=== PATIENT | female | born 1960 | race Caucasian/White ===

== ENCOUNTER 2020-04-23 08:30 | Outpatient (CLI) | payer BC, SELFPAY ==
--- NOTE | 2020-04-23 09:46 | ECG_ITS ---
Measurements Intervals [place] Rate: 78 P: 79 HI: 163 QRS: 66 QRSD: 86 T: 61 QT: 389 QTc: 445 Interpretive Statements SINUS RHYTHM MINIMAL Q WAVES- INFERIOR LEADS NONSPECIFIC T-WAVE ABNORMALITY- HIGH LATERAL LEADS BASELINE ARTIFACT- V3-V6 BORDERLINE ECG Electronically Signed On 04-23-2020 10:42:17 CDT by Alex Addison D.O.
[2020-04-23 10:24] LABS: Basophils Absolute Auto 0.1 K/mm3 (0.0-0.1); Basophils Percent Auto 0.7 % (0.2-1.2); Eosinophils Absolute Auto 0.3 K/mm3 (0-0.3); Eosinophils Percent Auto 3.1 % (0-4.4); Hemoglobin 14.3 g/dL (12.0-15.0); Immature Granulocyte Absolute 0.01 K/mm3 (0.00-0.031); Immature Granulocyte Percent A 0.1 % (0-0.5); Lymphocytes Absolute Auto 2.41 K/mm3 (0.9-3.2); Lymphocytes Percent Auto 27.7 % (18.3-44.2); Mean Corpuscular HGB Conc 32.5 g/dl (32-36); Mean Corpuscular Volume 95.4 fl (80-100); Mean Platelet Volume 10.8 fl (7.4-10.4); Monocytes Absolute Auto 0.5 K/mm3 (0.1-0.6); Monocytes Percent Auto 6.2 % (2.6-8.5); Neutrophils Absolute Auto 5.4 K/mm3 (1.3-6.7); Neutrophils Percent Auto 62.2 % (45.5-73.1); Platelet Count Result 284 k/mm3 (150-375); Red Blood Count 4.61 M/mm3 (4.2-5.4); Red Cell Distribution Width 14.3 % (11.5-14.5); White Blood Count 8.7 K/mm3 (4.5-10.0)
[2020-04-23 10:29] LABS: Add Urine Microscopic? YES; Appearance Urine Clear (Clear); Bacteria Urine Trace /hpf; Bilirubin Urine Negative (Negative); Blood Urine Negative (Negative); Color Urine Yellow (Yellow); Glucose Urine UA Negative (Negative); Hyaline Casts Urine 50+ /lpf; Ketones Urine Negative (Negative); Leukocyte Esterase Ur Negative LEU/UL (Negative); Mucus Urine Rare /lpf; Nitrate Urine Negative (Negative); Protein Urine 1+ mg/dL (Negative); Squamous Epithelial Cell Urine Occasional /hpf (Few)
[2020-04-23 10:30] LABS: Specific Grav Ur 1.034 (1.001-1.035)
[2020-04-23 10:33] LABS: INR 0.9; Prothrombin Time 12.3 Seconds (11.1-14.7)
[2020-04-23 10:34] LABS: Partial Thromboplastin Time 24.9 SECONDS (22.3-36.8)
[2020-04-23 10:37] LABS: Albumin Level 4.5 g/dL (3.5-5.1); Blood Urea Nitrogen 17 mg/dL (7-17); Calcium 10.3 mg/dL (8.4-10.2); Carbon Dioxide 30 mmol/L (22-30); Chloride 103 mmol/L (98-107); Estimated Glomerular Filt Rate > 60; Glucose 116 mg/dL (65-105); Potassium 4.8 mmol/L (3.4-5.0); Sodium 139 mmol/L (137-145)
[2020-04-23 10:39] LABS: Urine Cotinine NEGATIVE
[2020-04-23 10:40] LABS: Hemoglobin A1C 6.5 % (<5.7)
== END 2020-04-23 08:31 | disposition home or self-care (01) ==
LOC: ANHSURGERY 08:37
PROVIDERS: PCP Family Medicine; Visit Provider Orthopaedic Surgery
DX: Z01.818 Encounter for other preprocedural examination (principal); M16.12 Unilateral primary osteoarthritis, left hip
CPT/HCPCS: 36415; 80048; 80307; 81001; 82040; 83036; 85025; 85610; 85730; 86850; 86900; 86901; 87081; 93005

== ENCOUNTER 2020-05-01 01:10 | Outpatient (CLI) | payer BC, SELFPAY ==
[2020-05-01 16:42] LABS: SARS-CoV-2 RNA PCR Negative
== END 2020-05-01 01:11 | disposition home or self-care (01) ==
LOC: ANHCOVIDDT 01:10
PROVIDERS: Visit Provider Orthopaedic Surgery
DX: Z01.812 Encounter for preprocedural laboratory examination (principal); Z20.828 Contact with and (suspected) exposure to other viral communicable diseases
CPT/HCPCS: 87635; C9803; U0003

== ENCOUNTER 2020-05-05 15:33 | Observation (INO) | payer BC, SELFPAY ==
[2020-04-23 09:27] VITALS: BMI 25.0
[2020-04-23 09:44] VITALS: BP 118/79; PULSE 80; RESP 18; TEMP 36.4; O2SAT 100
[2020-05-04] VITALS (13 sets, daily range): BP systolic 122–216; BP diastolic 47–126; PULSE 62–94; RESP 12–20; TEMP 36–36.9; O2SAT 93–100; BMI 27.6
[2020-05-04 06:45] LABS: Urine Cotinine NEGATIVE
[2020-05-04] MEDS: LACTATED RINGERS 1,000 ML 30 ML IV CONT ×2 (06:45→10:14)
--- NOTE | 2020-05-04 06:58 | WPDANESEPPF ---
Anes - Initial Pre Proc Eval Procedure: Operation Date: 05/04/20 07:30 Proposed Procedures p Left Total Hip Arthroplasty - Lalo Ambriz MD Date/Time: 05/04/20 06:58 Surgeon: Lalo Ambriz MD Pre Op Diagnosis: Left Hip DJD Patient Data Age: 60 Gender: F Height: 1.57 m Weight: 62 kg Last Vital Signs Temp 36.4 C L 04/23/20 09:44 Pulse 80 04/23/20 09:44 Resp 18 04/23/20 09:44 BP 118/79 04/23/20 09:44 Pulse Ox 100 04/23/20 09:44 Allergies Allergy/AdvReac Type Severity Reaction Status Date / Time mold Allergy Unknown Nasal Verified 05/04/20 06:59 Discharge nickel Allergy Unknown Swelling/BL Verified 05/04/20 06:59 ISTERS/ITCH ING ragweed pollen Allergy Unknown Nasal Verified 05/04/20 06:59 Discharge Sulfa (Sulfonamide Allergy Unknown Hives Verified 05/04/20 06:59 Antibiotics) Home Medications Medication Instructions Recorded Confirmed Type albuterol sulfate 90 mcg/actuation 1 inhalation INHALATION Q4H PRN #3 12/08/19 04/23/20 Rx aerosol inhaler device acetaminophen [Tylenol 8 Hour] 650 mg PO Q8H 04/23/20 04/23/20 History aspirin 325 mg PO HS 04/23/20 04/23/20 History clopidogrel 75 mg PO HS 04/23/20 04/23/20 History metoprolol succinate 25 mg PO HS 04/23/20 04/23/20 History montelukast 10 mg PO HS 04/23/20 04/23/20 History multivitamin,pt-[id number] 1 tablet PO HS 04/23/20 04/23/20 History [Complete Multivitamin] simvastatin 40 mg PO HS 04/23/20 04/23/20 History varenicline [Chantix Starting 1 ea PO BID 04/23/20 04/23/20 History Month Box] venlafaxine 150 mg PO HS 04/23/20 04/23/20 History Laboratory Tests 05/04/20 06:22 Cotinine Negative Patient hx anesthesia problems: none Family hx anesthesia problems: none PMFSH Past Medical History Medical History (Updated 05/04/20 @ 06:58 by Wade Shearer DO) Anxiety Arthritis Depression Essential hypertension High cholesterol History of [place] (myocardial infarction) 2006 - no intervention required - regular stress tests as part of her job - all negative since Mixed hyperlipidemia Osteoporosis Vision abnormalities Surgical History Surgical History (Updated 05/03/20 @ 09:46 by Wade Shearer DO) History of ankle surgery Left, Dr. Rae History of breast surgery augmentation History of cholecystectomy History of surgery Right thumb, Dr. Rae History of surgery Foot, Dr. Chavo [place] Social History Social History Smoking packs per day: 1 Smoking cigarettes per day: 20.0 Years smoked: 40 Smoking pack-years: 40.00 Smoking status: Current every day smoker (1ppd since 17 years old. ) Tobacco type: cigarettes Second hand tobacco smoke exposure: Yes Alcohol intake: never Anes - Eval Final PreProcedure Day of Procedure 05/04/20 06:58 Patient weight: normal Heart: regular rate and rhythm Lungs: clear to auscultation and normal air movement Airway: Mallampati scale class III Neurological: alert and oriented Last oral intake: >/= 8 hours ASA classification: III Emergent: no Anesthetic plan: proceed Anesthesia type and monitoring: general ETT and standard monitoring Informed Consent: The patient's anesthetic plan and its attendant risks and benefits were discussed with the patient/family/POA. Questions were solicited and answers provided to the satisfaction of the patient/family/POA.
[2020-05-04] MEDS: IBUPROFEN IV 800 MG/200 ML 800 MG/200 ML BAG 400 MG IVPB (07:05)
--- NOTE | 2020-05-04 07:32 | WPDHPUPDATE1 ---
History and Physical Update Update Date/Time: 05/04/20 07:32 History and Physical has been reviewed, including an updated exam of the patient. There are NO changes in the patient's condition. Risks, benefits, and alternatives have been discussed and questions answered. Patient agrees to proceed with procedure.
[2020-05-04] MEDS: ceFAZolin 2 GM/D5W 50 ML 2 GM/50 ML BAG IVPB ×3 (07:37→22:47)
--- NOTE | 2020-05-04 07:42 | SUR.PREOP ---
family update provided to Gely - neighbor/friend that pt has gone to surgery
[2020-05-04] MEDS: TRANEXAMIC ACID 1,000MG/ISO100 1,000 MG/100 ML BAG 200 MG IVPB (07:55)
--- NOTE | 2020-05-04 09:45 | PM.OP ---
Procedure Note - Brief Procedure Note - Brief Date of procedure: 05/04/20 Pre-op diagnosis: Left Hip DJD Post-op diagnosis: same Procedure performed: L JOANNA Anesthesia: GETA Surgeon: Lalo Ambriz MD Estimated blood loss (mL): 100 Drains: No Complications: No immediate complications Condition: stable Disposition: PACU
--- NOTE | 2020-05-04 10:28 | SUR.PHASEI ---
TABITHA ADJUNCT INSTRUCTOR CHEMISTRY AT BEDSIDE TO OBSERVE PT. DR. DIXON AT BEDSIDE ALSO. PT GIVEN LABETOLOL PER TABITHA ADJUNCT INSTRUCTOR CHEMISTRY AT 1014 FOR BP 216/126. BP NOW STABLE 144/47. RT HERE TO PLACE CPAP.
--- NOTE | 2020-05-04 10:51 | SUR.PHASEI ---
SPOKE WITH VIDEO PHOTOGRAPHER.
[2020-05-04 12:24] LABS: Hematocrit 36.5 % (37.0-47.0); Hemoglobin 11.8 g/dL (12.0-15.0)
[2020-05-04] MEDS: KCL 20 MEQ/D5/0.45% SOD CHL 1,000 ML 80 ML IV CONT (12:31)
[2020-05-04] MEDS: ACETAMINOPHEN 325 MG TABLET 650 MG PO ×2 (13:49→21:39)
--- NOTE | 2020-05-04 15:40 | OP_ITS ---
DATE OF PROCEDURE: 05/04/2020 PREOPERATIVE DIAGNOSIS: Left hip degenerative joint disease. POSTOPERATIVE DIAGNOSIS: Left hip degenerative joint disease. PROCEDURE: Left total hip arthroplasty. ANESTHESIA: General. COMPLICATIONS: None. INDICATIONS: This is a 60-year-old female with severe left hip arthrosis. She was in severe pain. She was indicated for left total hip arthroplasty. DESCRIPTION OF PROCEDURE: The patient was taken to the operating room in stable condition, placed in supine position. General anesthesia induced, and then she was placed in lateral decubitus position and the left lower extremity ws prepped and draped sterilely from the toes to the iliac crest region. Incision was made along the posterior lateral aspect of the greater trochanter down to the subcutaneous tissues and then down to the fascia. The short external rotators of the hip were identified and the sciatic nerve was identified. The gluteus medius and minimus were retracted and the piriformis tendon was then incised as well as the capsule and the short external rotators. The hip was dislocated. An osteotomy was performed approximately 1 cm proximal to the lesser trochanter. The acetabulum was exposed and sequential reaming was performed starting with a 44 reamer and ending with a 49 reamer anteversion and alignment with the trans-acetabular ligament and abduction in approximately 45 degrees. A trial liner was placed and it bottomed out well, and then a Biomet G7 50 acetabular component was press-fit into place in approximately 40 degrees of abduction and anteversion alignment with the trans-acetabular ligament. It bottomed out well. No screws were required for fracture fixation. A 10 degree high wall liner then was tapped into place and it was secured. Hemostat was used to test the security of the locking mechanism and it was fine. Next, the femoral canal was prepared first with a cookie cutter osteotome, and then a canal finder and then sequential broaching starting with a #4 broach until a number 8 broach in 15 degrees of anteversion, fit well in the femoral canal. A high offset neck with a -3, 36 mm head was placed as trials and the hip was relocated taken through range of motion. Leg lengths were grossly equal. The hip was very stable. Trial instrumentation was removed, and then a Taper Lock #8 stem with a high offset neck was tapped into place. The fit was excellent. It was in 15 degrees of anteversion and then a -3, 36 mm head then was placed as a trial. The hip was relocated taken through range of motion. The Shuck test was excellent. The hip was very stable. The leg lengths were grossly equal. The trial head was removed, and then a ceramic -3, 36 mm head was tapped onto the component. It was well secured. The hip was relocated taken through range of motion. The leg lengths were grossly equal. The hip was stable in all planes in rotation, in flexion and extension, and then the leg lengths were grossly equal. The wound was irrigated thoroughly with a sterile Betadine sterile water for 3 minutes and washed out. The short external rotators were approximated with #1 Vicryl. The fascia was approximated with #2 Quill, subcutaneous with 2-0 Vicryl and then the skin with a 3-0 Quill, Dermabond and Steri-Strips. Sterile dressing was applied. The patient was placed back in the supine position, extubated and sent to recovery. Farhana I MT: Shira
[2020-05-04] MEDS: VARENICLINE 1 MG TABLET PO (16:54)
[2020-05-04] MEDS: DOCUSATE SODIUM 100 MG CAPSULE PO (16:54)
[2020-05-04] MEDS: THERAPEUTIC MULTIVITAMINS/MINERALS TAB (*BKC) 1 TABLET PO (21:35)
[2020-05-04] MEDS: METOPROLOL SUCCINATE EXT REL 25 MG TABCR PO (21:35)
[2020-05-04] MEDS: CLOPIDOGREL BISULFATE 75 MG TABLET PO (21:35)
[2020-05-04] MEDS: MONTELUKAST SODIUM 10 MG TABLET PO (21:36)
[2020-05-04] MEDS: SIMVASTATIN 20 MG TABLET 40 MG PO (21:38)
[2020-05-04] MEDS: VENLAFAXINE HCL XR 75 MG CAP.ER.24H 150 MG PO (21:38)
[2020-05-04] MEDS: DIAZEPAM 5 MG TABLET PO (22:47)
[2020-05-04] MEDS: MORPHINE SULFATE 4 MG/ML INJ 3 MG IV PUSH (23:58)
[2020-05-05] VITALS (7 sets, daily range): BP systolic 111–129; BP diastolic 42–75; PULSE 67–85; RESP 16–20; TEMP 36.2–37.7; O2SAT 94–98
--- NOTE | ~2020-05-05 | XR_ITS ---
EXAMINATION: XR hip LT 1V DATE: 05/04/2020 10:38 INDICATION: Left hip arthroplasty. Postop. TECHNIQUE: A single view of left hip was obtained. COMPARISON: None. FINDINGS: There is a total left hip arthroplasty in near-anatomic alignment. No fracture. There is ga s in the soft tissues, consistent with recent surgery. IMPRESSION: 1. Total left hip arthroplasty in near-anatomic alignment. Reviewed, dictated and finalized at location A.
[2020-05-05] MEDS: MORPHINE SULFATE 4 MG/ML INJ 3 MG IV PUSH ×2 (03:48→08:57)
[2020-05-05] MEDS: ceFAZolin 2 GM/D5W 50 ML 2 GM/50 ML BAG IVPB (06:40)
[2020-05-05] MEDS: ACETAMINOPHEN 325 MG TABLET 650 MG PO ×3 (06:41→21:46)
[2020-05-05 07:42] LABS: Basophils Percent Auto 0.2 % (0.2-1.2); Eosinophils Percent Auto 0.2 % (0-4.4); Hematocrit 34.1 % (37.0-47.0); Hemoglobin 10.7 g/dL (12.0-15.0); Immature Granulocyte Absolute 0.07 K/mm3 (0.00-0.031); Immature Granulocyte Percent A 0.6 % (0-0.5); Lymphocytes Absolute Auto 1.95 K/mm3 (0.9-3.2); Lymphocytes Percent Auto 15.5 % (18.3-44.2); Mean Corpuscular HGB Conc 31.4 g/dl (32-36); Mean Corpuscular Hemoglobin 30.9 pg (26-34); Mean Corpuscular Volume 98.6 fl (80-100); Mean Platelet Volume 11.2 fl (7.4-10.4); Monocytes Absolute Auto 1.2 K/mm3 (0.1-0.6); Monocytes Percent Auto 9.1 % (2.6-8.5); Neutrophils Absolute Auto 9.4 K/mm3 (1.3-6.7); Neutrophils Percent Auto 74.4 % (45.5-73.1); Platelet Count Result 154 k/mm3 (150-375); Red Blood Count 3.46 M/mm3 (4.2-5.4); Red Cell Distribution Width 14.1 % (11.5-14.5); White Blood Count 12.6 K/mm3 (4.5-10.0)
[2020-05-05 08:02] LABS: Blood Urea Nitrogen 10 mg/dL (7-17); Calcium 8.9 mg/dL (8.4-10.2); Carbon Dioxide 21 mmol/L (22-30); Chloride 104 mmol/L (98-107); Estimated CRCL calculation 76 ml/min; Estimated Glomerular Filt Rate > 60; Glucose 137 mg/dL (65-105); Sodium 134 mmol/L (137-145)
[2020-05-05] MEDS: ASPIRIN 325 MG ENTERIC TABLET 650 MG PO (08:56)
[2020-05-05] MEDS: CELECOXIB 200 MG CAPSULE PO (08:56)
[2020-05-05] MEDS: DOCUSATE SODIUM 100 MG CAPSULE PO ×2 (08:56→17:17)
[2020-05-05] MEDS: VARENICLINE 1 MG TABLET PO ×2 (08:56→17:17)
--- NOTE | 2020-05-05 09:02 | P.PNAN_ITS ---
Anes - Prog Note Post-Op Date/Time: 05/05/20 09:02 Cardiovascular status: normal Respiratory status: normal Airway patency: baseline Mental status: baseline Post-Op hydration status: normal Vital Signs: Last Vital Signs Temp 36.2 C L 05/05/20 06:00 Pulse 73 05/05/20 06:00 Resp 18 05/05/20 06:00 BP 129/64 05/05/20 06:00 Pulse Ox 96 05/05/20 06:00 I/O: Intake & Output 05/04/20 05/05/20 05/05/20 23:59 07:59 15:59 Intake Total 890 1230 240 Output Total 600 1600 Balance 290 -370 240 Laboratory Tests 05/05/20 07:06 05/05/20 07:06 05/04/20 05/05/20 05/05/20 12:08 07:06 07:06 WBC 12.6 H RBC 3.46 L Hgb 11.8 L 10.7 L Hct 36.5 L 34.1 L MCV 98.6 MCH 30.9 MCHC 31.4 L RDW 14.1 Plt Count 154 MPV 11.2 H Immature Gran % (Auto) 0.6 H Neut % (Auto) 74.4 H Lymph % (Auto) 15.5 L [place] % (Auto) 9.1 H Eos % (Auto) 0.2 Baso % (Auto) 0.2 Lymph # (Auto) 1.95 [place] # (Auto) 1.2 H Eos # (Auto) 0.0 Baso # (Auto) 0.0 Abs Immat Gran (auto) 0.07 H Absolute Neuts (auto) 9.4 H Absolute Nucleated RBC 0.0 Nucleated RBC % 0.0 Sodium 134 L Potassium 4.0 Chloride 104 Carbon Dioxide 21 L BUN 10 D Creatinine 0.60 L Estim Creat Clear Calc 76 Estimated GFR > 60 Glucose 137 H Calcium 8.9 Post-procedural complaints: none Patient Feedback: Patient satisfied with anesthetic care.
--- NOTE | 2020-05-05 09:02 | PM.IMCN ---
Assessment and Plan Assessment and plan (1) Degenerative joint disease of left hip: Qualifiers: Osteoarthritis type: primary Qualified Code(s): M16.12 - Unilateral primary osteoarthritis, left hip Code(s): M16.12 - Unilateral primary osteoarthritis, left hip Status: Acute Assessment and Plan: She is POD #1 s/p left total hip arthroplasty by Dr. Ambriz. Post-op management including wound care, DVT prophylaxis, pain management, and PT/OT/weight bearing status per ortho. She tolerated the procedure well and is having some left hip discomfort today. (2) Essential hypertension: Code(s): I10 - Essential (primary) hypertension Status: Chronic Assessment and Plan: Blood pressures were reviewed and most recent BP was at target at 129/64. She did have some elevated readings yesterday in the 140s systolic. Plan to continue metoprolol and continue to monitor. (3) Mixed hyperlipidemia: Code(s): E78.2 - Mixed hyperlipidemia Status: Chronic Assessment and Plan: Will check a lipid panel. LFTs from 12/09/2018 were WNL. Continue simvastatin. (4) Anxiety: Code(s): F41.9 - Anxiety disorder, unspecified Status: Chronic Assessment and Plan: Stable. Continue venlafaxine. (5) History of [place] (myocardial infarction): Code(s): I25.2 - Old myocardial infarction Status: Acute Assessment and Plan: Stable. She gets regular stress tests for her job and her nuclear stress test 1 year ago was negative. She denies chest pain with rest or exertion. She denies dyspnea. Plan to continue ASA and clopidogrel. Continue simvastatin. Continue metoprolol. (6) Anemia: Code(s): D64.9 - Anemia, unspecified Status: Acute Assessment and Plan: Acute. Hb was 14.3 and Hct 44 on pre-op labs 04/23/20. Hb today is 10.7 and Hct 34.1. I suspect that this is due to post-op blood loss. Plan to monitor closely. HPI Data of Consult Consult date: 05/05/20 Requesting Physician: Lalo Ambriz MD Primary Care Provider: Gayle Hammond Consult Narrative Narrative: Genny Magallanes is a 60 year old female with PMH significant for former 40 pack-year smoker (quit 04/20/20), hypertension, hyperlipidemia, CAD, degenerative osteoarthritis, depression, anxiety, and osteoporosis who presented to [facility] for elective left total hip arthroplasty. The hospitalist service was consulted for medical management s/p left total hip arthroplasty. She reports a hx of progressive, severe hip pain bilaterally despite conservative outpatient management and thus elected for surgical intervention. She is POD#1 s/p left total hip arthroplasty by Dr. Ambriz. Her surgery was performed under general anestehsia. She tolerated the procedure well without any immediate complications. Estimated blood loss was 100mL. She reports that she is having significant post-operative pain in the left hip. She denies paresthesias and skin color changes distal to the operative site. She does report intermittent left sided sciatica discomfort in the left buttock. She denies fever, chills, shortness of breath, and chest pain. She reports a mild cough since she quit smoking and states that this developed the last time she quit smoking as well. She denies myalgias. She has no other concerns at this time. Review of Systems Review of Systems: Narrative: Constitutional: Denies fever, chills, fatigue, and appetite change. Eyes: Denies vision change. No additional eye complaints. ENT: Denies change in hearing, nasal congestion, dysphagia, and sore throat. Cardiovascular: Denies palpitations and chest pain. Denies PND and orthopnea. Denies dyspnea on exertion. Respiratory: Denies shortness of breath. Reports occasional cough since she quit smoking which also occurred the last time she quit smoking. Gastrointestinal: Denies abdominal pain, nausea, and vomiting. Genitourinary: Denies dysuria,
[2020-05-05] MEDS: PANTOPRAZOLE 40 MG TABLET PO (11:58)
--- NOTE | 2020-05-05 17:57 | PM.PNORT ---
Progress Note: A&P Additional Plan POD 1 DOING WELL. DC TMRW AFTER PT. Subjective Subjective Date/Time Seen: 05/05/20 17:57 POD 1 DOING WELL. NO CALF PAIN Exam Extrem: Other: VSS AFEBRILE DRESSING DRY NV INTACT NEG HOMANS SIGN CALF SOFT NON TENDER Objective Data Vital Signs Vital Signs: Vital Signs - 24 hr 05/04/20 18:00 05/04/20 21:35 05/04/20 22:00 Temperature 36.8 C 36.8 C Pulse Rate 94 68 75 Respiratory Rate 19 20 Blood Pressure 128/65 123/77 Pulse Oximetry 97 98 05/05/20 02:00 05/05/20 06:00 05/05/20 10:00 Temperature 36.4 C L 36.2 C L 36.3 C L Pulse Rate 67 73 83 Respiratory Rate 20 18 16 Blood Pressure 111/42 L 129/64 111/75 Pulse Oximetry 98 96 98 05/05/20 14:00 Temperature 36.6 C Pulse Rate 70 Respiratory Rate 16 Blood Pressure 117/51 L Pulse Oximetry 94 Intake/Output Intake/Output: Intake & Output 05/02/20 05/03/20 05/04/20 05/05/20 23:59 23:59 23:59 23:59 Intake Total 1890 2630 Output Total 1100 2750 Balance 790 -120 Meds/Results Medications: Active Medications Generic Name Dose Route Start Last Admin Trade Name Freq PRN Reason Stop Dose Admin Acetaminophen 650 mg 05/04/20 14:00 05/05/20 14:53 Tylenol Tablet PO 650 mg Q8HR CHUCKIE Administration Hydrocodone Bitart/Acetaminophen 1 tab 05/04/20 11:33 05/05/20 06:40 [place] 7.5-325 Mg PO 1 tab Q3H PRN Administration Pain Rated 4-6 Albuterol 1 puff 05/04/20 11:33 Proventil Hfa INHALATION Q4H PRN shortness of breath or wheezing Aspirin 650 mg 05/05/20 09:00 05/05/20 08:56 Aspirin Ec PO 650 mg DAILY CHUCKIE Administration Celecoxib 200 mg 05/05/20 09:00 05/05/20 08:56 Celebrex PO 200 mg DAILY CHUCKIE Administration Clopidogrel Bisulfate 75 mg 05/04/20 21:00 05/04/20 21:35 Plavix PO 75 mg HS CHUCKIE Administration Diazepam 5 mg 05/04/20 11:33 05/04/20 22:47 Valium Po PO 5 mg Q6H PRN Administration Anxiety/Muscle Spasm Docusate Sodium 100 mg 05/04/20 17:00 05/05/20 17:17 Colace Capsule PO 100 mg BID CHUCKIE Administration Magnesium Hydroxide 30 ml 05/04/20 11:33 Milk Of Magnesia PO BID PRN Constipation Metoprolol Succinate 25 mg 05/04/20 21:00 05/04/20 21:35 Toprol Xl PO 25 mg HS CHUCKIE Administration Montelukast Sodium 10 mg 05/04/20 21:00 05/04/20 21:36 Singulair PO 10 mg HS CHUCKIE Administration Morphine Sulfate 3 mg 05/04/20 11:33 05/05/20 08:57 Morphine Sulfate Inj IV PUSH 3 mg Q3H PRN Administration Pain Rated 7-10 Multivitamins/Calcium 1 tablet 05/04/20 21:00 05/04/20 21:35 Therapeutic Multivitamins/Minerals PO 1 tablet HS [facility] Administration Naloxone HCl 0.1 mg 05/04/20 11:33 Narcan IV PUSH Q2M PRN Opiate Reversal Ondansetron HCl 4 mg 05/04/20 11:33 Zofran Inj IV PUSH Q4H PRN Nausea And Vomiting Oxycodone/Acetaminophen 1 tablet 05/04/20 11:33 05/04/20 21:37 Percocet 5-325 Mg PO 1 tablet Q4H PRN Administration Breakthrough Pain Pantoprazole Sodium 40 mg 05/05/20 09:00 05/05/20 11:58 Protonix PO 40 mg QAM [facility] Administration Simvastatin 40 mg 05/04/20 21:00 05/04/20 21:38 Zocor PO 40 mg HS [facility] Administration Varenicline 1 mg 05/04/20 18:00 05/05/20 17:17 Chantix PO 1 mg BIDPC CHUCKIE Administration Venlafaxine HCl 150 mg 05/04/20 21:00 05/04/20 21:38 Effexor Xr PO 150 mg HS [facility] Administration Radiology Results: ITS Impressions Hip X-Ray 05/04/20 10:49 IMPRESSION: 1. Total left hip arthroplasty in near-anatomic alignment. Labs Labs: Laboratory Results - last 24 hr 05/05/20 05/05/20 07:06 07:06 WBC 12.6 H RBC 3.46 L Hgb 10.7 L Hct 34.1 L MCV 98.6 MCH 30.9 MCHC 31.4 L RDW 14.1 Plt Count 154 MPV 11.2 H Immature Gran % (Auto) 0.6 H Neut % (Auto) 74.4 H Lymph % (Auto) 15.5 L [place] % (Auto) 9.1 H Eos % (Au
[2020-05-05] MEDS: METOPROLOL SUCCINATE EXT REL 25 MG TABCR PO (21:45)
[2020-05-05] MEDS: MONTELUKAST SODIUM 10 MG TABLET PO (21:45)
[2020-05-05] MEDS: VENLAFAXINE HCL XR 75 MG CAP.ER.24H 150 MG PO (21:46)
[2020-05-05] MEDS: SIMVASTATIN 20 MG TABLET 40 MG PO (21:46)
[2020-05-05] MEDS: CLOPIDOGREL BISULFATE 75 MG TABLET PO (21:47)
[2020-05-05] MEDS: THERAPEUTIC MULTIVITAMINS/MINERALS TAB (*BKC) 1 TABLET PO (21:47)
[2020-05-06 02:00] VITALS: BP 132/54; PULSE 83; RESP 18; TEMP 37.2; O2SAT 92
[2020-05-06] MEDS: ACETAMINOPHEN 325 MG TABLET 650 MG PO ×2 (05:46→13:32)
[2020-05-06 05:57] LABS: Hematocrit 31.3 % (37.0-47.0); Hemoglobin 10.3 g/dL (12.0-15.0); Mean Corpuscular HGB Conc 32.9 g/dl (32-36); Mean Corpuscular Hemoglobin 31.5 pg (26-34); Mean Corpuscular Volume 95.7 fl (80-100); Mean Platelet Volume 10.3 fl (7.4-10.4); Platelet Count Result 200 k/mm3 (150-375); Red Blood Count 3.27 M/mm3 (4.2-5.4); White Blood Count 13.8 K/mm3 (4.5-10.0)
[2020-05-06 06:00] VITALS: BP 132/65; PULSE 85; RESP 18; TEMP 36.8; O2SAT 92
[2020-05-06 06:10] LABS: Alanine Aminotransferase 23 U/L (4-35); Albumin Level 3.5 g/dL (3.5-5.1); Alkaline Phosphatase 80 U/L (38-126); Aspartate Amino Transferase 57 U/L (14-36); Bilirubin,Total 0.5 mg/dL (0.2-1.3); Blood Urea Nitrogen 11 mg/dL (7-17); Calcium 8.8 mg/dL (8.4-10.2); Carbon Dioxide 30 mmol/L (22-30); Chloride 103 mmol/L (98-107); Cholesterol 113 mg/dL (0-200); Estimated CRCL calculation 66 ml/min; Estimated Glomerular Filt Rate > 60; Glucose 126 mg/dL (65-105); HDL Direct 45 mg/dL; Potassium 4.4 mmol/L (3.4-5.0); Sodium 137 mmol/L (137-145); Triglycerides 92 mg/dL (<150)
[2020-05-06 06:25] LABS: LDL Cholesterol Direct 42 mg/dL
--- NOTE | 2020-05-06 09:00 | PM.IMPN ---
Progress Note: A&P Assessment and Plan (1) Degenerative joint disease of left hip: Qualifiers: Osteoarthritis type: primary Qualified Code(s): M16.12 - Unilateral primary osteoarthritis, left hip Code(s): M16.12 - Unilateral primary osteoarthritis, left hip Status: Acute Assessment and Plan: She is POD #21 s/p left total hip arthroplasty by Dr. Ambriz. Post-op management including wound care, DVT prophylaxis, pain management, and PT/OT/weight bearing status per ortho. She is doing very well today. Her pain is well-controlled and she is progressing from a PT/OT standpoint. (2) Essential hypertension: Code(s): I10 - Essential (primary) hypertension Status: Chronic Assessment and Plan: Blood pressures were reviewed and are at target. Continue to monitor. (3) Mixed hyperlipidemia: Code(s): E78.2 - Mixed hyperlipidemia Status: Chronic Assessment and Plan: LDL 42, HDL 45, triglycerides 92, and total cholesterol 113. AST is slightly elevated but is likely transient. Other LFTs are WNL. Continue simvastatin. Plan to repeat CMP per PCP. (4) Anxiety: Code(s): F41.9 - Anxiety disorder, unspecified Status: Chronic Assessment and Plan: Stable. Continue venlafaxine. (5) History of HI (myocardial infarction): Code(s): I25.2 - Old myocardial infarction Status: Acute Assessment and Plan: Stable. She gets regular stress tests for her job and her nuclear stress test 1 year ago was negative. Plan to continue ASA and clopidogrel. Continue simvastatin. Continue metoprolol. (6) Anemia: Code(s): D64.9 - Anemia, unspecified Status: Acute Assessment and Plan: Acute and stable. Hb was 14.3 and Hct 44 on pre-op labs 04/23/20. Hb today is 10.3 and Hct 31.3. I suspect that this is due to post-op blood loss but it appears to be stable at this time. She is asymptomatic. Continue to monitor. Subjective Date/time seen: 05/06/20 09:00 Interval history: Mrs. Magallanes is seen and examined at bedside. She is POD #2 s/p left total hip arthroplasty. She is doing well and is eager to go home. She reports that she did well with PT/OT yesterday. Her pain is well-controlled and she rates her pain at 1-2/10 at this time. She is tolerating PO intake well. She is voiding without difficulty. She is passing flatus. She denies chest pain, shortness of breath, and calf pain. She denies nausea and vomiting. She denies abdominal pain. She denies headaches, lightheadedness, and dizziness. Review of Systems Review of Systems: All systems reviewed & are unremarkable except as noted in HPI and below Exam Narrative: Exam Narrative: General: Pleasant, well-nourished and well-developed 60 y.o. female sitting up in the chair after breakfast and in no acute distress. HEENT: Normocephalic and atraumatic. Conjunctiva normal. Mucous membranes moist. Neck: Supple. Cardiac: Regular rate and rhythm. S1 and S2 normal. Lungs: Effort normal. Lungs are clear to auscultation bilaterally without rhonchi, rales, or wheezes. Abdomen: Bowel sounds are normoactive. Abdomen is soft, non-distended, and non-tender. Extremities: No lower extremity edema bilaterally. Jim sign negative. PT 2+ bilaterally. Neurological: Alert. No focal neurological deficits noted. Speech is clear. Motor and sensation are intact to the LLE. Skin: Warm and dry. Dressing to left hip is c/d/i. She has mild ecchymosis at the medial left thigh. Psychiatric: Judgment and insight intact. Mood pleasant and affect normal. Objective Data Vital Signs Vital Signs: Vital Signs - 24 hr 05/05/20 10:00 05/05/20 14:00 05/05/20 18:00 Temperature 97.4 F L 97.8 F 98.2 F Pulse Rate 83 70 79 Respiratory Rate 16 16 16 Blood Pressure 111/75 117/51 L 118/56 L Pulse Oximetry 98 94 96 05/05/20 21:45 05/05/20 22:00 05/06/20 02:00 Temperature 99.8 F H 98.9 F Pulse Rate 85 79 8
[2020-05-06] MEDS: VARENICLINE 1 MG TABLET PO (09:09)
[2020-05-06] MEDS: PANTOPRAZOLE 40 MG TABLET PO (09:09)
[2020-05-06] MEDS: ASPIRIN 325 MG ENTERIC TABLET 650 MG PO (09:09)
[2020-05-06] MEDS: CELECOXIB 200 MG CAPSULE PO (09:09)
[2020-05-06] MEDS: DOCUSATE SODIUM 100 MG CAPSULE PO (09:09)
--- NOTE | 2020-05-06 12:24 | PM.PNORT ---
Progress Note: A&P Assessment and Plan (1) S/P total hip arthroplasty: Qualifiers: Laterality: left Qualified Code(s): Z96.642 - Presence of left artificial hip joint Code(s): Z96.649 - Presence of unspecified artificial hip joint Status: Acute Assessment and Plan: POD #2 LEFT JOANNA Continue PT/OT. WBAT with walker. High Fall Risk. Continue JOANNA precautions. Continue DVT prophylaxis. SCDs. Incentive spirometry Continue pain control. Dressing changed. New dressing applied. Dispo: Home with home health today (2) Degenerative joint disease of left hip: Qualifiers: Osteoarthritis type: primary Qualified Code(s): M16.12 - Unilateral primary osteoarthritis, left hip Code(s): M16.12 - Unilateral primary osteoarthritis, left hip Status: Acute Subjective Subjective Date/Time Seen: 05/06/20 12:24 Post Op day: 2 (Left JOANNA ) Principal diagnosis: Left Hip DJD Interval history: POD #2: LEFT JOANNA No new complaints. Pain well controlled. Took a shower. Would like to go home. Review of Systems Constitutional: Constitutional: Denies chills, Denies fatigue, Denies fever(s) and Denies weakness Cardiovascular: Cardiovascular: Denies chest pain Respiratory: Respiratory: Denies cough, Denies dyspnea and Denies wheezing Gastrointestinal: Gastrointestinal: Denies abdominal pain, Denies bloating, Denies diarrhea, Denies nausea and Denies vomiting Musculoskeletal: Musculoskeletal: Reports arthralgias (left hip ), Reports joint swelling (left hip ), Denies numbness and Denies tingling Exam Const: General: comfortable and no acute distress Resp: Effort & Inspection: normal respiratory effort Auscultation: no wheezes Cardio: Rate: regular rate Rhythm: regular rhythm Skin: General skin exam: normal color Wounds: wounds noted (dressing changed. Incision well-approximated. No signs/symptoms of infectio) Neuro: Cognition (Neuro): normal cognition Motor exam (neuro): Abnormal motor strength present (decreased LLE ) Extrem: Right lower extremity: normal to inspection, full ROM and normal capillary refill Left lower extremity: normal to inspection, hip/thigh Details: tenderness Location: of the hip Location: laterally and posterolaterally, swelling Location: of the hip, abnormal ROM (limited due to recent surgical intervention ), ecchymosis (mild posterior hip ) and other (incision well-approximated ); no unusual warmth and foot Details: normal capillary refill, normal to inspection, vascular exam Details: dorsalis pedis pulse present, tendon exam active flexion normal and active extension normal and motor-sensory exam two point discrimination normal and light-touch normal Psych: Mental Status: mental status grossly normal Affect: normal affect Objective Data Vital Signs Vital Signs: Vital Signs - 24 hr 05/05/20 14:00 05/05/20 18:00 05/05/20 21:45 Temperature 36.6 C 36.8 C Pulse Rate 70 79 85 Respiratory Rate 16 16 Blood Pressure 117/51 L 118/56 L Pulse Oximetry 94 96 05/05/20 22:00 05/06/20 02:00 05/06/20 06:00 Temperature 37.7 C H 37.2 C 36.8 C Pulse Rate 79 83 85 Respiratory Rate 18 18 18 Blood Pressure 128/48 L 132/54 L 132/65 Pulse Oximetry 96 92 92 Intake/Output Intake/Output: Intake & Output 05/03/20 05/04/20 05/05/20 05/06/20 23:59 23:59 23:59 23:59 Intake Total 1890 2630 480 Output Total 1100 2750 Balance 790 -120 480 Meds/Results Medications: Active Medications Generic Name Dose Route Start Last Admin Trade Name Immanuelq PRN Reason Stop Dose Admin Acetaminophen 650 mg 05/04/20 14:00 05/06/20 05:46 Tylenol Tablet PO 650 mg Q8HR CHUCKIE Administration Hydrocodone Bitart/Acetaminophen 1 tab 05/04/20 11:33 05/06/20 02:59 [place] 7.5-325 Mg PO 1 tab Q3H PRN Administration Pain Rated 4-6 Albuterol 1 puff 05/04/20 11:33 Proventil Hfa INHALATION Q4H PRN shortness of breath or wheezing Aspirin
--- NOTE | 2020-05-06 12:54 | PM.DS ---
DS: Admitting Diagnosis Admitting Diagnosis Admitting Diagnosis: Left Hip DJD DS: Discharge Diagnosis Discharge Diagnosis (1) S/P total hip arthroplasty: Qualifiers: Laterality: left Qualified Code(s): Z96.642 - Presence of left artificial hip joint Code(s): Z96.649 - Presence of unspecified artificial hip joint Status: Acute Assessment and Plan: POD #2 LEFT JOANNA Continue PT/OT. WBAT with walker. High Fall Risk. Continue JOANNA precautions. Continue DVT prophylaxis. SCDs. Incentive spirometry Continue pain control. Dressing changed. New dressing applied. Dispo: Home with home health today (2) Degenerative joint disease of left hip: Qualifiers: Osteoarthritis type: primary Qualified Code(s): M16.12 - Unilateral primary osteoarthritis, left hip Code(s): M16.12 - Unilateral primary osteoarthritis, left hip Status: Acute DS: Summary Hospital Course Reason for hospitalization: Left Hip DJD Hospital Course: 60 year old female admitted s/p left JOANNA for postoperative medical management and PT/OT. Patient progressed well with PT/OT and was deemed safe for discharge home with home health. She had a stable hospitalization. Status at Discharge Functional status at discharge: uses cane/walker Overall status at discharge: patient is progressing back to baseline Time Spent with Patient Time attestation: Total time spent providing and/or coordinating discharge services: Exam Const: General: comfortable and no acute distress HENMT: Mouth: Yes moist mucous membranes Eyes: General: appearance normal, both eyes and all related structures Neck: Neck: supple and no JVD Resp: Effort & Inspection: normal respiratory effort Auscultation: no wheezes Cardio: Rate: regular rate Rhythm: regular rhythm GI: Inspection: non-distended GI Palp: Yes Soft to palpation and Yes Tenderness to palpation present (GI) Skin: General skin exam: normal color Wounds: wounds noted (dressing changed. Incision well-approximated. No signs/symptoms of infectio) Neuro: Cognition (Neuro): normal cognition Motor exam (neuro): Abnormal motor strength present (decreased LLE ) Extrem: Right lower extremity: normal to inspection, full ROM and normal capillary refill Left lower extremity: normal to inspection, hip/thigh Details: tenderness Location: of the hip Location: laterally and posterolaterally, swelling Location: of the hip, abnormal ROM (limited due to recent surgical intervention ), ecchymosis (mild posterior hip ) and other (incision well-approximated ); no unusual warmth and foot Details: normal capillary refill, normal to inspection, vascular exam Details: dorsalis pedis pulse present, tendon exam active flexion normal and active extension normal and motor-sensory exam two point discrimination normal and light-touch normal Psych: Mental Status: mental status grossly normal Affect: normal affect DS: Data Data Completed and Pending Labs on day of discharge: Labs from last 24 hours 05/06/20 05/06/20 05:40 05:40 WBC 13.8 H RBC 3.27 L Hgb 10.3 L Hct 31.3 L MCV 95.7 MCH 31.5 MCHC 32.9 RDW 14.0 Plt Count 200 MPV 10.3 Sodium 137 Potassium 4.4 Chloride 103 Carbon Dioxide 30 BUN 11 Creatinine 0.70 Estim Creat Clear Calc 66 Estimated GFR > 60 Glucose 126 H Calcium 8.8 Total Bilirubin 0.5 AST 57 H ALT 23 Alkaline Phosphatase 80 Total Protein 6.0 L Albumin 3.5 Triglycerides 92 Cholesterol 113 LDL Cholesterol Direct 42 HDL Direct 45 Discharge Plan Discharge Attending physician on discharge: Lalo Ambriz Consulting providers: Toya Marks Stanley J. Discharging Clinician: Ayse Nix Anticipated Discharge Date/Time: 05/06/20 12:34 Patient Disposition: Home Health Service Activity: may shower, no driving and follow weight bearing status Diet: as tolerated Wound Car
== END 2020-05-06 15:17 | disposition home health service (06) ==
LOC: ANHSURGERY 15:36 → ANH2MED 15:36
PROVIDERS: Physician Assistant; Admitting Provider Orthopaedic Surgery; Visit Provider Orthopaedic Surgery
PROC: (CPT 27130; principal; 2020-05-04 07:30)
DX: M16.12 Unilateral primary osteoarthritis, left hip (principal); I10 Essential (primary) hypertension; I25.2 Old myocardial infarction; E78.5 Hyperlipidemia, unspecified; D64.9 Anemia, unspecified; I25.10 Atherosclerotic heart disease of native coronary artery without angina pectoris; M81.0 Age-related osteoporosis without current pathological fracture; Z87.891 Personal history of nicotine dependence
CPT/HCPCS: 27130; 36415; 73501; 80048; 80053; 80061; 80307; 85014; 85018; 85025; 85027; 94002; 97110; 97116; 97165; 97530; 97535; A9270; C1776; G0378; J0131; J0171; J0690; J1100; J1741; J2250; J2270; J2405; J2704; J2710; J2795; J3010; J3480; J7030; J7120

== ENCOUNTER 2021-02-08 12:27 | Outpatient (CLI) | payer BC, SELFPAY ==
[2021-02-08 14:38] LABS: INR 0.9; Partial Thromboplastin Time 24.2 SECONDS (22.3-36.8); Prothrombin Time 12.9 Seconds (11.1-14.7)
[2021-02-08 14:40] LABS: Urine Cotinine NEGATIVE
[2021-02-08 14:41] LABS: Albumin Level 4.4 g/dL (3.5-5.1); Anion Gap 6 mmol/L (8-16); Blood Urea Nitrogen 19 mg/dL (7-17); Calcium 9.9 mg/dL (8.4-10.2); Carbon Dioxide 31 mmol/L (22-30); Chloride 101 mmol/L (98-107); Estimated Glomerular Filt Rate > 60; Glucose 84 mg/dL (65-105); Potassium 4.3 mmol/L (3.4-5.0); Sodium 138 mmol/L (137-145)
[2021-02-08 14:42] LABS: Basophils Absolute Auto 0.1 K/mm3 (0.0-0.1); Basophils Percent Auto 0.5 % (0.2-1.2); Eosinophils Absolute Auto 0.3 K/mm3 (0-0.3); Eosinophils Percent Auto 2.9 % (0-4.4); Hematocrit 43.7 % (37.0-47.0); Hemoglobin 14.4 g/dL (12.0-15.0); Immature Granulocyte Absolute 0.04 K/mm3 (0.00-0.031); Immature Granulocyte Percent A 0.4 % (0-0.5); Lymphocytes Absolute Auto 2.65 K/mm3 (0.9-3.2); Lymphocytes Percent Auto 25.4 % (18.3-44.2); Mean Corpuscular Hemoglobin 31.7 pg (26-34); Mean Corpuscular Volume 96.3 fl (80-100); Mean Platelet Volume 10.4 fl (7.4-10.4); Monocytes Absolute Auto 0.6 K/mm3 (0.1-0.6); Monocytes Percent Auto 5.8 % (2.6-8.5); Neutrophils Absolute Auto 6.8 K/mm3 (1.3-6.7); Platelet Count Result 275 k/mm3 (150-375); Red Blood Count 4.54 M/mm3 (4.2-5.4); Red Cell Distribution Width 13.9 % (11.5-14.5); White Blood Count 10.5 K/mm3 (4.5-10.0)
[2021-02-08 14:50] LABS: Add Urine Microscopic? YES; Appearance Urine Clear (Clear); Bacteria Urine Trace /hpf; Bilirubin Urine Negative (Negative); Blood Urine Negative (Negative); Color Urine Yellow (Yellow); Glucose Urine UA Negative (Negative); Hyaline Casts Urine 30-49 /lpf; Ketones Urine Negative (Negative); Leukocyte Esterase Ur Negative LEU/UL (Negative); Mucus Urine Rare /lpf; Nitrate Urine Negative (Negative); Protein Urine Negative (Negative); RBC Urine 0-2 /hpf (0-2); Specific Grav Ur 1.024 (1.001-1.035); Squamous Epithelial Cell Urine Occasional /hpf (Few); Urobilinogen Urine Negative mg/dL (<2.0); WBC Urine 0-3 /hpf
== END 2021-02-08 12:28 | disposition home or self-care (01) ==
LOC: ANHSURGERY 12:34
PROVIDERS: PCP Family Medicine; Visit Provider Orthopaedic Surgery
DX: Z01.812 Encounter for preprocedural laboratory examination (principal); M16.11 Unilateral primary osteoarthritis, right hip; Z51.81 Encounter for therapeutic drug level monitoring
CPT/HCPCS: 80048; 80307; 81001; 82040; 83036; 85025; 85610; 85730; 86850; 86900; 86901; 87081

== ENCOUNTER → 2021-02-12 00:29 | Outpatient (CLI) | payer BC, SELFPAY ==
[2021-02-12 20:22] LABS: SARS-CoV-2 RNA PCR Negative
== END ==
PROVIDERS: PCP Family Medicine; Visit Provider Orthopaedic Surgery
DX: Z01.812 Encounter for preprocedural laboratory examination (principal); Z20.822 Contact with and (suspected) exposure to COVID-19
CPT/HCPCS: C9803; U0003; U0005

== ENCOUNTER 2021-02-16 01:08 | Day surgery (SDC) | payer BC, SELFPAY ==
[2021-02-08 13:06] VITALS: BP 124/87; PULSE 73; RESP 18; TEMP 36.2; O2SAT 98; BMI 24.1
[2021-02-08 14:14] VITALS: BMI 24.1
[2021-02-16] VITALS (17 sets, daily range): BP systolic 116–185; BP diastolic 62–88; PULSE 62–80; RESP 11–20; TEMP 35.8–36.9; O2SAT 92–100; BMI 23.1
--- NOTE | ~2021-02-16 | XR_ITS ---
EXAMINATION: XR hip RT 1V EXAM DATE: 02/16/2021 10:03 INDICATION: Right hip arthroplasty. TECHNIQUE: Portable frontal projection right hip obtained immediately following arthroplasty. Proce dure performed by Lalo Ambriz MD. FINDINGS: Patient is status post right hip arthroplasty. The orthopedic hardware is in expected pos ition on the frontal image. No orthogonal image. There is small amount of subcutaneous gas, some soft tissue swelling. Correlate with procedure note. IMPRESSION: Status post right hip arthroplasty. Reviewed, dictated and finalized at location A.
[2021-02-16] MEDS: ACETAMINOPHEN 500 MG TABLET 1000 MG PO (07:00)
[2021-02-16] MEDS: TRANEXAMIC ACID 1,000MG/ISO100 1,000 MG/100 ML BAG 200 MG IVPB (07:01)
--- NOTE | 2021-02-16 07:03 | WPDANESEPPF ---
Anes - Initial Pre Proc Eval Procedure: Operation Date: 02/16/21 07:30 Proposed Procedures p Right Total Hip Arthroplasty - Lalo Ambriz MD Date/Time: 02/16/21 07:03 Surgeon: Lalo Ambriz MD Pre Op Diagnosis: right hip DJD Patient Data Age: 60 Gender: F Height: 5 ft 3 in Weight: 59.4 kg Last Vital Signs Temp 36.3 C L 02/16/21 06:25 Pulse 69 02/16/21 06:25 Resp 16 02/16/21 06:25 BP 149/77 H 02/16/21 06:25 Pulse Ox 97 02/16/21 06:25 Allergies Allergy/AdvReac Type Severity Reaction Status Date / Time hydrocodone Allergy Intermediate Hives Verified 02/16/21 06:26 mold Allergy Unknown Nasal Verified 02/16/21 06:26 Discharge nickel Allergy Unknown Swelling/BL Verified 02/16/21 06:26 ISTERS/ITCH ING ragweed pollen Allergy Unknown Nasal Verified 02/16/21 06:26 Discharge Sulfa (Sulfonamide Allergy Unknown Hives Verified 02/16/21 06:26 Antibiotics) Home Medications Medication Instructions Recorded Confirmed Type albuterol sulfate 90 mcg/actuation 1 inhalation INHALATION Q4H PRN #3 12/08/19 02/08/21 Rx aerosol inhaler device multivitamin,[id number] 1 tablet PO HS 05/28/20 02/08/21 History varenicline 1 mg tablet 1 mg PO BID #56 tablet 11/01/20 02/08/21 Rx chlorhexidine gluconate 4 % 1 applic TOPICAL ONCE #237 ml 01/10/21 02/08/21 Rx topical liquid aspirin 325 mg tablet,delayed 325 mg PO DAILY tablet 01/31/21 02/16/21 History release clopidogrel 75 mg tablet 75 mg PO HS #90 tablet 01/31/21 02/16/21 Rx metoprolol succinate 25 mg 25 mg PO HS #90 tablet 01/31/21 02/08/21 Rx tablet,extended release 24 hr montelukast 10 mg tablet 10 mg PO HS #90 tablet 01/31/21 02/08/21 Rx simvastatin 40 mg tablet 40 mg PO HS #90 tablet 01/31/21 02/08/21 Rx venlafaxine 150 mg PO HS 02/08/21 02/08/21 History Patient hx anesthesia problems: none Family hx anesthesia problems: none PMFSH Past Medical History Medical History Anxiety Arthritis Depression Depression Essential hypertension High cholesterol History of CA (myocardial infarction) 2006 - no intervention required - regular stress tests as part of her job - all negative since Mixed hyperlipidemia Osteoporosis Vision abnormalities Surgical History Surgical History History of ankle surgery Left, Dr. Rae History of breast surgery augmentation History of cholecystectomy History of surgery Right thumb, Dr. Rae History of surgery Foot, Dr. 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 She lives at home alone. She wishes to be a full code. She has designated her two children Robson and Mel as her surrogate decision makers. She is a former 40 pack-year smoker and quit 04/20/20. Smoking packs per day: 1 Smoking cigarettes per day: 20.0 Years smoked: 40 Smoking pack-years: 40.00 Smoking status: Former smoker Tobacco type: cigarettes Second hand tobacco smoke exposure: Yes Smoking end date: 04/20/20 Additional smoking assessment comments: STATES RARELY SMOKES A CIGARETTE-INSTRUCT TO NOT SMOKE ANY AT ALL. Alcohol intake: never Substance use: never Subs
[2021-02-16] MEDS: LACTATED RINGERS 1,000 ML 30 ML IV CONT ×2 (07:10→09:50)
--- NOTE | 2021-02-16 07:13 | WPDHPUPDATE1 ---
History and Physical Update Update Date/Time: 02/16/21 07:13 History and Physical has been reviewed, including an updated exam of the patient. There are NO changes in the patient's condition. Risks, benefits, and alternatives have been discussed and questions answered. Patient agrees to proceed with procedure.
[2021-02-16] MEDS: ceFAZolin 2 GM/D5W 50 ML 2 GM/50 ML BAG IVPB ×3 (07:30→23:14)
[2021-02-16] MEDS: TRANEXAMIC ACID 1,000 MG/10 ML AMPUL 1000 MG IV PUSH (09:11)
--- NOTE | 2021-02-16 09:40 | PM.PROC ---
Procedure Note - Detailed Date of procedure: 02/16/21 Pre-op diagnosis: right hip DJD R HIP DJD Post-op diagnosis: same Procedure performed: R JOANNA Description of procedure: THE PATIENT WAS TAKEN TO THE OPERATING ROOM IN STABLE CONDITION AND WAS PLACED IN THE LATERAL DECUBITUS AND THE RIGHT LOWER EXTREMITY WAS PREPPED AND DRAPED IN THE STERILE FASHION. INCISION WAS MADE IN THE POSTERIOR LATERAL SIDE OF THE HIP, DOWN TO THE FASCIA LAYER. THE FASCIA WAS INCISED. THE HIP WAS EXPOSED. THE SHORT EXTERNAL ROTATORS WERE EXPOSED. THE SCIATIC NERVE WAS IDENTIFIED. THERE WAS A HIGH BIFURCATION OF THE NERVE. INCISION WAS MADE THROUGH THE SORT EXTERNAL ROTATORS AND THE CAPSULE OF THE HIP JOINT. THE HIP WAS DISLOCATED. AN OSTEOTOMY WAS MADE TO THE FEMORAL NECK ABOUT 1 CM PROXIMAL TO THE LESSER TROCHANTER. THE ACETABULUM WAS EXPOSED. THERE WAS SEVERE DJD SEEN. BEGINNING WITH A 44 REAMER THE ACETABULUM WAS REAMED TO 49 MM. A 49 MM TRIAL WAS PLACED IN 35 DEG OF ABDUCTION AND ANTEVERSION WAS IN ALIGNMENT WITH THE TRANS ACETABULAR LIGAMENT. THE FIT WAS EXCELLENT. THE TRIAL WAS REMOVED. A 50 MM BIOMET G7 COMPONENT WAS THEN TAPPED IN TO PLACE IN 35 DEG OF ABDUCTION AND ANTEVERSION IN ALIGNMENT WITH THE TRANSVERSE ACETABULAR LIGAMENT. THE FIT WAS EXCELLENT. THE ACETABULAR LINER WAS PLACED AND CHECKED FOR STABILITY. NEXT THE FEMUR WAS PREPARED WITH INITIAL CANAL FINDER THEN SEQUENTIAL BROACHING WITH A TAPERLOC HIP SYSTEM, UNTIL A BROACH FIT WELL IN 15 OF ANTEVERSION. A -3 STANDARD OFFSET NECK WITH 36 MM HEAD TRIAL WAS PLACED. THE ROMAN TEST WAS EXCELLENT AND THE STABILITY IN FLEXION AND ROTATION WAS EXCELLENT. LEG LENGTHS WERE GROSSLY EQUAL. TRIALS WERE REMOVED. A BIOMET TAPERLOC 8 STEM WAS PLACED WITH A HIGH OFFSET NECK THE FIT WAS EXCELLENT IN 15 DEG OF ANTEVERSION. A -3 CERAMIC 36 MM FEMORAL HEAD WAS PLACED. THE HIP WAS TRIALED AND THE STABILITY WAS EXCELLENT WERE THE LEG LENGTHS AND THE SCHUK TEST. THE WOUND WAS IRRIGATED WITH STERILE BETADINE AND WATER FOR 3 MIN. THEN WASHED AGAIN. THE CAPSULE AND THE EXTERNAL ROTATORS WERE APPROXIMATED WITH NUMBER 1 VICRYL. THE FASCIA WITH No 2 QUIL AND THE SUB CUTANEOUS LAYER WITH 2-0 ABSORBABLE SUTURE WITH A RUNNING 3-0 SUBCUTICULAR LAYER WELL. DERMABOND WAS PLACED AND STERILE DRESSING WAS APPLIED. PATIENT WAS PLACED BACK ON TO THE SUPINE POSITION AND WAS EXTUBATED. Anesthesia: GETA Surgeon: Lalo Ambriz MD Estimated blood loss (mL): 500 Drains: No Complications: No immediate complications Condition: stable Disposition: PACU
[2021-02-16] MEDS: fentaNYL CITRATE INJ (*CRX) 100 MCG/2 ML VIAL 25 MCG IV PUSH ×8 (10:12→11:00)
--- NOTE | 2021-02-16 11:49 | ADMGEN ---
This patient, Genny Magallanes, was admitted to Medical Room 250-01. Patient/family oriented to hospital policies and general routines including ID bracelet, bed and alarms, visiting hours, pain management, procedures, bathroom and other care routines, personal items, smoking policy, room service/diet, and visiting hours. Information on how to activate the Rapid Response Team has been discussed. Patient/Family are encouraged to report perceived risks to care and to ask questions if they do not understand what they are told or what they should do.
[2021-02-16 12:13] LABS: Hematocrit 36.5 % (37.0-47.0); Hemoglobin 11.9 g/dL (12.0-15.0)
[2021-02-16] MEDS: SODIUM CHLORIDE 0.9% IV 1,000 ML 125 ML IV CONT (12:42)
[2021-02-16] MEDS: ONDANSETRON INJ 4 MG/2 ML VIAL IV PUSH (12:42)
--- NOTE | 2021-02-16 16:20 | PM.IMCN ---
Assessment and Plan Assessment and plan (1) History of total right hip arthroplasty: Code(s): Z96.641 - Presence of right artificial hip joint Status: Acute Assessment and Plan: Today per per Dr. Ambriz. Postop care per Dr. Ambriz. DVT prophylaxis per Dr. Ambriz. PT and OT per Dr. Jones. Manage (2) Anemia: Code(s): D64.9 - Anemia, unspecified Status: Acute Assessment and Plan: H&H is at the baseline the patient's H&H is lung 0.9 and 36.5. Other times it has been less. Normal cytic anemia (3) Mixed hyperlipidemia: Code(s): E78.2 - Mixed hyperlipidemia Status: Chronic Assessment and Plan: Continue simvastatin (4) Essential hypertension: Code(s): I10 - Essential (primary) hypertension Status: Chronic Assessment and Plan: Continue metoprolol. (5) COPD (chronic obstructive pulmonary disease): Code(s): J44.9 - Chronic obstructive pulmonary disease, unspecified Status: Acute Assessment and Plan: Continue with Singulair and inhalers. (6) Depression: Qualifiers: Depression Type: major depressive disorder Major depression recurrence: single episode Active/Remission status: currently active Major depression episode severity: mild Qualified Code(s): F32.0 - Major depressive disorder, single episode, mild Code(s): F32.9 - Major depressive disorder, single episode, unspecified Status: Acute Assessment and Plan: Continue with Effexor (7) Anxiety: Code(s): F41.9 - Anxiety disorder, unspecified Status: Chronic Assessment and Plan: Continue with Effexor Additional Plan Coronary artery disease. The patient stated she had 2 MIs in the past. Continue with her Plavix an aspirin as well as her metoprolol. History of smoking cessation. The patient is on Chantix and stated she has not smoked in 2 weeks. HPI Data of Consult Consult date: 02/16/21 Requesting Physician: Lalo Ambriz MD Primary Care Provider: Gayle Hammond MD Consult Narrative Narrative: Genny Magallanes is a 60 year old female this is a 60-year-old female patient has severe degenerative joint disease. The patient his had her left hip replaced by Dr. Ambriz in the past and has recovered well. The patient has tried several conservative measures to the right hip and was supposed to have surgery last year but due to COVID-19 had put it off. Patient stated that she has difficulty sleeping due to the discomfort. Arthroplasty today per Dr. Ambriz. She had a quit smoking in order to have the procedure performed. The patient stated he has been couple weeks and she has had a cigarette. Her H&H today 11.9 and 36.5. The patient was admitted for observation I saw the patient as a consult in the to the service of 02/16/2021. Review of Systems Review of Systems: All systems reviewed & are unremarkable except as noted in HPI and below Constitutional: Constitutional: Reports as per HPI and Reports no additional constitutional complaints Eyes: Eyes: Reports as per HPI and Reports no additional eye complaints ENT: Reports system reviewed and no additional complaints, except as documented and Reports Normal hearing present Cardiovascular: Cardiovascular: Reports no additional cardiovascular complaints Respiratory: Respiratory: Reports no additional respiratory complaints and Reports no additional respiratory complaints Gastrointestinal: Gastrointestinal: Reports as per HPI and Reports no additional gastrointestinal complaints Musculoskeletal: Musculoskeletal: Reports no additional musculoskeletal complaints Integumentary/Breasts: Skin/Breast: Reports system reviewed and no additional complaints, except as docu and Reports as per HPI Neurologic: Reports system reviewed and no additional complaints, except as documented, Reports as per HPI and Reports Normal hearing present Psychiatric: Psychiatric: Reports no ad
[2021-02-16] MEDS: ACETAMINOPHEN 325 MG TABLET 650 MG PO (16:24)
[2021-02-16] MEDS: DOCUSATE SODIUM 100 MG CAPSULE PO (16:24)
[2021-02-16] MEDS: VARENICLINE 1 MG TABLET PO (16:24)
[2021-02-16] MEDS: oxyCODONE/ACETAMINOPHEN (*CRX) 5-325 MG TABLET 1 TABLET PO (20:52)
[2021-02-16] MEDS: VENLAFAXINE HCL XR 75 MG CAP.ER.24H 150 MG PO (20:56)
[2021-02-16] MEDS: FAMOTIDINE 20 MG TABLET PO (20:56)
[2021-02-16] MEDS: SIMVASTATIN 20 MG TABLET 40 MG PO (20:56)
[2021-02-16] MEDS: METOPROLOL SUCCINATE EXT REL 25 MG TABCR PO (20:57)
[2021-02-16] MEDS: CLOPIDOGREL BISULFATE 75 MG TABLET PO (20:57)
[2021-02-16] MEDS: MONTELUKAST SODIUM 10 MG TABLET PO (20:57)
[2021-02-17] MEDS: oxyCODONE/ACETAMINOPHEN (*CRX) 5-325 MG TABLET 1 TABLET PO ×4 (00:12→13:41)
[2021-02-17 02:00] VITALS: BP 140/58; PULSE 78; RESP 14; TEMP 36.6; O2SAT 97
[2021-02-17] MEDS: ACETAMINOPHEN 325 MG TABLET 650 MG PO (02:20)
[2021-02-17 05:18] VITALS: BP 114/53; PULSE 72; RESP 16; TEMP 36.6; O2SAT 95
[2021-02-17 06:06] LABS: Basophils Percent Auto 0.3 % (0.2-1.2); Eosinophils Percent Auto 0.2 % (0-4.4); Immature Granulocyte Absolute 0.04 K/mm3 (0.00-0.031); Immature Granulocyte Percent A 0.4 % (0-0.5); Lymphocytes Absolute Auto 1.99 K/mm3 (0.9-3.2); Lymphocytes Percent Auto 17.9 % (18.3-44.2); Mean Corpuscular HGB Conc 33.3 g/dl (32-36); Mean Corpuscular Hemoglobin 31.4 pg (26-34); Mean Corpuscular Volume 94.3 fl (80-100); Mean Platelet Volume 10.4 fl (7.4-10.4); Monocytes Absolute Auto 1.1 K/mm3 (0.1-0.6); Monocytes Percent Auto 9.7 % (2.6-8.5); Neutrophils Percent Auto 71.5 % (45.5-73.1); Platelet Count Result 208 k/mm3 (150-375); Red Blood Count 3.18 M/mm3 (4.2-5.4); Red Cell Distribution Width 13.3 % (11.5-14.5); White Blood Count 11.1 K/mm3 (4.5-10.0)
[2021-02-17 06:24] LABS: Anion Gap 4 mmol/L (8-16); Blood Urea Nitrogen 12 mg/dL (7-17); Calcium 8.8 mg/dL (8.4-10.2); Carbon Dioxide 30 mmol/L (22-30); Chloride 104 mmol/L (98-107); Estimated CRCL calculation 53 ml/min; Estimated Glomerular Filt Rate > 60; Glucose 135 mg/dL (65-105); Magnesium 1.6 mg/dL (1.6-2.3); Potassium 3.5 mmol/L (3.4-5.0); Sodium 138 mmol/L (137-145)
[2021-02-17 07:32] LABS: Thyroid Stimulating Hormone Reflex 0.551 uIU/mL (0.465-4.68)
--- NOTE | 2021-02-17 07:37 | WPDANESPN ---
Anes - Prog Note Post-Op Date/Time: 02/17/21 07:37 Cardiovascular status: normal Respiratory status: normal Airway patency: baseline Mental status: baseline Post-Op hydration status: normal Vital Signs: Last Vital Signs Temp 36.6 C 02/17/21 05:18 Pulse 72 02/17/21 05:18 Resp 16 02/17/21 05:18 BP 114/53 L 02/17/21 05:18 Pulse Ox 95 02/17/21 05:18 Pain Score (VAS): 0 I/O: Intake & Output 02/16/21 02/16/21 02/17/21 15:59 23:59 07:59 Intake Total 450 1340 500 Output Total 1300 Balance 450 1340 -800 Laboratory Tests 02/17/21 05:36 02/17/21 05:36 02/16/21 02/17/21 02/17/21 12:05 05:36 05:36 WBC 11.1 H RBC 3.18 L Hgb 11.9 L 10.0 L Hct 36.5 L 30.0 L MCV 94.3 MCH 31.4 MCHC 33.3 RDW 13.3 Plt Count 208 MPV 10.4 Immature Gran % (Auto) 0.4 Neut % (Auto) 71.5 Lymph % (Auto) 17.9 L [place] % (Auto) 9.7 H Eos % (Auto) 0.2 Baso % (Auto) 0.3 Lymph # (Auto) 1.99 [place] # (Auto) 1.1 H Eos # (Auto) 0.0 Baso # (Auto) 0.0 Abs Immat Gran (auto) 0.04 H Absolute Neuts (auto) 8.0 H Absolute Nucleated RBC 0.0 Nucleated RBC % 0.0 Sodium 138 Potassium 3.5 Chloride 104 Carbon Dioxide 30 Anion Gap 4 L BUN 12 D Creatinine 0.80 Estim Creat Clear Calc 53 Estimated GFR > 60 Glucose 135 H Calcium 8.8 Magnesium 1.6 TSH (Reflex) 02/17/21 05:36 WBC RBC Hgb Hct MCV MCH MCHC RDW Plt Count MPV Immature Gran % (Auto) Neut % (Auto) Lymph % (Auto) [place] % (Auto) Eos % (Auto) Baso % (Auto) Lymph # (Auto) [place] # (Auto) Eos # (Auto) Baso # (Auto) Abs Immat Gran (auto) Absolute Neuts (auto) Absolute Nucleated RBC Nucleated RBC % Sodium Potassium Chloride Carbon Dioxide Anion Gap BUN Creatinine Estim Creat Clear Calc Estimated GFR Glucose Calcium Magnesium TSH (Reflex) 0.551 Post-procedural complaints: none Patient Feedback: Patient satisfied with anesthetic care.
[2021-02-17] MEDS: ceFAZolin 2 GM/D5W 50 ML 2 GM/50 ML BAG IVPB (08:14)
[2021-02-17] MEDS: FAMOTIDINE 20 MG TABLET PO (08:43)
[2021-02-17] MEDS: ASPIRIN 325 MG ENTERIC TABLET 650 MG PO (08:43)
[2021-02-17] MEDS: CELECOXIB 200 MG CAPSULE PO (08:44)
[2021-02-17] MEDS: DOCUSATE SODIUM 100 MG CAPSULE PO (08:44)
--- NOTE | 2021-02-17 09:05 | PM.PNORT ---
Progress Note: A&P Assessment and Plan (1) S/P total hip arthroplasty: Qualifiers: Laterality: left Qualified Code(s): Z96.642 - Presence of left artificial hip joint Code(s): Z96.649 - Presence of unspecified artificial hip joint Status: Acute Assessment and Plan: POD #1: RIGHT JOANNA Continue PT/OT. WBAT. Walker. Continue pain control. Ice lateral hip. Monitor dressing. Change before d/c. DVT prophylaxis. SCDs. Incentive Spirometry. Dispo: Home with Home Health pending progress with PT/OT lesia today. (2) History of total right hip arthroplasty: Code(s): Z96.641 - Presence of right artificial hip joint Status: Acute Subjective Subjective Date/Time Seen: 02/17/21 09:05 Post Op day: 1 Principal diagnosis: Left Hip DJD Interval history: POD #1: Left JOANNA Difficulty with pain control overnight but feeling better now. Up in chair eating breakfast. Hopeful for discharge home today. Review of Systems Review of Systems: All systems reviewed & are unremarkable except as noted in HPI and below Constitutional: Constitutional: Denies chills, Denies fever(s), Denies headache(s), Denies lethargy and Reports weakness ENT: Denies headache(s) Cardiovascular: Cardiovascular: Denies chest pain, Denies diaphoresis, Denies lightheadedness, Denies palpitations, Denies dyspnea and Denies dyspnea on exertion Respiratory: Respiratory: Denies cough, Denies dyspnea and Denies dyspnea on exertion Gastrointestinal: Gastrointestinal: Denies constipation, Denies diarrhea, Denies nausea and Denies vomiting Genitourinary: Genitourinary: Reports urinary frequency, Denies dysuria and Denies urinary hesitancy Musculoskeletal: Musculoskeletal: Reports joint swelling (Right Hip ) and Reports limited range of motion (Right Hip due to recent surgery ) Neurologic: Denies headache(s) and Reports weakness Endocrine: Endocrine: Denies palpitations Exam Const: General: comfortable and no acute distress Resp: Effort & Inspection: normal respiratory effort Cardio: Rate: regular rate Rhythm: regular rhythm GI: Inspection: non-distended Skin: General skin exam: normal color Other: Incision right hip c/d/i. Surrounding tissue without redness/warmth. Mild swelling consistent with recent surgery. No drainage. Neuro: Cognition (Neuro): normal cognition Speech: normal speech Other: Strength RLE decreased due to recent surgery. +ankle dorsiflexion/plantarflexion. NV intact. Moves toes. Sensaiton intact to light touch. Extrem: Right lower extremity: normal to inspection, normal capillary refill, hip/thigh Details: tenderness Location: of the hip (Thigh soft ) Location: laterally and anteriorly, swelling Location: at the hip, abnormal ROM (limited consistent with recent surgery ), ecchymosis (around incision/ no signs of hematoma ) and other (Incision c/d/i. ); no deformity and no unusual warmth, knee Details: normal to inspection and normal ROM; no tenderness and no swelling, lower leg (Negative shayy's sign ) Details: normal to inspection; no tenderness, ankle (+ankle dorsiflexion/plantarflexion ) Details: normal to inspection and normal ROM and foot Details: normal capillary refill, toes with normal ROM, no edema, vascular exam Details: dorsalis pedis pulse present and motor-sensory exam Details: light-touch normal Objective Data Vital Signs Vital Signs: Vital Signs - 24 hr 02/16/21 09:50 02/16/21 10:00 02/16/21 10:15 Temperature 36.3 C L Pulse Rate 80 77 70 Respiratory Rate 11 L 16 12 Blood Pressure 185/83 H 116/88 163/72 H Pulse Oximetry 97 100 100 02/16/21 10:30 02/16/21 10:45 02/16/21 11:00 Temperature Pulse Rate 69 71 71 Respiratory Rate 14 12 12 Blood Pressure 168/68 H 165/68 H 158/63 H Pulse Oximetry 96 92 99 02/16/21 11:15 02/16/21 11:30 02/16/21 12:00 Temperature 35.9 C L Pulse Rate 71 70 72 Respiratory Rate 12 14 20 Blood Pressure 156/68 H 152/71 H 134/71 Pulse O
[2021-02-17 10:00] VITALS: BP 122/59; PULSE 69; RESP 18; TEMP 36.5; O2SAT 97
--- NOTE | 2021-02-17 11:29 | PM.IMPN ---
Progress Note: A&P Assessment and Plan (1) History of total right hip arthroplasty: Code(s): Z96.641 - Presence of right artificial hip joint Status: Acute Assessment and Plan: On 02/16/[address] Ambriz. She tolerated procedure well and pain is well controlled. This is being managed by Orthopedic surgery. Continue PT/OT. She plans to recover at home where she will have support from family members. She has no stairs in the home. Weight-bearing and DVT prophylaxis per Dr. Ambriz. (2) Anemia: Code(s): D64.9 - Anemia, unspecified Status: Acute Assessment and Plan: Chronic normocytic anemia. Hemoglobin and hematocrit appear to be at her baseline. Her vital signs are stable and she has no evidence of blood loss. Monitor H&H while inpatient. (3) Essential hypertension: Code(s): I10 - Essential (primary) hypertension Status: Chronic Assessment and Plan: Blood pressures reviewed and are fairly well controlled. Slightly elevated postoperatively, which is likely due to pain. This has improved today. Last BP 122/59. Continue metoprolol. (4) COPD (chronic obstructive pulmonary disease): Code(s): J44.9 - Chronic obstructive pulmonary disease, unspecified Status: Acute Assessment and Plan: Not in acute exacerbation. Lungs are clear to auscultation without wheezes. She is maintaining adequate O2 saturations on room air. Continue albuterol and montelukast (5) History of coronary artery disease: Code(s): Z86.79 - Personal history of other diseases of the circulatory system Status: Inactive Assessment and Plan: Asymptomatic at this time. Continue aspirin, Plavix, metoprolol, and simvastatin. Continue regularly scheduled cardiology follow-up. (6) Tobacco abuse: Code(s): Z72.0 - Tobacco use Status: Inactive Assessment and Plan: She has a 40 pack year smoking history. She notes that she quit smoking 2 weeks ago. She has been using Chantix for smoking cessation. I have congratulated her on quitting and encouraged her to continue to avoid smoking. Follow-up with PCP for management of Chantix. Subjective Date/time seen: 02/17/21 11:29 Interval history: Date of service: 02/18/2020 Genny Magallanes is a 60 year old female with a history of hypertension, hyperlipidemia, CAD, osteoporosis, and tobacco abuse who is is now status post elective right total hip arthroplasty. She underwent surgery on 02/16/[address] Ambriz and tolerated the procedure well. She is feeling well at this time. She states her pain is 4/10. She has been participating in therapy and feels that she is doing well. She was a bit sore when walking around void was able to do everything. She denies nausea or vomiting. No fevers, chills, dizziness, lightheadedness. Her last bowel movement was 2 days ago. She denies abdominal pain, cramping, or bloating. She has been passing flatus. Her appetite has been good. She denies shortness of breath, cough, chest pain, or palpitations. Denies urinary symptoms. She has no additional concerns at this time. Review of Systems Review of Systems: All systems reviewed & are unremarkable except as noted in HPI and below Exam Narrative: Exam Narrative: Ms. Magallanes is a well-nourished, well-appearing 60-year-old female who is lying supine in bed. She appears comfortable and is in NARD. Neuro: awake, alert and oriented x4, speech clear, no focal neuro deficits noted HEENMT: normocephalic, atraumatic, EOMI, sclerae anicteric, moist oral mucosa, tongue midline, nares patent Neck: supple, no lymphadenopathy Respiratory: clear to auscultation bilaterally, nonlabored breathing Cardio: regular rate, regular rhythm with S1-S2 Abdomen: nondistended, normoactive bowel sounds, soft, nontender to palpation, no rigidity or guarding Extremities: Right hip incision covered with bandage that is c/d/i, te
[2021-02-17 14:16] VITALS: BP 136/60; PULSE 70; RESP 18; TEMP 36.3; O2SAT 97
--- NOTE | 2021-02-17 14:17 | PM.DS ---
DS: Admitting Diagnosis Admitting Diagnosis Admitting Diagnosis: Right hip DJD DS: Discharge Diagnosis Discharge Diagnosis (1) S/P total hip arthroplasty: Qualifiers: Laterality: right Qualified Code(s): Z96.641 - Presence of right artificial hip joint Code(s): Z96.649 - Presence of unspecified artificial hip joint Status: Acute Assessment and Plan: POD #1: RIGHT JOANNA Continue PT/OT. WBAT. Walker. Continue pain control. Ice lateral hip. Monitor dressing. Change before d/c. DVT prophylaxis. SCDs. Incentive Spirometry. Dispo: Home with Home Health pending progress with PT/OT lesia today. (2) History of total right hip arthroplasty: Code(s): Z96.641 - Presence of right artificial hip joint Status: Acute DS: Summary Hospital Course Reason for hospitalization: right hip total arthroplasty Hospital Course: 60-year-old female admitted status post right total hip arthroplasty for postoperative medical management, pain control and physical/ occupational therapy. Patient had a stable postoperative course. Her pain has been well controlled. She did have difficulty with hydrocodone was switched to oxycodone. Her pain is now well controlled. She has progressed well with physical therapy and occupational therapy. She will be discharged home on 650 mg of aspirin for DVT prophylaxis. Her Plavix and 325 mg of aspirin a week held at this time. Patient is on Plavix for a history of a myocardial infarction in 2006. Anticoagulation held has been confirmed with her primary care physician. Patient aware of need to resume pending completion of 28 days of 650 mg of PO aspirin. Patient will be discharged home with home health. She will follow up in the outpatient clinic in 3 weeks. Her dressing will be changed prior to discharge and she will be sent home with 1 additional dressing to be changed in 5 days by the home health nurse. Patient feels competent about discharge home at this time. Status at Discharge Functional status at discharge: uses cane/walker Overall status at discharge: patient is progressing back to baseline Time Spent with Patient Time attestation: Total time spent providing and/or coordinating discharge services: Exam Const: General: comfortable and no acute distress Resp: Effort & Inspection: normal respiratory effort Cardio: Rate: regular rate Rhythm: regular rhythm GI: Inspection: non-distended Skin: General skin exam: normal color Other: Incision right hip c/d/i. Surrounding tissue without redness/warmth. Mild swelling consistent with recent surgery. No drainage. Neuro: Cognition (Neuro): normal cognition Speech: normal speech Other: Strength RLE decreased due to recent surgery. +ankle dorsiflexion/plantarflexion. NV intact. Moves toes. Sensaiton intact to light touch. Extrem: Right lower extremity: normal to inspection, normal capillary refill, hip/thigh Details: tenderness Location: of the hip (Thigh soft ) Location: laterally and anteriorly, swelling Location: at the hip, abnormal ROM (limited consistent with recent surgery ), ecchymosis (around incision/ no signs of hematoma ) and other (Incision c/d/i. ); no deformity and no unusual warmth, knee Details: normal to inspection and normal ROM; no tenderness and no swelling, lower leg (Negative shayy's sign ) Details: normal to inspection; no tenderness, ankle (+ankle dorsiflexion/plantarflexion ) Details: normal to inspection and normal ROM and foot Details: normal capillary refill, toes with normal ROM, no edema, vascular exam Details: dorsalis pedis pulse present and motor-sensory exam Details: light-touch normal DS: Data Data Completed and Pending Labs on day of discharge: Labs from last 24 hours 02/17/21 02/17/21 02/17/21 05:36 05:36 05:36 WBC 11.1 H RBC 3.18 L Hgb 10.0 L Hct 30.0 L MCV 94.3 MCH 31.4 MCHC 33.3 RDW 13.3 Plt Count 208 MPV 10.4 Immature Gran % (Auto)
--- NOTE | 2021-02-17 14:38 | PC.NURSE ---
On 02/17/21, the student, [ Eladia Loredo], provided care and [facility] I have reviewed the student's documentation and agree with the findings.
== END 2021-02-17 14:40 | disposition home health service (06) ==
LOC: ANHSURGERY 06:09 → ANH2MED 11:48
PROVIDERS: Nurse Practitioner; PCP Family Medicine; Visit Provider Orthopaedic Surgery
PROC: (CPT 27130; principal; 2021-02-16 07:30)
DX: M16.11 Unilateral primary osteoarthritis, right hip (principal); D64.9 Anemia, unspecified; J44.9 Chronic obstructive pulmonary disease, unspecified; I10 Essential (primary) hypertension; E78.00 Pure hypercholesterolemia, unspecified; E78.2 Mixed hyperlipidemia; I25.10 Atherosclerotic heart disease of native coronary artery without angina pectoris; I25.2 Old myocardial infarction; M81.0 Age-related osteoporosis without current pathological fracture; F41.8 Other specified anxiety disorders; Z79.02 Long term (current) use of antithrombotics/antiplatelets; Z79.82 Long term (current) use of aspirin; Z79.51 Long term (current) use of inhaled steroids; Z72.0 Tobacco use
CPT/HCPCS: 27130; 36415; 73501; 80048; 80307; 81001; 82040; 83036; 83735; 84443; 85014; 85018; 85025; 85610; 85730; 86850; 86900; 86901; 87081; 97110; 97116; 97161; 97165; 97530; A9270; C1713; C1776; C9803; J0171; J0690; J1100; J1170; J1885; J2001; J2250; J2405; J2704; J2795; J3010; J7030; J7120; U0003; U0005

== ENCOUNTER 2021-03-10 10:09 | Outpatient (CLI) | payer BC, SELFPAY ==
[2021-03-10 11:16] LABS: Alanine Aminotransferase 16 U/L (4-35); Albumin Level 4.3 g/dL (3.5-5.1); Alkaline Phosphatase 132 U/L (38-126); Anion Gap 7 mmol/L (8-16); Aspartate Amino Transferase 27 U/L (14-36); Bilirubin,Total 0.2 mg/dL (0.2-1.3); Blood Urea Nitrogen 25 mg/dL (7-17); Calcium 9.9 mg/dL (8.4-10.2); Carbon Dioxide 28 mmol/L (22-30); Chloride 104 mmol/L (98-107); Cholesterol 188 mg/dL (0-200); Estimated Glomerular Filt Rate > 60; Glucose 97 mg/dL (65-105); HDL Direct 64 mg/dL; Potassium 4.5 mmol/L (3.4-5.0); Sodium 139 mmol/L (137-145); Triglycerides 178 mg/dL (<150)
[2021-03-10 11:24] LABS: Hemoglobin A1C 6.1 % (<5.7)
[2021-03-10 11:27] LABS: LDL Cholesterol Direct 91 mg/dL
[2021-03-10 11:54] LABS: Vitamin D 25 Hydroxy 26.4 ng/mL
== END 2021-03-10 10:10 | disposition home or self-care (01) ==
LOC: ANHLAB 10:12
PROVIDERS: PCP Family Medicine; Visit Provider Family Medicine
DX: E16.4 Increased secretion of gastrin (principal); I10 Essential (primary) hypertension; E78.2 Mixed hyperlipidemia; I25.2 Old myocardial infarction; E55.9 Vitamin D deficiency, unspecified
CPT/HCPCS: 36415; 80053; 80061; 82306; 83036

== ENCOUNTER 2021-03-15 13:10 | Outpatient (CLI) | payer BC, SELFPAY | END 2021-03-15 13:11 | disposition home or self-care (01) | LOC: ANHCOVIDVC 13:10 | PROVIDERS: PCP Family Medicine | DX: Z23 Encounter for immunization (principal) | CPT/HCPCS: 0001A; 91300 ==

== ENCOUNTER 2021-04-05 13:12 | Outpatient (CLI) | payer BC, SELFPAY | END 2021-04-05 13:13 | disposition home or self-care (01) | LOC: ANHCOVIDVC 13:13 | PROVIDERS: PCP Family Medicine | DX: Z23 Encounter for immunization (principal) | CPT/HCPCS: 0002A; 91300 ==

== ENCOUNTER 2021-04-20 08:16 | Outpatient (CLI) | payer BC, SELFPAY ==
--- NOTE | ~2021-04-20 | NM_ITS ---
EXAMINATION: NM romeo stress w perfusion DATE: 04/20/2021 12:50 INDICATION: Myocardial infarct TECHNIQUE: Rest images were obtained following intravenous administration of 9.8 mCi Tc99m tetrofosmi n (Myoview). The patient was infused intravenously with Lexiscan (Regadenoson). Then, 89.7 mCi Tc99m tetrofosmin (Myoview) was administered intravenously, and stress images were obtained in supine posit ion. Additional post stress images were obtained in prone position.. Data was reconstructed into shor t axis and horizontal and vertical long axis SPECT images. Gated SPECT images were also obtained. COMPARISON: None. FINDINGS: Fixed mild nonreversible perfusion defect involving the apical anterior, apical septal and mid anteroseptal segments consistent with infarct. Additional moderate severity perfusion defect, rev ersible at the mid inferior segment consistent with ischemia and nonreversible consistent with infarc t at the basilar inferior segment. There is normal left ventricular chamber size with there is mild global hypokinesis with mildly decreased left ventricular ejection fraction measuring 42%. IMPRESSION: 1. Small mild infarct in the apical anterior, apical septal and mid anteroseptal segments in the left anterior descending vascular distribution. 2. Moderate severity perfusion defect in the right coronary artery vascular distribution, reversible consistent with ischemia in the mid basilar segment and nonreversible consistent with infarct in the basilar inferior segments. 2. Mildly decreased left ventricular ejection fraction measuring 42%. Reviewed, dictated and finalized at location A. IMPRESSION: 1. Small mild infarct in the apical anterior, apical septal and mid anterosepta l segments in the left anterior descending vascular distribution. 2. Moderate severity perfusion defect in the right coronary artery vascular dis tribution, reversible consistent with ischemia in the mid basilar segment and n onreversible consistent with infarct in the basilar inferior segments. 2. Mildly decreased left ventricular ejection fraction measuring 42%.
--- NOTE | 2021-04-20 09:21 | EST_ITS ---
Patient Info Name: Genny Magallanes Age: 61 years : 1960 Gender: Female Ht: 62 in Wt: 130 lbs BSA: 1.62 m2 Exam Date: 04/20/2021 9:30 AM Exam Location: [facility] Stress Patient Status: Outpatient Admit Date: 04/20/2021 Staff Ordering Physician: Virgie Carmona PA-C Attending Provider: Virgie Carmona PA-C Exercise Technologist: Diomedes Marr RDCS, RT Exercise Physician: David Irizarry MD Exam Type: CA stress romeo w NM Study Info A regadenoson stress test was performed. Summary 1. No abnormal ST-T wave changes with lexiscan. 2. Please correlate with nuclear medicine images, reported separately. Protocol: Lexiscan Stress ECG Details Stage: REST Duration (min): 2 min : 46 sec HR (bpm): 76 SBP (mmHg): 114 DBP (mmHg): 69 Stage: REST Duration (min): 31 min : 36 sec HR (bpm): 75 SBP (mmHg): 114 DBP (mmHg): 69 Stage: STAGE 1 Duration (min): 1 min : 0 sec HR (bpm): 82 SBP (mmHg): 114 DBP (mmHg): 69 Stage: RECOVERY Duration (min): 1 min : 0 sec HR (bpm): 82 SBP (mmHg): 136 DBP (mmHg): 74 Stage: RECOVERY Duration (min): 2 min : 0 sec HR (bpm): 81 SBP (mmHg): 136 DBP (mmHg): 74 Stage: RECOVERY Duration (min): 3 min : 0 sec HR (bpm): 81 SBP (mmHg): 138 DBP (mmHg): 76 Stage: RECOVERY Duration (min): 3 min : 3 sec HR (bpm): 80 SBP (mmHg): 138 DBP (mmHg): 76 Rest HR: 75 bpm Peak HR: 85 bpm Rest Sys BP: 114 mmHg Peak Sys BP: 138 mmHg Max Pred HR: 158 bpm % Max Pred HR: 54 % Target HR: 134 bpm Max RPP: 11,730 bpm*mmHg Target HR Summary: Hemodynamic response to exercise was normal BP Response: Normal blood pressure response Termination Reason: Completed protocol Cardiac Symptoms: None Total Time: 1 min : 0 sec Rest Davey BP: 69 mmHg Peak Davey BP: 76 mmHg Total Dose: 0.4 mg Resting ECG Normal sinus rhythm. Minor resting ST/T wave changes. Meets criteria for left ventricular hypertrophy. Stress ECG No abnormal ST/T wave changes with exercise. Arrhythmias None. Report Signatures
== END 2021-04-20 08:17 | disposition home or self-care (01) ==
PROVIDERS: PCP Family Medicine; Visit Provider Physician Assistant
DX: I25.2 Old myocardial infarction (principal)
CPT/HCPCS: 78452; 93017; A9502; J2785

== ENCOUNTER 2021-06-16 01:23 | Day surgery (SDC) | payer BC, SELFPAY ==
[2021-06-15 16:26] VITALS: BMI 25.0
[2021-06-16] VITALS (9 sets, daily range): BP systolic 114–170; BP diastolic 70–94; PULSE 70–79; RESP 16–20; TEMP 36.1–36.2; O2SAT 92–100; BMI 24.6
--- NOTE | 2021-06-16 09:30 | SUR.PREOP ---
ARRIVES AMBULATORY TO [facility] 4 FOR SCHEDULED C W/ DR. COOPER. DENIES PAIN, BUT REPORTS SOB W/ EXERTION. A&OX3, STEADY GAIT. ORIENTED TO ROOM, PLAN OF CARE, ORDERS, PROCEDURE. QUESTIONS ANSWERED. IV STARTED, LAB SENT, VS OBTAINED, PULSES MARKED, SKIN PREPPED, CONSENT SIGNED. REPORTS TOOK NO MEDICATIONS TODAY, BUT DID YESTERDAY 06/15. WILL CONTINUE TO MONITOR.
[2021-06-16 10:02] LABS: Basophils Absolute Auto 0.1 K/mm3 (0.0-0.1); Basophils Percent Auto 0.6 % (0.2-1.2); Eosinophils Absolute Auto 0.3 K/mm3 (0-0.3); Eosinophils Percent Auto 2.4 % (0-4.4); Hematocrit 43.2 % (37.0-47.0); Hemoglobin 13.9 g/dL (12.0-15.0); Immature Granulocyte Absolute 0.04 K/mm3 (0.00-0.031); Immature Granulocyte Percent A 0.4 % (0-0.5); Lymphocytes Absolute Auto 2.05 K/mm3 (0.9-3.2); Lymphocytes Percent Auto 18.2 % (18.3-44.2); Mean Corpuscular HGB Conc 32.2 g/dl (32-36); Mean Corpuscular Hemoglobin 29.6 pg (26-34); Mean Corpuscular Volume 92.1 fl (80-100); Mean Platelet Volume 10.9 fl (7.4-10.4); Monocytes Absolute Auto 0.6 K/mm3 (0.1-0.6); Monocytes Percent Auto 5.7 % (2.6-8.5); Neutrophils Absolute Auto 8.2 K/mm3 (1.3-6.7); Neutrophils Percent Auto 72.7 % (45.5-73.1); Platelet Count Result 284 k/mm3 (150-375); Red Blood Count 4.69 M/mm3 (4.2-5.4); Red Cell Distribution Width 14.6 % (11.5-14.5); White Blood Count 11.3 K/mm3 (4.5-10.0)
[2021-06-16 10:13] LABS: Anion Gap 9 mmol/L (8-16); Blood Urea Nitrogen 12 mg/dL (7-17); Calcium 9.7 mg/dL (8.4-10.2); Carbon Dioxide 27 mmol/L (22-30); Chloride 104 mmol/L (98-107); Estimated CRCL calculation 45 ml/min; Estimated Glomerular Filt Rate > 60; Glucose 98 mg/dL (65-110); Potassium 3.8 mmol/L (3.4-5.0); Sodium 140 mmol/L (137-145)
--- NOTE | 2021-06-16 11:13 | WPDHPUPDATE1 ---
History and Physical Update Update Date/Time: 06/16/21 11:13 History and Physical has been reviewed, including an updated exam of the patient. There are NO changes in the patient's condition. Risks, benefits, and alternatives have been discussed and questions answered. Patient agrees to proceed with procedure.
--- NOTE | 2021-06-16 11:13 | WPDMODSED ---
Moderate Sedation Note-Pt Data Patient Data Allergies Allergy/AdvReac Type Severity Reaction Status Date / Time hydrocodone Allergy Unknown Hives Verified 04/21/21 10:44 mold Allergy Unknown Nasal Verified 04/21/21 10:44 Discharge nickel Allergy Unknown Swelling/BL Verified 04/21/21 10:44 ISTERS/ITCH ING ragweed pollen Allergy Unknown Nasal Verified 04/21/21 10:44 Discharge Sulfa (Sulfonamide Allergy Unknown Hives Verified 04/21/21 10:44 Antibiotics) codeine Allergy Rash Verified 06/16/21 10:10 Home Medications Medication Instructions Recorded Confirmed Type albuterol sulfate 90 mcg/actuation 1 inhalation INHALATION Q4H PRN #3 12/08/19 06/15/21 Rx aerosol inhaler device multivitamin,[id number] 1 tablet PO HS 05/28/20 06/16/21 History aspirin 325 mg tablet,delayed 325 mg PO DAILY tablet 01/31/21 06/16/21 History release clopidogrel 75 mg tablet 75 mg PO HS #90 tablet 01/31/21 06/16/21 Rx metoprolol succinate 25 mg 25 mg PO HS #90 tablet 01/31/21 06/16/21 Rx tablet,extended release 24 hr montelukast 10 mg tablet 10 mg PO HS #90 tablet 01/31/21 06/16/21 Rx simvastatin 40 mg tablet 40 mg PO HS #90 tablet 01/31/21 06/16/21 Rx venlafaxine 150 mg 150 mg PO HS #90 cap 06/07/21 06/16/21 Rx capsule,extended release 24 hr Current Medications: Active Medications Sodium Chloride (Normal Saline Iv) 500 mls @ 100 mls/hr IV CONT .Q5H CHUCKIE Sedation/Anesthesia: No previous sedation/anesthesia problems (including family history). [facility] Past Medical History Medical History Anxiety Arthritis Depression Depression Essential hypertension High cholesterol History of coronary artery disease History of AR (myocardial infarction) 2006 - no intervention required - regular stress tests as part of her job - all negative since Mixed hyperlipidemia Osteoporosis Tobacco abuse Patient stated she quit smoking 2 weeks ago she has been counseled. Vision abnormalities Surgical History Surgical History History of ankle surgery Left, Dr. Rae History of breast surgery augmentation History of cholecystectomy History of surgery Right thumb, Dr. Rae History of surgery Foot, Dr. Chavo Stapleton History of total left hip arthroplasty History of total right hip arthroplasty Per Dr. Ambriz. 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 She lives at home alone. She wishes to be a full code. She has designated her two children Robson and Mel as her surrogate decision makers. She is a former 40 pack-year smoker and quit 04/20/20. She is . The patient stated that she quit smoking 2 weeks ago. Smoking packs per day: 1 Smoking cigarettes per day: 20.0 Years smoked: 40 Smoking pack-years: 40.00 Smoking status: Current every day smoker Tobacco type: cigarettes Second hand tobacco smoke exposure: Yes Additional smoking assessment comments: STATES RARELY SMOKES A CIGARETTE-INSTRUCT TO NOT SMOKE ANY AT ALL. Alcohol intake: never Substance use: never Substance use type: does not use Living arrangements: alone Gender identity (if verbalized by the patient): Female Spiritual care concerns: No Mod
--- NOTE | 2021-06-16 11:14 | WPDCARDPROC ---
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 Stress test showed ejection fraction 42%, anterior wall fixed defect, reversible ischemia in inferior wall. Patient denies chest pain or shortness of breath. Procedure Procedure performed:: 1-Moderate sedation that started at 11:12 a.m. and ended at 11:41 a.m. with total duration 29 minutes using 3mg of Versed and 75mcg fentanyl. The registered nurse was polo valles. 2-Selective left and right coronary angiogram. 3-Left heart catheterization with measurement of LVEDP and measurement of gradient across aortic valve. 3- LV angiogram. 4-Right common femoral arterial angiogram. 5-Deployment of 6 [place] Angio-Seal. Sedation/Medication given:: Moderate sedation. Access site:: Right common femoral artery. Estimated blood loss:: 10cc Procedure note:: After informed consent patient was brought in to supervisor dental laboratory with the was draped and prepped in usual manner. Moderate sedation was given and the right groin was infiltrated using 1% lidocaine. Five [place] sheath was obtained using micropuncture needle and the modified Seldinger technique. Selective left coronary angiogram was done using JL4 catheter with the tip of the catheter placed in the left main coronary artery. Selective right coronary angiogram was done using JR4 catheter with the tip of the catheter placed to the right coronary artery. After that 5 [place] pigtail catheter was advanced across the aortic valve into the left ventricle with measurement of LVEDP and measurement of gradient across aortic valve. LV angiogram was done as well.Right common femoral arterial angiogram was done. Findings:: 1- left coronary artery is a large artery that divides into large LAD, large circumflex artery. Left main is Free of disease. 2- left anterior descending artery is a large artery that runs and wraps around the apex. Has minimal irregularities proximally. Proximally gives rise to a large diagonal branch with minimal irregularities. 3- leftcircumflex artery is a large artery And free of disease. Proximally gives rise to small to medium size OM1 branch that looks unremarkable and medium-sized OM2 branch that looks unremarkable. 4- right coronary artery is Large artery and dominant. Proximal 40-50% stenosis. Diffuse irregularities throughout the vessel. Patent right posterolateral branch and patent PDA. Both have minimal irregularities. 5- LVEDP was 20 mm Hgand no gradient across aortic valve. 5- LV angiogram shows estimated ejection fraction 55%. 6- opening arterial pressure was 130/80 and closing pressure was 160/70. 7- right femoral artery angiogram shows no significant disease in the right common femoral artery. Conclusion:: proximal RCA 40-50% otherwise minimal irregularities. Ejection fraction estimated 55%. false-positive stress test. Assessment and Plan Additional Plan Continue aggressive risk factor modification for CAD. Smoking cessation
--- NOTE | 2021-06-16 16:00 | SUR.PHASEII ---
DISCHARGE INSTRUCTIONS GIVEN AND REVEIWED BY ADIN BELL RN. PT. VOICED UNDERSTANDING OF ALL. DISCHARGED HOME, OUT VIA WC TO FRIEND'S WAITING CAR, WITH ALL PERSONAL BELONGINGS AND DISCHARGE PACKET. VOICES NO C/O. NO DISTRESS NOTED.
== END 2021-06-16 16:00 | disposition home or self-care (01) ==
PROVIDERS: PCP Family Medicine; Visit Provider Internal Medicine Cardiovascular Disease
PROC: 4A023N7 Measurement of Cardiac Sampling and Pressure, Left Heart, Percutaneous Approach (ICD-10-PCS; CPT 93452; principal; 2021-06-16 10:30)
DX: I25.10 Atherosclerotic heart disease of native coronary artery without angina pectoris (principal); R94.39 Abnormal result of other cardiovascular function study; I10 Essential (primary) hypertension; F41.8 Other specified anxiety disorders; I25.2 Old myocardial infarction; E78.2 Mixed hyperlipidemia; F17.210 Nicotine dependence, cigarettes, uncomplicated; Z79.51 Long term (current) use of inhaled steroids; Z79.02 Long term (current) use of antithrombotics/antiplatelets; Z79.82 Long term (current) use of aspirin
CPT/HCPCS: 36415; 80048; 85025; 93458; C1760; C1769; C1887; C1894; G0269; J1644; J2250; J3010; J7040

== ENCOUNTER → 2021-11-10 10:58 | Outpatient (CLI) | payer BC, SELFPAY ==
--- NOTE | ~2021-11-10 | MM_ITS ---
EXAMINATION: MM scrn janessa implant BI w juan m HISTORY: Screening mammogram, family history of breast cancer in her mother. TECHNIQUE: Craniocaudal and mediolateral oblique 3-D tomosynthesis images with implant displacement a nd synthetic 2-D images were generated. Craniocaudal and mediolateral oblique views of the breasts wi thout implant displacement were obtained using full field digital mammography. CAD analysis was submi tted and interpreted. COMPARISON: 12/23/2018, 02/10/2011 BREAST PARENCHYMAL COMPOSITION: There are scattered areas of fibroglandular density. FINDINGS: There is no evidence of suspicious mass, calcification, or architectural distortion to sugg est malignancy in either breast. There has been no suspicious interval change. IMPRESSION: 1. No mammographic evidence of malignancy. 2. Recommend routine screening mammography in one year. BI-RADS Category 1: Negative Reviewed, dictated and finalized at location A. 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
--- NOTE | ~2021-11-10 | XR_ITS ---
EXAMINATION: XR chest 2V 11/10/2021 11:56 INDICATION: Dyspnea PROCEDURE: 2 view chest COMPARISON: No prior studies for comparison. FINDINGS: The lungs are clear. The cardiomediastinal silhouette is within normal limits. There are no pleural effusions. There is no pneumothorax suspected. There are breast implants. There is ather osclerosis. IMPRESSION: 1: NO ACUTE CARDIOPULMONARY DISEASE. Reviewed, dictated and finalized at location A. OL DRIVER
== END ==
PROVIDERS: PCP Family Medicine; Visit Provider Family Medicine
DX: Z12.31 Encounter for screening mammogram for malignant neoplasm of breast (principal); R06.00 Dyspnea, unspecified; I70.90 Unspecified atherosclerosis
CPT/HCPCS: 71046; 77063; 77067

== ENCOUNTER → 2022-01-02 11:17 | Outpatient (CLI) | payer BC, SELFPAY ==
--- NOTE | ~2022-01-02 | DEXA_ITS ---
Bone Density Report Name: JADEN CASILLAS Age: 61 Sex: Female Ethnicity: White Date of : 1960 Indication: postmenopausal osteoporosis; asthma or emphysema; hysterectomy; Referring Provider: ELAINE SUÁREZ Study: Bone densitometry was performed. Exam Date: January 02, 2022 Accession number: [id number] Bone Density: Region BMD T-score Z-score Classification AP Spine (L1-L4) 0.810 -2.2 -0.6 Osteopenia World Health Organization criteria for BMD impression classify patients as: Normal (T-score at or above -1.0), Osteopenia (T-score between -1.0 and -2.5), or Osteoporosis (T-score at or below -2.5). Previous Exams: Region Exam Age BMD T-score BMD Change BMD Change Date g/cm2 vs Baseline vs Previous AP Spine(L1-L4) 01/02/2022 61 0.810 -2.2 0.049* 0.049* 02/10/2011 50 0.761 -2.6 *Denotes significance at 95% confidence level, LSC for AP Spine = 0.022 g/cm2 Clinical Information Provided by Patient: Smokes Has the following medical conditions: Asthma or Emphysema, Hysterectomy Patient maximum height was 62.5 Menopause Age: 38 No regular weight bearing exercise Does not regularly consume dairy products Drinks caffeinated beverages Onset of menses at age 11 Number of children 2 Impression: The patient has low bone mass, based on the Total Spine T-score. The patient has risk factors, including: smoking. No significant bone loss was observed. Discussion: BONE DENSITY IS LOW AT ONE OR MORE SKELETAL SITES. This patient's lowest T-score is low at one or more skeletal sites. It meets the World Health Organization's (WHO) criteria for ?low bone mass? (T-score between -1.0 and -2.5). The patient's 10-year risk of fracture as calculated by FRAX is less than the threshold where pharmacological therapy is recommended by the National Osteoporosis Foundation (NOF). However, all treatment decisions require clinical judgment and consideration of individual patient factors, including patient preferences, comorbidities, previous drug use, risk factors not captured in the FRAX model (e.g., frailty, falls, vitamin D deficiency, increased bone turnover, interval significant decline in bone density) and possible under or overestimation of fracture risk by FRAX. The patient should follow a healthful lifestyle (good nutrition with adequate calcium and vitamin D, and appropriate weight-bearing exercise). Follow-Up: Consider repeating this study in 2 to 3 years to reassess this patient's status, or sooner if there is some new clinical indication. Reported by: MELISSA on 01/02/2022 11:34:00 AM. Reviewed, dictated and finalized at location A. [facility]
== END ==
PROVIDERS: PCP Family Medicine; Visit Provider Family Medicine
DX: Z78.0 Asymptomatic menopausal state (principal); M85.88 Other specified disorders of bone density and structure, other site
CPT/HCPCS: 77080

== ENCOUNTER 2022-05-03 09:22 | Outpatient (CLI) | payer BC, SELFPAY ==
--- NOTE | ~2022-05-03 | CT_ITS ---
EXAMINATION:CT lung screening DATE: 05/03/2022 09:45 INDICATION: Personal history of nicotine dependence. Current smoker with 40 pack year history. TECHNIQUE: Computed tomography (CT) of the chest was performed without intravenous contrast. Automate d exposure control and iterative reconstruction technique were employed. The dose-length product (DLP ) was 65.54 mGy-cm. COMPARISON: None. FINDINGS: There is moderate emphysema. Calcified right lung nodules and calcified right hilar and med iastinal lymph nodes are consistent with old granulomatous disease. There is mild scarring at left rubio ng apex. There is a 4 mm nodule in right lower lobe. No pleural effusion. Breast implants are noted. The heart size is normal. There are coronary artery calcifications. No pericardial effusion. There is severe cervical spondylosis and mild thoracic spondylosis. IMPRESSION: 1. Lung-RADS category 2: Benign appearance or behavior. Continue annual screening with noncontrast lo w-dose chest CT in 12 months. Reviewed, dictated and finalized at location B. IMPRESSION: 1. Lung-RADS category 2: Benign appearance or behavior. Continue annual screeni ng with noncontrast low-dose chest CT in 12 months.
[2022-05-03 10:24] LABS: Alanine Aminotransferase 20 U/L (6-35); Albumin Level 4.5 g/dL (3.5-5.1); Alkaline Phosphatase 104 U/L (38-126); Anion Gap 6 mmol/L (8-16); Aspartate Amino Transferase 31 U/L (14-36); Bilirubin,Total 0.4 mg/dL (0.2-1.3); Blood Urea Nitrogen 21 mg/dL (7-17); Calcium 9.7 mg/dL (8.4-10.2); Carbon Dioxide 31 mmol/L (22-30); Chloride 102 mmol/L (98-107); Cholesterol 195 mg/dL (0-200); Estimated Glomerular Filt Rate 50; Glucose 127 mg/dL (65-110); HDL Direct 65 mg/dL; Potassium 4.2 mmol/L (3.4-5.0); Sodium 139 mmol/L (137-145); Triglycerides 93 mg/dL (<150)
[2022-05-03 10:34] LABS: Hemoglobin A1C 6.3 % (<5.7)
[2022-05-03 10:35] LABS: LDL Cholesterol Direct 102 mg/dL
== END 2022-05-03 09:23 | disposition home or self-care (01) ==
PROVIDERS: PCP Family Medicine; Visit Provider Physician Assistant
DX: Z12.2 Encounter for screening for malignant neoplasm of respiratory organs (principal); Z87.891 Personal history of nicotine dependence; E78.2 Mixed hyperlipidemia; I10 Essential (primary) hypertension; Z13.1 Encounter for screening for diabetes mellitus; R73.03 Prediabetes; Z13.220 Encounter for screening for lipoid disorders
CPT/HCPCS: 36415; 71271; 80053; 80061; 83036

== ENCOUNTER → 2023-05-07 10:45 | Outpatient (CLI) | payer OTHER, SELFPAY ==
--- NOTE | ~2023-05-07 | CT_ITS ---
EXAMINATION: CT lung screening DATE: 05/07/2023 11:05 INDICATION: Personal history of nicotine dependence TECHNIQUE: Computed tomography (CT) of the chest was performed without intravenous contrast. The dose -length product was 70.00 mGy-cm. Automated exposure control and iterative reconstruction technique w ere employed. COMPARISON: CT dated 05/03/2022 FINDINGS: No significant pleural or pericardial effusion. There is chronic granulomatous disease. Reji ateral breast implants are present. No mediastinal lymphadenopathy. No significant pleural or pericar dial effusion. There are cholecystectomy clips. There is emphysema. There is a 4 mm right lower lobe nodule, unchanged from prior study. There is lingular atelectasis/scarring. No acute bone or joint ab normality. No focal lytic or blastic lesions. IMPRESSION: 1. Lung-RADS category 2: Benign appearance or behavior. Continue annual screening with noncontrast lo w-dose chest CT in 12 months. Reviewed, dictated and finalized at location [] IMPRESSION: 1. Lung-RADS category 2: Benign appearance or behavior. Continue annual screeni ng with noncontrast low-dose chest CT in 12 months.
== END ==
PROVIDERS: PCP Family Medicine; Visit Provider Physician Assistant
DX: Z12.2 Encounter for screening for malignant neoplasm of respiratory organs (principal); Z87.891 Personal history of nicotine dependence
CPT/HCPCS: 71271

== ENCOUNTER 2023-05-17 00:17 | Day surgery (SDC) | payer OTHER, SELFPAY ==
[2023-05-11 11:57] VITALS: BMI 21.7
[2023-05-17 12:54] VITALS: BP 103/69; PULSE 88; RESP 16; TEMP 36; O2SAT 95
--- NOTE | 2023-05-17 13:03 | WPDANESEPPF ---
Anes - Initial Pre Proc Eval Procedure: Operation Date: 05/17/23 13:45 Proposed Procedures p Colonoscopy - Deangelo Sheffield MD Date/Time: 05/17/23 13:03 Surgeon: Deangelo Sheffield MD Pre Op Diagnosis: other fecal abnormalities Patient Data Age: 63 Gender: F Height: 1.57 m Weight: 53 kg Last Vital Signs Temp 96.8 F L 05/17/23 12:54 Pulse 88 05/17/23 12:54 Resp 16 05/17/23 12:54 BP 103/69 05/17/23 12:54 Pulse Ox 95 05/17/23 12:54 O2 Del Method Room Air 05/17/23 12:54 Allergies Allergy/AdvReac Type Severity Reaction Status Date / Time codeine Allergy Intermediate Hives Verified 05/17/23 12:50 hydrocodone Allergy Intermediate Hives Verified 05/17/23 12:50 mold Allergy Intermediate Nasal Verified 05/17/23 12:50 Discharge nickel Allergy Intermediate Swelling/BL Verified 05/17/23 12:50 ISTERS/ITCH ING ragweed pollen Allergy Intermediate Nasal Verified 05/17/23 12:50 Discharge Sulfa (Sulfonamide Allergy Intermediate Hives Verified 05/17/23 12:50 Antibiotics) Home Medications Medication Instructions Recorded Confirmed Type multivitamin,[id number] 1 tablet PO HS 05/28/20 05/17/23 History (Complete Multivitamin tablet) aspirin 325 mg tablet,delayed 325 mg PO HS 01/31/21 05/17/23 History release cholecalciferol (vitamin D3) 25 25 mcg PO HS 04/24/22 05/17/23 History mcg (1,000 unit) capsule clopidogrel 75 mg tablet 75 mg PO HS #90 tabs 09/22/22 05/17/23 Rx metoprolol succinate 25 mg 25 mg PO HS #90 tabs 09/22/22 05/17/23 Rx tablet,extended release 24 hr montelukast 10 mg tablet 10 mg PO HS #90 tabs 09/22/22 05/17/23 Rx venlafaxine 150 mg 150 mg PO HS #90 caps 04/21/23 05/17/23 Rx capsule,extended release 24 hr atorvastatin 10 mg tablet (Lipitor) 10 mg PO HS 04/26/23 05/17/23 History albuterol sulfate 90 mcg/actuation 2 inh inhalation Q4H PRN Shortness 05/11/23 05/17/23 History aerosol inhaler Of Breath Or Wheezing vit C 250 mg-vit E 90 mg-zinc 40 1 tablet PO BID 05/11/23 05/17/23 History mg-copper 1 [id number]-[id number] capsule (PreserVision AREDS-2) Patient hx anesthesia problems: none Family hx anesthesia problems: none Results Review: All pre-operative results and documents have been reviewed as part of the pre-operative evaluation. FORMERLY [facility], [facility] Past Medical History Medical History Anxiety Arthritis Depression Depression Encounter for immunization Essential hypertension High cholesterol History of coronary artery disease History of ND (myocardial infarction) 2006 - no intervention required - regular stress tests as part of her job - all negative since Mixed hyperlipidemia Osteoporosis RSV (acute bronchiolitis due to respiratory syncytial virus) Tobacco abuse Patient stated she quit smoking 2 weeks ago she has been counseled. Smoking again 09/19/21. Vision abnormalities Surgical History Surgical History History of ankle surgery Left, Dr. Rae History of breast surgery augmentation History of cholecystectomy History of surgery Right thumb, Dr. Rae History of surgery Foot, Dr. Chavo Stapleton History of total left hip arthroplasty History of total right hip arthroplasty Per Dr. Ambriz. 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
[2023-05-17] MEDS: LACTATED RINGERS 1,000 ML 150 ML IV CONT (13:06)
--- NOTE | 2023-05-17 13:26 | PM.HPGS ---
History of Present Illness History of Present Illness Consent: Risks, benefits, and alternatives have been discussed and questions answered. Patient agrees to proceed with procedure. Chief complaint: other fecal abnormalities Narrative: Genny Magallanes is a 63 year old female referred for colon cancer screening. Review of Systems Review of Systems: All systems reviewed & are unremarkable except as noted in HPI and below PMFSH Past Medical History Medical History Anxiety Arthritis Depression Depression Encounter for immunization Essential hypertension High cholesterol History of coronary artery disease History of [place] (myocardial infarction) 2006 - no intervention required - regular stress tests as part of her job - all negative since Mixed hyperlipidemia Osteoporosis RSV (acute bronchiolitis due to respiratory syncytial virus) Tobacco abuse Patient stated she quit smoking 2 weeks ago she has been counseled. Smoking again 09/19/21. Vision abnormalities Surgical History Surgical History History of ankle surgery Left, Dr. Rae History of breast surgery augmentation History of cholecystectomy History of surgery Right thumb, Dr. Rae History of surgery Foot, Dr. Chavo Stapleton History of total left hip arthroplasty History of total right hip arthroplasty Per Dr. Ambriz. 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 She lives at home alone. She wishes to be a full code. She has designated her two children Robson and Mel as her surrogate decision makers. She quit briefly, but now is back to smoking 1 ppd. Smoking packs per day: 1 Smoking cigarettes per day: 20.0 Years smoked: 20 Smoking pack-years: 20.00 Smoking status: Current every day smoker Tobacco type: cigarettes Second hand tobacco smoke exposure: Yes Alcohol intake: current Substance use: never Substance use type: does not use Lack of Transportation: No Lack of Food: Never True Current Housing: I Have Housing Concerned About Future Housing: No Difficulty Paying Gas/Electric Bills: No Difficulty Paying for Meds: No Currently Unemployed: No Education: Trade/Vocational Certificate Difficulty w/ Childcare or Family Care: No Living arrangements: alone Gender identity (if verbalized by the patient): Female Sexual Orientation (if Verbalized by the Patient): Straight or Heterosexual Spiritual care concerns: No Meds Home Medications and Allergies Home Medications Medication Instructions Recorded Confirmed Type multivitamin,[id number]-[id number] 1 tablet PO HS 05/28/20 05/17/23 History (Complete Multivitamin tablet) aspirin 325 mg tablet,delayed 325 mg PO HS 01/31/21 05/17/23 History release cholecalciferol (vitamin D3) 25 25 mcg PO HS 04/24/22 05/17/23 History mcg (1,000 unit) capsule clopidogrel 75 mg tablet 75 mg PO HS #90 tabs 09/22/22 05/17/23 Rx metoprolol succinate 25 mg 25 mg PO HS #90 tabs 09/22/22 05/17/23 Rx tablet,extended release 24 hr montelukast 10 mg tablet 10 mg PO HS #90 tabs 09/22/22 05/17/23 Rx venlafaxine 150 mg 150 mg PO HS #90 caps 04/21/23 05/17/23 Rx capsule,extended release 24 hr atorvastatin 10 mg table
[2023-05-17 14:04] VITALS: BP 93/33; PULSE 68; RESP 21; O2SAT 100
[2023-05-17 14:14] VITALS: BP 97/57; PULSE 69; RESP 22; O2SAT 98
[2023-05-17 14:24] VITALS: BP 152/79; PULSE 68; RESP 20; O2SAT 97
== END 2023-05-17 14:45 | disposition home or self-care (01) ==
PROVIDERS: PCP Family Medicine; Visit Provider Internal Medicine Gastroenterology
PROC: 0DJD8ZZ Inspection of Lower Intestinal Tract, Via Natural or Artificial Opening Endoscopic (ICD-10-PCS; CPT 45378; principal; 2023-05-17 13:45)
DX: Z12.11 Encounter for screening for malignant neoplasm of colon (principal); K64.8 Other hemorrhoids; D12.0 Benign neoplasm of cecum; I10 Essential (primary) hypertension; E78.00 Pure hypercholesterolemia, unspecified; I25.2 Old myocardial infarction; I25.10 Atherosclerotic heart disease of native coronary artery without angina pectoris; M81.0 Age-related osteoporosis without current pathological fracture; F41.9 Anxiety disorder, unspecified; F32.A Depression, unspecified; Z79.51 Long term (current) use of inhaled steroids; Z79.02 Long term (current) use of antithrombotics/antiplatelets; F17.210 Nicotine dependence, cigarettes, uncomplicated
CPT/HCPCS: 45381; 45385; 88305; J2704; J7120

== ENCOUNTER 2024-07-04 14:29 | Outpatient (CLI) | payer MEDICARE, SELFPAY ==
[2024-07-04 15:04] LABS: Basophils Absolute Auto 0.1 K/mm3 (0.0-0.1); Basophils Percent Auto 0.6 % (0.2-1.2); Eosinophils Absolute Auto 0.3 K/mm3 (0-0.3); Eosinophils Percent Auto 2.5 % (0-4.4); Hematocrit 46.5 % (37.0-47.0); Hemoglobin 15.1 g/dL (12.0-15.0); Immature Granulocyte Absolute 0.03 K/mm3 (0.00-0.031); Immature Granulocyte Percent A 0.3 % (0-0.5); Immature Platelet Fraction Pct 4.5 % (0.9-11.2); Lymphocytes Absolute Auto 2.22 K/mm3 (0.9-3.2); Lymphocytes Percent Auto 20.4 % (18.3-44.2); Mean Corpuscular HGB Conc 32.5 g/dl (32-36); Mean Corpuscular Hemoglobin 30.6 pg (26-34); Mean Corpuscular Volume 94.1 fl (80-100); Mean Platelet Volume 10.3 fl (7.4-10.4); Monocytes Absolute Auto 0.6 K/mm3 (0.1-0.6); Monocytes Percent Auto 5.8 % (2.6-8.5); Neutrophils Absolute Auto 7.7 K/mm3 (1.3-6.7); Neutrophils Percent Auto 70.4 % (45.5-73.1); Platelet Count Result 290 k/mm3 (150-375); Red Blood Count 4.94 M/mm3 (4.2-5.4); Red Cell Distribution Width 13.6 % (11.5-14.5); White Blood Count 10.9 K/mm3 (4.5-10.0)
[2024-07-04 15:16] LABS: Alanine Aminotransferase 17 U/L (6-35); Albumin Level 3.9 g/dL (3.5-5.1); Alkaline Phosphatase 105 U/L (38-126); Anion Gap 5 mmol/L (4-12); Aspartate Amino Transferase 27 U/L (14-36); Bilirubin,Total 0.3 mg/dL (0.2-1.3); Blood Urea Nitrogen 19 mg/dL (7-17); Calcium 9.1 mg/dL (8.4-10.2); Carbon Dioxide 34 mmol/L (22-30); Chloride 98 mmol/L (98-107); Estimated Glomerular Filt Rate > 60; Glucose 108 mg/dL (65-110); Lipase 120 U/L (23-300); Potassium 4.2 mmol/L (3.4-5.0); Sodium 137 mmol/L (137-145)
[2024-07-04 15:25] LABS: Platelet Estimate Adequate (Adequate); Schistocytes None Seen
[2024-07-04 15:26] LABS: D Dimer 1.21 ug/mL (<0.48)
[2024-07-04 15:55] LABS: Free T4 Free Thyroxine 0.96 ng/mL (0.78-2.19)
== END 2024-07-04 14:30 | disposition home or self-care (01) ==
LOC: ANHLAB 14:32
PROVIDERS: PCP Family Medicine; Visit Provider Student in an Organized Health Care Education/Training Program
DX: R53.83 Other fatigue (principal); I10 Essential (primary) hypertension; E78.2 Mixed hyperlipidemia; R07.81 Pleurodynia; R10.13 Epigastric pain
CPT/HCPCS: 36415; 80053; 83690; 84439; 84443; 85025; 85055; 85380

== ENCOUNTER 2024-07-04 16:46 | Emergency (ER) | payer MEDICARE, SELFPAY ==
[2024-07-04 16:51] VITALS: BP 104/55; PULSE 86; RESP 20; TEMP 36.3; O2SAT 94
--- NOTE | 2024-07-04 20:18 | PC.NURSE ---
Pt came up to desk stating she can't wait any longer and will return if symptoms return.
== END 2024-07-04 21:41 | disposition left against medical advice (07) ==
PROVIDERS: PCP Family Medicine
DX: R79.1 Abnormal coagulation profile (principal)
CPT/HCPCS: 99199

== ENCOUNTER 2024-07-05 15:43 | Emergency (ER) | payer SELFPAY ==
--- NOTE | ~2024-07-05 | CT_ITS ---
EXAMINATION: CTA chest PE abdomen pel DATE: 07/05/2024 16:53 INDICATION: Chest pain, abdominal pain TECHNIQUE: Computed tomography (CT) of the chest, abdomen, and pelvis was performed with 100 CC Omnip aque 350 intravenous contrast. Automated exposure control and iterative reconstruction technique were employed. Exam dose: 357.40 mGy-cm total exam DLP. COMPARISON: 05/07/2023 CT lung screening FINDINGS: CHEST CT: There is diagnostic contrast enhancement of the pulmonary arteries and no evidence of pulmonary aneur ysm. Thoracic aortic and great vessel and coronary artery calcifications. No thoracic aortic aneurysm or d issection is detected. Heart size is within normal limits. No pericardial or pleural effusion. Emphysematous changes of the lungs. There is old pulmonary granulomatous disease. Approximately 12 x 26 mm opacity is noted at the left lung base above the diaphragmatic dome. This ma y represent some focal atelectasis or consolidation. Pulmonary mass lesion is not excluded. There are several smaller peripheral opacities in the posterior right upper lobe, which may likewise represent metastases small areas of atelectasis or consolidation, but pulmonary mass lesions are not excluded either. Consider short-term CT chest follow-up. ABDOMEN/PELVIS CT: Status post cholecystectomy. No hepatic, splenic, pancreatic space-occupying mass lesion or bile duct or pancreatic duct dilatation is evident. Normal morphology of the adrenal glands. No renal mass lesion or urinary tract calculus or hydroureteronephrosis. There is extensive calcification of the abdominal aorta but no abdominal aortic aneurysm. No intraperitoneal or retroperitoneal or pelvic mass lesion or adenopathy or ascites. There is extens moustapha streak artifact from bilateral hip replacements obscuring a large portion of the pelvis, includin g expected position of the appendix. No bowel obstruction or free air is noted. No suspicious osteolytic or osteoblastic lesions are noted. IMPRESSION: No evidence of pulmonary embolism Status post cholecystectomy Bilateral total hip arthroplasty Left basilar and several posterior right upper lobe opacities may represent atelectasis, consolidatio n or less likely pulmonary mass lesions. Short-term CT follow-up within 6 months is recommended Emphysema Reviewed, dictated and finalized at [facility]. Reviewed, dictated and finalized at [facility]. IMPRESSION: No evidence of pulmonary embolism Status post cholecystectomy Bilateral total hip arthroplasty Left basilar and several posterior right upper lobe opacities may represent ate lectasis, consolidation or less likely pulmonary mass lesions. Short-term CT fo llow-up within 6 months is recommended Emphysema
[2024-07-05 15:52] VITALS: BP 137/85; PULSE 86; RESP 16; O2SAT 95
--- NOTE | 2024-07-05 16:05 | ECG_ITS ---
Test Date: 2024-07-05 16:25:11 Measurements Intervals [place] Rate: 81 P: 76 SC: 158 QRS: 71 QRSD: 86 T: 62 QT: 361 QTc: 419 Interpretive Statements SINUS RHYTHM WITH SINUS ARRHYTHMIA POSSIBLE LEFT ATRIAL ENLARGEMENT [-0.1mV P WAVE IN V1/V2] LEFT VENTRICULAR HYPERTROPHY AND ST-T CHANGE [VOLTAGE CRITERIA PLUS ST/T ABNORMALITY] ABNORMAL ECG No previous ECG available for comparison Electronically Signed On 07-06-2024 08:38:43 CDT by Hugo Strong M.D.
[2024-07-05 16:26] LABS: Basophils Absolute Auto 0.1 K/mm3 (0.0-0.1); Basophils Percent Auto 0.6 % (0.2-1.2); Eosinophils Absolute Auto 0.3 K/mm3 (0-0.3); Eosinophils Percent Auto 2.4 % (0-4.4); Hematocrit 44.5 % (37.0-47.0); Hemoglobin 14.4 g/dL (12.0-15.0); Immature Granulocyte Absolute 0.04 K/mm3 (0.00-0.031); Immature Granulocyte Percent A 0.4 % (0-0.5); Lymphocytes Absolute Auto 2.59 K/mm3 (0.9-3.2); Lymphocytes Percent Auto 23.7 % (18.3-44.2); Mean Corpuscular HGB Conc 32.4 g/dl (32-36); Mean Corpuscular Hemoglobin 30.3 pg (26-34); Mean Corpuscular Volume 93.7 fl (80-100); Mean Platelet Volume 10.3 fl (7.4-10.4); Monocytes Absolute Auto 0.7 K/mm3 (0.1-0.6); Monocytes Percent Auto 6.6 % (2.6-8.5); Neutrophils Absolute Auto 7.3 K/mm3 (1.3-6.7); Neutrophils Percent Auto 66.3 % (45.5-73.1); Platelet Count Result 291 k/mm3 (150-375); Red Blood Count 4.75 M/mm3 (4.2-5.4); Red Cell Distribution Width 13.7 % (11.5-14.5); White Blood Count 10.9 K/mm3 (4.5-10.0)
[2024-07-05 16:38] LABS: Partial Thromboplastin Time 27.2 Seconds (22.3-36.8); Prothrombin Time 13.2 Seconds (11.1-14.7)
[2024-07-05 16:39] LABS: Alanine Aminotransferase 19 U/L (6-35); Albumin Level 3.9 g/dL (3.5-5.1); Alkaline Phosphatase 112 U/L (38-126); Anion Gap 9 mmol/L (4-12); Aspartate Amino Transferase 29 U/L (14-36); Bilirubin,Total 0.2 mg/dL (0.2-1.3); Blood Urea Nitrogen 17 mg/dL (7-17); Calcium 9.2 mg/dL (8.4-10.2); Carbon Dioxide 30 mmol/L (22-30); Chloride 99 mmol/L (98-107); Estimated CRCL calculation 55 ml/min; Estimated Glomerular Filt Rate > 60; Glucose 98 mg/dL (65-110); Lipase 439 U/L (23-300); Potassium 3.9 mmol/L (3.4-5.0); Sodium 138 mmol/L (137-145)
[2024-07-05 16:48] LABS: Troponin I < 0.012 ng/mL (0.000-0.034)
[2024-07-05 16:50] LABS: Estimated CRCL calculation 48 ml/min; Estimated Glomerular Filt Rate > 60
--- NOTE | 2024-07-05 16:59 | ED_ITS ---
HPI - General Adult General Chief complaint: Recheck/Abnormal Lab/Rx Stated complaint: elevated d dimer Time Seen by Provider: 07/05/24 15:50 History of Present Illness HPI narrative: Patient is a 64-year-old female who presents emergency department with chief complaint of elevated D-dimer. Patient reports that she has been having some discomfort in her left upper quadrant/ lower chest for about 2 weeks the patient was seen by her primary care provider and had blood work done that showed an elevated D-dimer was instructed to come to the emergency department. Patient reports that he had the pain is worsened with movement and deep breath patient denies vomiting denies fever reports no trauma does report that she has prior history of COPD Related Data Home Medications Medication Instructions Recorded Confirmed multivitamin,[id number] 1 tablet PO HS 05/28/20 07/04/24 (Complete Multivitamin tablet) cholecalciferol (vitamin D3) 25 25 mcg PO HS 04/24/22 07/04/24 mcg (1,000 unit) capsule vit C 250 mg-vit E 90 mg-zinc 40 1 tablet PO BID 05/11/23 07/04/24 mg-copper 1 [id number] capsule (PreserVision AREDS-2) Allergies Allergy/AdvReac Type Severity Reaction Status Date / Time codeine Allergy Intermediate Hives Verified 07/04/24 16:47 hydrocodone Allergy Intermediate Hives Verified 07/04/24 16:47 mold Allergy Intermediate Nasal Verified 07/04/24 16:47 Discharge nickel Allergy Intermediate Swelling/BL Verified 07/04/24 16:47 ISTERS/ITCH ING ragweed pollen Allergy Intermediate Nasal Verified 07/04/24 16:47 Discharge Sulfa (Sulfonamide Allergy Intermediate Hives Verified 07/04/24 16:47 Antibiotics) Review of Systems Review of Systems: A 10 system review of systems was completed on the patient and is negative except for what is stated in the HPI. Nursing and ancillary documentation was reviewed. [facility] Past Medical History Medical History Anxiety Arthritis Depression Depression Essential hypertension High cholesterol History of coronary artery disease History of AL (myocardial infarction) 2006 - no intervention required - regular stress tests as part of her job - all negative since Mixed hyperlipidemia Osteoporosis Pre-op evaluation RSV (acute bronchiolitis due to respiratory syncytial virus) Tobacco abuse Patient stated she quit smoking 2 weeks ago she has been counseled. Smoking again 09/19/21. Vision abnormalities Surgical History Surgical History History of ankle surgery Left, Dr. Rae History of breast surgery augmentation History of cholecystectomy History of surgery Right thumb, Dr. Rae History of surgery Foot, Dr. Chavo Stapleton History of total left hip arthroplasty History of total right hip arthroplasty Per Dr. Ambriz. 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 She lives at home alone. She wishes to be a full code. She has designated her two children Robson and Mel as her surrogate decision makers. She quit briefly, but now is back to smoking 1 ppd. Smoking packs per day: 1 Smoking cigarettes per day: 20.0 Years smoked: 20 Smoking pack-years: 20.00 Smoking status: Current every day smoker Tobacco type: cigarettes Second hand tobacco smoke exposure: Yes Alcohol intake: current Substance use: never Substance use type: does not use Lack of Transportation: No Lack of Food: Never True Current Housing: I Have Housing Concerned About Future Housing: No Difficulty Paying Gas/Electric Bills: No Difficulty Paying for Meds: No Currently Unemployed: No Education: Trade/Vocational Certificate Difficulty w/ Childcare or Family Care: No Living arrangements: alone Gender identity (if verbalized by the patient): Female Sexual Orientation (if Verbalized by the Patient): Straight or Heterosexual Spiritual care concerns: No Exam Narrative: GENERAL: Well-appearing, well-nourished, and in no acute distress. HEAD: Normocephalic, atraumatic. EYES: PERRLA and EOMI. ENT: Nares clear, no rhinorrhea or epistaxis. Mucous membranes moist. NECK: Supple. CHEST: Clear to auscultation. No respiratory distress. HEART: Regular rate and rhythm. No murmur heard. Normal peripheral pulses. ABDOMEN: Soft, nontender, nondistended, normal active bowel sounds. EXTREMITIES: Normal range of motion. No edema. SKIN: Warm, dry, no rash. NEURO: No focal deficits. Alert and oriented x3. PSYCH: Normal mood and affect. Course Vital Signs Vital signs: Vital Signs Pulse Rate 86 07/05/24 15:52 Respiratory Rate 16 07/05/24 15:52 Blood Pressure 137/85 07/05/24 15:52 Pulse Oximetry 95 07/05/24 15:52 Oxygen Delivery Room Air 07/05/24 15:52 Pulse Rate 86 07/05/24 15:52 Respiratory Rate 16 07/05/24 15:52 Blood Pressure 137/85 07/05/24 15:52 Pulse Oximetry 95 07/05/24 15:52 Oxygen Delivery Room Air 07/05/24 15:52 Medical Decision Making [facility] Narrative Medical decision making narrative: Differential diagnosis includes ACS, pneumonia, pulmonary embolism, intra-abdominal infection, pancreatitis, did EKG showed no acute ischemic changes troponin was negative CT scan showing CT angiography of chest and abdomen pelvis showed ABDOMEN/PELVIS CT: Status post cholecystectomy. No hepatic, splenic, pancreatic space-occupying mass lesion or bile duct or pancreatic duct dilatation is evident. Normal morphology of the adrenal glands. No renal mass lesion or urinary tract calculus or hydroureteronephrosis. There is extensive calcification of the abdominal aorta but no abdominal aortic aneurysm. No intraperitoneal or retroperitoneal or pelvic mass lesion or adenopathy or ascites. There is extensive streak artifact from bilateral hip replacements obs curing a large portion of the pelvis, including expected position of the appendix. No bowel obstruction or free air is noted. No suspicious osteolytic or osteoblastic lesions are noted. IMPRESSION: No evidence of pulmonary embolism Status post cholecystectomy Bilateral total hip arthroplasty Left basilar and several posterior right upper lobe opacities may represent atelectasis, consolidation or less likely pulmonary mass lesions. Short-term CT follow-up within 6 months is recommended Emphysema patient was started on cefdinir and Zithromax patient will be instructed to follow-up with her primary care provider as she will need a repeat CT scan Vital Signs Vital Signs: Vital Signs Pulse Rate 86 07/05/24 15:52 Respiratory Rate 16 07/05/24 15:52 Blood Pressure 137/85 07/05/24 15:52 Pulse Oximetry 95 07/05/24 15:52 Oxygen Delivery Room Air 07/05/24 15:52 Pulse Rate 86 07/05/24 15:52 Respiratory Rate 16 07/05/24 15:52 Blood Pressure 137/85 07/05/24 15:52 Pulse Oximetry 95 07/05/24 15:52 Oxygen Delivery Room Air 07/05/24 15:52 Lab Data 07/05/24 16:19 07/05/24 16:46 Labs: Lab Results 07/05/24 07/05/24 07/05/24 Range/Units 16:19 16:19 16:19 WBC 10.9 H (4.5-10.0) K/mm3 RBC 4.75 (4.2-5.4) M/mm3 Hgb 14.4 (12.0-15.0) g/dL Hct 44.5 (37.0-47.0) % MCV 93.7 (80-100) fl MCH 30.3 (26-34) pg MCHC 32.4 (32-36) g/dl RDW 13.7 (11.5-14.5) % Plt Count 291 (150-375) k/mm3 MPV 10.3 (7.4-10.4) fl Immature Gran % (Auto) 0.4 (0-0.5) % Neut % (Auto) 66.3 (45.5-73.1) % Lymph % (Auto) 23.7 (18.3-44.2) % Mathews % (Auto) 6.6 (2.6-8.5) % Eos % (Auto) 2.4 (0-4.4) % Baso % (Auto) 0.6 (0.2-1.2) % Lymph # (Auto) 2.59 (0.9-3.2) K/mm3 Mathews # (Auto) 0.7 H (0.1-0.6) K/mm3 Eos # (Auto) 0.3 (0-0.3) K/mm3 Baso # (Auto) 0.1 (0.0-0.1) K/mm3 Abs Immat Gran (auto) 0.04 H (0.00-0.031) K/mm3 Absolute Neuts (auto) 7.3 H (1.3-6.7) K/mm3 Absolute Nucleated RBC 0.000 (0.0-0.012) K/mm3 Nucleated RBC % 0.0 (0.0-0.2) % PT 13.2 Cancelled (11.1-14.7) Seconds INR 1.0 Cancelled APTT 27.2 (22.3-36.8) Seconds Sodium 138 (137-145) mmol/L Potassium 3.9 (3.4-5.0) mmol/L Chloride 99 (98-107) mmol/L Carbon Dioxide 30 (22-30) mmol/L Anion Gap 9 (4-12) mmol/L BUN 17 (7-17) mg/dL Creatinine 0.70 (0.7-1.0) mg/dL Estim Creat Clear Calc 55 ml/min Estimated GFR > 60 (59 - ) Glucose 98 (65-110) mg/dL Lactic Acid (0.7-2.0) mmol/L Calcium 9.2 (8.4-10.2) mg/dL Total Bilirubin 0.2 (0.2-1.3) mg/dL AST 29 (14-36) U/L ALT 19 (6-35) U/L Alkaline Phosphatase 112 (38-126) U/L Troponin I < 0.012 (0.000-0.034) ng/mL Total Protein 7.0 (6.3-8.2) g/dL Albumin 3.9 (3.5-5.1) g/dL Lipase 439 H (23-300) U/L 07/05/24 07/05/24 Range/Units 16:33 16:46 WBC (4.5-10.0) K/mm3 RBC (4.2-5.4) M/mm3 Hgb (12.0-15.0) g/dL Hct (37.0-47.0) % MCV (80-100) fl MCH (26-34) pg MCHC (32-36) g/dl RDW (11.5-14.5) % Plt Count (150-375) k/mm3 MPV (7.4-10.4) fl Immature Gran % (Auto) (0-0.5) % Neut % (Auto) (45.5-73.1) % Lymph % (Auto) (18.3-44.2) % Mathews % (Auto) (2.6-8.5) % Eos % (Auto) (0-4.4) % Baso % (Auto) (0.2-1.2) % Lymph # (Auto) (0.9-3.2) K/mm3 Mathews # (Auto) (0.1-0.6) K/mm3 Eos # (Auto) (0-0.3) K/mm3 Baso # (Auto) (0.0-0.1) K/mm3 Abs Immat Gran (auto) (0.00-0.031) K/mm3 Absolute Neuts (auto) (1.3-6.7) K/mm3 Absolute Nucleated RBC (0.0-0.012) K/mm3 Nucleated RBC % (0.0-0.2) % PT (11.1-14.7) Seconds INR APTT (22.3-36.8) Seconds Sodium (137-145) mmol/L Potassium (3.4-5.0) mmol/L Chloride (98-107) mmol/L Carbon Dioxide (22-30) mmol/L Anion Gap (4-12) mmol/L BUN (7-17) mg/dL Creatinine 0.80 (0.7-1.0) mg/dL Estim Creat Clear Calc 48 ml/min Estimated GFR > 60 (59 - ) Glucose (65-110) mg/dL Lactic Acid 1.0 (0.7-2.0) mmol/L Calcium (8.4-10.2) mg/dL Total Bilirubin (0.2-1.3) mg/dL AST (14-36) U/L ALT (6-35) U/L Alkaline Phosphatase (38-126) U/L Troponin I (0.000-0.034) ng/mL Total Protein (6.3-8.2) g/dL Albumin (3.5-5.1) g/dL Lipase (23-300) U/L Discharge Plan Discharge Clinical Impression: Pneumonia Patient Disposition: Home, Self-Care Condition: Stable Instructions: Antibiotic Form, Pneumonia (ED) Additional Instructions: the CT scan shows an area of probable pneumonia you were started on antibiotics today. Please follow-up with your primary care provider you will need a repeat CT scan in the next 6 months as we cannot completely exclude there being a tumor or mass in the area that we see the pneumonia Prescriptions: New cefdinir 300 mg capsule 300 mg PO Q12H 10 Days Qty: 20 0RF azithromycin [Zithromax Z-Tucker] 250 mg tablet See Rx Instructions PO .COMPLEX Qty: 6 0RF Rx Instructions: For 250 mg dose pack: take 500 mg today (day 1), then 250 mg for 4 days (days 2-5) No Action pantoprazole 20 mg tablet,delayed release (DR/EC) 20 mg PO QAM Qty: 30 0RF cholecalciferol (vitamin D3) 25 mcg (1,000 unit) capsule 25 mcg PO HS Complete Multivitamin Tablet 1 tablet PO HS PreserVision AREDS-2 250-90-40-1 mg Capsule 1 tablet PO BID albuterol sulfate 90 mcg/actuation HFA aerosol inhaler 2 inh inhalation Q4H PRN (Reason: Shortness Of Breath Or Wheezing) Qty: 3 3RF fluticasone propion-salmeterol [Wixela Inhub] 250-50 mcg/dose blister with device 1 inh inhalation BID Qty: 60 2RF Rx Instructions: Rinse after use atorvastatin 10 mg tablet See Rx Instructions .ROUTE .COMPLEX Qty: 90 2RF Dose Instruction: TAKE 1 TABLET BY MOUTH AT BEDTIME Rx Instructions: TAKE 1 TABLET BY MOUTH AT BEDTIME clopidogrel 75 mg tablet 75 mg PO HS Qty: 90 2RF Hold Instructions: Resume on 03/17/21. Reviewed with your PCP Dr. Hammond. Plan to hold your Plavix x28 days while on the 650mg PO Aspirin for DVT prophylaxis. RESUME WHEN COMPLETED 650mg ASPIRIN Rx Instructions: TAKE 1 TABLET DAILY metoprolol succinate 25 mg tablet extended release 24 hr 25 mg PO HS Qty: 90 2RF Rx Instructions: TAKE 1 TABLET DAILY montelukast 10 mg tablet 10 mg PO HS Qty: 90 2RF Rx Instructions: TAKE 1 TABLET DAILY venlafaxine 150 mg capsule,extended release 24hr 150 mg PO HS Qty: 90 1RF Follow-up/Referrals: Gayle Hammond MD [Primary Care Provider] - Time of Disposition: 18:21
[2024-07-05 18:43] VITALS: BP 164/89; PULSE 79; RESP 19; O2SAT 96
[2024-07-05 18:57] VITALS: RESP 20
== END 2024-07-05 18:59 | disposition home or self-care (01) ==
PROVIDERS: Emergency Provider Emergency Medicine; PCP Family Medicine
DX: J18.9 Pneumonia, unspecified organism (principal); I10 Essential (primary) hypertension; I25.10 Atherosclerotic heart disease of native coronary artery without angina pectoris; I25.2 Old myocardial infarction; E78.2 Mixed hyperlipidemia; F17.210 Nicotine dependence, cigarettes, uncomplicated; M81.0 Age-related osteoporosis without current pathological fracture; Z96.643 Presence of artificial hip joint, bilateral; Z90.49 Acquired absence of other specified parts of digestive tract; J43.9 Emphysema, unspecified; R94.31 Abnormal electrocardiogram [ECG] [EKG]; I51.7 Cardiomegaly
CPT/HCPCS: 36415; 71275; 74177; 80053; 83605; 83690; 84484; 85025; 85610; 85730; 93005; 99284; Q9967

== ENCOUNTER 2024-09-17 10:36 | Outpatient (CLI) | payer MEDICARE, SELFPAY ==
--- NOTE | ~2024-09-17 | MM_ITS ---
EXAMINATION: MM scrn janessa implant BI w juan m HISTORY: Screening mammogram, family history of breast cancer in her mother. TECHNIQUE: Craniocaudal and mediolateral oblique 3-D tomosynthesis images with implant displacement a nd synthetic 2-D images were generated. Craniocaudal and mediolateral oblique views of the breasts wi thout implant displacement were obtained using full field digital mammography. CAD analysis was submi tted and interpreted. COMPARISON: 11/10/2021 BREAST PARENCHYMAL COMPOSITION: There are scattered areas of fibroglandular density. FINDINGS: There is no evidence of suspicious mass, calcification, or architectural distortion to sugg est malignancy in either breast. There has been no suspicious interval change. IMPRESSION: No mammographic evidence of malignancy. Recommend routine screening mammography in one year. BI-RADS Category 1: Negative Reviewed, dictated and finalized at [facility].
== END 2024-09-17 10:37 | disposition home or self-care (01) ==
LOC: MICIMG 10:38
PROVIDERS: PCP Family Medicine; Visit Provider Family Medicine
DX: Z12.31 Encounter for screening mammogram for malignant neoplasm of breast (principal); Z98.82 Breast implant status
CPT/HCPCS: 77063; 77067

== ENCOUNTER 2024-09-17 10:39 | Outpatient (CLI) | payer MEDICARE, SELFPAY ==
--- NOTE | ~2024-09-17 | CT_ITS ---
CT Scan of the Chest without Contrast: Clinical Indication: Lung cancer screening, nicotine dependence Technique: Contiguous sections were acquired throughout the chest without intravenous contrast. Dose reduction technique was used on this scan by utilizing automated exposure control and iterative recon struction technique. The dose-length product (DLP) was 74.63 mGy-cm. COMPARISON: 05/07/2023, 07/05/2024 Findings: There is no evidence of any significant mediastinal, hilar or axillary lymphadenopathy. Coronary alberto ry calcifications are present. Calcified subcarinal and right hilar lymph nodes present. There is no evidence of pleural or pericardial effusion. Severe emphysema present. Stable 3 mm right lower lobe pulmonary nodule (axial image 82). Stable calc ified right basilar granulomas. Probable chronic scarring or atelectasis in the lingula similar to pr ior exam. Other opacities in the lungs seen on most recent prior exam are resolved. Images through the upper abdomen reveal stable left adrenal nodule. Impression: Lung RADS 2: Benign appearance. 12 month follow-up screening CT advised. Severe emphysema. Stable pulmonary nodules, as above. Additional opacities seen in the lungs on most recent prior exam are resolved. Reviewed, dictated and finalized at location M. Impression: Lung RADS 2: Benign appearance. 12 month follow-up screening CT advised. Severe emphysema. Stable pulmonary nodules, as above. Additional opacities seen in the lungs on m ost recent prior exam are resolved.
== END 2024-09-17 10:40 | disposition home or self-care (01) ==
LOC: MICIMG 10:39
PROVIDERS: PCP Family Medicine; Visit Provider Physician Assistant Medical
DX: Z12.2 Encounter for screening for malignant neoplasm of respiratory organs (principal); J43.9 Emphysema, unspecified; R91.8 Other nonspecific abnormal finding of lung field; Z87.891 Personal history of nicotine dependence
CPT/HCPCS: 71271

== ENCOUNTER 2024-09-17 18:17 | Emergency (ER) | payer MEDICARE, SELFPAY ==
--- NOTE | ~2024-09-17 | XR_ITS ---
EXAM: XR wrist RT min 3V DATE: 09/17/2024 18:39 HISTORY: fall/pain . COMPARISON: None available. FINDINGS: Osteopenia. Comminuted intra-articular fracture of the distal right radius with 18 degrees posterior angulation and mild impaction. No lytic or blastic lesion. Scattered moderate degenerative change in the wrist. No erosion or periosteal change. Soft tissues within normal limits. IMPRESSION: Comminuted, intra-articular distal right radial fracture, with posterior angulation and m ild impaction. Reviewed, dictated and finalized at location K. IMPRESSION: Comminuted, intra-articular distal right radial fracture, with post erior angulation and mild impaction.
[2024-09-17 19:37] VITALS: BP 148/70; PULSE 105; RESP 20; TEMP 36.3; O2SAT 92
--- NOTE | 2024-09-17 21:11 | PC.NURSE ---
ED techs to bedside to complete R. wrist splint.
--- NOTE | 2024-09-17 21:12 | ED.UPPEXIN ---
HPI - Extremity Injury (Upper) General Chief Complaint: Extremity Injury, Upper Stated Complaint: broke my wrist Time Seen by Provider: 09/17/24 20:25 Source: patient Mode of arrival: ambulatory Limitations: no limitations History of Present Illness HPI narrative: Patient is a 64-year-old female who presents the ED with report of right wrist pain. Patient reports she was walking up her porch steps when the wooden step broke and she fell backwards, attempting to catch herself with her right arm. She complains of pain to her right wrist. Denies any other injuries. Denies head injury or LOC. Denies numbness. Has not taken anything for pain prior to arrival. Related Data Home Medications Medication Instructions Recorded Confirmed multivitamin,ly-fdsj-[id number] 1 tablet PO HS 05/28/20 07/15/24 (Complete Multivitamin tablet) cholecalciferol (vitamin D3) 25 25 mcg PO HS 04/24/22 07/15/24 mcg (1,000 unit) capsule vit C 250 mg-vit E 90 mg-zinc 40 1 tablet PO BID 05/11/23 07/15/24 mg-copper 1 [id number] capsule (PreserVision AREDS-2) Allergies Allergy/AdvReac Type Severity Reaction Status Date / Time codeine Allergy Intermediate Hives Verified 09/17/24 18:20 hydrocodone Allergy Intermediate Hives Verified 09/17/24 18:20 mold Allergy Intermediate Nasal Verified 09/17/24 18:20 Discharge nickel Allergy Intermediate Swelling/BL Verified 09/17/24 18:20 ISTERS/ITCH ING ragweed pollen Allergy Intermediate Nasal Verified 09/17/24 18:20 Discharge Sulfa (Sulfonamide Allergy Intermediate Hives Verified 09/17/24 18:20 Antibiotics) Review of Systems Review of Systems: All systems reviewed & are unremarkable except as noted in HPI. All systems reviewed & are unremarkable except as noted in HPI and below PMFSH Past Medical History Medical History Anxiety Arthritis Depression Depression Essential hypertension High cholesterol History of coronary artery disease History of [place] (myocardial infarction) 2006 - no intervention required - regular stress tests as part of her job - all negative since Mixed hyperlipidemia Osteoporosis Pre-op evaluation RSV (acute bronchiolitis due to respiratory syncytial virus) Tobacco abuse Patient stated she quit smoking 2 weeks ago she has been counseled. Smoking again 09/19/21. Vision abnormalities Surgical History Surgical History History of ankle surgery Left, Dr. Rae History of breast surgery augmentation History of cholecystectomy History of surgery Right thumb, Dr. Rae History of surgery Foot, Dr. Chavo Stapleton History of total left hip arthroplasty History of total right hip arthroplasty Per Dr. Ambriz. 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 She lives at home alone. She wishes to be a full code. She has designated her two children Robson and Mel as her surrogate decision makers. She quit briefly, but now is back to smoking 1 ppd. Smoking packs per day: 1 Smoking cigarettes per day: 20.0 Years smoked: 20 Smoking pack-years: 20.00 Smoking status: Current every day smoker Tobacco type: cigarettes Second hand tobacco smoke exposure: Yes Alcohol intake: current Substance use: never Substance use type: does not use Lack of Transportation: No Lack of Food: Never True Current Housing: I Have Housing Concerned About Future Housing: No Difficulty Paying Gas/Electric Bills: No Difficulty Paying for Meds: No Currently Unemployed: No Education: Trade/Vocational Certificate Difficulty w/ Childcare or Family Care: No Living arrangements: alone Gender identity (if verbalized by the patient): Female Sexual Orientation (if Verbalized by the Patient): Straight or Heterosexual Spiritual care concerns: No Exam Narrative: GENERAL: Appears older than stated age, well-nourished, non-toxic, in no acute distress. HEAD: Normocephalic, atraumatic. RESPIRATORY: Airway patent, respirations nonlabored. CARDIOVASCULAR: Regular rate and rhythm without murmurs, rubs, or gallops. Radial pulses intact and easily palpable. MUSCULOSKELETAL: No gross deformities. Limited range of motion of right wrist due to pain. Moderate swelling and tenderness over area of distal radius. Sensation intact. Able to wiggle fingers. Capillary refill intact. SKIN: Warm, dry, normal color. NEURO: A&O X3. Speech clear. Cranial nerves II-XII grossly intact. Steady gait. No ataxic movements. PSYCHIATRIC: Appropriate mood and affect. Normal interaction. Course Vital Signs Vital signs: Vital Signs Temperature 97.4 F L 09/17/24 19:37 Pulse Rate 105 H 09/17/24 19:37 Respiratory Rate 20 09/17/24 19:37 Blood Pressure 148/70 H 09/17/24 19:37 Pulse Oximetry 92 09/17/24 19:37 Oxygen Delivery Room Air 09/17/24 19:37 Temperature 97.4 F L 09/17/24 19:37 Pulse Rate 99 09/17/24 21:52 Respiratory Rate 16 09/17/24 21:52 Blood Pressure 148/70 H 09/17/24 21:52 Pulse Oximetry 98 09/17/24 21:52 Oxygen Delivery Room Air 09/17/24 19:37 MDM - Extremity Injury (Upper) MDM Narrative Medical decision making narrative: Patient?s injury is consistent with musculoskeletal etiology. No signs of neurologic or vascular compromise on physical examination. Compartments are soft without signs of compartment syndrome. XR showing comminuted distal radius fracture. Very mild angulation. Pain is consistent with exam and injury. Patient placed in short arm volar splint in the ED. Given sling. Offered to prescribe something for pain for home, however patient states that she will stick with Tylenol and ibuprofen. She states she does not respond well to stronger pain medicines/narcotics. Advised to follow-up with orthopedics for further evaluation. She has seen Dr. Ambriz in the past. Patient was given strict return precautions. She agrees with plan. Discharged in stable condition. No other injuries. No head injury or LOC. Medical Records Attestation: I reviewed the patient's medical records. Imaging Data Attestation: I personally reviewed and interpreted this imaging study as follows: Radiologist's impression: ITS Impressions Wrist X-Ray 09/17/24 18:42 IMPRESSION: Comminuted, intra-articular distal right radial fracture, with posterior angulation and mild impaction. Discharge Plan Discharge Clinical Impression: Fracture of distal end of radius, Fall from ground level Patient Disposition: Home, Self-Care Condition: Stable Instructions: Antibiotic Form, Wrist Fracture in Adults (ED), Splint Care (ED) Additional Instructions: Wear splint until seen by orthopedics. Call office tomorrow to make follow up appointment. Utilize sling for comfort and support. Continue Tylenol and Ibuprofen as needed for pain. Return to the ED if you experience worsening or severe pain, numbness, recurrent injury, or any other symptoms of concern. Prescriptions: No Action pantoprazole 20 mg tablet,delayed release (DR/EC) 20 mg PO QAM Qty: 30 0RF cholecalciferol (vitamin D3) 25 mcg (1,000 unit) capsule 25 mcg PO HS Complete Multivitamin Tablet 1 tablet PO HS PreserVision AREDS-2 250-90-40-1 mg Capsule 1 tablet PO BID fluticasone propion-salmeterol [Wixela Inhub] 250-50 mcg/dose blister with device 1 inh inhalation BID Qty: 60 2RF Rx Instructions: Rinse after use atorvastatin 10 mg tablet See Rx Instructions .ROUTE .COMPLEX Qty: 90 2RF Dose Instruction: TAKE 1 TABLET BY MOUTH AT BEDTIME Rx Instructions: TAKE 1 TABLET BY MOUTH AT BEDTIME clopidogrel 75 mg tablet 75 mg PO HS Qty: 90 2RF Hold Instructions: Resume on 03/17/21. Reviewed with your PCP Dr. Hammond. Plan to hold your Plavix x28 days while on the 650mg PO Aspirin for DVT prophylaxis. RESUME WHEN COMPLETED 650mg ASPIRIN Rx Instructions: TAKE 1 TABLET DAILY metoprolol succinate 25 mg tablet extended release 24 hr 25 mg PO HS Qty: 90 2RF Rx Instructions: TAKE 1 TABLET DAILY montelukast 10 mg tablet 10 mg PO HS Qty: 90 2RF Rx Instructions: TAKE 1 TABLET DAILY venlafaxine 150 mg capsule,extended release 24hr 150 mg PO HS Qty: 90 1RF benzonatate 200 mg capsule 200 mg PO TID PRN (Reason: cough) Qty: 30 0RF albuterol sulfate 90 mcg/actuation HFA aerosol inhaler 2 inh inhalation Q4H PRN (Reason: Shortness Of Breath Or Wheezing) Qty: 3 3RF azithromycin 250 mg tablet See Rx Instructions PO .COMPLEX Qty: 6 0RF Rx Instructions: For 250 mg dose pack: take 500 mg today (day 1), then 250 mg for 4 days (days 2-5) PO prednisone 10 mg tablet 10 mg PO DIRECTED Qty: 30 0RF Rx Instructions: Take 5 tabs daily PO for 2 days, 4 tabs daily PO for 2 days, 3 tabs daily PO for 2 days, 2 tabs daily PO for 2 days, 1 tab daily PO for 2 days. Follow-up/Referrals: Lalo Ambriz MD [Physician] - (ORTHOPEDICS) Gayle Hammond MD [Primary Care Provider] - Time of Disposition: 21:14
[2024-09-17] MEDS: IBUPROFEN 600 MG TABLET PO (21:22)
[2024-09-17 21:52] VITALS: BP 148/70; PULSE 99; RESP 16; O2SAT 98
== END 2024-09-17 21:53 | disposition home or self-care (01) ==
PROVIDERS: Emergency Provider Physician Assistant; PCP Family Medicine
DX: S52.571A Other intraarticular fracture of lower end of right radius, initial encounter for closed fracture (principal); W10.9XXA Fall (on) (from) unspecified stairs and steps, initial encounter; F41.8 Other specified anxiety disorders; I10 Essential (primary) hypertension; E78.2 Mixed hyperlipidemia; M81.0 Age-related osteoporosis without current pathological fracture; F17.210 Nicotine dependence, cigarettes, uncomplicated
CPT/HCPCS: 29125; 73110; 99284; A4565; A9270

== ENCOUNTER 2024-10-01 16:44 | Outpatient (CLI) | payer MEDICARE, SELFPAY ==
--- NOTE | ~2024-10-01 | XR_ITS ---
HISTORY: S52.531A - Colles' fracture of right radius, initial enco... COMPARISON: 09/17/2024 and 09/23/2024 TECHNIQUE: views of the left wrist were performed. FINDINGS: Overlying casting material precludes adequate evaluation of fine bony detail. Redemonstration of an intra-articular comminuted fracture of the distal right radius. Likely callus formation given the time course and the gross appearance as detected within the the edie ting material. IMPRESSION: Early healing of a distal radius fracture, as detailed above. Reviewed, dictated and finalized at location A. 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
== END 2024-10-01 16:45 | disposition home or self-care (01) ==
LOC: MICIMG 16:45
PROVIDERS: PCP Family Medicine; Visit Provider Orthopaedic Surgery
DX: S52.531D Colles' fracture of right radius, subsequent encounter for closed fracture with routine healing (principal); X58.XXXD Exposure to other specified factors, subsequent encounter
CPT/HCPCS: 73110

== ENCOUNTER 2024-10-07 12:44 | Inpatient (IN) | payer MEDICARE, SELFPAY ==
[2024-10-07] VITALS (17 sets, daily range): BP systolic 109–150; BP diastolic 64–94; PULSE 79–92; RESP 16–23; TEMP 35.8–37; O2SAT 88–100; BMI 22.4
--- NOTE | ~2024-10-07 | XR_ITS ---
XR chest 2V Ordering provider: Chente Alvarez MD History: 64 years Female with . short of breath x YEARS, WORSENING PAST WEEK . Comparison: None. FINDINGS: MEDIASTINUM: The cardiac silhouette is not enlarged. LUNGS: No effusions or pneumothorax. Minimal opacification in the left lung base. Nodule or focal pne umonia is not excluded. Follow-up advised. Emphysematous changes of the lungs. OTHER: No free air under the diaphragm. IMPRESSION: Left basilar atelectasis versus focal pneumonia or a nodule. CT evaluation is advised. Reviewed, dictated and finalized at location A. RUBY ON RAILS DEVELOPER IMPRESSION: Left basilar atelectasis versus focal pneumonia or a nodule. CT evaluation is a dvised.
--- NOTE | ~2024-10-07 | CT_ITS ---
EXAMINATION:CT diagnostic chest wo con DATE: 10/07/2024 16:35 INDICATION: Abnormal chest radiograph. TECHNIQUE: Computed tomography (CT) of the chest was performed without intravenous contrast. Automate d exposure control and iterative reconstruction technique were employed. The dose-length product (DLP ) was 134.19 mGy-cm. COMPARISON: Chest 2 views 10/07/2024, chest CT 09/17/2024, 05/03/2022 FINDINGS: There is severe emphysema. There is mild atelectasis bilaterally. Calcified right lung nodu les and calcified right hilar and mediastinal lymph nodes are consistent with old granulomatous disea se. There is a 4 mm nodule in left lung upper lobe, likely benign. There is a small right pleural eff usion. The heart size is normal. There are coronary artery calcifications. No pericardial effusion. T here are bilateral breast implants. There is a 2.0 cm mass in left adrenal gland, stable from 05/04/20 22, likely an adenoma. There is an old healed fracture of left eighth rib. There is severe cervical spondylosis and mild tho racic spondylosis. IMPRESSION: 1. Atelectasis in lingula, which correlates with the chest radiograph abnormality. 2. Severe emphysema. 3. Small right pleural effusion. Reviewed, dictated and finalized at location A. ER'S MATE IMPRESSION: 1. Atelectasis in lingula, which correlates with the chest radiograph abnormali ty. 2. Severe emphysema. 3. Small right pleural effusion.
--- NOTE | 2024-10-07 12:59 | ECG_ITS ---
Test Date: 2024-10-07 14:05:28 Measurements Intervals [place] Rate: 80 P: 69 VA: 124 QRS: 68 QRSD: 94 T: -87 QT: 364 QTc: 421 Interpretive Statements SINUS RHYTHM LEFT VENTRICULAR HYPERTROPHY AND ST-T CHANGE BORDERLINE ST-T WAVE ABNORMALITY- INFERIOR LEADS BASELINE ARTIFACT- I, V5 BORDERLINE ECG Compared to ECG 07/05/2024 16:25:11 NO SIGNIFICANT CHANGE Electronically Signed On 10-07-2024 14:06:54 GENERATOR MAN by Alex Addison D.O.
[2024-10-07 14:15] LABS: Basophils Absolute Auto 0.1 K/mm3 (0.0-0.1); Basophils Percent Auto 0.6 % (0.2-1.2); Eosinophils Absolute Auto 0.1 K/mm3 (0-0.3); Eosinophils Percent Auto 1.2 % (0-4.4); Hematocrit 48.2 % (37.0-47.0); Hemoglobin 15.2 g/dL (12.0-15.0); Immature Granulocyte Absolute 0.02 K/mm3 (0.00-0.031); Immature Granulocyte Percent A 0.2 % (0-0.5); Lymphocytes Absolute Auto 1.81 K/mm3 (0.9-3.2); Lymphocytes Percent Auto 16.4 % (18.3-44.2); Mean Corpuscular HGB Conc 31.5 g/dl (32-36); Mean Corpuscular Volume 95.3 fl (80-100); Monocytes Absolute Auto 0.5 K/mm3 (0.1-0.6); Monocytes Percent Auto 4.3 % (2.6-8.5); Neutrophils Absolute Auto 8.5 K/mm3 (1.3-6.7); Neutrophils Percent Auto 77.3 % (45.5-73.1); Platelet Count Result 297 k/mm3 (150-375); Red Blood Count 5.06 M/mm3 (4.2-5.4); Red Cell Distribution Width 15.2 % (11.5-14.5)
[2024-10-07 14:50] LABS: Influenza A QL RT-PCR Negative (Negative); Influenza B QL RT-PCR Negative (Negative); RSV RNA, RT-PCR Negative (Negative); SARS-CoV-2 RNA PCR Negative (Negative)
[2024-10-07 15:04] LABS: Alanine Aminotransferase 21 U/L (6-35); Albumin Level 4.2 g/dL (3.5-5.1); Alkaline Phosphatase 146 U/L (38-126); Anion Gap 9 mmol/L (4-12); Aspartate Amino Transferase 29 U/L (14-36); Bilirubin,Total 0.8 mg/dL (0.2-1.3); Blood Urea Nitrogen 13 mg/dL (7-17); Calcium 9.4 mg/dL (8.4-10.2); Carbon Dioxide 33 mmol/L (22-30); Chloride 97 mmol/L (98-107); Estimated CRCL calculation 48 ml/min; Estimated Glomerular Filt Rate > 60; Glucose 53 mg/dL (65-110); Potassium 3.4 mmol/L (3.4-5.0); Sodium 139 mmol/L (137-145)
--- NOTE | 2024-10-07 15:31 | ED.GENADULT ---
HPI - General Adult General Chief complaint: Shortness of Breath/Dyspnea Stated complaint: SOB for months, COPD Time Seen by Provider: 10/07/24 14:51 History of Present Illness HPI narrative: 64-year-old female presents to the emergency department for evaluation for worsening shortness of breath. Patient does have a history of COPD but is not currently on oxygen. Patient states over the last few months she has had progressively worsening shortness of breath. Patient states she does have a pulse ox at home and states that routinely her oxygen is in the 80s. Patient states she feels increased somnolence and is unable to function and clean her house. Patient presents emergency department clubbing of worsening shortness of breath. Patient was 88% on room air at rest and triage. Patient is saturating at 94-90% on 2 L of oxygen. Patient does have follow-up with pulmonology in November. Related Data Home Medications Medication Instructions Recorded Confirmed multivitamin,hr-lbaq-ykdobhzo 1 tablet PO HS 05/28/20 09/23/24 (Complete Multivitamin tablet) cholecalciferol (vitamin D3) 25 25 mcg PO HS 04/24/22 09/23/24 mcg (1,000 unit) capsule vit C 250 mg-vit E 90 mg-zinc 40 1 tablet PO BID 05/11/23 09/23/24 mg-copper 1 [id number]-bvpefm capsule (PreserVision AREDS-2) acetaminophen 500 mg oral powder 500 mg PO Q6H PRN 09/23/24 09/23/24 packet (Tylenol Extra Strength) aspirin 81 mg tablet,delayed 81 mg PO DAILY 09/23/24 09/23/24 release Allergies Allergy/AdvReac Type Severity Reaction Status Date / Time codeine Allergy Intermediate Hives Verified 10/07/24 12:46 hydrocodone Allergy Intermediate Hives Verified 10/07/24 12:46 mold Allergy Intermediate Nasal Verified 10/07/24 12:46 Discharge nickel Allergy Intermediate Swelling/BL Verified 10/07/24 12:46 ISTERS/ITCH ING ragweed pollen Allergy Intermediate Nasal Verified 10/07/24 12:46 Discharge Sulfa (Sulfonamide Allergy Intermediate Hives Verified 10/07/24 12:46 Antibiotics) Review of Systems Review of Systems: All systems reviewed & are unremarkable except as noted in HPI and below PMFSH Past Medical History Medical History Anxiety Arthritis Depression Depression Essential hypertension High cholesterol History of coronary artery disease History of [place] (myocardial infarction) 2006 - no intervention required - regular stress tests as part of her job - all negative since Mixed hyperlipidemia Osteoporosis Pre-op evaluation RSV (acute bronchiolitis due to respiratory syncytial virus) Tobacco abuse Patient stated she quit smoking 2 weeks ago she has been counseled. Smoking again 09/19/21. Vision abnormalities Surgical History Surgical History History of ankle surgery Left, Dr. Rae History of breast surgery augmentation History of cholecystectomy History of surgery Right thumb, Dr. Rae History of surgery Foot, Dr. Chavo Stapleton History of total left hip arthroplasty History of total right hip arthroplasty Per Dr. Ambriz. 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 She lives at home alone. She wishes to be a full code. She has designated her two children Robson and Mel as her surrogate decision makers. She quit briefly, but now is back to smoking 1 ppd. Smoking packs per day: 1 Smoking cigarettes per day: 20.0 Years smoked: 20 Smoking pack-years: 20.00 Smoking status: Current every day smoker Tobacco type: cigarettes Second hand tobacco smoke exposure: Yes Alcohol intake: never Substance use: never Substance use type: does not use Current Housing: Decline to Answer Concerned About Future Housing: Decline to Answer Difficulty Paying Gas/Electric Bills: Decline to Answer Difficulty Paying for Meds: Decline to Answer Currently Unemployed: Decline to Answer Education: Decline to Answer Difficulty w/ Childcare or Family Care: Decline to Answer Living arrangements: alone Gender identity (if verbalized by the patient): Female Sexual Orientation (if Verbalized by the Patient): Straight or Heterosexual Spiritual care concerns: No Exam Narrative: APPEARANCE: Well appearing, no pain, no distress, well-nourished. HEAD: normocephalic, atraumatic. EYES: PERRLA/EOMI, conjunctivae clear. NOSE: Normal no drainage EARS:TMS clear with good light reflex. THROAT: Pharynx clear, no exudate. NECK: Supple. No adenopathy, no masses. RESPIRATORY: Decreased breath sounds bilateral CARDIOVASCULAR: Regular rate and rhythm without murmurs rubs or gallops. ABDOMINAL: Soft, nontender, nondistended, normal bowel sounds MUSCULOSKELETAL: Moves all extremities. Strength/ROM intact, No edema, No calf tenderness. NEURO: Alert. Cranial nerves II through XII intact. Good gait. Good coordination SKIN: Warm, dry. Normal Color Course Vital Signs Vital signs: Vital Signs Temperature 97.6 F 10/07/24 12:54 Pulse Rate 81 10/07/24 12:54 Respiratory Rate 18 10/07/24 12:54 Blood Pressure 122/67 10/07/24 12:54 Pulse Oximetry 94 10/07/24 12:54 Oxygen Delivery Room Air 10/07/24 12:54 Temperature 97.8 F 10/07/24 17:17 Pulse Rate 81 10/07/24 17:17 Respiratory Rate 20 10/07/24 17:17 Blood Pressure 150/90 H 10/07/24 17:17 Pulse Oximetry 98 10/07/24 17:17 Oxygen Delivery Nasal Cannula 10/07/24 15:55 Oxygen Flow Rate 2 10/07/24 15:55 Medical Decision Making [facility] Narrative Medical decision making narrative: 64-year-old female presents emergency department for evaluation for persistent shortness of breath. Patient is afebrile but does have a leukocytosis of 11.0 and hemoglobin of 15.2 patient's glucose was 53 the patient has no other acute abnormalities on her CMP, and patient was negative for influenza RSV and for COVID. Chest x-ray did show pneumonia versus atelectasis and CT scan was recommended. I discussed the case with the hospitalist patient was accepted to [facility] due to COPD exacerbation/hypoxia Patient ambulated on room air and dropped down to 59% Differential Diagnosis Differential Diagnosis: Pneumonia, COVID, RSV, influenza, COPD Vital Signs Vital Signs: Vital Signs Temperature 97.6 F 10/07/24 12:54 Pulse Rate 81 10/07/24 12:54 Respiratory Rate 18 10/07/24 12:54 Blood Pressure 122/67 10/07/24 12:54 Pulse Oximetry 94 10/07/24 12:54 Oxygen Delivery Room Air 10/07/24 12:54 Temperature 97.8 F 10/07/24 17:17 Pulse Rate 81 10/07/24 17:17 Respiratory Rate 20 10/07/24 17:17 Blood Pressure 150/90 H 10/07/24 17:17 Pulse Oximetry 98 10/07/24 17:17 Oxygen Delivery Nasal Cannula 10/07/24 15:55 Oxygen Flow Rate 2 10/07/24 15:55 Lab Data Lab results reviewed: Yes I reviewed the patient's lab results. 10/07/24 14:01 10/07/24 14:01 Labs: Lab Results 10/07/24 Range/Units 14:01 WBC 11.0 H (4.5-10.0) K/mm3 RBC 5.06 (4.2-5.4) M/mm3 Hgb 15.2 H (12.0-15.0) g/dL Hct 48.2 H (37.0-47.0) % MCV 95.3 (80-100) fl MCH 30.0 (26-34) pg MCHC 31.5 L (32-36) g/dl RDW 15.2 H (11.5-14.5) % Plt Count 297 (150-375) k/mm3 MPV 11.0 H (7.4-10.4) fl Immature Gran % (Auto) 0.2 (0-0.5) % Neut % (Auto) 77.3 H (45.5-73.1) % Lymph % (Auto) 16.4 L (18.3-44.2) % [place] % (Auto) 4.3 (2.6-8.5) % Eos % (Auto) 1.2 (0-4.4) % Baso % (Auto) 0.6 (0.2-1.2) % Lymph # (Auto) 1.81 (0.9-3.2) K/mm3 [place] # (Auto) 0.5 (0.1-0.6) K/mm3 Eos # (Auto) 0.1 (0-0.3) K/mm3 Baso # (Auto) 0.1 (0.0-0.1) K/mm3 Abs Immat Gran (auto) 0.02 (0.00-0.031) K/mm3 Absolute Neuts (auto) 8.5 H (1.3-6.7) K/mm3 Absolute Nucleated RBC 0.000 (0.0-0.012) K/mm3 Nucleated RBC % 0.0 (0.0-0.2) % Sodium 139 (137-145) mmol/L Potassium 3.4 (3.4-5.0) mmol/L Chloride 97 L (98-107) mmol/L Carbon Dioxide 33 H (22-30) mmol/L Anion Gap 9 (4-12) mmol/L BUN 13 (7-17) mg/dL Creatinine 0.80 (0.7-1.0) mg/dL Estim Creat Clear Calc 48 ml/min Estimated GFR > 60 (59 - ) Glucose 53 L* (65-110) mg/dL Calcium 9.4 (8.4-10.2) mg/dL Total Bilirubin 0.8 (0.2-1.3) mg/dL AST 29 (14-36) U/L ALT 21 (6-35) U/L Alkaline Phosphatase 146 H (38-126) U/L Total Protein 8.0 (6.3-8.2) g/dL Albumin 4.2 (3.5-5.1) g/dL Influenza A (RT-PCR) Negative (Negative) Influenza B (RT-PCR) Negative (Negative) RSV (RT-PCR) Negative (Negative) SARS-CoV-2 RNA (RT-PCR) Negative (Negative) Imaging Data Radiologist's impression: Impressions Chest X-Ray 10/07/24 13:54 IMPRESSION: Left basilar atelectasis versus focal pneumonia or a nodule. CT evaluation is advised. Discharge Plan Discharge Clinical Impression: COPD (chronic obstructive pulmonary disease), Hypoxia Patient Disposition: Still a Patient Condition: Serious
--- NOTE | 2024-10-07 17:07 | PC.NURSE ---
Staff difficulty obtaining blood cultures x2.
[2024-10-07 17:08] LABS: Glucose Point of Care 114 mg/dl (65-105)
--- NOTE | 2024-10-07 17:12 | PC.NURSE ---
Pt cast to right arm remains intact from injury prior to admission.CMS intact to right hand. Lung sounds unchanged.
--- NOTE | 2024-10-07 17:15 | PC.NURSE ---
Photogrammetric Technician notified unable to obtain 2nd set of cultures. Pt to be transferred to [facility] will meet pt in room and draw. Marcelle on IMU notified
--- NOTE | 2024-10-07 18:07 | ADMGEN ---
This patient, Genny Magallanes, was admitted to [facility] Surg Room 300-01. Patient/family oriented to hospital policies and general routines including ID bracelet, bed and alarms, visiting hours, pain management, procedures, bathroom and other care routines, personal items, smoking policy, room service/diet, and visiting hours. Information on how to activate the Rapid Response Team has been discussed. Patient/Family are encouraged to report perceived risks to care and to ask questions if they do not understand what they are told or what they should do.
--- NOTE | 2024-10-07 18:26 | PM.IMHP ---
H&P: HPI History of Present Illness Date/Time: 10/07/24 18:26 Chief Complaint: Dyspnea Narrative: This is a 64-year-old female patient with a past medical history of COPD, hypertension, hyperlipidemia, CAD, osteoporosis, depression and anxiety who is admitted to the hospital for COPD exacerbation. Patient reports that she has been coughing excessively and having hard time breathing at home so she came to the emergency department for evaluation. She states this been going on about 1 week. Laboratory assessment with mild elevated white blood cell count as well as low glucose. Chest x-ray showed left basilar atelectasis versus pneumonia versus lung nodule and CT scan was recommended. CT noncontrast of the chest confirms atelectasis in the lingula, severe emphysema and small right pleural effusion. Patient was initiated on IV Rocephin and azithromycin as well as IV steroids. On my evaluation patient very talkative but gets dyspneic on exertion. Lung sounds are diminished. Ordered q.6 hours DuoNebs. Of note, patient has a cast on her right forearm from a fracture sustained about 3 weeks ago when she fell on outstretched arm. Review of Systems Review of Systems: All systems reviewed & are unremarkable except as noted in HPI and below PMFSH Past Medical History Medical History (Updated 10/07/24 @ 23:10 by Vladislav Celis APRN) Anxiety Arthritis COPD (chronic obstructive pulmonary disease) Depression Depression Essential hypertension High cholesterol History of coronary artery disease History of [place] (myocardial infarction) 2006 - no intervention required - regular stress tests as part of her job - all negative since Mixed hyperlipidemia Osteoporosis Pre-op evaluation RSV (acute bronchiolitis due to respiratory syncytial virus) Tobacco abuse Vision abnormalities Surgical History Surgical History History of ankle surgery Left, Dr. Rae History of breast surgery augmentation History of cholecystectomy History of surgery Right thumb, Dr. Rae History of surgery Foot, Dr. Chavo Stapleton History of total left hip arthroplasty History of total right hip arthroplasty Per Dr. Ambriz. 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 She lives at home alone. She wishes to be a full code. She has designated her two children Robson and Mel as her surrogate decision makers. She quit briefly, but now is back to smoking 1 ppd. Smoking packs per day: 1 Smoking cigarettes per day: 20.0 Years smoked: 20 Smoking pack-years: 20.00 Smoking status: Current every day smoker Tobacco type: cigarettes Second hand tobacco smoke exposure: Yes Alcohol intake: never Substance use: never Substance use type: does not use Do You Feel Safe in your Home?: Yes Lack of Transportation: No Lack of Food: Never True Current Housing: I Have Housing Concerned About Future Housing: No Difficulty Paying Gas/Electric Bills: No Difficulty Paying for Meds: No Currently Unemployed: No Education: High School Diploma/GED Difficulty w/ Childcare or Family Care: No Living arrangements: alone Gender identity (if verbalized by the patient): Female Sexual Orientation (if Verbalized by the Patient): Straight or Heterosexual Spiritual care concerns: No Meds Home Medications and Allergies Home Medications Medication Instructions Recorded Confirmed Type multivitamin,[id number] 1 tablet PO HS 05/28/20 10/07/24 History (Complete Multivitamin tablet) cholecalciferol (vitamin D3) 25 25 mcg PO HS 04/24/22 10/07/24 History mcg (1,000 unit) capsule vit C 250 mg-vit E 90 mg-zinc 40 1 tablet PO BID 05/11/23 10/07/24 History mg-copper 1 [id number] capsule (PreserVision AREDS-2) fluticasone 250 mcg-salmeterol 50 1 inh inhalation BID #60 ea 11/28/23 10/07/24 Rx mcg/dose blistr powdr for inhalation (Wixela Inhub) albuterol sulfate 90 mcg/actuation 2 inh inhalation Q4H PRN Shortness 09/12/24 10/07/24 Rx aerosol inhaler Of Breath Or Wheezing #3 device aspirin 81 mg tablet,delayed 81 mg PO DAILY 09/23/24 10/07/24 History release benzonatate 200 mg capsule 200 mg PO TID PRN cough #30 caps 09/30/24 10/07/24 Rx clopidogrel 75 mg tablet 75 mg PO HS #90 tabs 09/30/24 10/07/24 Rx metoprolol succinate 25 mg 25 mg PO HS #90 tabs 09/30/24 10/07/24 Rx tablet,extended release 24 hr montelukast 10 mg tablet 10 mg PO HS #90 tabs 09/30/24 10/07/24 Rx venlafaxine 150 mg 150 mg PO HS #90 caps 09/30/24 10/07/24 Rx capsule,extended release 24 hr atorvastatin 10 mg tablet 10 mg PO DAILY 10/07/24 10/07/24 History Allergies Allergy/AdvReac Type Severity Reaction Status Date / Time codeine Allergy Intermediate Hives Verified 10/07/24 12:46 hydrocodone Allergy Intermediate Hives Verified 10/07/24 12:46 mold Allergy Intermediate Nasal Verified 10/07/24 12:46 Discharge nickel Allergy Intermediate Swelling/BL Verified 10/07/24 12:46 ISTERS/ITCH ING ragweed pollen Allergy Intermediate Nasal Verified 10/07/24 12:46 Discharge Sulfa (Sulfonamide Allergy Intermediate Hives Verified 10/07/24 12:46 Antibiotics) Vital Signs Vital Signs - 24 hr 10/07/24 12:54 10/07/24 14:45 10/07/24 14:45 Temperature 36.4 C Pulse Rate 81 Respiratory Rate 18 Blood Pressure 122/67 Pulse Oximetry 94 88 L 94 Oxygen Delivery Room Air Room Air Nasal Cannula Oxygen Flow Rate 2 10/07/24 14:52 10/07/24 15:55 10/07/24 14:50 Temperature 36.4 C Pulse Rate 84 82 Respiratory Rate 17 Blood Pressure 141/74 H Pulse Oximetry 98 97 Oxygen Delivery Nasal Cannula Oxygen Flow Rate 2 10/07/24 15:01 10/07/24 15:45 10/07/24 16:00 Temperature Pulse Rate 82 80 81 Respiratory Rate 19 23 H 16 Blood Pressure 150/94 H Pulse Oximetry 98 98 97 Oxygen Delivery Oxygen Flow Rate 10/07/24 16:15 10/07/24 16:34 10/07/24 17:17 Temperature 36.6 C Pulse Rate 80 81 Respiratory Rate 19 20 Blood Pressure 150/90 H Pulse Oximetry 97 93 98 Oxygen Delivery Oxygen Flow Rate Exam Narrative: APPEARANCE: Well appearing, no pain, no distress, well-nourished. HEAD: normocephalic, atraumatic. EYES: PERRLA/EOMI, conjunctivae clear. NOSE: Normal no drainage EARS:TMS clear with good light reflex. THROAT: Pharynx clear, no exudate. NECK: Supple. No adenopathy, no masses. RESPIRATORY: Decreased breath sounds bilateral, dyspnea on exertion, supplemental oxygen in place CARDIOVASCULAR: Regular rate and rhythm without murmurs rubs or gallops. ABDOMINAL: Soft, nontender, nondistended, normal bowel sounds MUSCULOSKELETAL: Moves all extremities. Strength/ROM intact, No edema, No calf tenderness. NEURO: Alert. Cranial nerves II through XII intact. Good gait. Good coordination SKIN: Warm, dry. Normal Color H&P: Results Labs Labs: Short CBC 10/07/24 Range/Units 14:01 WBC 11.0 H (4.5-10.0) K/mm3 Hgb 15.2 H (12.0-15.0) g/dL Hct 48.2 H (37.0-47.0) % Plt Count 297 (150-375) k/mm3 BMP 10/07/24 14:01 Sodium 139 Potassium 3.4 Chloride 97 L Carbon Dioxide 33 H BUN 13 Creatinine 0.80 Glucose 53 L* Calcium 9.4 Liver Function 10/07/24 Range/Units 14:01 Total Bilirubin 0.8 (0.2-1.3) mg/dL AST 29 (14-36) U/L ALT 21 (6-35) U/L Alkaline Phosphatase 146 H (38-126) U/L Albumin 4.2 (3.5-5.1) g/dL Pulse Oximetry SpO2 results: 88% on room air, 96% on 2 liters/minute nasal cannula Attestation: I personally reviewed and interpreted this pulse oximetry as follows: Interpretation: patient currently requiring supplemental oxygen, will likely need 6 minute walk test for oxygen prescription upon discharge ECG Attestation: I personally reviewed and interpreted this ECG as follows: ECG completion date: 10/07/24 ECG completion time: 14:05 Prior ECG tracings: available for review Interpretation: sinus rhythm rate of 80 NV interval 124 QRS duration 94 QTC 421 QRS axis 68, no STEMI, LDH present Imaging Chest x-ray: Radiologist's impression: XR chest 2V Ordering provider: Chente Alvarez MD History: 64 years Female with . short of breath x YEARS, WORSENING PAST WEEK . Comparison: None. FINDINGS: MEDIASTINUM: The cardiac silhouette is not enlarged. LUNGS: No effusions or pneumothorax. Minimal opacification in the left lung base. Nodule or focal pneumonia is not excluded. Follow-up advised. Emphysematous changes of the lungs. OTHER: No free air under the diaphragm. IMPRESSION: Left basilar atelectasis versus focal pneumonia or a nodule. CT evaluation is advised. Reviewed, dictated and finalized at location A. KET CUTTING MACHINE OPERATOR CT scan - chest: Radiologist's impression: EXAMINATION:CT diagnostic chest wo con DATE: 10/07/2024 16:35 INDICATION: Abnormal chest radiograph. TECHNIQUE: Computed tomography (CT) of the chest was performed without intravenous contrast. Automated exposure control and iterative reconstruction technique were employed. The dose-length product (DLP) was 134.19 mGy-cm. COMPARISON: Chest 2 views 10/07/2024, chest CT 09/17/2024, 05/03/2022 FINDINGS: There is severe emphysema. There is mild atelectasis bilaterally. Calcified right lung nodules and calcified right hilar and mediastinal lymph nodes are consistent with old granulomatous disease. There is a 4 mm nodule in left lung upper lobe, likely benign. There is a small right pleural effusion. The heart size is normal. There are coronary artery calcifications. No pericardial effusion. There are bilateral breast implants. There is a 2.0 cm mass in left adrenal gland, stable from 05/04/2022, likely an adenoma. There is an old healed fracture of left eighth rib. There is severe cervical spondylosis and mild thoracic spondylosis. IMPRESSION: 1. Atelectasis in lingula, which correlates with the chest radiograph abnormality. 2. Severe emphysema. 3. Small right pleural effusion. Reviewed, dictated and finalized at location A. KET CUTTING MACHINE OPERATOR Assessment and Plan Assessment and plan (1) Hypoxia: Code(s): R09.02 - Hypoxemia Status: Acute Assessment and Plan: -COPD history -Dyspnea on exertion -88% saturation at rest on room air -96% saturation on 2 LPM NC -Prior history of grade 1 diastolic dysfunction on Echo from 2021, ordered BNP. If elevated, recommend Echocardiogram (2) COPD with acute exacerbation: Code(s): J44.1 - Chronic obstructive pulmonary disease with (acute) exacerbation Status: Acute Assessment and Plan: -Duonebs, IV steroids, Rocephin and azithromycin for acute exacerbation -Supplemental oxygen to keep sats above 90% -Patient likely to need 6 minute walk test for home oxygen prior to discharge (3) Essential hypertension: Code(s): I10 - Essential (primary) hypertension Status: Chronic Assessment and Plan: -Blood pressure reviewed and stable. -Continue home medications (4) Mixed hyperlipidemia: Code(s): E78.2 - Mixed hyperlipidemia Status: Chronic Assessment and Plan: -Continue home medications (5) Depression: Qualifiers: Depression Type: major depressive disorder Major depression recurrence: single episode Active/Remission status: currently active Major depression episode severity: mild Qualified Code(s): F32.0 - Major depressive disorder, single episode, mild Code(s): F32.9 - Major depressive disorder, single episode, unspecified Status: Chronic Assessment and Plan: -Continue venlafaxine (6) Tobacco abuse: Code(s): Z72.0 - Tobacco use Status: Chronic Assessment and Plan: -Continue to emphasize need for cessation -PRN Nicotine patch ordered Quality VTE Prophylaxis VTE prophylaxis: pharmacologic ordered Hospitalist MIPS Advance Care Plan I have confirmed that the patient's Advanced Care Plan is present, code status is documented, or surrogate decision maker is listed in patient medical record.: Yes Medication Reconciliation I have utilized all available resources to obtain, update and review the patients current medications (includes all prescriptions, OTC, herbals, cannabis, and nutritional supplements).: Yes
[2024-10-07] MEDS: methylPREDNISolone SOD SUCC 125 MG VIAL 60 MG IV PUSH ×2 (18:53→23:40)
[2024-10-07] MEDS: POTASSIUM CHLORIDE 20 MEQ ER TABLET PO (19:01)
[2024-10-07] MEDS: AZITHROMYCIN 500 MG/NS 250 ML 500 MG/250 ML BAG 250 MG IVPB (19:31)
[2024-10-07 19:58] LABS: Magnesium 2.1 mg/dL (1.6-2.3)
--- NOTE | 2024-10-07 21:11 | PCRCNOTE ---
Pt was in restroom trying to have a BM.
[2024-10-07] MEDS: VENLAFAXINE HCL XR 75 MG CAP.ER.24H 150 MG PO (21:47)
[2024-10-07] MEDS: CLOPIDOGREL BISULFATE 75 MG TABLET PO (21:47)
[2024-10-07] MEDS: THERAPEUTIC MULTIVITAMINS/MINERALS TAB (*BKC) 1 TABLET PO (21:47)
[2024-10-07] MEDS: MONTELUKAST SODIUM 10 MG TABLET PO (21:47)
[2024-10-07] MEDS: METOPROLOL SUCCINATE EXT REL 25 MG TABCR PO (21:47)
[2024-10-07] MEDS: CHOLECALCIFEROL 1,000 UNITS TABLET 1000 UNITS PO (21:47)
[2024-10-07 23:41] LABS: NT Pro B Type Natriuretic Pept 18200 pg/mL (19.9-100)
[2024-10-08] VITALS (22 sets, daily range): BP systolic 112–165; BP diastolic 56–92; PULSE 71–95; RESP 13–20; TEMP 36.2–36.6; O2SAT 84–97
--- NOTE | 2024-10-08 | ECHO_ITS ---
Patient Info Name: Genny Magallanes Age: 64 years : 1960 Gender: Female Ht: 62 in Wt: 122 lbs BSA: 1.56 m2 HR: 95 bpm BP: 150 / 92 mmHg Technical Quality: Fair Exam Date: 10/08/2024 9:17 AM Exam Location: Echo Lab Patient Status: Outpatient Admit Date: 10/07/2024 Staff Ordering Physician: Vladislav Celis APRN Attending Provider: Micki Laguerre APRN Referring Physician: Vimal DO; Exam Type: CA echo doppler color flow Study Info Indications - dyspnea/ eval bnp Complete two-dimensional, color flow and Doppler transthoracic echocardiogram is performed. Summary 1. Complete two-dimensional, color flow and Doppler transthoracic echocardiogram is performed. 2. TDS, limited by breast implants. 3. Left ventricular chamber dimension is enlarged. 4. Left ventricular wall thickness is mildly increased. 5. Left ventricular systolic function is mildly reduced with an ejection fraction by Biplane Method of Discs of 42 %. 6. The left ventricular diastolic function is indeterminate. 7. There is moderate to severe mitral valve regurgitation. 8. Right ventricular chamber dimension is normal. 9. Right ventricular systolic function is normal. 10. Left atrial chamber dimension is enlarged. 11. There is mild tricuspid valve regurgitation. 12. Mild pulmonary hypertension, estimated pulmonary arterial systolic pressure is 55 mmHg. Recommendations * Consider SUNIL to further assess mitral valv. Left Ventricle Left ventricular chamber dimension is enlarged. Left ventricular wall thickness is mildly increased. Left ventricular systolic function is mildly reduced with an ejection fraction by Biplane Method of Discs of 42 %. The left ventricular diastolic function is indeterminate. Right Ventricle Right ventricular chamber dimension is normal. Right ventricular systolic function is normal. Left Atria Left atrial chamber dimension is enlarged. Right Atria Right atrial chamber dimension is normal. Aortic Valve There is no aortic valve stenosis with a peak velocity of 105 cm/s, mean gradient of 3 mmHg. There is no aortic valve regurgitation. Pulmonic Valve Pulmonary valve is not well visualized. Mitral Valve There is moderate to severe mitral valve regurgitation. Mild calcification of the mitral valve. Tricuspid Valve There is mild tricuspid valve regurgitation. Mild pulmonary hypertension, estimated pulmonary arterial systolic pressure is 55 mmHg. Left Ventricular Outflow Tract Name Value Normal LVOT Doppler LVOT Peak Gradient 2 mmHg LVOT Mean Gradient 1 mmHg LVOT VTI 11 cm LVOT VTI/AV VTI Ratio 0.6 Mitral Valve Name Value Normal MV Doppler MV Peak Gradient 7 mmHg MV Mean Gradient 3 mmHg MV Decel [place] 1,196 cm/s2 MV PHT 29 ms MV Area (PHT) 7.5 cm2 4.0-5.0 MV Diastolic Function MV E Peak Velocity 121 cm/s MV A Peak Velocity 83 cm/s MV E/A 1.5 MV Decel Time 101 ms MV Annular TDI MV E/e' (Septal) 23.5 <=8.0 MV E/e' (Lateral) 25.0 <=8.0 MV E/e' (Average) 24.2 Tricuspid Valve Name Value Normal TV Regurgitation Doppler TR Peak Velocity 336 cm/s TR Peak Gradient 45 mmHg Estimated PAP/RSVP RA Pressure 10 mmHg <=5 PA Systolic Pressure 55 mmHg <36 RV Systolic Pressure 55 mmHg <36 Aortic Valve Name Value Normal AV Doppler AV Peak Velocity 105 cm/s AV Peak Gradient 4 mmHg AV Mean Gradient 3 mmHg AV VTI 18 cm Ventricles Name Value Normal LV Fractional Shortening/Ejection Fraction 2D/MM LV Diastolic Volume (4C MOD) 116 ml LV EF (4C MOD) 44 % LV Diastolic Volume (2C MOD) 128 ml LV EF (2C MOD) 39 % LV Diastolic Volume (BP MOD) 122 ml 46-106 LV Diastolic Volume Index (BP MOD) 78 ml/m2 29-61 LV Systolic Volume (BP MOD) 71 ml 14-42 LV Systolic Volume Index (BP MOD) 46 ml/m2 8-24 LV EF (BP MOD) 42 % 54-74 LV Diastolic Length (4C) 7.6 cm LV Systolic Length (4C) 6.7 cm LV Stroke Volume (4C MOD) 51 ml Atria Name Value Normal LA Dimensions LA Volume (4C A-L) 59 ml LA Volume (BP A-L) 71 ml RA Dimensions RA Area (4C) 14.8 cm2 <=18.0 Report Signatures Amended by Bettina Madden on 10/08/2024 18:07
[2024-10-08] MEDS: IPRATROPIUM 0.5 MG/ALBUTEROL SULFATE 2.5 MG AMPUL.NEB 3 ML INHALATION ×4 (02:32→21:00)
[2024-10-08] MEDS: methylPREDNISolone SOD SUCC 125 MG VIAL 60 MG IV PUSH ×4 (05:15→23:00)
[2024-10-08] MEDS: FLUTICASONE/SALMETEROL 115-21 MCG INHALER 1 PUFF 2 PUFF INHALATION ×2 (07:41→21:00)
[2024-10-08] MEDS: AZITHROMYCIN 250 MG TABLET 500 MG PO (08:33)
[2024-10-08] MEDS: ENOXAPARIN 40 MG/0.4 ML SYRINGE SUB-Q (08:33)
[2024-10-08] MEDS: ASPIRIN 81 MG ENTERIC TABLET PO (08:33)
[2024-10-08] MEDS: ATORVASTATIN 10 MG TABLET PO (08:33)
[2024-10-08 08:42] LABS: Hematocrit 45.1 % (37.0-47.0); Hemoglobin 14.4 g/dL (12.0-15.0); Mean Corpuscular HGB Conc 31.9 g/dl (32-36); Mean Corpuscular Hemoglobin 30.3 pg (26-34); Mean Corpuscular Volume 94.9 fl (80-100); Platelet Count Result 252 k/mm3 (150-375); Red Blood Count 4.75 M/mm3 (4.2-5.4); White Blood Count 9.4 K/mm3 (4.5-10.0)
[2024-10-08 08:54] LABS: Alanine Aminotransferase 33 U/L (6-35); Alkaline Phosphatase 159 U/L (38-126); Anion Gap 6 mmol/L (4-12); Aspartate Amino Transferase 43 U/L (14-36); Bilirubin,Total 0.6 mg/dL (0.2-1.3); Blood Urea Nitrogen 18 mg/dL (7-17); Calcium 9.2 mg/dL (8.4-10.2); Carbon Dioxide 27 mmol/L (22-30); Chloride 103 mmol/L (98-107); Estimated CRCL calculation 55 ml/min; Estimated Glomerular Filt Rate > 60; Glucose 183 mg/dL (65-110); Potassium 4.6 mmol/L (3.4-5.0); Sodium 136 mmol/L (137-145)
--- NOTE | 2024-10-08 15:36 | P.PNIM_ITS ---
Progress Note: A&P Assessment and Plan (1) Acute respiratory failure with hypoxia: Code(s): J96.01 - Acute respiratory failure with hypoxia Status: Acute Assessment and Plan: * Hypoxia POA at 88% * Appears to be secondary to COPD and CHF exacerbation * Improved with supplemental oxygen wean as tolerated * Patient's chest x-ray showing severe emphysema atelectasis * Incentive spirometer while awake * Will need home O2 walk study prior to discharge * Encouraged smoking cessation (2) COPD with acute exacerbation: Code(s): J44.1 - Chronic obstructive pulmonary disease with (acute) exacerbation Status: Acute Assessment and Plan: * Bronchodilators. * Chest x-ray: Severe emphysema/atelectasis * incentive spirometry while awake. * steroids initiated * Guaifenesin * azithromycin 500 x 1 day/250 daily * supplemental oxygen therapy to maintain oxygen 92% wean as tolerated * Evaluation from home O2 if saturation less than 88% on room air. * Smoking cessation counseling done * Follow-up with intelligence operations specialist as an outpatient (3) Acute on chronic diastolic heart failure: Code(s): I50.33 - Acute on chronic diastolic (congestive) heart failure Status: Acute Assessment and Plan: * Diastolic heart failure grade 1 * BNP >43668 * IV Lasix b.i.d. * monitor renal function during diuresis * previous echocardiogram results 2021 Diastolic grade 1 LVEF55% * echocardiogram pending * EKG: SR * Chest CT: Atelectasis, severe emphysema, small right pleural effusion * Optimize Freddy inhibitors, beta-blockers, ARN (4) Essential hypertension: Code(s): I10 - Essential (primary) hypertension Status: Chronic Assessment and Plan: * Stable * Resume home medications * monitor BP per unit protocol (5) Mixed hyperlipidemia: Code(s): E78.2 - Mixed hyperlipidemia Status: Chronic Assessment and Plan: * Continue home medications (6) Depression: Qualifiers: Depression Type: major depressive disorder Major depression recurrence: single episode Active/Remission status: currently active Major depression episode severity: mild Qualified Code(s): F32.0 - Major depressive disorder, single episode, mild Code(s): F32.9 - Major depressive disorder, single episode, unspecified Status: Chronic Assessment and Plan: * Continue venlafaxine (7) Tobacco abuse: Code(s): Z72.0 - Tobacco use Status: Chronic Assessment and Plan: * Continue to emphasize need for cessation * PRN Nicotine patch ordered * Remove nicotine patch at night Plan Code status: Full code per patient DVT prophylaxis: Lovenox Stress ulcer prophylaxis: Protonix 40 daily PT/OT notes: Ambulatory Disposition: Patient continues admission for acute respiratory failure with hypoxia secondary to COPD and CHF exacerbation patient continues on supplemental oxygen will wean as tolerated, echo is pending will start low-dose IV Lasix. Patient will need home O2 walk study prior to discharge she currently has an appointment with pulmonology outpatient scheduled for November to will likely also need a sleep study outpatient. Time Spent With Patient Time with patient: 15 - 25 minutes Subjective Date/time seen: 10/08/24 15:36 Interval history: Patient is a 64-year-old female who was admitted with COPD exacerbation and possible CHF exacerbation. 10/08/2024: Assumed Care Patient reports breathing is better today but she still gets extremely short of breath with any exertion. Patient still on supplemental oxygen. Patient also has atypical chest pain with inspiration. Patient denied fever, chills, dizziness, N/V. Review of Systems Review of Systems: All systems reviewed & are unremarkable except as noted in HPI and below Exam Narrative: * GENERAL: Alert and oriented x 3. No acute distress. * EYES: PERRLA. * HEENT: Moist mucous membranes. * LUNGS: Diminished to auscultation bilaterally. Use of accessory muscle use. Productive cough * CARDIOVASCULAR: Regular rate and rhythm. No murmur. S1-S2 * ABDOMEN: Soft, non tenderness and non-distended. No palpable masses. * EXTREMITIES: No edema. Non-tender * SKIN: No rashes or lesions. Skin warm, dry. * NEUROLOGIC: No focal neurological deficits. CN II-XII grossly intact * PSYCHIATRIC: Appropriate mood and affect. Good judgement and insight. Objective Data Vital Signs Vital Signs: Vital Signs - 24 hr 10/07/24 15:55 10/07/24 15:45 10/07/24 16:00 Temperature Pulse Rate 80 81 Respiratory Rate 23 H 16 Blood Pressure Pulse Oximetry 98 98 97 Oxygen Delivery Nasal Cannula Oxygen Flow Rate 2 10/07/24 16:15 10/07/24 16:34 10/07/24 17:17 Temperature 97.8 F Pulse Rate 80 81 Respiratory Rate 19 20 Blood Pressure 150/90 H Pulse Oximetry 97 93 98 Oxygen Delivery Oxygen Flow Rate 10/07/24 17:42 10/07/24 19:38 10/07/24 21:47 Temperature 98.6 F Pulse Rate 81 86 Respiratory Rate 20 Blood Pressure 128/64 Pulse Oximetry 99 96 Oxygen Delivery Nasal Cannula Oxygen Flow Rate 2 10/07/24 21:30 10/07/24 20:02 10/07/24 23:59 Temperature 96.4 F L Pulse Rate 86 92 79 Respiratory Rate 20 22 H Blood Pressure 109/65 Pulse Oximetry 96 100 Oxygen Delivery Nasal Cannula Oxygen Flow Rate 2 10/08/24 00:03 10/08/24 02:32 10/08/24 04:01 Temperature Pulse Rate 80 80 82 Respiratory Rate 16 Blood Pressure Pulse Oximetry Oxygen Delivery Oxygen Flow Rate 10/08/24 04:35 10/08/24 08:00 10/08/24 07:40 Temperature 98 F 97.1 F L Pulse Rate 95 82 79 Respiratory Rate 20 18 18 Blood Pressure 150/92 H 165/80 H Pulse Oximetry 95 93 93 Oxygen Delivery Nasal Cannula Oxygen Flow Rate 2 10/08/24 07:40 10/08/24 07:50 10/08/24 08:00 Temperature Pulse Rate 79 82 81 Respiratory Rate 18 18 Blood Pressure Pulse Oximetry Oxygen Delivery Oxygen Flow Rate 10/08/24 12:00 10/08/24 12:50 10/08/24 13:00 Temperature 97.3 F L Pulse Rate 81 71 74 Respiratory Rate 20 18 18 Blood Pressure 112/91 H Pulse Oximetry 94 Oxygen Delivery Oxygen Flow Rate 10/08/24 12:00 10/08/24 14:30 10/08/24 14:36 Temperature Pulse Rate 83 Respiratory Rate Blood Pressure Pulse Oximetry 96 92 Oxygen Delivery Nasal Cannula Room Air Oxygen Flow Rate 2 Intake/Output Intake/Output: Intake & Output 10/05/24 10/06/24 10/07/24 10/08/24 23:59 23:59 23:59 23:59 Intake Total 50 1200 Balance 50 1200 Meds/Results Medications: Active Medications Generic Name Dose Route Start Last Admin Trade Name Freq PRN Reason Stop Dose Admin Albuterol 2 puff 10/07/24 18:44 Albuterol Sulfate (*Sp) Aerosol 1 Puff INHALATION Q4H PRN Shortness Of Breath Or Wheezing Albuterol/Ipratropium 3 ml 10/07/24 20:00 10/08/24 12:49 Ipratropium 0.5 Mg/Albuterol Sulfate 2.5 Mg Ampul.Neb 3 Ml INHALATION 3 ml Q6HRT [facility]IE Administration Aspirin 81 mg 10/08/24 09:00 10/08/24 08:33 Aspirin 81 Mg Enteric Tablet PO 81 mg DAILY [facility] Administration Atorvastatin Calcium 10 mg 10/08/24 09:00 10/08/24 08:33 Atorvastatin 10 Mg Tablet PO 10 mg DAILY [facility] Administration Azithromycin 500 mg 10/08/24 09:00 10/08/24 08:33 Azithromycin 250 Mg Tablet PO 10/11/24 09:01 500 mg DAILY [facility] Administration Benzonatate 200 mg 10/07/24 18:55 Benzonatate 100 Mg Capsule PO TID PRN cough Clopidogrel Bisulfate 75 mg 10/07/24 21:00 10/07/24 21:47 Clopidogrel Bisulfate 75 Mg Tablet PO 75 mg HS [facility] Administration Enoxaparin Sodium 40 mg 10/08/24 09:00 10/08/24 08:33 Enoxaparin 40 Mg/0.4 Ml Syringe SUB-Q 40 mg DAILY [facility] Administration Guaifenesin 1,200 mg 10/08/24 21:00 Guaifenesin 12 Hr 600 Mg Tabcr PO Q12HR [facility] Ceftriaxone Sodium 1 gm in 50 mls @ 100 mls/hr 10/08/24 12:00 10/08/24 12:08 Rocephin 1 Gm/Ns 50 Ml IVPB 100 mls/hr Q24H [facility] Administration Methylprednisolone Sodium Succinate 60 mg 10/07/24 18:00 10/08/24 12:09 Methylprednisolone Sod Succ 125 Mg Vial IV PUSH 60 mg Q6HR [facility] Administration Metoprolol Succinate 25 mg 10/07/24 21:00 10/07/24 21:47 Metoprolol Succinate Ext Rel 25 Mg Tabcr PO 25 mg HS [facility] Administration Montelukast Sodium 10 mg 10/07/24 21:00 10/07/24 21:47 Montelukast Sodium 10 Mg Tablet PO 10 mg HS [facility] Administration Multivitamins/Calcium 1 tablet 10/07/24 21:00 10/07/24 21:47 Therapeutic Multivitamins/Minerals Tab (*Bkc) PO 1 tablet HS [facility] Administration Nicotine 1 patch 10/07/24 23:09 Nicotine (*Pbkc) 21 Mg Patch TRANSDERM DAILY PRN Smoking cessation Perflutren Lipid Microsphere 0 ml 10/08/24 01:46 Perflutren Lipid Microspheres 1.5 Ml Vial Diluted To 10 Ml Total Volume IV PUSH 10/11/24 01:46 ONCE PRN adequate visualization Protocol Fluticasone/Salmeterol 2 puff 10/07/24 20:00 10/08/24 07:41 Fluticasone/Salmeterol 115-21 Mcg Inhaler 1 Puff INHALATION 2 puff Q12HRT [facility] Administration Venlafaxine HCl 150 mg 10/07/24 21:00 10/07/24 21:47 Venlafaxine Hcl Xr 75 Mg Cap.Er.24h PO 150 mg HS [facility] Administration Vitamin D 1,000 units 10/07/24 21:00 10/07/24 21:47 Cholecalciferol 1,000 Units Tablet PO 1,000 units HS [facility] Administration Radiology Results: ITS Impressions Chest X-Ray 10/07/24 13:54 IMPRESSION: Left basilar atelectasis versus focal pneumonia or a nodule. CT evaluation is advised. Chest CT 10/07/24 16:40 IMPRESSION: 1. Atelectasis in lingula, which correlates with the chest radiograph abnormality. 2. Severe emphysema. 3. Small right pleural effusion. Labs Labs: Laboratory Results - last 24 hr 10/07/24 10/07/24 10/08/24 14:01 16:59 08:30 WBC 9.4 RBC 4.75 Hgb 14.4 Hct 45.1 MCV 94.9 MCH 30.3 MCHC 31.9 L RDW 15.0 H Plt Count 252 MPV 11.0 H Sodium 136 L Potassium 4.6 Chloride 103 Carbon Dioxide 27 Anion Gap 6 BUN 18 H Creatinine 0.70 Estim Creat Clear Calc 55 Estimated GFR > 60 Glucose 183 H POC Capillary Glucose 114 H Calcium 9.2 Magnesium 2.1 Total Bilirubin 0.6 AST 43 H ALT 33 Alkaline Phosphatase 159 H NT-Pro-B Natriuret Pep 50916 H Total Protein 7.0 Albumin 4.0 Quality VTE Prophylaxis VTE prophylaxis: pharmacologic ordered -Patient's previous records reviewed on admission -ER notes reviewed in detail on admission -discussed all findings and current treatment plan with patient/Family/POA -Consultations reviewed for recommendations -Patient's disposition for safe discharge discussed with child welfare caseworker Dictation performed by [employer] direct speech recognition software, therefore braille and talking books clerk variants and typographical errors may occur. Hospitalist MIPS Advance Care Plan I have confirmed that the patient's Advanced Care Plan is present, code status is documented, or surrogate decision maker is listed in patient medical record.: Yes Medication Reconciliation I have utilized all available resources to obtain, update and review the patients current medications (includes all prescriptions, OTC, herbals, cannabis, and nutritional supplements).: Yes The patient is not eligible for med reconciliation; the patient is in a emergent medical situation where delaying treatment would jeopardize the patients health.: No
[2024-10-08] MEDS: VENLAFAXINE HCL XR 75 MG CAP.ER.24H 150 MG PO (20:16)
[2024-10-08] MEDS: THERAPEUTIC MULTIVITAMINS/MINERALS TAB (*BKC) 1 TABLET PO (20:16)
[2024-10-08] MEDS: CHOLECALCIFEROL 1,000 UNITS TABLET 1000 UNITS PO (20:16)
[2024-10-08] MEDS: guaiFENesin 12 HR 600 MG TABCR 1200 MG PO (20:16)
[2024-10-08] MEDS: MONTELUKAST SODIUM 10 MG TABLET PO (20:16)
[2024-10-08] MEDS: CLOPIDOGREL BISULFATE 75 MG TABLET PO (20:16)
[2024-10-08] MEDS: METOPROLOL SUCCINATE EXT REL 25 MG TABCR PO (20:16)
[2024-10-09] VITALS (20 sets, daily range): BP systolic 112–142; BP diastolic 59–70; PULSE 78–95; RESP 12–18; TEMP 36–36.3; O2SAT 92–98
[2024-10-09] MEDS: IPRATROPIUM 0.5 MG/ALBUTEROL SULFATE 2.5 MG AMPUL.NEB 3 ML INHALATION ×4 (02:35→19:46)
[2024-10-09] MEDS: methylPREDNISolone SOD SUCC 125 MG VIAL 60 MG IV PUSH ×3 (05:45→17:26)
[2024-10-09] MEDS: FLUTICASONE/SALMETEROL 115-21 MCG INHALER 1 PUFF 2 PUFF INHALATION ×2 (07:15→19:47)
[2024-10-09] MEDS: ENOXAPARIN 40 MG/0.4 ML SYRINGE SUB-Q (08:42)
[2024-10-09] MEDS: ATORVASTATIN 10 MG TABLET PO (08:43)
[2024-10-09] MEDS: ASPIRIN 81 MG ENTERIC TABLET PO (08:43)
[2024-10-09] MEDS: AZITHROMYCIN 250 MG TABLET 500 MG PO (08:43)
[2024-10-09] MEDS: guaiFENesin 12 HR 600 MG TABCR 1200 MG PO ×2 (08:44→20:52)
[2024-10-09 11:32] LABS: Hematocrit 41.3 % (37.0-47.0); Hemoglobin 13.2 g/dL (12.0-15.0); Mean Corpuscular Hemoglobin 30.5 pg (26-34); Mean Corpuscular Volume 95.4 fl (80-100); Mean Platelet Volume 11.2 fl (7.4-10.4); Platelet Count Result 245 k/mm3 (150-375); Red Blood Count 4.33 M/mm3 (4.2-5.4); Red Cell Distribution Width 15.1 % (11.5-14.5); White Blood Count 15.5 K/mm3 (4.5-10.0)
[2024-10-09 11:47] LABS: Alanine Aminotransferase 22 U/L (6-35); Albumin Level 3.8 g/dL (3.5-5.1); Alkaline Phosphatase 125 U/L (38-126); Anion Gap 5 mmol/L (4-12); Aspartate Amino Transferase 31 U/L (14-36); Bilirubin,Total 0.6 mg/dL (0.2-1.3); Blood Urea Nitrogen 26 mg/dL (7-17); Calcium 9.3 mg/dL (8.4-10.2); Carbon Dioxide 30 mmol/L (22-30); Chloride 100 mmol/L (98-107); Estimated CRCL calculation 43 ml/min; Estimated Glomerular Filt Rate > 60; Glucose 200 mg/dL (65-110); Potassium 5.1 mmol/L (3.4-5.0); Sodium 135 mmol/L (137-145)
--- NOTE | 2024-10-09 13:15 | P.PNIM_ITS ---
Progress Note: A&P Assessment and Plan (1) Acute respiratory failure with hypoxia: Code(s): J96.01 - Acute respiratory failure with hypoxia Status: Acute Assessment and Plan: * Hypoxia POA at 88% * Appears to be secondary to COPD and CHF exacerbation * Improved with supplemental oxygen wean as tolerated * Patient's chest x-ray showing severe emphysema atelectasis * Incentive spirometer while awake * Will need home O2 walk study prior to discharge * Encouraged smoking cessation (2) COPD with acute exacerbation: Code(s): J44.1 - Chronic obstructive pulmonary disease with (acute) exacerbation Status: Acute Assessment and Plan: * Bronchodilators. * Chest x-ray: Severe emphysema/atelectasis * incentive spirometry while awake. * steroids initiated * Guaifenesin * azithromycin 500 x 1 day/250 daily * supplemental oxygen therapy to maintain oxygen 92% wean as tolerated * Evaluation from home O2 if saturation less than 88% on room air. * Smoking cessation counseling done * Follow-up with workforce management coordinator as an outpatient (3) Acute on chronic diastolic heart failure: Code(s): I50.33 - Acute on chronic diastolic (congestive) heart failure Status: Acute Assessment and Plan: * Diastolic heart failure grade 1 * BNP >45335 * IV Lasix b.i.d. * monitor renal function during diuresis * previous echocardiogram results 2021 Diastolic grade 1 LVEF55% * echocardiogram: Left ventricular systolic function is mildly reduced with an ejection fraction by Biplane Method of Discs of 42 %. and severe MR * EKG: SR * Chest CT: Atelectasis, severe emphysema, small right pleural effusion * Optimize Freddy inhibitors, beta-blockers, ARN 10/09/2024: * Cardiology evaluation for CHF with worsening EF and severe MR (4) Essential hypertension: Code(s): I10 - Essential (primary) hypertension Status: Chronic Assessment and Plan: * Stable * Resume home medications * monitor BP per unit protocol (5) Mixed hyperlipidemia: Code(s): E78.2 - Mixed hyperlipidemia Status: Chronic Assessment and Plan: * Continue home medications (6) Depression: Qualifiers: Depression Type: major depressive disorder Major depression recurrence: single episode Active/Remission status: currently active Major depression episode severity: mild Qualified Code(s): F32.0 - Major depressive disorder, single episode, mild Code(s): F32.9 - Major depressive disorder, single episode, unspecified Status: Chronic Assessment and Plan: * Continue venlafaxine (7) Tobacco abuse: Code(s): Z72.0 - Tobacco use Status: Chronic Assessment and Plan: * Continue to emphasize need for cessation * PRN Nicotine patch ordered * Remove nicotine patch at night Plan Code status: Full code per patient DVT prophylaxis: Lovenox Stress ulcer prophylaxis: Protonix 40 daily PT/OT notes: Ambulatory Disposition: Patient continues admission for acute respiratory failure with hypoxia secondary to COPD and CHF exacerbation patient continues on supplemental oxygen will wean as tolerated, echo is pending will start low-dose IV Lasix. Patient will need home O2 walk study prior to discharge she currently has an appointment with pulmonology outpatient scheduled for November to will likely also need a sleep study outpatient. Time Spent With Patient Time with patient: 15 - 25 minutes Subjective Date/time seen: 10/09/24 13:15 Interval history: Patient is a 64-year-old female who was admitted with COPD exacerbation and possible CHF exacerbation. 10/09/2024: Assumed Care Patient still with SOB with activity but states it is improving, still with right sided pleuritic pain with cough. Denies N/V, dizziness, or CP. EF worsened and needs evaluation of mitral valve. Review of Systems Review of Systems: All systems reviewed & are unremarkable except as noted in HPI and below Exam Narrative: * GENERAL: Alert and oriented x 3. No acute distress. * EYES: PERRLA. * HEENT: Moist mucous membranes. * LUNGS: Diminished to auscultation bilaterally. Use of accessory muscle use. Productive cough * CARDIOVASCULAR: Regular rate and rhythm. No murmur. S1-S2 * ABDOMEN: Soft, non tenderness and non-distended. No palpable masses. * EXTREMITIES: No edema. Non-tender * SKIN: No rashes or lesions. Skin warm, dry. * NEUROLOGIC: No focal neurological deficits. CN II-XII grossly intact * PSYCHIATRIC: Appropriate mood and affect. Good judgement and insight. Objective Data Vital Signs Vital Signs: Vital Signs - 24 hr 10/08/24 14:30 10/08/24 14:36 10/08/24 16:00 Temperature 97.7 F Pulse Rate 85 Respiratory Rate 16 Blood Pressure 115/65 Pulse Oximetry 96 92 90 Oxygen Delivery Nasal Cannula Room Air Oxygen Flow Rate 2 10/08/24 15:59 10/08/24 16:00 10/08/24 16:00 Temperature Pulse Rate 84 Respiratory Rate Blood Pressure Pulse Oximetry 84 L 90 Oxygen Delivery Room Air Nasal Cannula Oxygen Flow Rate 2 10/08/24 19:58 10/08/24 20:16 10/08/24 21:00 Temperature 97.4 F L Pulse Rate 85 92 71 Respiratory Rate 13 18 Blood Pressure 132/56 L Pulse Oximetry 96 Oxygen Delivery Oxygen Flow Rate 10/08/24 21:10 10/08/24 20:10 10/08/24 20:10 Temperature Pulse Rate 74 74 74 Respiratory Rate 18 18 Blood Pressure Pulse Oximetry 96 Oxygen Delivery Nasal Cannula Oxygen Flow Rate 2 10/08/24 20:00 10/08/24 23:15 10/08/24 23:21 Temperature 97.3 F L Pulse Rate 91 74 80 Respiratory Rate 18 13 Blood Pressure 132/59 L Pulse Oximetry 94 97 Oxygen Delivery Nasal Cannula Oxygen Flow Rate 3 10/09/24 00:02 10/09/24 02:32 10/09/24 02:43 Temperature Pulse Rate 86 78 84 Respiratory Rate 18 18 Blood Pressure Pulse Oximetry Oxygen Delivery Oxygen Flow Rate 10/09/24 02:54 10/09/24 04:01 10/09/24 04:00 Temperature 97.1 F L Pulse Rate 84 87 82 Respiratory Rate 12 Blood Pressure 126/61 Pulse Oximetry 96 97 Oxygen Delivery Room Air Oxygen Flow Rate 10/09/24 07:15 10/09/24 07:15 10/09/24 07:24 Temperature Pulse Rate 80 83 Respiratory Rate 18 18 Blood Pressure Pulse Oximetry 97 Oxygen Delivery Nasal Cannula Oxygen Flow Rate 1 10/09/24 08:00 10/09/24 08:44 10/09/24 08:44 Temperature 97.3 F L Pulse Rate 82 94 Respiratory Rate 18 Blood Pressure 121/70 Pulse Oximetry 98 93 Oxygen Delivery Nasal Cannula Oxygen Flow Rate 1 10/09/24 12:00 Temperature 96.8 F L Pulse Rate 87 Respiratory Rate 18 Blood Pressure 128/64 Pulse Oximetry 96 Oxygen Delivery Oxygen Flow Rate Intake/Output Intake/Output: Intake & Output 10/06/24 10/07/24 10/08/24 10/09/24 23:59 23:59 23:59 23:59 Intake Total 50 1490 1418 Balance 50 1490 1418 Meds/Results Medications: Active Medications Generic Name Dose Route Start Last Admin Trade Name Freq PRN Reason Stop Dose Admin Albuterol 2 puff 10/07/24 18:44 Albuterol Sulfate (*Sp) Aerosol 1 Puff INHALATION Q4H PRN Shortness Of Breath Or Wheezing Albuterol/Ipratropium 3 ml 10/07/24 20:00 10/09/24 07:15 Ipratropium 0.5 Mg/Albuterol Sulfate 2.5 Mg Ampul.Neb 3 Ml INHALATION 3 ml Q6HRT [facility] Administration Aspirin 81 mg 10/08/24 09:00 10/09/24 08:43 Aspirin 81 Mg Enteric Tablet PO 81 mg DAILY [facility] Administration Atorvastatin Calcium 10 mg 10/08/24 09:00 10/09/24 08:43 Atorvastatin 10 Mg Tablet PO 10 mg DAILY [facility] Administration Azithromycin 500 mg 10/08/24 09:00 10/09/24 08:43 Azithromycin 250 Mg Tablet PO 10/11/24 09:01 500 mg DAILY [facility] Administration Benzonatate 200 mg 10/07/24 18:55 Benzonatate 100 Mg Capsule PO TID PRN cough Clopidogrel Bisulfate 75 mg 10/07/24 21:00 10/08/24 20:16 Clopidogrel Bisulfate 75 Mg Tablet PO 75 mg HS [facility] Administration Enoxaparin Sodium 40 mg 10/08/24 09:00 10/09/24 08:42 Enoxaparin 40 Mg/0.4 Ml Syringe SUB-Q 40 mg DAILY [facility] Administration Guaifenesin 1,200 mg 10/08/24 21:00 10/09/24 08:44 Guaifenesin 12 Hr 600 Mg Tabcr PO 1,200 mg Q12HR [facility] Administration Ceftriaxone Sodium 1 gm in 50 mls @ 100 mls/hr 10/08/24 12:00 10/09/24 12:29 Rocephin 1 Gm/Ns 50 Ml IVPB 100 mls/hr Q24H [facility] Administration Methylprednisolone Sodium Succinate 60 mg 10/07/24 18:00 10/09/24 12:30 Methylprednisolone Sod Succ 125 Mg Vial IV PUSH 60 mg Q6HR [facility] Administration Metoprolol Succinate 25 mg 10/07/24 21:00 10/08/24 20:16 Metoprolol Succinate Ext Rel 25 Mg Tabcr PO 25 mg HS [facility] Administration Montelukast Sodium 10 mg 10/07/24 21:00 10/08/24 20:16 Montelukast Sodium 10 Mg Tablet PO 10 mg HS [facility] Administration Multivitamins/Calcium 1 tablet 10/07/24 21:00 10/08/24 20:16 Therapeutic Multivitamins/Minerals Tab (*Bkc) PO 1 tablet HS [facility] Administration Nicotine 1 patch 10/07/24 23:09 Nicotine (*Pbkc) 21 Mg Patch TRANSDERM DAILY PRN Smoking cessation Perflutren Lipid Microsphere 0 ml 10/08/24 01:46 Perflutren Lipid Microspheres 1.5 Ml Vial Diluted To 10 Ml Total Volume IV PUSH 10/11/24 01:46 ONCE PRN adequate visualization Protocol Fluticasone/Salmeterol 2 puff 10/07/24 20:00 10/09/24 07:15 Fluticasone/Salmeterol 115-21 Mcg Inhaler 1 Puff INHALATION 2 puff Q12HRT [facility] Administration Venlafaxine HCl 150 mg 10/07/24 21:00 10/08/24 20:16 Venlafaxine Hcl Xr 75 Mg Cap.Er.24h PO 150 mg HS [facility] Administration Vitamin D 1,000 units 10/07/24 21:00 10/08/24 20:16 Cholecalciferol 1,000 Units Tablet PO 1,000 units HS [facility] Administration Radiology Results: ITS Impressions Chest X-Ray 10/07/24 13:54 IMPRESSION: Left basilar atelectasis versus focal pneumonia or a nodule. CT evaluation is advised. Chest CT 10/07/24 16:40 IMPRESSION: 1. Atelectasis in lingula, which correlates with the chest radiograph abnormality. 2. Severe emphysema. 3. Small right pleural effusion. Labs Labs: Laboratory Results - last 24 hr 10/09/24 11:18 WBC 15.5 H RBC 4.33 Hgb 13.2 Hct 41.3 MCV 95.4 MCH 30.5 MCHC 32.0 RDW 15.1 H Plt Count 245 MPV 11.2 H Sodium 135 L Potassium 5.1 H Chloride 100 Carbon Dioxide 30 Anion Gap 5 BUN 26 H Creatinine 0.90 Estim Creat Clear Calc 43 Estimated GFR > 60 Glucose 200 H Calcium 9.3 Total Bilirubin 0.6 AST 31 ALT 22 Alkaline Phosphatase 125 Total Protein 7.0 Albumin 3.8 Quality VTE Prophylaxis VTE prophylaxis: pharmacologic ordered -Patient's previous records reviewed on admission -ER notes reviewed in detail on admission -discussed all findings and current treatment plan with patient/Family/POA -Consultations reviewed for recommendations -Patient's disposition for safe discharge discussed with case planner Dictation performed by [employer] direct speech recognition software, therefore photo manager variants and typographical errors may occur. Hospitalist MIPS Advance Care Plan I have confirmed that the patient's Advanced Care Plan is present, code status is documented, or surrogate decision maker is listed in patient medical record.: Yes Medication Reconciliation I have utilized all available resources to obtain, update and review the p atients current medications (includes all prescriptions, OTC, herbals, cannabis, and nutritional supplements).: Yes The patient is not eligible for med reconciliation; the patient is in a emergent medical situation where delaying treatment would jeopardize the patients health.: No
--- NOTE | 2024-10-09 17:10 | P.CONCA_ITS ---
Assessment and Plan Assessment and plan (1) COPD with acute exacerbation: Code(s): J44.1 - Chronic obstructive pulmonary disease with (acute) exacerbation Status: Acute (2) Essential hypertension: Code(s): I10 - Essential (primary) hypertension Status: Chronic (3) Mixed hyperlipidemia: Code(s): E78.2 - Mixed hyperlipidemia Status: Chronic (4) CHF (NYHA class III, ACC/AHA stage C): Code(s): I50.9 - Heart failure, unspecified Status: Acute (5) Mitral regurgitation: Code(s): I34.0 - Nonrheumatic mitral (valve) insufficiency Status: Acute Plan 1. Acute on chronic systolic HF NYHA III, STAGE C EF 42% Etiology: not known, most likely NICM in the setting of MR 2. New onset cardiomyopathy 3. Moderate to severe MR 4. CAD 5. COPD/Emphysema/Smoker 6. Mild Pulm HTN, most likley mixed Gp 2/3 EF 42% LVIDD 7.6 mild Pulm HTN, PASP 55 mmhg -discussed with her in detail regarding her T to assess her mitral valve. She will also need a left cardiac catheterization to assess coronary anatomy -she may need a surgical consult for mitral valve repair if mitral regurgitation comes out to be severe. -she understood the plan but wants to go home tomorrow. She wants to see us in the clinic and schedule the SUNIL/LHC next week. She is a patient of Dr. Fraga and and can be scheduled to see him. - Continue ASA, statin. Plavix can be discontinued - Currently on toprol-Xl 25 mg OD - Will start on Losartan 25 mg OD, can be switched to ARNI as an outpatient if BP allows - Start jardiance 10 mg OD - MRA as an outpatient if BP allows History of Present Illness History of Present Illness Consult date/time: 10/09/24 17:10 Reason For Visit: COPD/Hypoxia Narrative: Ms Genny Magallanes is a 64-year-old pleasant lady who is known to have COPD, emph ysema, chronic smoker was admitted with dyspnea found to have COPD exacerbation and elevated BNP as well. Cardiology consulted because the echo showed an EF 42% and moderate to severe mitral regurgitation Genny states she has been having dyspnea on exertion which is worsening for the past several months, feels tired, impaired exercise tolerance. She denies any chest pain. She does endorse postural dizziness but no syncope TTE reviewed by me personally shows an EF of 42%, moderate to severe MR. She gives a remote history of VT 18 years ago for which no stent was placed. Chronic smoker, still smoking but has cut down Review of Systems Review of Systems: All systems reviewed & are unremarkable except as noted in HPI and below PMFSH Past Medical History Medical History (Updated 10/09/24 @ 17:21 by Bettina Madden MD) Anxiety Arthritis COPD (chronic obstructive pulmonary disease) Depression Depression Essential hypertension High cholesterol History of coronary artery disease History of VT (myocardial infarction) 2006 - no intervention required - regular stress tests as part of her job - all negative since Mixed hyperlipidemia Osteoporosis Pre-op evaluation RSV (acute bronchiolitis due to respiratory syncytial virus) Tobacco abuse Vision abnormalities Surgical History Surgical History History of ankle surgery Left, Dr. Rae History of breast surgery augmentation History of cholecystectomy History of surgery Right thumb, Dr. Rae History of surgery Foot, Dr. Chavo Stapleton History of total left hip arthroplasty History of total right hip arthroplasty Per Dr. Ambriz. 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 She lives at home alone. She wishes to be a full code. She has designated her two children Robson and Mel as her surrogate decision makers. She quit briefly, but now is back to smoking 1 ppd. Smoking packs per day: 1 Smoking cigarettes per day: 20.0 Years smoked: 20 Smoking pack-years: 20.00 Smoking status: Current every day smoker Tobacco type: cigarettes Second hand tobacco smoke exposure: Yes Alcohol intake: never Substance use: never Substance use type: does not use Do You Feel Safe in your Home?: Yes Lack of Transportation: No Lack of Food: Never True Current Housing: I Have Housing Concerned About Future Housing: No Difficulty Paying Gas/Electric Bills: No Difficulty Paying for Meds: No Currently Unemployed: No Education: High School Diploma/GED Difficulty w/ Childcare or Family Care: No Living arrangements: alone Gender identity (if verbalized by the patient): Female Sexual Orientation (if Verbalized by the Patient): Straight or Heterosexual Spiritual care concerns: No Meds Home Medications and Allergies Home Medications Medication Instructions Recorded Confirmed Type multivitamin,[id number] 1 tablet PO HS 05/28/20 10/07/24 History (Complete Multivitamin tablet) cholecalciferol (vitamin D3) 25 25 mcg PO HS 04/24/22 10/07/24 History mcg (1,000 unit) capsule vit C 250 mg-vit E 90 mg-zinc 40 1 tablet PO BID 05/11/23 10/07/24 History mg-copper 1 [id number] capsule (PreserVision AREDS-2) fluticasone 250 mcg-salmeterol 50 1 inh inhalation BID #60 ea 11/28/23 10/07/24 Rx mcg/dose blistr powdr for inhalation (Wixela Inhub) albuterol sulfate 90 mcg/actuation 2 inh inhalation Q4H PRN Shortness 09/12/24 10/07/24 Rx aerosol inhaler Of Breath Or Wheezing #3 device aspirin 81 mg tablet,delayed 81 mg PO DAILY 09/23/24 10/07/24 History release benzonatate 200 mg capsule 200 mg PO TID PRN cough #30 caps 09/30/24 10/07/24 Rx clopidogrel 75 mg tablet 75 mg PO HS #90 tabs 09/30/24 10/07/24 Rx metoprolol succinate 25 mg 25 mg PO HS #90 tabs 09/30/24 10/07/24 Rx tablet,extended release 24 hr montelukast 10 mg tablet 10 mg PO HS #90 tabs 09/30/24 10/07/24 Rx venlafaxine 150 mg 150 mg PO HS #90 caps 09/30/24 10/07/24 Rx capsule,extended release 24 hr atorvastatin 10 mg tablet 10 mg PO DAILY 10/07/24 10/07/24 History Allergies Allergy/AdvReac Type Severity Reaction Status Date / Time codeine Allergy Intermediate Hives Verified 10/07/24 12:46 hydrocodone Allergy Intermediate Hives Verified 10/07/24 12:46 mold Allergy Intermediate Nasal Verified 10/07/24 12:46 Discharge nickel Allergy Intermediate Swelling/BL Verified 10/07/24 12:46 ISTERS/ITCH ING ragweed pollen Allergy Intermediate Nasal Verified 10/07/24 12:46 Discharge Sulfa (Sulfonamide Allergy Intermediate Hives Verified 10/07/24 12:46 Antibiotics) Vital Signs Vital Signs - 24 hr 10/08/24 19:58 10/08/24 20:16 10/08/24 21:00 Temperature 36.3 C L Pulse Rate 85 92 71 Respiratory Rate 13 18 Blood Pressure 132/56 L Pulse Oximetry 96 Oxygen Delivery Oxygen Flow Rate 10/08/24 21:10 10/08/24 20:10 10/08/24 20:10 Temperature Pulse Rate 74 74 74 Respiratory Rate 18 18 Blood Pressure Pulse Oximetry 96 Oxygen Delivery Nasal Cannula Oxygen Flow Rate 2 10/08/24 20:00 10/08/24 23:15 10/08/24 23:21 Temperature 36.3 C L Pulse Rate 91 74 80 Respiratory Rate 18 13 Blood Pressure 132/59 L Pulse Oximetry 94 97 Oxygen Delivery Nasal Cannula Oxygen Flow Rate 3 10/09/24 00:02 10/09/24 02:32 10/09/24 02:43 Temperature Pulse Rate 86 78 84 Respiratory Rate 18 18 Blood Pressure Pulse Oximetry Oxygen Delivery Oxygen Flow Rate 10/09/24 02:54 10/09/24 04:01 10/09/24 04:00 Temperature 36.2 C L Pulse Rate 84 87 82 Respiratory Rate 12 Blood Pressure 126/61 Pulse Oximetry 96 97 Oxygen Delivery Room Air Oxygen Flow Rate 10/09/24 07:15 10/09/24 07:15 10/09/24 07:24 Temperature Pulse Rate 80 83 Respiratory Rate 18 18 Blood Pressure Pulse Oximetry 97 Oxygen Delivery Nasal Cannula Oxygen Flow Rate 1 10/09/24 08:00 10/09/24 08:44 10/09/24 08:44 Temperature 36.3 C L Pulse Rate 82 94 Respiratory Rate 18 Blood Pressure 121/70 Pulse Oximetry 98 93 Oxygen Delivery Nasal Cannula Oxygen Flow Rate 1 10/09/24 12:00 10/09/24 14:06 10/09/24 12:00 Temperature 36.0 C L Pulse Rate 87 82 90 Respiratory Rate 18 18 Blood Pressure 128/64 Pulse Oximetry 96 Oxygen Delivery Oxygen Flow Rate 10/09/24 14:13 10/09/24 15:55 Temperature 36.2 C L Pulse Rate 84 91 Respiratory Rate 18 18 Blood Pressure 112/59 L Pulse Oximetry 94 Oxygen Delivery Oxygen Flow Rate Exam Narrative: * GENERAL: Alert and oriented x 3. No acute distress. * EYES: PERRLA. * HEENT: Moist mucous membranes. * LUNGS: Diminished to auscultation bilaterally. Use of accessory muscle use. Productive cough * CARDIOVASCULAR: Regular rate and rhythm. Faint systolic murmur in the apical area (has breast implants) * ABDOMEN: Soft, non tenderness and non-distended. No palpable masses. * EXTREMITIES: No edema. Non-tender * SKIN: No rashes or lesions. Skin warm, dry. * NEUROLOGIC: No focal neurological deficits. CN II-XII grossly intact * PSYCHIATRIC: Appropriate mood and affect. Good judgement and insight. Results Labs and Meds 10/09/24 11:18 10/09/24 11:18 Lab results: Cardiac Enzymes 10/09/24 Range/Units 11:18 AST 31 (14-36) U/L CBC 10/09/24 Range/Units 11:18 WBC 15.5 H (4.5-10.0) K/mm3 RBC 4.33 (4.2-5.4) M/mm3 Hgb 13.2 (12.0-15.0) g/dL Hct 41.3 (37.0-47.0) % Plt Count 245 (150-375) k/mm3 Comprehensive Metabolic Panel 10/09/24 Range/Units 11:18 Sodium 135 L (137-145) mmol/L Potassium 5.1 H (3.4-5.0) mmol/L Chloride 100 (98-107) mmol/L Carbon Dioxide 30 (22-30) mmol/L BUN 26 H (7-17) mg/dL Creatinine 0.90 (0.7-1.0) mg/dL Glucose 200 H (65-110) mg/dL Calcium 9.3 (8.4-10.2) mg/dL AST 31 (14-36) U/L ALT 22 (6-35) U/L Alkaline Phosphatase 125 (38-126) U/L Total Protein 7.0 (6.3-8.2) g/dL Albumin 3.8 (3.5-5.1) g/dL Intake and Output 10/09/24 10/09/24 10/09/24 07:59 15:59 23:59 Intake Total 600 1218 Balance 600 1218 Intake: Oral 600 1218 Other: # Unmeasured Voids 3 # Incontinent Voids 2
[2024-10-09] MEDS: VENLAFAXINE HCL XR 75 MG CAP.ER.24H 150 MG PO (20:52)
[2024-10-09] MEDS: METOPROLOL SUCCINATE EXT REL 25 MG TABCR PO (20:52)
[2024-10-09] MEDS: CHOLECALCIFEROL 1,000 UNITS TABLET 1000 UNITS PO (20:54)
[2024-10-09] MEDS: CLOPIDOGREL BISULFATE 75 MG TABLET PO (20:54)
[2024-10-09] MEDS: THERAPEUTIC MULTIVITAMINS/MINERALS TAB (*BKC) 1 TABLET PO (20:54)
[2024-10-09] MEDS: MONTELUKAST SODIUM 10 MG TABLET PO (20:54)
[2024-10-10] VITALS (16 sets, daily range): BP systolic 126–133; BP diastolic 64–71; PULSE 81–110; RESP 12–18; TEMP 36.2–36.5; O2SAT 87–98
[2024-10-10] MEDS: methylPREDNISolone SOD SUCC 125 MG VIAL 60 MG IV PUSH ×3 (00:08→12:38)
[2024-10-10] MEDS: IPRATROPIUM 0.5 MG/ALBUTEROL SULFATE 2.5 MG AMPUL.NEB 3 ML INHALATION ×3 (01:38→14:20)
[2024-10-10 07:18] LABS: Hematocrit 41.5 % (37.0-47.0); Hemoglobin 13.4 g/dL (12.0-15.0); Mean Corpuscular HGB Conc 32.3 g/dl (32-36); Mean Corpuscular Hemoglobin 30.9 pg (26-34); Mean Corpuscular Volume 95.6 fl (80-100); Mean Platelet Volume 11.4 fl (7.4-10.4); Platelet Count Result 253 k/mm3 (150-375); Red Blood Count 4.34 M/mm3 (4.2-5.4); Red Cell Distribution Width 15.1 % (11.5-14.5); White Blood Count 15.3 K/mm3 (4.5-10.0)
[2024-10-10 07:31] LABS: Alanine Aminotransferase 21 U/L (6-35); Albumin Level 3.8 g/dL (3.5-5.1); Alkaline Phosphatase 122 U/L (38-126); Anion Gap 8 mmol/L (4-12); Aspartate Amino Transferase 21 U/L (14-36); Bilirubin,Total 0.5 mg/dL (0.2-1.3); Blood Urea Nitrogen 30 mg/dL (7-17); Calcium 9.3 mg/dL (8.4-10.2); Carbon Dioxide 29 mmol/L (22-30); Chloride 99 mmol/L (98-107); Estimated CRCL calculation 43 ml/min; Estimated Glomerular Filt Rate > 60; Glucose 151 mg/dL (65-110); Potassium 4.6 mmol/L (3.4-5.0); Sodium 136 mmol/L (137-145)
[2024-10-10] MEDS: FLUTICASONE/SALMETEROL 115-21 MCG INHALER 1 PUFF 2 PUFF INHALATION (08:11)
[2024-10-10] MEDS: EMPAGLIFLOZIN 10 MG TABLET PO (09:01)
[2024-10-10] MEDS: ATORVASTATIN 10 MG TABLET PO (09:01)
[2024-10-10] MEDS: LOSARTAN POTASSIUM 25 MG TABLET PO (09:01)
[2024-10-10] MEDS: AZITHROMYCIN 250 MG TABLET 500 MG PO (09:01)
[2024-10-10] MEDS: guaiFENesin 12 HR 600 MG TABCR 1200 MG PO (09:01)
[2024-10-10] MEDS: ASPIRIN 81 MG ENTERIC TABLET PO (09:01)
[2024-10-10] MEDS: ENOXAPARIN 40 MG/0.4 ML SYRINGE SUB-Q (09:02)
--- NOTE | 2024-10-10 13:52 | HOMEO2EVAL ---
Evaluation was performed at [facility] Home Oxygen Evaluation RC: Home Oxygen (O2) Evaluation Start: 10/10/24 11:28 Freq: ONCE Status: Active Protocol: RPE Activity Type Activity Date Activity User E-sign Co-sign Detail Recorded Client Recorded Date Recorded By Document 10/10/24 13:00 [email or web address] [email or web address] 10/10/24 13:52 DJO Document 10/10/24 13:05 [email or web address] [email or web address] 10/10/24 13:52 DJO Document 10/10/24 13:10 [email or web address] [email or web address] 10/10/24 13:52 DJO Document 10/10/24 13:15 [email or web address] [email or web address] 10/10/24 13:52 DJO Document 10/10/24 13:30 [email or web address] [email or web address] 10/10/24 13:52 DJO 10/10/24 10/10/24 10/10/24 13:00 13:05 13:10 Home O2 Evaluation [Oxygen] -Test Phase Resting Exercise Exercise -Oxygen Delivery Room Air Room Air Nasal Cannula -Oxygen Flow Rate (L/min) 1 [Pulse Oximetry] -Pulse Oximetry (90-100 %) 90 87 L 88 L [Pulse Rate] -Pulse Rate (60-100 beats/min) 94 105 H 108 H [Charges] -Evaluation Charges O2 Evaluation by Pulmonary 10/10/24 10/10/24 13:15 13:30 Home O2 Evaluation [Oxygen] -Test Phase Exercise Resting -Oxygen Delivery Nasal Cannula Room Air -Oxygen Flow Rate (L/min) 2 [Pulse Oximetry] -Pulse Oximetry (90-100 %) 90 93 [Pulse Rate] -Pulse Rate (60-100 beats/min) 110 H 91 [Charges] -Evaluation Charges
--- NOTE | 2024-10-10 14:24 | P.DS_ITS ---
DS: Admitting Diagnosis Discharge Date 10/10/2024 Admitting Diagnosis Acute respiratory failure with hypoxia secondary to COPD exacerbation and CHF exacerbation DS: Discharge Diagnosis Discharge Diagnosis (1) Acute respiratory failure with hypoxia: Code(s): J96.01 - Acute respiratory failure with hypoxia Status: Acute Assessment and Plan: * Hypoxia POA at 88% * Appears to be secondary to COPD and CHF exacerbation * Improved with supplemental oxygen wean as tolerated * Patient's chest x-ray showing severe emphysema atelectasis * Incentive spirometer while awake * Will need home O2 walk study prior to discharge * Encouraged smoking cessation (2) COPD with acute exacerbation: Code(s): J44.1 - Chronic obstructive pulmonary disease with (acute) exacerbation Status: Acute Assessment and Plan: * Bronchodilators. * Chest x-ray: Severe emphysema/atelectasis * incentive spirometry while awake. * steroids initiated * Guaifenesin * azithromycin 500 x 1 day/250 daily * supplemental oxygen therapy to maintain oxygen 92% wean as tolerated * Evaluation from home O2 if saturation less than 88% on room air. * Smoking cessation counseling done * Follow-up with tong setter as an outpatient (3) Acute on chronic diastolic heart failure: Code(s): I50.33 - Acute on chronic diastolic (congestive) heart failure Status: Acute Assessment and Plan: * Diastolic heart failure grade 1 * BNP >03389 * IV Lasix b.i.d. * monitor renal function during diuresis * previous echocardiogram results 2021 Diastolic grade 1 LVEF55% * echocardiogram: Left ventricular systolic function is mildly reduced with an ejection fraction by Biplane Method of Discs of 42 %. and severe MR * EKG: SR * Chest CT: Atelectasis, severe emphysema, small right pleural effusion * Optimize Freddy inhibitors, beta-blockers, ARN 10/09/2024: * Cardiology evaluation for CHF with worsening EF and severe MR (4) Essential hypertension: Code(s): I10 - Essential (primary) hypertension Status: Chronic Assessment and Plan: * Stable * Resume home medications * monitor BP per unit protocol (5) Mixed hyperlipidemia: Code(s): E78.2 - Mixed hyperlipidemia Status: Chronic Assessment and Plan: * Continue home medications (6) Depression: Qualifiers: Active/Remission status: currently active Depression Type: major depressive disorder Major depression episode severity: mild Major depression recurrence: single episode Qualified Code(s): F32.0 - Major depressive dis order, single episode, mild Code(s): F32.9 - Major depressive disorder, single episode, unspecified Status: Chronic Assessment and Plan: * Continue venlafaxine (7) Tobacco abuse: Code(s): Z72.0 - Tobacco use Status: Chronic Assessment and Plan: * Continue to emphasize need for cessation * PRN Nicotine patch ordered * Remove nicotine patch at night Plan Disposition: discharge home with oxygen 2L DS: Summary Hospital Course Reason for hospitalization: Acute respiratory failure with hypoxia secondary to COPD exacerbation and CHF exacerbation Hospital Course: Patient was a 64 year old female who was admitted for acute respiratory failure with hypokia secondary to COPD. Patient was started on Duonebs, azithro, and steroids. CXR did show pulmonary edema and a BNP and echo was ordered. BNP was elevated and echo showed Left ventricular systolic function is mildly reduced with an ejection fraction by Biplane Method of Discs of 42 %. and severe MR which had worsened since las Echo in 2021. 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 Patient continued to need supplemental oxygen during admission and a home oxygen study was completed prior to discharge and she was discharged on 2L supplemental oxygen. Patient reported overall improvement to symptoms still mild dypnea with activity but better with oxygen. Patient vitals stable and labs unremarkable at time of discharged plan for follow-up LHC the following week after discharge. Status at Discharge Functional status at discharge: independent ambulation Overall status at discharge: patient is progressing back to baseline Time Spent with Patient Time attestation: Total time spent providing and/or coordinating discharge services: Time spent: Greater than 30 minutes Exam Narrative: * GENERAL: Alert and oriented x 3. No acute distress. * EYES: PERRLA. * HEENT: Moist mucous membranes. * LUNGS: Diminished to auscultation bilaterally. Use of accessory muscle use. Productive cough * CARDIOVASCULAR: Regular rate and rhythm. No murmur. S1-S2 * ABDOMEN: Soft, non tenderness and non-distended. No palpable masses. * EXTREMITIES: No edema. Non-tender * SKIN: No rashes or lesions. Skin warm, dry. * NEUROLOGIC: No focal neurological deficits. CN II-XII grossly intact * PSYCHIATRIC: Appropriate mood and affect. Good judgement and insight. DS: Data Data Completed and Pending Labs on day of discharge: Labs from last 24 hours 10/10/24 06:17 WBC 15.3 H RBC 4.34 Hgb 13.4 Hct 41.5 MCV 95.6 MCH 30.9 MCHC 32.3 RDW 15.1 H Plt Count 253 MPV 11.4 H Sodium 136 L Potassium 4.6 Chloride 99 Carbon Dioxide 29 Anion Gap 8 BUN 30 H Creatinine 0.90 Estim Creat Clear Calc 43 Estimated GFR > 60 Glucose 151 H Calcium 9.3 Total Bilirubin 0.5 AST 21 ALT 21 Alkaline Phosphatase 122 Total Protein 7.0 Albumin 3.8 Preliminary micro results at discharge 10/07/24 17:58 Blood Culture - Preliminary Blood 10/07/24 16:48 Blood Culture - Preliminary Blood Imaging Radiologist's impression: Radiology Results: ITS Impressions Chest X-Ray 10/07/24 13:54 IMPRESSION: Left basilar atelectasis versus focal pneumonia or a nodule. CT evaluation is advised. Chest CT 10/07/24 16:40 IMPRESSION: 1. Atelectasis in lingula, which correlates with the chest radiograph abnormality. 2. Severe emphysema. 3. Small right pleural effusion. Discharge Plan Discharge Attending physician on discharge: Isac Mendiola Consulting providers: Bettina Madden; Jacek Mello; Alex Addison; Darrion Drake V.; Vladislav Celis Discharging Clinician: Micki Laguerre Anticipated Discharge Date/Time: 10/10/24 14:05 Patient Disposition: Home, Self-Care Activity: as tolerated Diet: heart healthy Discharge Instructions: You are being discharged after treatment for COPD exacerbation and was found to have worsening systolic congestive heart failure. I did an ultrasound of your heart that showed a reduced ejection fraction and severe mitral valve regurgitation that needs direct visualization. This could also be the cause of your continued shortness of breath worse with exertion. Cardiology had been consulted during her stay at which time they recommend a transesophageal echocardiogram to evaluate your mitral valve regurgitation as well as the need for a left heart catheterization. This will need to be scheduled within 1 week after discharge with your prototype assembler electronics information has been provided. You are being discharged home with oxygen I have provided information on oxygen safety. You are needing 2 liters of supplemental oxygen with any activity. I encourage smoking cessation How can you care for yourself at home? ? Keep track of any new symptoms or changes in your symptoms. ? Rest until you feel better. ? Be safe with medicines. Take your medicines exactly as prescribed. Call your doctor if you think you are having a problem with your medicine. ? Do not drive after taking a prescription pain medicine. ? Ensure to follow-up with primary care physician as indicated and provide updated medication list provided to you at discharge. When should you call for help? Call 911 anytime you think you may need emergency care. For example, call if: ? You passed out (lost consciousness). Call your doctor now or seek immediate medical care if: ? You have new symptoms like fever, difficulty breathing, Chest pain, vomiting, or rash. ? You have new or different pain. ? You are confused and are having trouble thinking clearly. ? Your symptoms are getting worse. Watch closely for changes in your health, and be sure to contact your doctor if: ? You do not get better as expected. Patient Instructions: Antibiotic Form, Using Oxygen at Home (DC), Emphysema (DC), Chronic Lung Disease and Infection Prevention (DC) Patient Language: Montenegrin Stand Alone Forms: General Discharge Information Follow-up/Referrals: Gayle Ramirez PA-C [Primary Care Provider] - 2 Weeks Philly Nath MD [Physician] - (Will need SUNIL and left heart catheterization ) Discharge Medications: New losartan 25 mg Tablet 25 mg PO DAILY Qty: 30 0RF Jardiance 10 mg Tablet 10 mg PO DAILY Qty: 30 0RF azithromycin 250 mg tablet 250 mg PO DAILY Qty: 2 0RF Continued cholecalciferol (vitamin D3) 25 mcg (1,000 unit) capsule 25 mcg PO HS aspirin 81 mg tablet,delayed release (DR/EC) 81 mg PO DAILY Complete Multivitamin Tablet 1 tablet PO HS PreserVision AREDS-2 250-90-40-1 mg Capsule 1 tablet PO BID atorvastatin 10 mg tablet 10 mg PO DAILY fluticasone propion-salmeterol [Wixela Inhub] 250-50 mcg/dose blister with device 1 inh inhalation BID Qty: 60 2RF Rx Instructions: Rinse after use albuterol sulfate 90 mcg/actuation HFA aerosol inhaler 2 inh inhalation Q4H PRN (Reason: Shortness Of Breath Or Wheezing) Qty: 3 3RF benzonatate 200 mg capsule 200 mg PO TID PRN (Reason: cough) Qty: 30 0RF metoprolol succinate 25 mg tablet extended release 24 hr 25 mg PO HS Qty: 90 2RF Rx Instructions: TAKE 1 TABLET DAILY montelukast 10 mg tablet 10 mg PO HS Qty: 90 2RF Rx Instructions: TAKE 1 TABLET DAILY venlafaxine 150 mg capsule,extended release 24hr 150 mg PO HS Qty: 90 1RF Discontinued clopidogrel 75 mg tablet 75 mg PO HS Qty: 90 2RF Hold Instructions: Resume on 03/17/21. Reviewed with your PCP Dr. Hammond. Plan to hold your Plavix x28 days while on the 650mg PO Aspirin for DVT prophylaxis. RESUME WHEN COMPLETED 650mg ASPIRIN Rx Instructions: TAKE 1 TABLET DAILY Date of admission: 10/08/24 16:08 Primary Care Provider: Gayle Ramirez Admitting Provider: Janay Maradiaga Attending physician on admission: Micki Laguerre Condition: Stable Quality VTE Prophylaxis VTE prophylaxis: pharmacologic ordered -Patient's previous records reviewed on admission -ER notes reviewed in detail on admission -discussed all findings and current treatment plan with patient/Family/POA -Consultations reviewed for recommendations -Patient's disposition for safe discharge discussed with showcase maker Dictation performed by [employer] direct speech recognition software, therefore club manager variants and typographical errors may occur. Hospitalist MIPS Heart Failure (Exclusion) Patient has history of Heart Transplant or Left Ventricular Assistive Device?: No IF YES, STOP HERE Heart Failure (Qualifier) Patient has current or prior documentation of LVEF less than or equal to 40%, or mod/servere depressed LVSF?: No IF NO, STOP HERE
== END 2024-10-10 16:00 | disposition home or self-care (01) | DRG 291 ==
LOC: ANHED 15:54 → ANH3MEDSUR 16:49
PROVIDERS: Emergency Medicine; Nurse Practitioner; Admitting Provider Family Medicine; Emergency Provider Emergency Medicine; PCP Student in an Organized Health Care Education/Training Program; Visit Provider Nurse Practitioner Family
DX: I11.0 Hypertensive heart disease with heart failure (principal); I50.23 Acute on chronic systolic (congestive) heart failure; J96.01 Acute respiratory failure with hypoxia; J44.1 Chronic obstructive pulmonary disease with (acute) exacerbation; I25.10 Atherosclerotic heart disease of native coronary artery without angina pectoris; E78.00 Pure hypercholesterolemia, unspecified; E78.2 Mixed hyperlipidemia; M19.90 Unspecified osteoarthritis, unspecified site; M81.0 Age-related osteoporosis without current pathological fracture; F32.A Depression, unspecified; F41.9 Anxiety disorder, unspecified; W19.XXXD Unspecified fall, subsequent encounter; Z20.822 Contact with and (suspected) exposure to COVID-19; S52.91XD Unspecified fracture of right forearm, subsequent encounter for closed fracture with routine healing; I25.2 Old myocardial infarction; Z79.82 Long term (current) use of aspirin
CPT/HCPCS: 36415; 71046; 71250; 80053; 82948; 83735; 83880; 85025; 85027; 87040; 87637; 93005; 93306; 94618; 94640; 96365; 96366; 96372; 96375; 96376; 99285; A9270; G0378; J0456; J0696; J1650; J2919

== ENCOUNTER 2024-10-29 13:23 | Inpatient (IN) | payer MEDICARE, SELFPAY ==
--- NOTE | ~2024-10-29 | XR_ITS ---
EXAMINATION: XR wrist RT 2V DATE: 10/30/2024 10:20 INDICATION: Right wrist fracture. Follow-up. TECHNIQUE: 2 views of right wrist were obtained. COMPARISON: Right wrist radiographs 10/01/2024 FINDINGS: There is a comminuted fracture of distal radius with involvement of the distal articular ayala rface. The main distal fracture fragment demonstrates impaction and dorsal angulation. There is 11 de grees dorsal tilt of the distal articular surface. There is degenerative cystic change in distal ulna . There is sclerosis in lunate. There is severe osteoarthritis of first carpometacarpal joint. Cast m aterial obscures fine bone detail. There is a loose body in the radiocarpal compartment at its palmar aspect. IMPRESSION: 1. Comminuted fracture of distal radius without change in alignment. 2. Sclerosis again seen in lunate, which may be secondary to osteonecrosis or osteoarthritis. 3. Severe osteoarthritis of first carpometacarpal joint. Reviewed, dictated and finalized at location A. K WORKER IMPRESSION: 1. Comminuted fracture of distal radius without change in alignment. 2. Sclerosis again seen in lunate, which may be secondary to osteonecrosis or o steoarthritis. 3. Severe osteoarthritis of first carpometacarpal joint.
--- NOTE | ~2024-10-29 | XR_ITS ---
EXAMINATION: XR chest 1V portable DATE: 10/29/2024 16:45 INDICATION: Shortness of breath. TECHNIQUE: A single frontal view of the chest was obtained. COMPARISON: Chest 2 views 10/07/2024, chest CT 10/07/2024 FINDINGS: The lungs are expanded with lucencies, consistent with emphysema. There are airspace opacit ies in lingula, consistent with atelectasis. No pleural effusion or pneumothorax. The heart size is n ormal. Calcified right hilar lymph nodes are consistent with old granulomatous disease. Breast implan ts are noted. IMPRESSION: 1. Emphysema. 2. Mild atelectasis in lingula. Reviewed, dictated and finalized at location A. 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
--- NOTE | ~2024-10-29 | CT_ITS ---
EXAMINATION: CTA chest PE protocol DATE: 10/29/2024 19:29 INDICATION: Shortness of breath. TECHNIQUE: Computed tomography angiography (CTA) of the chest was performed with 100 mL Omnipaque-350 intravenous contrast timed to evaluate the pulmonary arteries. Coronal maximum intensity projection 3D-reconstructions were created by the technologist. Automated exposure control and iterative reconst ruction technique were employed. The dose-length product was 183.99 mGy-cm. COMPARISON: Chest CT 10/07/2024, 05/03/2022 FINDINGS: There is severe emphysema. There are small pleural effusions, right worse than left. There is mild atelectasis bilaterally. Calcified right lung nodules and calcified right hilar lymph nodes a re consistent with old granulomatous disease. The heart size is normal. There are coronary artery vern cifications. No pericardial effusion. There is no pulmonary embolus. Calcifications in the spleen are consistent with old granulomatous disease. There are changes of cholecystectomy. There is a 1.7 cm m ass in left adrenal gland, stable from 05/03/2022, likely an adenoma. There is a 5 mm stone in left ki dney. Breast implants are noted. There is severe cervical spondylosis and mild thoracic spondylosis. There is a healing fracture of left eighth rib. IMPRESSION: 1. No pulmonary embolus. 2. Severe emphysema. 3. Small pleural effusions. Reviewed, dictated and finalized at location A. ER LINE
[2024-10-29 13:50] VITALS: BP 148/86; PULSE 80; RESP 16; TEMP 36.2; O2SAT 96
[2024-10-29 15:09] VITALS: BP 146/74; PULSE 83; RESP 21; O2SAT 95; O2SAT 96
--- NOTE | 2024-10-29 16:31 | ECG_ITS ---
Test Date: 2024-10-29 17:31:31 Measurements Intervals [place] Rate: 84 P: 74 AK: 147 QRS: 60 QRSD: 92 T: -25 QT: 365 QTc: 432 Interpretive Statements SINUS RHYTHM POSSIBLE LEFT ATRIAL ENLARGEMENT [-0.1mV P-WAVE IN V1/V2] LEFT VENTRICULAR HYPERTROPHY AND ST-T CHANGE [VOLTAGE CRITERIA PLUS ST/T ABNORMALITY] POSSIBLE ANTERIOR MYOCARDIAL INFARCTION , OF INDETERMINATE AGE [30 ms Q WAVE IN V3/V4, OR R < 0.2 mV IN V4] Compared to ECG 10/07/2024 14:05:28 Myocardial infarct finding now present ST (T wave) deviation still present Electronically Signed On 10-29-2024 19:03:43 TRAIN STATION SERVER by Bettina Madden
[2024-10-29 16:45] VITALS: BP 154/80; PULSE 81; RESP 20; O2SAT 95
[2024-10-29 18:16] LABS: Basophils Absolute Auto 0.1 K/mm3 (0.0-0.1); Basophils Percent Auto 0.5 % (0.2-1.2); Eosinophils Absolute Auto 0.1 K/mm3 (0-0.3); Eosinophils Percent Auto 0.9 % (0-4.4); Hematocrit 46.2 % (37.0-47.0); Hemoglobin 14.7 g/dL (12.0-15.0); Immature Granulocyte Absolute 0.04 K/mm3 (0.00-0.031); Immature Granulocyte Percent A 0.4 % (0-0.5); Lymphocytes Percent Auto 15.5 % (18.3-44.2); Mean Corpuscular HGB Conc 31.8 g/dl (32-36); Mean Corpuscular Hemoglobin 29.9 pg (26-34); Mean Corpuscular Volume 93.9 fl (80-100); Mean Platelet Volume 11.8 fl (7.4-10.4); Monocytes Absolute Auto 0.7 K/mm3 (0.1-0.6); Monocytes Percent Auto 6.3 % (2.6-8.5); Neutrophils Absolute Auto 7.9 K/mm3 (1.3-6.7); Neutrophils Percent Auto 76.4 % (45.5-73.1); Platelet Count Result 218 k/mm3 (150-375); Red Blood Count 4.92 M/mm3 (4.2-5.4); Red Cell Distribution Width 14.7 % (11.5-14.5); White Blood Count 10.3 K/mm3 (4.5-10.0)
[2024-10-29 18:28] LABS: Alanine Aminotransferase 51 U/L (6-35); Albumin Level 3.7 g/dL (3.5-5.1); Alkaline Phosphatase 135 U/L (38-126); Anion Gap 0 mmol/L (4-12); Aspartate Amino Transferase 36 U/L (14-36); Bilirubin,Total 1.1 mg/dL (0.2-1.3); Blood Urea Nitrogen 13 mg/dL (7-17); Carbon Dioxide 36 mmol/L (22-30); Chloride 101 mmol/L (98-107); Estimated CRCL calculation 63 ml/min; Estimated Glomerular Filt Rate > 60; Glucose 100 mg/dL (65-110); Potassium 3.7 mmol/L (3.4-5.0); Sodium 137 mmol/L (137-145)
[2024-10-29 18:40] LABS: NT Pro B Type Natriuretic Pept 20200 pg/mL (19.9-100); Troponin I 0.076 ng/mL (0.000-0.034)
[2024-10-29 18:48] LABS: D Dimer 2.64 ug/mL (<0.48)
--- NOTE | 2024-10-29 19:51 | ED_ITS ---
HPI - General Adult General Chief complaint: Shortness of Breath/Dyspnea Stated complaint: cant breath Time Seen by Provider: 10/29/24 16:22 Source: patient Mode of arrival: EMS Limitations: no limitations History of Present Illness HPI narrative: 64-year-old with a history of COPD, anxiety, hypertension here with the complaints of shortness of breath and feeling anxious on and off for past few weeks. Patient states that she has valve issue was suppose to get SUNIL and angioplasty , had to cancel er appointment because of anxiety .She denies any madan pain , fever or chill . Onset (ago): week(s) Relieving factors: none Exacerbating factors: none Associated symptoms: denies other symptoms Related Data Home Medications ?Medication ?Instructions ?Recorded ?Confirmed ?Last Taken ?Type multivitamin,xi-okum-ljhzefub 1 tablet PO HS 05/28/20 10/07/24 05/16/23 History (Complete Multivitamin tablet) cholecalciferol (vitamin D3) 25 25 mcg PO HS 04/24/22 10/07/24 05/16/23 History mcg (1,000 unit) capsule vit C 250 mg-vit E 90 mg-zinc 40 1 tablet PO BID 05/11/23 10/07/24 05/17/23 06:30 History mg-copper 1 [id number]-[id number] capsule (PreserVision AREDS-2) aspirin 81 mg tablet,delayed 81 mg PO DAILY 09/23/24 10/07/24 Unknown History release atorvastatin 10 mg tablet 10 mg PO DAILY 10/07/24 10/07/24 Unknown History Allergies Allergy/AdvReac Type Severity Reaction Status Date / Time codeine Allergy Intermediate Hives Verified 10/29/24 20:01 hydrocodone Allergy Intermediate Hives Verified 10/29/24 20:01 mold Allergy Intermediate Nasal Verified 10/29/24 20:01 Discharge nickel Allergy Intermediate Swelling/BL Verified 10/29/24 20:01 ISTERS/ITCH ING ragweed pollen Allergy Intermediate Nasal Verified 10/29/24 20:01 Discharge Sulfa (Sulfonamide Allergy Intermediate Hives Verified 10/29/24 20:01 Antibiotics) Review of Systems 2 Review of Systems: All systems reviewed & are unremarkable except as noted in HPI and below Constitutional: Constitutional: Reports no additional constitutional complaints Eyes: Eyes: Reports no additional eye complaints ENT: Reports system reviewed and no additional complaints, except as documented Cardiovascular: Cardiovascular: Reports no additional cardiovascular complaints Respiratory: Respiratory: Reports as per HPI Gastrointestinal: Gastrointestinal: Reports no additional gastrointestinal complaints Neurologic: Reports system reviewed and no additional complaints, except as documented Psychiatric: Psychiatric: Reports no additional psychiatric complaints [facility] Past Medical History Medical History RSV (acute bronchiolitis due to respiratory syncytial virus) Tobacco abuse History of coronary artery disease Pre-op evaluation COPD (chronic obstructive pulmonary disease) Depression Arthritis Osteoporosis Depression High cholesterol Vision abnormalities Anxiety Essential hypertension History of [place] (myocardial infarction) 2006 - no intervention required - regular stress tests as part of her job - all negative since Mixed hyperlipidemia Surgical History Surgical History History of total right hip arthroplasty Per Dr. Ambriz. 02/16/2021 History of total left hip arthroplasty History of breast surgery augmentation History of cholecystectomy History of surgery Foot, Dr. Chavo Stapleton History of ankle surgery Left, Dr. Rae History of surgery Right thumb, Dr. 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 She lives at home alone. She wishes to be a full code. She has designated her two children Robson and Mel as her surrogate decision makers. She quit briefly, but now is back to smoking 1 ppd. Smoking packs per day: 1 Smoking cigarettes per day: 20.0 Years smoked: 20 Smoking pack-years: 20.00 Smoking status: Current every day smoker Tobacco type: cigarettes Second hand tobacco smoke exposure: Yes Alcohol intake: never Substance use: never Substance use type: does not use Do You Feel Safe in your Home?: Yes Lack of Transportation: No Lack of Food: Never True Current Housing: I Have Housing Concerned About Future Housing: No Difficulty Paying Gas/Electric Bills: No Difficulty Paying for Meds: No Currently Unemployed: No Education: High School Diploma/GED Difficulty w/ Childcare or Family Care: No Living arrangements: alone Gender identity (if verbalized by the patient): Female Sexual Orientation (if Verbalized by the Patient): Straight or Heterosexual Spiritual care concerns: No Exam 2 Narrative: GENERAL: Well-appearing, well-nourished, and in no acute distress. HEAD: Normocephalic, atraumatic. EYES: PERRLA and EOMI. ENT: Nares clear,. Mucous membranes moist. NECK: Supple. CHEST: Clear to auscultation. No respiratory distress. HEART: Regular rate and rhythm. No murmur heard. Normal peripheral pulses. ABDOMEN: Soft, nontender, nondistended, normal active bowel sounds. EXTREMITIES: Normal range of motion. No edema. SKIN: Warm, dry, no rash. NEURO: No focal deficits. Alert and oriented x3. PSYCH: Normal mood and affect. Course Course Emergency Course: patient comfortably on bed in no discomfort she is 96% on 2 L. I did inform her about the lab work, CT findings. She is agreeable with admission. Vital Signs Vital signs: Vital Signs Temperature 36.2 C L 10/29/24 13:50 Pulse Rate 80 10/29/24 13:50 Respiratory Rate 16 10/29/24 13:50 Blood Pressure 148/86 H 10/29/24 13:50 Pulse Oximetry 96 10/29/24 13:50 Temperature 36.2 C L 10/29/24 13:50 Pulse Rate 81 10/29/24 16:45 Respiratory Rate 20 10/29/24 16:45 Blood Pressure 154/80 H 10/29/24 16:45 Pulse Oximetry 95 10/29/24 16:45 Oxygen Delivery Nasal Cannula 10/29/24 15:09 Oxygen Flow Rate 2 10/29/24 15:09 Medical Decision Making Medical Records Medical records reviewed: Yes I reviewed the external patient's medical records. Vital Signs Vital Signs: Vital Signs Temperature 36.2 C L 10/29/24 13:50 Pulse Rate 80 10/29/24 13:50 Respiratory Rate 16 10/29/24 13:50 Blood Pressure 148/86 H 10/29/24 13:50 Pulse Oximetry 96 10/29/24 13:50 Temperature 36.2 C L 10/29/24 13:50 Pulse Rate 81 10/29/24 16:45 Respiratory Rate 20 10/29/24 16:45 Blood Pressure 154/80 H 10/29/24 16:45 Pulse Oximetry 95 10/29/24 16:45 Oxygen Delivery Nasal Cannula 10/29/24 15:09 Oxygen Flow Rate 2 10/29/24 15:09 Lab Data Lab results reviewed: Yes I reviewed the patient's lab results. 10/29/24 17:15 10/29/24 17:15 Labs: Lab Results 10/29/24 10/29/24 Range/Units 17:14 17:15 WBC 10.3 H (4.5-10.0) K/mm3 RBC 4.92 (4.2-5.4) M/mm3 Hgb 14.7 (12.0-15.0) g/dL Hct 46.2 (37.0-47.0) % MCV 93.9 (80-100) fl MCH 29.9 (26-34) pg MCHC 31.8 L (32-36) g/dl RDW 14.7 H (11.5-14.5) % Plt Count 218 (150-375) k/mm3 MPV 11.8 H (7.4-10.4) fl Immature Gran % (Auto) 0.4 (0-0.5) % Neut % (Auto) 76.4 H (45.5-73.1) % Lymph % (Auto) 15.5 L (18.3-44.2) % [place] % (Auto) 6.3 (2.6-8.5) % Eos % (Auto) 0.9 (0-4.4) % Baso % (Auto) 0.5 (0.2-1.2) % Lymph # (Auto) 1.60 (0.9-3.2) K/mm3 [place] # (Auto) 0.7 H (0.1-0.6) K/mm3 Eos # (Auto) 0.1 (0-0.3) K/mm3 Baso # (Auto) 0.1 (0.0-0.1) K/mm3 Abs Immat Gran (auto) 0.04 H (0.00-0.031) K/mm3 Absolute Neuts (auto) 7.9 H (1.3-6.7) K/mm3 Absolute Nucleated RBC 0.000 (0.0-0.012) K/mm3 Nucleated RBC % 0.0 (0.0-0.2) % D-Dimer 2.64 H (<0.48) ug/mL Sodium 137 (137-145) mmol/L Potassium 3.7 (3.4-5.0) mmol/L Chloride 101 (98-107) mmol/L Carbon Dioxide 36 H (22-30) mmol/L Anion Gap 0 L (4-12) mmol/L BUN 13 D (7-17) mg/dL Creatinine 0.60 L (0.7-1.0) mg/dL Estim Creat Clear Calc 63 ml/min Estimated GFR > 60 (59 - ) Glucose 100 (65-110) mg/dL Calcium 9.0 (8.4-10.2) mg/dL Total Bilirubin 1.1 (0.2-1.3) mg/dL AST 36 (14-36) U/L ALT 51 H (6-35) U/L Alkaline Phosphatase 135 H (38-126) U/L Troponin I 0.076 H* (0.000-0.034) ng/mL NT-Pro-B Natriuret Pep 18730 H (19.9-100) pg/mL Total Protein 6.0 L (6.3-8.2) g/dL Albumin 3.7 (3.5-5.1) g/dL Imaging Data Radiologist's impression: ITS Impressions Chest X-Ray 10/29/24 16:46 IMPRESSION: 1. Emphysema. 2. Mild atelectasis in lingula. Chest CTA 10/29/24 19:35 IMPRESSION: 1. No pulmonary embolus. 2. Severe emphysema. 3. Small pleural effusions. ECG Data EKG #1: ECG completion date: 10/29/24 ECG completion time: 20:04 EKG Interpretation: normal rate (84), sinus rhythm, normal QRS, normal QT and NL axis Discharge Plan Discharge Clinical Impression: Congestive heart failure Qualifiers: Heart failure type: unspecified Heart failure chronicity: acute Qualified Code(s): I50.9 - Heart failure, unspecified Patient Disposition: Still a Patient Condition: Stable Instructions: Antibiotic Form Patient Language: Kazakh Prescriptions: No Action cholecalciferol (vitamin D3) 25 mcg (1,000 unit) capsule 25 mcg PO HS aspirin 81 mg tablet,delayed release (DR/EC) 81 mg PO DAILY Complete Multivitamin Tablet 1 tablet PO HS PreserVision AREDS-2 250-90-40-1 mg Capsule 1 tablet PO BID atorvastatin 10 mg tablet 10 mg PO DAILY losartan 25 mg Tablet 25 mg PO DAILY Qty: 30 0RF Jardiance 10 mg Tablet 10 mg PO DAILY Qty: 30 0RF azithromycin 250 mg tablet 250 mg PO DAILY Qty: 2 0RF fluticasone propion-salmeterol [Wixela Inhub] 250-50 mcg/dose blister with device 1 inh inhalation BID Qty: 60 2RF Rx Instructions: Rinse after use albuterol sulfate 90 mcg/actuation HFA aerosol inhaler 2 inh inhalation Q4H PRN (Reason: Shortness Of Breath Or Wheezing) Qty: 3 3RF benzonatate 200 mg capsule 200 mg PO TID PRN (Reason: cough) Qty: 30 0RF metoprolol succinate 25 mg tablet extended release 24 hr 25 mg PO HS Qty: 90 2RF Rx Instructions: TAKE 1 TABLET DAILY montelukast 10 mg tablet 10 mg PO HS Qty: 90 2RF Rx Instructions: TAKE 1 TABLET DAILY venlafaxine 150 mg capsule,extended release 24hr 150 mg PO HS Qty: 90 1RF Follow-up/Referrals: Gayle Ramirez PA-C [Primary Care Provider] - Time of Disposition: 20:06
--- NOTE | 2024-10-29 19:53 | P.HP_ITS ---
H&P: HPI History of Present Illness Date/Time: 10/29/24 19:53 Chief Complaint: sob Narrative: This is a 64-year-old female with past medical history significant for COPD/emphysema, oxygen dependent at home, tobacco dependence, congestive heart failure, coronary artery disease, osteoporosis, dyslipidemia. Patient presents to the emergency room due to panic attacks, shortness of breath, decreased stamina, denies leg swelling, denies chest pain denies palpitations patient denies lightheadedness, near-syncope or syncope, no fevers no rigors no chills however stays that had gets short of breath with minimal activity. Preliminary workup in the emergency room was significant for patient was ruled out for acute pulmonary embolism with a negative CT angiogram chest pulmonary embolism protocol. A chest x-ray was significant for emphysema and mild atelectasis of the lingula. Brain natriuretic peptide [place] 13933 troponins x2 0.076. Patient has been admitted for further evaluation management and treatment. EXAMINATION: XR chest 1V portable DATE: 10/29/2024 16:45 INDICATION: Shortness of breath. TECHNIQUE: A single frontal view of the chest was obtained. COMPARISON: Chest 2 views 10/07/2024, chest CT 10/07/2024 FINDINGS: The lungs are expanded with lucencies, consistent with emphysema. There are airspace opacities in lingula, consistent with atelectasis. No pleural effusion or pneumothorax. The heart size is normal. Calcified right hilar lymph nodes are consistent with old granulomatous disease. Breast implants are noted. IMPRESSION: 1. Emphysema. 2. Mild atelectasis in lingula. EXAMINATION: CTA chest PE protocol DATE: 10/29/2024 19:29 INDICATION: Shortness of breath. TECHNIQUE: Computed tomography angiography (CTA) of the chest was performed with 100 mL Omnipaque-350 intravenous contrast timed to evaluate the pulmonary arteries. Coronal maximum intensity projection 3D-reconstructions were created by the technologist. Automated exposure control and iterative reconstruction technique were employed. The dose-length product was 183.99 mGy-cm. COMPARISON: Chest CT 10/07/2024, 05/03/2022 FINDINGS: There is severe emphysema. There are small pleural effusions, right worse than left. There is mild atelectasis bilaterally. Calcified right lung nodules and calcified right hilar lymph nodes are consistent with old granulomatous disease. The heart size is normal. There are coronary artery calcifications. No pericardial effusion. There is no pulmonary embolus. Calcifications in the spleen are consistent with old granulomatous disease. There are changes of cholecystectomy. There is a 1.7 cm mass in left adrenal gland, stable from 05/03/2022, likely an adenoma. There is a 5 mm stone in left kidney. Breast implants are noted. There is severe cervical spondylosis and mild thoracic spondylosis. There is a healing fracture of left eighth rib. IMPRESSION: 1. No pulmonary embolus. 2. Severe emphysema. 3. Small pleural effusions. Review of Systems Review of Systems: Panic attacks, shortness of breath, PMFSH Past Medical History Medical History RSV (acute bronchiolitis due to respiratory syncytial virus) Tobacco abuse History of coronary artery disease Pre-op evaluation COPD (chronic obstructive pulmonary disease) Depression Arthritis Osteoporosis Depression High cholesterol Vision abnormalities Anxiety Essential hypertension History of CT (myocardial infarction) 2006 - no intervention required - regular stress tests as part of her job - all negative since Mixed hyperlipidemia Surgical History Surgical History History of total right hip arthroplasty Per Dr. Ambriz. 02/16/2021 History of total left hip arthroplasty History of breast surgery augmentation History of cholecystectomy History of surgery Foot, Dr. Chavo Stapleton History of ankle surgery Left, Dr. Rae History of surgery Right thumb, Dr. 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 She lives at home alone. She wishes to be a full code. She has designated her two children Robson and Mel as her surrogate decision makers. She quit briefly, but now is back to smoking 1 ppd. Smoking packs per day: 1 Smoking cigarettes per day: 20.0 Years smoked: 20 Smoking pack-years: 20.00 Smoking status: Current every day smoker Tobacco type: cigarettes Second hand tobacco smoke exposure: Yes Alcohol intake: never Substance use: never Substance use type: does not use Do You Feel Safe in your Home?: Yes Lack of Transportation: YES Lack of Food: Never True Current Housing: I Have Housing Concerned About Future Housing: No Difficulty Paying Gas/Electric Bills: No Difficulty Paying for Meds: No Currently Unemployed: No Education: High School Diploma/GED Difficulty w/ Childcare or Family Care: No Living arrangements: alone Gender identity (if verbalized by the patient): Female Sexual Orientation (if Verbalized by the Patient): Straight or Heterosexual Spiritual care concerns: No Meds Home Medications and Allergies Home Medications ?Medication ?Instructions ?Recorded ?Confirmed ?Type multivitamin,dg-zlig-lihtalno 1 tablet PO HS 05/28/20 10/29/24 History (Complete Multivitamin tablet) cholecalciferol (vitamin D3) 25 25 mcg PO HS 04/24/22 10/29/24 History mcg (1,000 unit) capsule albuterol sulfate 90 mcg/actuation 2 inh inhalation Q4H PRN Shortness 09/12/24 10/29/24 Rx aerosol inhaler Of Breath Or Wheezing #3 device aspirin 81 mg tablet,delayed 81 mg PO DAILY 09/23/24 10/29/24 History release benzonatate 200 mg capsule 200 mg PO TID PRN cough #30 caps 09/30/24 10/29/24 Rx metoprolol succinate 25 mg 25 mg PO HS #90 tabs 09/30/24 10/29/24 Rx tablet,extended release 24 hr montelukast 10 mg tablet 10 mg PO HS #90 tabs 09/30/24 10/29/24 Rx venlafaxine 150 mg 150 mg PO HS #90 caps 09/30/24 10/29/24 Rx capsule,extended release 24 hr atorvastatin 10 mg tablet 10 mg PO DAILY 10/07/24 10/29/24 History empagliflozin 10 mg tablet 10 mg PO DAILY #30 tabs 10/10/24 10/29/24 Rx (Jardiance) losartan 25 mg tablet 25 mg PO DAILY #30 tabs 10/10/24 10/29/24 Rx clopidogrel 75 mg tablet 75 mg PO HS 10/29/24 10/29/24 History Allergies Allergy/AdvReac Type Severity Reaction Status Date / Time codeine Allergy Intermediate Hives Verified 10/29/24 20:01 hydrocodone Allergy Intermediate Hives Verified 10/29/24 20:01 mold Allergy Intermediate Nasal Verified 10/29/24 20:01 Discharge nickel Allergy Intermediate Swelling/BL Verified 10/29/24 20:01 ISTERS/ITCH ING ragweed pollen Allergy Intermediate Nasal Verified 10/29/24 20:01 Discharge Sulfa (Sulfonamide Allergy Intermediate Hives Verified 10/29/24 20:01 Antibiotics) Vital Signs Vital Signs - 24 hr 10/29/24 13:50 10/29/24 15:09 10/29/24 15:09 Temperature 97.2 F L Pulse Rate 80 83 Respiratory Rate 16 21 H Blood Pressure 148/86 H 146/74 H Pulse Oximetry 96 95 96 Oxygen Delivery Nasal Cannula Oxygen Flow Rate 2 10/29/24 16:45 Temperature Pulse Rate 81 Respiratory Rate 20 Blood Pressure 154/80 H Pulse Oximetry 95 Oxygen Delivery Oxygen Flow Rate Exam Narrative: lying in stretcher, fidgety Const: General: comfortable, no acute distress, well developed, alert, awake and average body habitus Nutritional Appearance: average body habitus Orientation/consciousness: patient oriented x3 Other: On oxygen by nasal cannula HENMT: Head: normal to inspection, normocephalic and atraumatic Ears: hearing grossly normal bilaterally Face/Nose/Sinus: normal facial exam Face and sinus: normal facial exam Eyes: General: appearance normal, both eyes and all related structures Pupils: Equal, round and reactive pupils present EOM: EOMs intact bilaterally Neck: Neck: full ROM, no lymphadenopathy and no JVD Thyroid: thyroid normal Lymphatic: no lymphadenopathy noted Resp: Effort & Inspection: normal respiratory effort and able to speak in complete sentences Auscultation: clear to auscultation bilaterally and diminished lung sounds Cardio: Jugular venous distension: no JVD Rate: regular rate Rhythm: regular rhythm Heart sounds: S1 normal heart sound present and S2 normal heart sound present GI: GI Palp: Yes Soft to palpation and Yes No hepatosplenomegaly present : General: Yes deferred Skin: Rashes: no rashes Wounds: no wounds Neuro: General: patient oriented x3 and CN's II-XI intact bilaterally Cranial nerves: Yes CN's II-XII intact bilaterally and Yes Equal, round and reactive pupils present Cognition (Neuro): normal cognition Speech: normal speech Gait exam (Neuro): Unable to assess gait Motor exam (neuro): 5/5 motor strength present throughout Extrem: General: normal to inspection, full ROM, no joint enlargement and no pedal edema H&P: Results Labs Labs: Short CBC 10/29/24 Range/Units 17:15 WBC 10.3 H (4.5-10.0) K/mm3 Hgb 14.7 (12.0-15.0) g/dL Hct 46.2 (37.0-47.0) % Plt Count 218 (150-375) k/mm3 BMP 10/29/24 17:15 Sodium 137 Potassium 3.7 Chloride 101 Carbon Dioxide 36 H BUN 13 D Creatinine 0.60 L Glucose 100 Calcium 9.0 Cardiac Enzymes 10/29/24 Range/Units 17:15 Troponin I 0.076 H* (0.000-0.034) ng/mL Liver Function 10/29/24 Range/Units 17:15 Total Bilirubin 1.1 (0.2-1.3) mg/dL AST 36 (14-36) U/L ALT 51 H (6-35) U/L Alkaline Phosphatase 135 H (38-126) U/L Albumin 3.7 (3.5-5.1) g/dL Assessment and Plan Assessment and plan (1) Congestive heart failure: Qualifiers: Heart failure chronicity: acute Heart failure type: unspecified Qualified Code(s): I50.9 - Heart failure, unspecified Code(s): I50.9 - Heart failure, unspecified Status: Acute Assessment and Plan: admit to IMU echocardiogram in a.m. continuous telemetry continuous pulse ox Strict intake and output (2) Acute respiratory failure with hypoxia: Code(s): J96.01 - Acute respiratory failure with hypoxia Status: Acute Assessment and Plan: patient is on chronic supplemental oxygen at home by nasal cannula (3) COPD with acute exacerbation: Code(s): J44.1 - Chronic obstructive pulmonary disease with (acute) exacerbation Status: Acute Assessment and Plan: continue albuterol inhaler not actively wheezing (4) Colles' fracture of right radius: Code(s): S52.531A - Colles' fracture of right radius, initial encounter for closed fracture Status: Acute Assessment and Plan: cast in place (5) Essential hypertension: Code(s): I10 - Essential (primary) hypertension Status: Chronic Assessment and Plan: resume home med continue to monitor (6) Tobacco abuse: Code(s): Z72.0 - Tobacco use Status: Chronic Assessment and Plan: nicotine patch as needed patient is down from 1 pack a day to 2-1/3 of that Hospitalist MIPS Advance Care Plan I have confirmed that the patient's Advanced Care Plan is present, code status is documented, or surrogate decision maker is listed in patient medical record.: Yes Medication Reconciliation I have utilized all available resources to obtain, update and review the patients current medications (includes all prescriptions, OTC, herbals, cannabi s, and nutritional supplements).: Yes
[2024-10-29 20:03] VITALS: BP 154/96; PULSE 81; RESP 22; O2SAT 96
[2024-10-29] MEDS: FUROSEMIDE INJ 40 MG/4 ML VIAL IV PUSH (20:03)
--- NOTE | 2024-10-29 21:01 | ECG_ITS ---
Test Date: 2024-10-29 21:49:45 Measurements Intervals [place] Rate: 79 P: 84 VT: 145 QRS: 56 QRSD: 98 T: 11 QT: 385 QTc: 442 Interpretive Statements SINUS RHYTHM WITH OCCASIONAL VENTRICULAR PREMATURE COMPLEXES POSSIBLE LEFT ATRIAL ENLARGEMENT [-0.1mV P-WAVE IN V1/V2] LEFT VENTRICULAR HYPERTROPHY AND ST-T CHANGE [VOLTAGE CRITERIA PLUS ST/T ABNORMALITY] Compared to ECG 10/29/2024 17:31:31 Ventricular premature complex(es) now present ST (T wave) deviation still present Electronically Signed On 10-30-2024 15:37:07 GAMING WORKER by Bettina Madden
[2024-10-29] MEDS: FAMOTIDINE 20 MG/2 ML VIAL 40 MG IV PUSH (21:32)
[2024-10-29 22:30] VITALS: BP 150/71; PULSE 80; RESP 20; TEMP 36.6; O2SAT 98; BMI 21.9
[2024-10-29 22:35] VITALS: BMI 22.1
--- NOTE | 2024-10-29 22:44 | ADMGEN ---
This patient, Genny Magallanes, was admitted to IMU Room 202-01. Patient/family oriented to hospital policies and general routines including ID bracelet, bed and alarms, visiting hours, pain management, procedures, bathroom and other care routines, personal items, smoking policy, room service/diet, and visiting hours. Information on how to activate the Rapid Response Team has been discussed. Patient/Family are encouraged to report perceived risks to care and to ask questions if they do not understand what they are told or what they should do.
[2024-10-29 23:17] LABS: Troponin I 0.076 ng/mL (0.000-0.034)
[2024-10-29 23:18] VITALS: PULSE 80; RESP 20; O2SAT 98
[2024-10-30] VITALS (21 sets, daily range): BP systolic 107–147; BP diastolic 59–100; PULSE 69–88; RESP 16–20; TEMP 36.3–36.8; O2SAT 91–100
[2024-10-30] MEDS: VENLAFAXINE HCL XR 75 MG CAP.ER.24H 150 MG PO ×2 (00:05→21:12)
[2024-10-30] MEDS: METOPROLOL SUCCINATE EXT REL 25 MG TABCR PO ×2 (00:05→21:12)
[2024-10-30] MEDS: MONTELUKAST SODIUM 10 MG TABLET PO ×2 (00:05→21:11)
[2024-10-30] MEDS: CLOPIDOGREL BISULFATE 75 MG TABLET PO (00:06)
[2024-10-30 02:32] LABS: Basophils Absolute Auto 0.1 K/mm3 (0.0-0.1); Basophils Percent Auto 0.8 % (0.2-1.2); Eosinophils Absolute Auto 0.2 K/mm3 (0-0.3); Eosinophils Percent Auto 1.5 % (0-4.4); Hematocrit 46.6 % (37.0-47.0); Hemoglobin 14.7 g/dL (12.0-15.0); Immature Granulocyte Absolute 0.02 K/mm3 (0.00-0.031); Immature Granulocyte Percent A 0.2 % (0-0.5); Lymphocytes Absolute Auto 1.91 K/mm3 (0.9-3.2); Lymphocytes Percent Auto 19.6 % (18.3-44.2); Mean Corpuscular HGB Conc 31.5 g/dl (32-36); Mean Corpuscular Hemoglobin 29.9 pg (26-34); Mean Corpuscular Volume 94.9 fl (80-100); Mean Platelet Volume 10.9 fl (7.4-10.4); Monocytes Absolute Auto 0.7 K/mm3 (0.1-0.6); Monocytes Percent Auto 7.3 % (2.6-8.5); Neutrophils Absolute Auto 6.9 K/mm3 (1.3-6.7); Neutrophils Percent Auto 70.6 % (45.5-73.1); Platelet Count Result 208 k/mm3 (150-375); Red Blood Count 4.91 M/mm3 (4.2-5.4); Red Cell Distribution Width 14.6 % (11.5-14.5); White Blood Count 9.7 K/mm3 (4.5-10.0)
[2024-10-30 02:42] LABS: Anion Gap -1 mmol/L (4-12); Blood Urea Nitrogen 13 mg/dL (7-17); Calcium 8.8 mg/dL (8.4-10.2); Carbon Dioxide 38 mmol/L (22-30); Chloride 99 mmol/L (98-107); Estimated CRCL calculation 48 ml/min; Estimated Glomerular Filt Rate > 60; Glucose 131 mg/dL (65-110); Potassium 3.4 mmol/L (3.4-5.0); Sodium 136 mmol/L (137-145)
[2024-10-30 02:56] LABS: Troponin I 0.081 ng/mL (0.000-0.034)
[2024-10-30] MEDS: FAMOTIDINE 20 MG/2 ML VIAL 40 MG IV PUSH ×2 (09:45→21:12)
[2024-10-30] MEDS: FUROSEMIDE INJ 40 MG/4 ML VIAL IV PUSH ×2 (09:46→17:41)
[2024-10-30] MEDS: LOSARTAN POTASSIUM 25 MG TABLET PO (09:46)
[2024-10-30] MEDS: ATORVASTATIN 10 MG TABLET PO (09:46)
[2024-10-30] MEDS: ASPIRIN 81 MG ENTERIC TABLET PO (09:46)
--- NOTE | 2024-10-30 12:40 | PM.CNCAR ---
Assessment and Plan Assessment and plan (1) Mitral regurgitation: Code(s): I34.0 - Nonrheumatic mitral (valve) insufficiency Status: Acute (2) Congestive heart failure: Qualifiers: Heart failure chronicity: acute Heart failure type: unspecified Qualified Code(s): I50.9 - Heart failure, unspecified Code(s): I50.9 - Heart failure, unspecified Status: Acute (3) CHF (NYHA class III, ACC/AHA stage C): Code(s): I50.9 - Heart failure, unspecified Status: Acute Plan 1. Acute on chronic systolic HF NYHA III, STAGE C EF 42% Etiology: not known, most likely NICM in the setting of MR 2. New onset cardiomyopathy 3. Moderate to severe MR 4. CAD 5. COPD/Emphysema/Smoker 6. Mild Pulm HTN, most likley mixed Gp 2/3 EF 42% LVIDD 7.6 mild Pulm HTN, PASP 55 mmhg - - 1760 ml, on lasix 40 mg IV bID. will continue intermittent boluses of lasix for now - Continue Toprol-XL 25 mg OD - Will add ARB if her BP allows - SUNIL/LHC tomorrow to assess her mitral valve and dilneate her coronary anatomy - She may need a surgical consult for mitral valve repair if mitral regurgitation comes out to be severe. History of Present Illness History of Present Illness Consult date/time: 10/30/24 12:40 Reason For Visit: CHF exacerbation, Elevated troponins Narrative: Ms Genny Magallanes is a 64-year-old pleasant lady who is known to have COPD, emphysema, chronic smoker was admitted with with an episode of a panic attack. Found to have elevated BNP Cardiology consulted because the echo showed an EF 42% and moderate to severe mitral regurgitation Genny states she has been having dyspnea on exertion which is worsening for the past several months, feels tired, impaired exercise tolerance. She denies any chest pain. She does endorse postural dizziness but no syncope TTE reviewed by me personally shows an EF of 42%, moderate to severe MR. She gives a remote history of [place] 18 years ago for which no stent was placed. Chronic smoker, still smoking but has cut down Review of Systems Review of Systems: Panic attacks, shortness of breath, All systems reviewed & are unremarkable except as noted in HPI and below Constitutional: Constitutional: Reports no additional constitutional complaints Eyes: Eyes: Reports no additional eye complaints ENT: Reports system reviewed and no additional complaints, except as documented Cardiovascular: Cardiovascular: Reports no additional cardiovascular complaints Respiratory: Respiratory: Reports as per HPI Gastrointestinal: Gastrointestinal: Reports no additional gastrointestinal complaints Neurologic: Reports system reviewed and no additional complaints, except as documented Psychiatric: Psychiatric: Reports no additional psychiatric complaints [facility] Past Medical History Medical History RSV (acute bronchiolitis due to respiratory syncytial virus) Tobacco abuse History of coronary artery disease Pre-op evaluation COPD (chronic obstructive pulmonary disease) Depression Arthritis Osteoporosis Depression High cholesterol Vision abnormalities Anxiety Essential hypertension History of [place] (myocardial infarction) 2006 - no intervention required - regular stress tests as part of her job - all negative since Mixed hyperlipidemia Surgical History Surgical History History of total right hip arthroplasty Per Dr. Ambriz. 02/16/2021 History of total left hip arthroplasty History of breast surgery augmentation History of cholecystectomy History of surgery Foot, Dr. Chavo Stapleton History of ankle surgery Left, Dr. Rae History of surgery Right thumb, Dr. 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 She lives at home alone. She wishes to be a full code. She has designated her two children Robson and Mel as her surrogate decision makers. She quit briefly, but now is back to smoking 1 ppd. Smoking packs per day: 1 Smoking cigarettes per day: 20.0 Years smoked: 40 Smoking pack-years: 40.00 Smoking status: Current every day smoker Tobacco type: cigarettes Second hand tobacco smoke exposure: Yes Additional smoking assessment comments: 2-3 cigarettes per day now Alcohol intake: never Substance use: never Substance use type: does not use Do You Feel Safe in your Home?: Yes Lack of Transportation: YES Lack of Food: Never True Current Housing: I Have Housing Concerned About Future Housing: No Difficulty Paying Gas/Electric Bills: No Difficulty Paying for Meds: No Currently Unemployed: No Education: High School Diploma/GED Difficulty w/ Childcare or Family Care: No Living arrangements: alone Gender identity (if verbalized by the patient): Female Sexual Orientation (if Verbalized by the Patient): Straight or Heterosexual Spiritual care concerns: No Meds Home Medications and Allergies Home Medications ?Medication ?Instructions ?Recorded ?Confirmed ?Type multivitamin,ie-vqux-kyxkguty 1 tablet PO HS 05/28/20 10/29/24 History (Complete Multivitamin tablet) cholecalciferol (vitamin D3) 25 25 mcg PO HS 04/24/22 10/29/24 History mcg (1,000 unit) capsule albuterol sulfate 90 mcg/actuation 2 inh inhalation Q4H PRN Shortness 09/12/24 10/29/24 Rx aerosol inhaler Of Breath Or Wheezing #3 device aspirin 81 mg tablet,delayed 81 mg PO DAILY 09/23/24 10/29/24 History release benzonatate 200 mg capsule 200 mg PO TID PRN cough #30 caps 09/30/24 10/29/24 Rx metoprolol succinate 25 mg 25 mg PO HS #90 tabs 09/30/24 10/29/24 Rx tablet,extended release 24 hr montelukast 10 mg tablet 10 mg PO HS #90 tabs 09/30/24 10/29/24 Rx venlafaxine 150 mg 150 mg PO HS #90 caps 09/30/24 10/29/24 Rx capsule,extended release 24 hr atorvastatin 10 mg tablet 10 mg PO DAILY 10/07/24 10/29/24 History empagliflozin 10 mg tablet 10 mg PO DAILY #30 tabs 10/10/24 10/29/24 Rx (Jardiance) losartan 25 mg tablet 25 mg PO DAILY #30 tabs 10/10/24 10/29/24 Rx clopidogrel 75 mg tablet 75 mg PO HS 10/29/24 10/29/24 History Allergies Allergy/AdvReac Type Severity Reaction Status Date / Time codeine Allergy Intermediate Hives Verified 10/29/24 20:01 hydrocodone Allergy Intermediate Hives Verified 10/29/24 20:01 mold Allergy Intermediate Nasal Verified 10/29/24 20:01 Discharge nickel Allergy Intermediate Swelling/BL Verified 10/29/24 20:01 ISTERS/ITCH ING ragweed pollen Allergy Intermediate Nasal Verified 10/29/24 20:01 Discharge Sulfa (Sulfonamide Allergy Intermediate Hives Verified 10/29/24 20:01 Antibiotics) Vital Signs Vital Signs - 24 hr 10/29/24 13:50 10/29/24 15:09 10/29/24 15:09 Temperature 36.2 C L Pulse Rate 80 83 Respiratory Rate 16 21 H Blood Pressure 148/86 H 146/74 H Pulse Oximetry 96 95 96 Oxygen Delivery Nasal Cannula Oxygen Flow Rate 2 10/29/24 16:45 10/29/24 20:03 10/29/24 22:30 Temperature 36.6 C Pulse Rate 81 81 80 Respiratory Rate 20 22 H 20 Blood Pressure 154/80 H 154/96 H 150/71 H Pulse Oximetry 95 96 98 Oxygen Delivery Oxygen Flow Rate 10/29/24 23:18 10/30/24 00:00 10/30/24 00:00 Temperature 36.4 C Pulse Rate 80 78 78 Respiratory Rate 20 16 Blood Pressure 146/62 H Pulse Oximetry 98 99 Oxygen Delivery Nasal Cannula Oxygen Flow Rate 2 10/30/24 00:05 10/30/24 02:00 10/30/24 03:45 Temperature Pulse Rate 79 82 82 Respiratory Rate 16 Blood Pressure Pulse Oximetry 99 Oxygen Delivery Nasal Cannula Oxygen Flow Rate 2 10/30/24 04:00 10/30/24 04:00 10/30/24 06:00 Temperature 36.8 C Pulse Rate 69 71 83 Respiratory Rate 16 Blood Pressure 147/100 H Pulse Oximetry 100 Oxygen Delivery Oxygen Flow Rate 10/30/24 08:00 10/30/24 08:00 10/30/24 08:00 Temperature 36.5 C Pulse Rate 74 73 Respiratory Rate 20 Blood Pressure 109/79 Pulse Oximetry 96 98 Oxygen Delivery Nasal Cannula Oxygen Flow Rate 2 10/30/24 10:00 10/30/24 10:57 10/30/24 11:56 Temperature 36.7 C Pulse Rate 77 79 Respiratory Rate 16 Blood Pressure 126/74 Pulse Oximetry 95 97 Oxygen Delivery Nasal Cannula Oxygen Flow Rate 2 10/30/24 12:00 10/30/24 12:00 Temperature Pulse Rate 88 Respiratory Rate Blood Pressure Pulse Oximetry 97 Oxygen Delivery Nasal Cannula Oxygen Flow Rate 1 Exam Narrative: lying in stretcher, fidgety Const: General: comfortable, no acute distress, well developed, alert, awake and average body habitus Nutritional Appearance: average body habitus Orientation/consciousness: patient oriented x3 Other: On oxygen by nasal cannula HENMT: Head: normal to inspection, normocephalic and atraumatic Ears: hearing grossly normal bilaterally Face/Nose/Sinus: normal facial exam Face and sinus: normal facial exam Eyes: General: appearance normal, both eyes and all related structures Pupils: Equal, round and reactive pupils present EOM: EOMs intact bilaterally Neck: Neck: full ROM, no lymphadenopathy and no JVD Thyroid: thyroid normal Lymphatic: no lymphadenopathy noted Resp: Effort & Inspection: normal respiratory effort and able to speak in complete sentences Auscultation: clear to auscultation bilaterally and diminished lung sounds Cardio: Jugular venous distension: no JVD Rate: regular rate Rhythm: regular rhythm Heart sounds: S1 normal heart sound present and S2 normal heart sound present : General: Yes deferred Skin: Rashes: no rashes Wounds: no wounds Neuro: General: patient oriented x3, CN's II-XI intact bilaterally and Unable to assess gait Cranial nerves: Yes CN's II-XII intact bilaterally and Yes Equal, round and reactive pupils present Cognition (Neuro): normal cognition Speech: normal speech Gait exam (Neuro): Normal gait present and Unable to assess gait Motor exam (neuro): 5/5 motor strength present throughout Extrem: General: normal to inspection, full ROM, no joint enlargement and no pedal edema Results Labs and Meds 10/30/24 02:17 10/30/24 02:17 Lab results: Cardiac Enzymes 10/29/24 10/29/24 10/30/24 Range/Units 17:15 22:04 02:17 AST 36 (14-36) U/L Troponin I 0.076 H* 0.076 H* 0.081 H* (0.000-0.034) ng/mL CBC 10/29/24 10/30/24 Range/Units 17:15 02:17 WBC 10.3 H 9.7 (4.5-10.0) K/mm3 RBC 4.92 4.91 (4.2-5.4) M/mm3 Hgb 14.7 14.7 (12.0-15.0) g/dL Hct 46.2 46.6 (37.0-47.0) % Plt Count 218 208 (150-375) k/mm3 Lymph # (Auto) 1.60 1.91 (0.9-3.2) K/mm3 [place] # (Auto) 0.7 H 0.7 H (0.1-0.6) K/mm3 Eos # (Auto) 0.1 0.2 (0-0.3) K/mm3 Baso # (Auto) 0.1 0.1 (0.0-0.1) K/mm3 Comprehensive Metabolic Panel 10/29/24 10/30/24 Range/Units 17:15 02:17 Sodium 137 136 L (137-145) mmol/L Potassium 3.7 3.4 (3.4-5.0) mmol/L Chloride 101 99 (98-107) mmol/L Carbon Dioxide 36 H 38 H (22-30) mmol/L BUN 13 D 13 (7-17) mg/dL Creatinine 0.60 L 0.80 (0.7-1.0) mg/dL Glucose 100 131 H (65-110) mg/dL Calcium 9.0 8.8 (8.4-10.2) mg/dL AST 36 (14-36) U/L ALT 51 H (6-35) U/L Alkaline Phosphatase 135 H (38-126) U/L Total Protein 6.0 L (6.3-8.2) g/dL Albumin 3.7 (3.5-5.1) g/dL Intake and Output 10/29/24 10/30/24 10/30/24 23:59 07:59 15:59 Intake Total 400 Output Total 1500 900 Balance -1500 -500 Intake: Oral 400 Output: Urine 1500 900 Patient Weight 10/30/24 23:59 Weight 55 kg
--- NOTE | 2024-10-30 12:50 | PM.IMPN ---
Progress Note: A&P Assessment and Plan (1) Congestive heart failure: Qualifiers: Heart failure chronicity: acute Heart failure type: unspecified Qualified Code(s): I50.9 - Heart failure, unspecified Code(s): I50.9 - Heart failure, unspecified Status: Acute (2) Mitral regurgitation: Code(s): I34.0 - Nonrheumatic mitral (valve) insufficiency Status: Acute (3) CHF (NYHA class III, ACC/AHA stage C): Code(s): I50.9 - Heart failure, unspecified Status: Acute (4) Acute on chronic diastolic heart failure: Code(s): I50.33 - Acute on chronic diastolic (congestive) heart failure Status: Acute (5) Acute respiratory failure with hypoxia: Code(s): J96.01 - Acute respiratory failure with hypoxia Status: Acute (6) Colles' fracture of right radius: Code(s): S52.531A - Colles' fracture of right radius, initial encounter for closed fracture Status: Acute Plan 64-year-old female with past medical history significant for COPD/emphysema, 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 1. Acute on chronic hypoxic respiratory failure: Continue with O2 support Continue with albuterol Continue with Lasix Strict I's and O's Keep K greater than 4, Mag greater than 2 Cardiology following Continue ASA, statin. Plavix can be discontinued Currently on toprol-Xl 25 mg OD Will start on Losartan 25 mg OD, can be switched to ARNI as an outpatient if BP allows Start jardiance 10 mg OD Likely plan for left heart catheterization tomorrow Supplement potassium 2. DVT prophylaxis: Heparin subQ 3. Code status: Modified 4. Disposition: Pending improvement Time Spent With Patient Time: 38 minutes Subjective Date/time seen: 10/30/24 12:50 Interval history: Feeling better this morning, denies any chest pain Review of Systems Review of Systems: All systems reviewed & are unremarkable except as noted in HPI and below Exam Const: General: comfortable and no acute distress HENMT: Mouth: Yes moist mucous membranes Eyes: Sclera: sclerae normal Neck: Neck: supple Resp: Other: Bilateral decreased breath sounds with few crackles Cardio: Rate: regular rate Rhythm: regular rhythm GI: GI Palp: Yes Soft to palpation Auscultation: normal bowel sounds Skin: General skin exam: normal color Extrem: General: normal to inspection and edema Psych: Mental Status: mental status grossly normal Objective Data Vital Signs Vital Signs: Vital Signs - 24 hr 10/29/24 13:50 10/29/24 15:09 10/29/24 15:09 Temperature 97.2 F L Pulse Rate 80 83 Respiratory Rate 16 21 H Blood Pressure 148/86 H 146/74 H Pulse Oximetry 96 95 96 Oxygen Delivery Nasal Cannula Oxygen Flow Rate 2 10/29/24 16:45 10/29/24 20:03 10/29/24 22:30 Temperature 98 F Pulse Rate 81 81 80 Respiratory Rate 20 22 H 20 Blood Pressure 154/80 H 154/96 H 150/71 H Pulse Oximetry 95 96 98 Oxygen Delivery Oxygen Flow Rate 10/29/24 23:18 10/30/24 00:00 10/30/24 00:00 Temperature 97.6 F Pulse Rate 80 78 78 Respiratory Rate 20 16 Blood Pressure 146/62 H Pulse Oximetry 98 99 Oxygen Delivery Nasal Cannula Oxygen Flow Rate 2 10/30/24 00:05 10/30/24 02:00 10/30/24 03:45 Temperature Pulse Rate 79 82 82 Respiratory Rate 16 Blood Pressure Pulse Oximetry 99 Oxygen Delivery Nasal Cannula Oxygen Flow Rate 2 10/30/24 04:00 10/30/24 04:00 10/30/24 06:00 Temperature 98.2 F Pulse Rate 69 71 83 Respiratory Rate 16 Blood Pressure 147/100 H Pulse Oximetry 100 Oxygen Delivery Oxygen Flow Rate 10/30/24 08:00 10/30/24 08:00 10/30/24 08:00 Temperature 97.7 F Pulse Rate 74 73 Respiratory Rate 20 Blood Pressure 109/79 Pulse Oximetry 96 98 Oxygen Delivery Nasal Cannula Oxygen Flow Rate 2 10/30/24 10:00 10/30/24 10:57 10/30/24 11:56 Temperature 98.0 F Pulse Rate 77 79 Respiratory Rate 16 Blood Pressure 126/74 Pulse Oximetry 95 97 Oxygen Delivery Nasal Cannula Oxygen Flow Rate 2 10/30/24 12:00 10/30/24 12:00 10/30/24 12:42 Temperature Pulse Rate 88 Respiratory Rate Blood Pressure Pulse Oximetry 97 91 Oxygen Delivery Nasal Cannula Room Air Oxygen Flow Rate 1 Intake/Output Intake/Output: Intake & Output 10/27/24 10/28/24 10/29/24 10/30/24 23:59 23:59 23:59 23:59 Intake Total 640 Output Total 1500 900 Balance -1500 -260 Meds/Results Medications: Active Medications Generic Name Dose Route Start Last Admin Trade Name Freq PRN Reason Stop Dose Admin Acetaminophen 650 mg 10/29/24 20:11 Acetaminophen 325 Mg Tablet PO Q4H PRN Mild Pain (1-3) or Fever Albuterol 2 puff 10/29/24 23:21 Albuterol Sulfate (*Sp) Aerosol 1 Puff INHALATION Q4HRT PRN Shortness Of Breath Or Wheezing Aspirin 81 mg 10/30/24 09:00 10/30/24 09:46 Aspirin 81 Mg Enteric Tablet PO 81 mg DAILY CHUCKIE Administration Atorvastatin Calcium 10 mg 10/30/24 09:00 10/30/24 09:46 Atorvastatin 10 Mg Tablet PO 10 mg DAILY CHUCKIE Administration Benzonatate 200 mg 10/29/24 23:27 Benzonatate 100 Mg Capsule PO TID PRN cough Clopidogrel Bisulfate 75 mg 10/29/24 23:30 10/30/24 00:06 Clopidogrel Bisulfate 75 Mg Tablet PO 75 mg HS CHUCKIE Administration Empagliflozin 10 mg 10/30/24 09:00 10/30/24 09:52 Empagliflozin 10 Mg Tablet PO Not Given DAILY CHUCKIE Famotidine 40 mg 10/29/24 21:00 10/30/24 09:45 Famotidine 20 Mg/2 Ml Vial IV PUSH 40 mg Q12HR CHUCKIE Administration Furosemide 40 mg 10/30/24 09:00 10/30/24 09:46 Furosemide Inj 40 Mg/4 Ml Vial IV PUSH 40 mg BID CHUCKIE Administration Losartan Potassium 25 mg 10/30/24 09:00 10/30/24 09:46 Losartan Potassium 25 Mg Tablet PO 25 mg DAILY CHUCKIE Administration Metoprolol Succinate 25 mg 10/29/24 23:30 10/30/24 00:05 Metoprolol Succinate Ext Rel 25 Mg Tabcr PO 25 mg HS CHUCKIE Administration Montelukast Sodium 10 mg 10/29/24 23:30 10/30/24 00:05 Montelukast Sodium 10 Mg Tablet PO 10 mg HS CHUCKIE Administration Perflutren Lipid Microsphere 0 ml 10/30/24 00:47 Perflutren Lipid Microspheres 1.5 Ml Vial Diluted To 10 Ml Total Volume IV PUSH 11/02/24 00:47 ONCE PRN adequate visualization Protocol Venlafaxine HCl 150 mg 10/29/24 23:30 10/30/24 00:05 Venlafaxine Hcl Xr 75 Mg Cap.Er.24h PO 150 mg HS CHUCKIE Administration Radiology Results: ITS Impressions Chest X-Ray 10/29/24 16:46 IMPRESSION: 1. Emphysema. 2. Mild atelectasis in lingula. Chest CTA 10/29/24 19:35 IMPRESSION: 1. No pulmonary embolus. 2. Severe emphysema. 3. Small pleural effusions. Labs Labs: Laboratory Results - last 24 hr 10/29/24 10/29/24 10/29/24 17:14 17:15 22:04 WBC 10.3 H RBC 4.92 Hgb 14.7 Hct 46.2 MCV 93.9 MCH 29.9 MCHC 31.8 L RDW 14.7 H Plt Count 218 MPV 11.8 H Immature Gran % (Auto) 0.4 Neut % (Auto) 76.4 H Lymph % (Auto) 15.5 L [place] % (Auto) 6.3 Eos % (Auto) 0.9 Baso % (Auto) 0.5 Lymph # (Auto) 1.60 [place] # (Auto) 0.7 H Eos # (Auto) 0.1 Baso # (Auto) 0.1 Abs Immat Gran (auto) 0.04 H Absolute Neuts (auto) 7.9 H Absolute Nucleated RBC 0.000 Nucleated RBC % 0.0 D-Dimer 2.64 H Sodium 137 Potassium 3.7 Chloride 101 Carbon Dioxide 36 H Anion Gap 0 L BUN 13 D Creatinine 0.60 L Estim Creat Clear Calc 63 Estimated GFR > 60 Glucose 100 Calcium 9.0 Total Bilirubin 1.1 AST 36 ALT 51 H Alkaline Phosphatase 135 H Troponin I 0.076 H* 0.076 H* NT-Pro-B Natriuret Pep 60733 H Total Protein 6.0 L Albumin 3.7 10/30/24 02:17 WBC 9.7 RBC 4.91 Hgb 14.7 Hct 46.6 MCV 94.9 MCH 29.9 MCHC 31.5 L RDW 14.6 H Plt Count 208 MPV 10.9 H Immature Gran % (Auto) 0.2 Neut % (Auto) 70.6 Lymph % (Auto) 19.6 [place] % (Auto) 7.3 Eos % (Auto) 1.5 Baso % (Auto) 0.8 Lymph # (Auto) 1.91 [place] # (Auto) 0.7 H Eos # (Auto) 0.2 Baso # (Auto) 0.1 Abs Immat Gran (auto) 0.02 Absolute Neuts (auto) 6.9 H Absolute Nucleated RBC 0.000 Nucleated RBC % 0.0 D-Dimer Sodium 136 L Potassium 3.4 Chloride 99 Carbon Dioxide 38 H Anion Gap -1 L BUN 13 Creatinine 0.80 Estim Creat Clear Calc 48 Estimated GFR > 60 Glucose 131 H Calcium 8.8 Total Bilirubin AST ALT Alkaline Phosphatase Troponin I 0.081 H* NT-Pro-B Natriuret Pep Total Protein Albumin
[2024-10-30] MEDS: POTASSIUM CHLORIDE 20 MEQ PACKET (FOR LIQUID) 40 MEQ PO (13:43)
[2024-10-30] MEDS: HEPARIN SODIUM 5,000 UNITS/ML VIAL 5000 UNITS SUB-Q (21:12)
[2024-10-31] VITALS (36 sets, daily range): BP systolic 86–142; BP diastolic 50–81; PULSE 68–99; RESP 12–22; TEMP 36.6–36.9; O2SAT 91–100
--- NOTE | 2024-10-31 | ECHO_ITS ---
Patient Info Name: Genny Magallanes Age: 64 years : 1960 Gender: Female Ht: 62 in Wt: 114 lbs BSA: 1.50 m2 Technical Quality: Good Exam Date: 10/31/2024 9:35 AM Exam Location: Echo Lab Patient Status: Inpatient Admit Date: 10/29/2024 Staff Ordering Physician: Bettina Madden MD (arianna/terra) Stewardess Supervisor: Joana Cuellar RDCS Attending Provider: Jordan Ascencio MD Referring Physician: Maryanne HAAS; Exam Type: CA echo transesophageal Study Info Indications - ELEVATED TROPONIN - CHF EXACERBATION Complete two-dimensional, color flow and Doppler transesophageal study is performed. Procedure Details The patient arrived in a fasting state after obtaining informed consent. The transesophageal probe was passed into the posterior pharynx, mid-esophagus, distal esophagus, and gastric fundus. Imaging was performed at multiple levels. The patient tolerated the procedure well and there were no complications. The patient was transferred out of the examination area in satisfactory condition. The transesophageal probe was passed into the posterior pharynx, mid-esophagus, distal esophagus, and gastric fundus. The procedure was completed without complications. Summary 1. There is moderate mitral valve regurgitation. 2. Left ventricular chamber dimension is mildly enlarged. 3. Left ventricular systolic function is mildly reduced with an estimated ejection fraction of 40-45%. 4. The left ventricular diastolic function is indeterminate. Recommendations * Consider repeat echo in 6 months. Left Ventricle Left ventricular chamber dimension is mildly enlarged. Left ventricular systolic function is mildly reduced with an estimated ejection fraction of 40-45%. The left ventricular diastolic function is indeterminate. Right Ventricle Right ventricular chamber dimension is normal. Right ventricular systolic function is normal. Left Atria Left atrial chamber dimension is enlarged. Right Atria Right atrial chamber dimension is normal. Aortic Valve The aortic valve is trileaflet. There is no aortic valve regurgitation. Mitral Valve There is moderate mitral valve regurgitation. 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 Left Ventricular Outflow Tract Name Value Normal LVOT 2D LVOT Diameter 1.9 cm Mitral Valve Name Value Normal MV Doppler MV Peak Gradient 3 mmHg MV Mean Gradient 1 mmHg MV Regurgitation Doppler MR Peak Gradient 107 mmHg Aortic Valve Name Value Normal AV Doppler AV Peak Velocity 80 cm/s AV Peak Gradient 3 mmHg AV Mean Gradient 1 mmHg AV VTI 17 cm AV Regurgitation 2D LVOT Area 2.7 cm2 Ventricles Name Value Normal LV Dimensions 2D/MM LVOT Diameter 1.9 cm Report Signatures Amended by Bettina Madden on 11/01/2024 13:20
[2024-10-31 04:49] LABS: Basophils Absolute Auto 0.1 K/mm3 (0.0-0.1); Basophils Percent Auto 0.6 % (0.2-1.2); Eosinophils Absolute Auto 0.1 K/mm3 (0-0.3); Eosinophils Percent Auto 1.2 % (0-4.4); Hematocrit 47.4 % (37.0-47.0); Hemoglobin 15.2 g/dL (12.0-15.0); Immature Granulocyte Absolute 0.01 K/mm3 (0.00-0.031); Immature Granulocyte Percent A 0.1 % (0-0.5); Lymphocytes Absolute Auto 1.96 K/mm3 (0.9-3.2); Lymphocytes Percent Auto 21.6 % (18.3-44.2); Mean Corpuscular HGB Conc 32.1 g/dl (32-36); Mean Corpuscular Hemoglobin 30.1 pg (26-34); Mean Corpuscular Volume 93.9 fl (80-100); Mean Platelet Volume 10.7 fl (7.4-10.4); Monocytes Absolute Auto 0.4 K/mm3 (0.1-0.6); Monocytes Percent Auto 4.1 % (2.6-8.5); Neutrophils Absolute Auto 6.6 K/mm3 (1.3-6.7); Neutrophils Percent Auto 72.4 % (45.5-73.1); Platelet Count Result 229 k/mm3 (150-375); Red Blood Count 5.05 M/mm3 (4.2-5.4); Red Cell Distribution Width 14.5 % (11.5-14.5); White Blood Count 9.1 K/mm3 (4.5-10.0)
[2024-10-31 04:57] LABS: Alanine Aminotransferase 37 U/L (6-35); Albumin Level 3.6 g/dL (3.5-5.1); Alkaline Phosphatase 130 U/L (38-126); Anion Gap 3 mmol/L (4-12); Aspartate Amino Transferase 29 U/L (14-36); Bilirubin,Total 0.8 mg/dL (0.2-1.3); Blood Urea Nitrogen 20 mg/dL (7-17); Carbon Dioxide 35 mmol/L (22-30); Chloride 95 mmol/L (98-107); Estimated CRCL calculation 48 ml/min; Estimated Glomerular Filt Rate > 60; Glucose 85 mg/dL (65-110); Magnesium 1.9 mg/dL (1.6-2.3); Potassium 3.4 mmol/L (3.4-5.0); Sodium 133 mmol/L (137-145)
--- NOTE | 2024-10-31 08:19 | WPDTEECHO ---
SUNIL TransEsophageal Echocardiogram Date of procedure: 11/01/24 Procedure Type: SUNIL Diagnosis: MITRAL REGURGITATION Indications: MITRAL REGURGITATION CARDIOMYOPATHY Findings: -LVEF 40-45% - Moderate MR - prolapse of ant mitral leaflet , A2 - See echo report for more details and the prior TTE Conclusions: -LVEF 40-45% - Moderate MR - prolapse of ant mitral leaflet , A2 - See echo report for more details and the prior TTE
--- NOTE | 2024-10-31 08:20 | WPDMODSED ---
Moderate Sedation Note-Pt Data Patient Data Diagnosis: MITRAL REGURGITATION CARDIOMYOPATHY Present Complaint: 64/f CAME IN WITH CHF, HAD HAS WORSENING DYSPNEA FOR THE PAST SEVERAL MONTHS.TTE SUGGESTIVE OF MOD-SEVERE MITRAL REGURGITATION AND LVEF 40% Procedure to be performed/Plan: SUNIL LEFT HEART CATHETERIZATION CORONARY ANGIOGRAPHY Allergies Allergy/AdvReac Type Severity Reaction Status Date / Time codeine Allergy Intermediate Hives Verified 10/29/24 20:01 hydrocodone Allergy Intermediate Hives Verified 10/29/24 20:01 mold Allergy Intermediate Nasal Verified 10/29/24 20:01 Discharge nickel Allergy Intermediate Swelling/BL Verified 10/29/24 20:01 ISTERS/ITCH ING ragweed pollen Allergy Intermediate Nasal Verified 10/29/24 20:01 Discharge Sulfa (Sulfonamide Allergy Intermediate Hives Verified 10/29/24 20:01 Antibiotics) Home Medications ?Medication ?Instructions ?Recorded ?Confirmed ?Type multivitamin,[id number] 1 tablet PO HS 05/28/20 10/29/24 History (Complete Multivitamin tablet) cholecalciferol (vitamin D3) 25 25 mcg PO HS 04/24/22 10/29/24 History mcg (1,000 unit) capsule albuterol sulfate 90 mcg/actuation 2 inh inhalation Q4H PRN Shortness 09/12/24 10/29/24 Rx aerosol inhaler Of Breath Or Wheezing #3 device aspirin 81 mg tablet,delayed 81 mg PO DAILY 09/23/24 10/29/24 History release benzonatate 200 mg capsule 200 mg PO TID PRN cough #30 caps 09/30/24 10/29/24 Rx metoprolol succinate 25 mg 25 mg PO HS #90 tabs 09/30/24 10/29/24 Rx tablet,extended release 24 hr montelukast 10 mg tablet 10 mg PO HS #90 tabs 09/30/24 10/29/24 Rx venlafaxine 150 mg 150 mg PO HS #90 caps 09/30/24 10/29/24 Rx capsule,extended release 24 hr atorvastatin 10 mg tablet 10 mg PO DAILY 10/07/24 10/29/24 History empagliflozin 10 mg tablet 10 mg PO DAILY #30 tabs 10/10/24 10/29/24 Rx (Jardiance) losartan 25 mg tablet 25 mg PO DAILY #30 tabs 10/10/24 10/29/24 Rx clopidogrel 75 mg tablet 75 mg PO HS 10/29/24 10/29/24 History Current Medications: Active Medications Acetaminophen (Acetaminophen 325 Mg Tablet) 650 mg PO Q4H PRN PRN Reason: Mild Pain (1-3) or Fever Albuterol (Albuterol Sulfate (*Sp) Aerosol 1 Puff) 2 puff INHALATION Q4HRT PRN PRN Reason: Shortness Of Breath Or Wheezing Aspirin (Aspirin 81 Mg Enteric Tablet) 81 mg PO DAILY [facility] Last Admin: 10/30/24 09:46 Dose: 81 mg Atorvastatin Calcium (Atorvastatin 10 Mg Tablet) 10 mg PO DAILY [facility] Last Admin: 10/30/24 09:46 Dose: 10 mg Benzonatate (Benzonatate 100 Mg Capsule) 200 mg PO TID PRN PRN Reason: cough Empagliflozin (Empagliflozin 10 Mg Tablet) 10 mg PO DAILY [facility] Last Admin: 10/30/24 09:52 Dose: Not Given Famotidine (Famotidine 20 Mg/2 Ml Vial) 40 mg IV PUSH Q12HR [facility] Last Admin: 10/30/24 21:12 Dose: 40 mg Furosemide (Furosemide Inj 40 Mg/4 Ml Vial) 40 mg IV PUSH BID [facility] Last Admin: 10/30/24 17:41 Dose: 40 mg Heparin Sodium (Porcine) (Heparin Sodium 5,000 Units/Ml Vial) 5,000 units SUB-Q Q12HR [facility] Last Admin: 10/30/24 21:12 Dose: 5,000 units Losartan Potassium (Losartan Potassium 25 Mg Tablet) 25 mg PO DAILY [facility] Last Admin: 10/30/24 09:46 Dose: 25 mg Metoprolol Succinate (Metoprolol Succinate Ext Rel 25 Mg Tabcr) 25 mg PO [facility] Last Admin: 10/30/24 21:12 Dose: 25 mg Montelukast Sodium (Montelukast Sodium 10 Mg Tablet) 10 mg PO [facility] Last Admin: 10/30/24 21:11 Dose: 10 mg Perflutren Lipid Microsphere (Perflutren Lipid Microspheres 1.5 Ml Vial Diluted To 10 Ml Total Volume) 0 ml IV PUSH ONCE PRN; Protocol PRN Reason: adequate visualization Stop: 11/02/24 00:47 Venlafaxine HCl (Venlafaxine Hcl Xr 75 Mg Cap.Er.24h) 150 mg PO [facility] Last Admin: 10/30/24 21:12 Dose: 150 mg Sedation/Anesthesia: No previous sedation/anesthesia problems (including family history). PMFSH Past Medical History Medical History RSV (acute bronchiolitis due to respiratory syncytial virus) Tobacco abuse History of coronary artery disease Pre-op evaluation COPD (chronic obstructive pulmonary disease) Depression Arthritis Osteoporosis Depression High cholesterol Vision abnormalities Anxiety Essential hypertension History of NC (myocardial infarction) 2006 - no intervention required - regular stress tests as part of her job - all negative since Mixed hyperlipidemia Surgical History Surgical History History of total right hip arthroplasty Per Dr. Ambriz. 02/16/2021 History of total left hip arthroplasty History of breast surgery augmentation History of cholecystectomy History of surgery Foot, Dr. Chavo Stapleton History of ankle surgery Left, Dr. Rae History of surgery Right thumb, Dr. 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 She lives at home alone. She wishes to be a full code. She has designated her two children Robson and Mel as her surrogate decision makers. She quit briefly, but now is back to smoking 1 ppd. Smoking packs per day: 1 Smoking cigarettes per day: 20.0 Years smoked: 40 Smoking pack-years: 40.00 Smoking status: Current every day smoker Tobacco type: cigarettes Second hand tobacco smoke exposure: Yes Additional smoking assessment comments: 2-3 cigarettes per day now Alcohol intake: never Substance use: never Substance use type: does not use Do You Feel Safe in your Home?: Yes Lack of Transportation: YES Lack of Food: Never True Current Housing: I Have Housing Concerned About Future Housing: No Difficulty Paying Gas/Electric Bills: No Difficulty Paying for Meds: No Currently Unemployed: No Education: High School Diploma/GED Difficulty w/ Childcare or Family Care: No Living arrangements: alone Gender identity (if verbalized by the patient): Female Sexual Orientation (if Verbalized by the Patient): Straight or Heterosexual Spiritual care concerns: No Mod Sed Physical Exam Physical Exam Pre Procedural Exam: Normal: Appearance, Eyes, Ears, Nose, Neck, Throat, Airway, Lungs, Heart Size, Heart Rate, Neuro Exam, Abdomen, Liver, Kidneys, Spleen, Breasts, Genitalia, Extremities and Skin and Variation: Heart Rhythm (SYSTOLIC MURMUR PRESENT) Hours since solid foods: 10 Hours since liquid intake: 10 Mallampati Classification: class II Internal Medicine - PN: Obj Da Vital Signs Vital Signs: Vital Signs - 24 hr 10/30/24 10:00 10/30/24 10:57 10/30/24 11:56 Temperature 36.7 C Pulse Rate 77 79 Respiratory Rate 16 Blood Pressure 126/74 Pulse Oximetry 95 97 Oxygen Delivery Nasal Cannula Oxygen Flow Rate 2 10/30/24 12:00 10/30/24 12:00 10/30/24 12:42 Temperature Pulse Rate 88 Respiratory Rate Blood Pressure Pulse Oximetry 97 91 Oxygen Delivery Nasal Cannula Room Air Oxygen Flow Rate 1 10/30/24 14:00 10/30/24 16:00 10/30/24 16:00 Temperature 36.3 C L Pulse Rate 84 88 Respiratory Rate 16 Blood Pressure 146/82 H Pulse Oximetry 95 95 Oxygen Delivery Nasal Cannula Oxygen Flow Rate 1 10/30/24 16:00 10/30/24 18:00 10/30/24 20:00 Temperature Pulse Rate 81 81 84 Respiratory Rate 18 Blood Pressure Pulse Oximetry 97 Oxygen Delivery Nasal Cannula Oxygen Flow Rate 1 10/30/24 20:00 10/30/24 20:15 10/30/24 21:12 Temperature 36.4 C Pulse Rate 84 85 82 Respiratory Rate 18 Blood Pressure 107/59 L Pulse Oximetry 97 Oxygen Delivery Oxygen Flow Rate 10/30/24 22:00 10/30/24 23:25 10/30/24 23:54 Temperature 36.4 C Pulse Rate 80 80 78 Respiratory Rate 18 18 Blood Pressure 128/96 H Pulse Oximetry 92 92 Oxygen Delivery Nasal Cannula Oxygen Flow Rate 1 10/30/24 23:54 10/31/24 02:00 10/31/24 04:00 Temperature Pulse Rate 78 74 70 Respiratory Rate 18 Blood Pressure Pulse Oximetry 95 Oxygen Delivery Nasal Cannula Oxygen Flow Rate 1 10/31/24 04:00 10/31/24 04:02 10/31/24 06:00 Temperature 36.7 C Pulse Rate 70 73 74 Respiratory Rate 18 Blood Pressure 121/81 Pulse Oximetry 95 Oxygen Delivery Oxygen Flow Rate 10/31/24 07:48 Temperature 36.7 C Pulse Rate 82 Respiratory Rate 18 Blood Pressure 115/79 Pulse Oximetry 93 Oxygen Delivery Oxygen Flow Rate Intake/Output Intake/Output: Intake & Output 10/28/24 10/29/24 10/30/24 10/31/24 23:59 23:59 23:59 23:59 Intake Total 1080 550 Output Total 1500 2550 400 Balance -1500 -1470 150 Meds/Results Medications: Active Medications Generic Name Dose Route Start Last Admin Trade Name Freq PRN Reason Stop Dose Admin Acetaminophen 650 mg 10/29/24 20:11 Acetaminophen 325 Mg Tablet PO Q4H PRN Mild Pain (1-3) or Fever Albuterol 2 puff 10/29/24 23:21 Albuterol Sulfate (*Sp) Aerosol 1 Puff INHALATION Q4HRT PRN Shortness Of Breath Or Wheezing Aspirin 81 mg 10/30/24 09:00 10/30/24 09:46 Aspirin 81 Mg Enteric Tablet PO 81 mg DAILY CHUCKIE Administration Atorvastatin Calcium 10 mg 10/30/24 09:00 10/30/24 09:46 Atorvastatin 10 Mg Tablet PO 10 mg DAILY [facility]IE Administration Benzonatate 200 mg 10/29/24 23:27 Benzonatate 100 Mg Capsule PO TID PRN cough Empagliflozin 10 mg 10/30/24 09:00 10/30/24 09:52 Empagliflozin 10 Mg Tablet PO Not Given DAILY CHUCKIE Famotidine 40 mg 10/29/24 21:00 10/30/24 21:12 Famotidine 20 Mg/2 Ml Vial IV PUSH 40 mg Q12HR CHUCKIE Administration Furosemide 40 mg 10/30/24 09:00 10/30/24 17:41 Furosemide Inj 40 Mg/4 Ml Vial IV PUSH 40 mg BID CHUCKIE Administration Heparin Sodium (Porcine) 5,000 units 10/30/24 21:00 10/30/24 21:12 Heparin Sodium 5,000 Units/Ml Vial SUB-Q 5,000 units Q12HR CHUCKIE Administration Losartan Potassium 25 mg 10/30/24 09:00 10/30/24 09:46 Losartan Potassium 25 Mg Tablet PO 25 mg DAILY CHUCKIE Administration Metoprolol Succinate 25 mg 10/29/24 23:30 10/30/24 21:12 Metoprolol Succinate Ext Rel 25 Mg Tabcr PO 25 mg HS CHUCKIE Administration Montelukast Sodium 10 mg 10/29/24 23:30 10/30/24 21:11 Montelukast Sodium 10 Mg Tablet PO 10 mg HS CHUCKIE Administration Perflutren Lipid Microsphere 0 ml 10/30/24 00:47 Perflutren Lipid Microspheres 1.5 Ml Vial Diluted To 10 Ml Total Volume IV PUSH 11/02/24 00:47 ONCE PRN adequate visualization Protocol Venlafaxine HCl 150 mg 10/29/24 23:30 10/30/24 21:12 Venlafaxine Hcl Xr 75 Mg Cap.Er.24h PO 150 mg HS CHUCKIE Administration Radiology Results: ITS Impressions Chest X-Ray 10/29/24 16:46 IMPRESSION: 1. Emphysema. 2. Mild atelectasis in lingula. Chest CTA 10/29/24 19:35 IMPRESSION: 1. No pulmonary embolus. 2. Severe emphysema. 3. Small pleural effusions. Wrist X-Ray 10/30/24 15:47 IMPRESSION: 1. Comminuted fracture of distal radius without change in alignment. 2. Sclerosis again seen in lunate, which may be secondary to osteonecrosis or osteoarthritis. 3. Severe osteoarthritis of first carpometacarpal joint. Labs 10/31/24 04:19 10/31/24 04:19 Labs: Laboratory Results - last 24 hr 10/31/24 04:19 WBC 9.1 RBC 5.05 Hgb 15.2 H Hct 47.4 H MCV 93.9 MCH 30.1 MCHC 32.1 RDW 14.5 Plt Count 229 MPV 10.7 H Immature Gran % (Auto) 0.1 Neut % (Auto) 72.4 Lymph % (Auto) 21.6 Anderson % (Auto) 4.1 Eos % (Auto) 1.2 Baso % (Auto) 0.6 Lymph # (Auto) 1.96 Anderson # (Auto) 0.4 Eos # (Auto) 0.1 Baso # (Auto) 0.1 Abs Immat Gran (auto) 0.01 Absolute Neuts (auto) 6.6 Absolute Nucleated RBC 0.000 Nucleated RBC % 0.0 Sodium 133 L Potassium 3.4 Chloride 95 L Carbon Dioxide 35 H Anion Gap 3 L BUN 20 H Creatinine 0.80 Estim Creat Clear Calc 48 Estimated GFR > 60 Glucose 85 Calcium 9.0 Magnesium 1.9 Total Bilirubin 0.8 AST 29 ALT 37 H Alkaline Phosphatase 130 H Total Protein 6.0 L Albumin 3.6 ASA Classification/Sedation ASA Classification/Sedation ASA Class: III Emergent: No Risks: Risks, benefits and alternatives explained and patient/family accepted plan for sedation. Patient re-evaluated immediately prior to sedation.
--- NOTE | 2024-10-31 08:56 | PC.NURSE ---
To manufacturing lab technician.
--- NOTE | 2024-10-31 09:37 | SUR.OPER ---
50 mg ivp benadryl PATTI wagoner
--- NOTE | 2024-10-31 10:12 | SUR.OPER ---
kristy probe removed
--- NOTE | 2024-10-31 10:48 | SUR.OPER ---
second time out called, all staff and patient involved.
--- NOTE | 2024-10-31 11:14 | WPDCARDPROC ---
Cardiac Cath Procedure Note Date of procedure:: 10/31/24 Performing physician:: Bettina Madden MD Indication:: 1. Cardiomyopathy 2. Mitral regurgitation Brief clinical history:: 64-year-old pleasant lady has came in with congestive heart failure TTE shows mitral regurgitation and impaired LV systolic function Procedure Procedure performed:: Ultrasound-guided right femoral access Left heart catheterization Coronary angiography Sedation/Medication given:: No moderate sedation given during the left heart catheterization. Sedation was given for the prior SUNIL which was done just before the cardiac catheterization Access site:: Right femoral artery Estimated blood loss:: 5 cc Procedure note:: Right femoral artery was accessed using ultrasound and a 6 Namibian sheath was placed. Five [place]ian JR4 4 and JL 4 catheter was used to engage the right coronary artery and left main ostium respectively. Multiple images were taken in different projections. Aortic valve was crossed and LVEDP was measured. After the cardiac catheterization the right femoral access was closed using Angio-Seal hemostasis was maintained. No immediate complications Findings:: 1. Left heart catheterization -opening pressure 95/62/72 mm Hg -closing pressure 102/65/83 mm Hg -LVEDP 15 mm Hg -no significant LV to AO gradient 2. Coronary angiography -engage the left main with 5 [place]ibian JL4 catheter and RCA with 5 [place]ib[place] JR4 catheter -right dominant system with no ramus intermedius Left main artery: Large caliber vessel which divides into left anterior descending and left circumflex branches. No angiographic evidence of atherosclerotic disease. Left anterior descending artery: Large caliber transapical vessel small diagonal and several septal transportation planning technician branches. Luminal irregularities seen in the mid LAD Left circumflex artery: Large caliber nondominant vessel which gives rise to a high obtuse marginal and to more marginal branches. No significant atherosclerotic disease seen in either the circumflex artery marginal branches. Right coronary artery: Large caliber dominant vessel which gives rise to PDA and PLV branches. Proximal RCA has 40-50% stenosis and mid RCA has a 20% stenosis Conclusion:: 1. Nonobstructive single-vessel disease 2. Nonischemic cardiomyopathy 3. Slightly elevated LVEDP Assessment and Plan Assessment and plan (1) Congestive heart failure: Qualifiers: Heart failure chronicity: acute Heart failure type: unspecified Qualified Code(s): I50.9 - Heart failure, unspecified Code(s): I50.9 - Heart failure, unspecified Status: Acute (2) Mitral regurgitation: Code(s): I34.0 - Nonrheumatic mitral (valve) insufficiency Status: Acute (3) CHF (NYHA class III, ACC/AHA stage C): Code(s): I50.9 - Heart failure, unspecified Status: Acute Plan - Transfer to the floor - Hemostasis to manage with Angio-Seal - GDMT for heart failure
--- NOTE | 2024-10-31 14:42 | PC.NURSE ---
This patient, Genny Magallanes, was received from cath lab radiological technologist on 10/31/24 at 1440. Patient/family oriented to unit policies and routines
--- NOTE | 2024-10-31 15:35 | P.PNIM_ITS ---
Progress Note: A&P Assessment and Plan (1) Congestive heart failure: Qualifiers: Heart failure chronicity: acute Heart failure type: unspecified Qualified Code(s): I50.9 - Heart failure, unspecified Code(s): I50.9 - Heart failure, unspecified Status: Acute (2) Mitral regurgitation: Code(s): I34.0 - Nonrheumatic mitral (valve) insufficiency Status: Acute (3) CHF (NYHA class III, ACC/AHA stage C): Code(s): I50.9 - Heart failure, unspecified Status: Acute (4) Acute on chronic diastolic heart failure: Code(s): I50.33 - Acute on chronic diastolic (congestive) heart failure Status: Acute (5) Acute respiratory failure with hypoxia: Code(s): J96.01 - Acute respiratory failure with hypoxia Status: Acute (6) Colles' fracture of right radius: Code(s): S52.531A - Colles' fracture of right radius, initial encounter for closed fracture Status: Acute Plan 64-year-old female with past medical history significant for COPD/emphysema, 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 1. Acute on chronic hypoxic respiratory failure: Continue with O2 support Continue with albuterol Continue with Lasix Strict I's and O's Keep K greater than 4, Mag greater than 2 Cardiology following Continue ASA, statin. Plavix can be discontinued Currently on toprol-Xl 25 mg OD Will start on Losartan 25 mg OD, can be switched to ARNI as an outpatient if BP allows Start jardiance 10 mg OD Likely plan for left heart catheterization today Cardiology following 2. DVT prophylaxis: Heparin subQ 3. Code status: Modified 4. Disposition: Pending improvement Subjective Date/time seen: 10/31/24 15:35 Interval history: Comfortable at bedside Review of Systems Review of Systems: Panic attacks, shortness of breath, All systems reviewed & are unremarkable except as noted in HPI and below Exam Narrative: lying in stretcher, fidgety Const: General: comfortable, no acute distress, well developed, alert, awake and average body habitus Nutritional Appearance: average body habitus Orientation/consciousness: patient oriented x3 Other: On oxygen by nasal cannula HENMT: Head: normal to inspection, normocephalic and atraumatic Ears: hearing grossly normal bilaterally Face/Nose/Sinus: normal facial exam Face and sinus: normal facial exam Mouth: Yes moist mucous membranes Eyes: General: appearance normal, both eyes and all related structures Sclera: sclerae normal Pupils: Equal, round and reactive pupils present EOM: EOMs intact bilaterally Neck: Neck: full ROM, no lymphadenopathy, supple and no JVD Thyroid: thyroid normal Lymphatic: no lymphadenopathy noted Resp: Effort & Inspection: normal respiratory effort and able to speak in complete sentences Auscultation: clear to auscultation bilaterally and diminished lung sounds Other: Bilateral decreased breath sounds with few crackles Cardio: Jugular venous distension: no JVD Rate: regular rate Rhythm: regular rhythm Heart sounds: S1 normal heart sound present and S2 normal heart sound present GI: Auscultation: normal bowel sounds : General: Yes deferred Skin: General skin exam: normal color Rashes: no rashes Wounds: no wounds Neuro: General: patient oriented x3, CN's II-XI intact bilaterally and Unable to assess gait Cranial nerves: Yes CN's II-XII intact bilaterally and Yes Equal, round and reactive pupils present Cognition (Neuro): normal cognition Speech: normal speech Gait exam (Neuro): Normal gait present and Unable to assess gait Motor exam (neuro): 5/5 motor strength present throughout Extrem: General: normal to inspection, full ROM, no joint enlargement, no pedal edema and edema Psych: Mental Status: mental status grossly normal Objective Data Vital Signs Vital Signs: Vital Signs - 24 hr 10/30/24 16:00 10/30/24 16:00 10/30/24 16:00 Temperature 97.4 F L Pulse Rate 88 81 Respiratory Rate 16 Blood Pressure 146/82 H Pulse Oximetry 95 95 Oxygen Delivery Nasal Cannula Oxygen Flow Rate 1 10/30/24 18:00 10/30/24 20:00 10/30/24 20:00 Temperature Pulse Rate 81 84 84 Respiratory Rate 18 Blood Pressure Pulse Oximetry 97 Oxygen Delivery Nasal Cannula Oxygen Flow Rate 1 10/30/24 20:15 10/30/24 21:12 10/30/24 22:00 Temperature 97.6 F Pulse Rate 85 82 80 Respiratory Rate 18 Blood Pressure 107/59 L Pulse Oximetry 97 Oxygen Delivery Oxygen Flow Rate 10/30/24 23:25 10/30/24 23:54 10/30/24 23:54 Temperature 97.6 F Pulse Rate 80 78 78 Respiratory Rate 18 18 Blood Pressure 128/96 H Pulse Oximetry 92 92 Oxygen Delivery Nasal Cannula Oxygen Flow Rate 1 10/31/24 02:00 10/31/24 04:00 10/31/24 04:00 Temperature Pulse Rate 74 70 70 Respiratory Rate 18 Blood Pressure Pulse Oximetry 95 Oxygen Delivery Nasal Cannula Oxygen Flow Rate 1 10/31/24 04:02 10/31/24 06:00 10/31/24 07:48 Temperature 98.1 F 98.0 F Pulse Rate 73 74 82 Respiratory Rate 18 18 Blood Pressure 121/81 115/79 Pulse Oximetry 95 93 Oxygen Delivery Oxygen Flow Rate 10/31/24 08:00 10/31/24 08:00 10/31/24 08:23 Temperature Pulse Rate 84 Respiratory Rate Blood Pressure Pulse Oximetry 99 92 Oxygen Delivery Nasal Cannula Nasal Cannula Oxygen Flow Rate 1 2 10/31/24 09:25 10/31/24 09:30 10/31/24 09:35 Temperature Pulse Rate 94 87 87 Respiratory Rate 13 18 16 Blood Pressure 116/75 129/72 111/63 Pulse Oximetry 93 91 92 Oxygen Delivery Oxygen Flow Rate 2.0 2.0 2.0 10/31/24 09:40 10/31/24 09:45 10/31/24 09:50 Temperature Pulse Rate 84 74 73 Respiratory Rate 16 16 12 Blood Pressure 111/69 88/50 L 86/51 L Pulse Oximetry 92 99 100 Oxygen Delivery Oxygen Flow Rate 4.0 4.0 4.0 10/31/24 09:55 10/31/24 10:00 10/31/24 10:00 Temperature Pulse Rate 73 72 79 Respiratory Rate 20 18 Blood Pressure 92/52 L 119/60 Pulse Oximetry 99 100 Oxygen Delivery Oxygen Flow Rate 3.0 3.0 10/31/24 10:05 10/31/24 10:10 10/31/24 10:15 Temperature Pulse Rate 70 68 68 Respiratory Rate 18 13 18 Blood Pressure 116/56 L 119/61 111/59 L Pulse Oximetry 100 99 99 Oxygen Delivery Oxygen Flow Rate 3.0 3.0 3.0 10/31/24 11:26 10/31/24 11:30 10/31/24 11:45 Temperature Pulse Rate 79 80 80 Respiratory Rate 18 16 19 Blood Pressure 134/74 129/65 136/69 Pulse Oximetry 97 97 100 Oxygen Delivery Room Air Room Air Nasal Cannula Oxygen Flow Rate 1 10/31/24 12:00 10/31/24 12:15 10/31/24 12:30 Temperature Pulse Rate 80 85 86 Respiratory Rate 19 20 22 H Blood Pressure 134/66 135/72 139/75 Pulse Oximetry 92 99 99 Oxygen Delivery Nasal Cannula Nasal Cannula Nasal Cannula Oxygen Flow Rate 1 1 1 10/31/24 13:00 10/31/24 14:00 10/31/24 14:52 Temperature 98.3 F Pulse Rate 88 92 93 Respiratory Rate 21 H 21 H 18 Blood Pressure 142/67 H 132/66 117/63 Pulse Oximetry 94 95 92 Oxygen Delivery Nasal Cannula Room Air Oxygen Flow Rate 1 Intake/Output Intake/Output: Intake & Output 10/28/24 10/29/24 10/30/24 10/31/24 23:59 23:59 23:59 23:59 Intake Total 1080 550 Output Total 1500 2550 400 Balance -1500 -1470 150 Meds/Results Medications: Active Medications Generic Name Dose Route Start Last Admin Trade Name Freq PRN Reason Stop Dose Admin Acetaminophen 650 mg 10/29/24 20:11 Acetaminophen 325 Mg Tablet PO Q4H PRN Mild Pain (1-3) or Fever Albuterol 2 puff 10/29/24 23:21 Albuterol Sulfate (*Sp) Aerosol 1 Puff INHALATION Q4HRT PRN Shortness Of Breath Or Wheezing Aspirin 81 mg 10/30/24 09:00 10/31/24 09:00 Aspirin 81 Mg Enteric Tablet PO Not Given DAILY [facility] Atorvastatin Calcium 10 mg 10/30/24 09:00 10/31/24 09:00 Atorvastatin 10 Mg Tablet PO Not Given DAILY [facility] Benzonatate 200 mg 10/29/24 23:27 Benzonatate 100 Mg Capsule PO TID PRN cough Empagliflozin 10 mg 10/30/24 09:00 10/31/24 09:00 Empagliflozin 10 Mg Tablet PO Not Given DAILY [facility] Famotidine 40 mg 10/29/24 21:00 10/31/24 09:00 Famotidine 20 Mg/2 Ml Vial IV PUSH Not Given Q12HR CHUCKIE Furosemide 40 mg 10/30/24 09:00 10/31/24 09:00 Furosemide Inj 40 Mg/4 Ml Vial IV PUSH Not Given BID [facility] Heparin Sodium (Porcine) 5,000 units 10/30/24 21:00 10/31/24 09:00 Heparin Sodium 5,000 Units/Ml Vial SUB-Q Not Given Q12HR CHUCKIE Losartan Potassium 25 mg 10/30/24 09:00 10/31/24 09:00 Losartan Potassium 25 Mg Tablet PO Not Given DAILY CHUCKIE Metoprolol Succinate 25 mg 10/29/24 23:30 10/30/24 21:12 Metoprolol Succinate Ext Rel 25 Mg Tabcr PO 25 mg HS CHUCKIE Administration Montelukast Sodium 10 mg 10/29/24 23:30 10/30/24 21:11 Montelukast Sodium 10 Mg Tablet PO 10 mg HS CHUCKIE Administration Perflutren Lipid Microsphere 0 ml 10/30/24 00:47 Perflutren Lipid Microspheres 1.5 Ml Vial Diluted To 10 Ml Total Volume IV PUSH 11/02/24 00:47 ONCE PRN adequate visualization Protocol Venlafaxine HCl 150 mg 10/29/24 23:30 10/30/24 21:12 Venlafaxine Hcl Xr 75 Mg Cap.Er.24h PO 150 mg HS CHUCKIE Administration Radiology Results: ITS Impressions Chest X-Ray 10/29/24 16:46 IMPRESSION: 1. Emphysema. 2. Mild atelectasis in lingula. Chest CTA 10/29/24 19:35 IMPRESSION: 1. No pulmonary embolus. 2. Severe emphysema. 3. Small pleural effusions. Wrist X-Ray 10/30/24 15:47 IMPRESSION: 1. Comminuted fracture of distal radius without change in alignment. 2. Sclerosis again seen in lunate, which may be secondary to osteonecrosis or osteoarthritis. 3. Severe osteoarthritis of first carpometacarpal joint. Labs Labs: Laboratory Results - last 24 hr 10/31/24 04:19 WBC 9.1 RBC 5.05 Hgb 15.2 H Hct 47.4 H MCV 93.9 MCH 30.1 MCHC 32.1 RDW 14.5 Plt Count 229 MPV 10.7 H Immature Gran % (Auto) 0.1 Neut % (Auto) 72.4 Lymph % (Auto) 21.6 [place] % (Auto) 4.1 Eos % (Auto) 1.2 Baso % (Auto) 0.6 Lymph # (Auto) 1.96 [place] # (Auto) 0.4 Eos # (Auto) 0.1 Baso # (Auto) 0.1 Abs Immat Gran (auto) 0.01 Absolute Neuts (auto) 6.6 Absolute Nucleated RBC 0.000 Nucleated RBC % 0.0 Sodium 133 L Potassium 3.4 Chloride 95 L Carbon Dioxide 35 H Anion Gap 3 L BUN 20 H Creatinine 0.80 Estim Creat Clear Calc 48 Estimated GFR > 60 Glucose 85 Calcium 9.0 Magnesium 1.9 Total Bilirubin 0.8 AST 29 ALT 37 H Alkaline Phosphatase 130 H Total Protein 6.0 L Albumin 3.6
[2024-10-31] MEDS: FUROSEMIDE INJ 40 MG/4 ML VIAL IV PUSH (18:02)
[2024-10-31] MEDS: METOPROLOL SUCCINATE EXT REL 25 MG TABCR PO (20:58)
[2024-10-31] MEDS: VENLAFAXINE HCL XR 75 MG CAP.ER.24H 150 MG PO (20:58)
[2024-10-31] MEDS: MONTELUKAST SODIUM 10 MG TABLET PO (20:58)
[2024-10-31] MEDS: HEPARIN SODIUM 5,000 UNITS/ML VIAL 5000 UNITS SUB-Q (20:59)
[2024-10-31] MEDS: FAMOTIDINE 20 MG/2 ML VIAL 40 MG IV PUSH (20:59)
[2024-10-31] MEDS: ONDANSETRON INJ 4 MG/2 ML VIAL IV PUSH (21:43)
[2024-11-01] VITALS (13 sets, daily range): BP systolic 102–144; BP diastolic 43–90; PULSE 73–97; RESP 16–18; TEMP 36.7–37.5; O2SAT 77–98
[2024-11-01 04:33] LABS: Basophils Percent Auto 0.2 % (0.2-1.2); Eosinophils Absolute Auto 0.2 K/mm3 (0-0.3); Eosinophils Percent Auto 1.6 % (0-4.4); Hematocrit 43.6 % (37.0-47.0); Hemoglobin 14.5 g/dL (12.0-15.0); Immature Granulocyte Absolute 0.03 K/mm3 (0.00-0.031); Immature Granulocyte Percent A 0.3 % (0-0.5); Lymphocytes Percent Auto 3.1 % (18.3-44.2); Mean Corpuscular HGB Conc 33.3 g/dl (32-36); Mean Corpuscular Hemoglobin 30.7 pg (26-34); Mean Corpuscular Volume 92.4 fl (80-100); Mean Platelet Volume 10.8 fl (7.4-10.4); Monocytes Absolute Auto 0.6 K/mm3 (0.1-0.6); Monocytes Percent Auto 6.1 % (2.6-8.5); Neutrophils Absolute Auto 8.5 K/mm3 (1.3-6.7); Neutrophils Percent Auto 88.7 % (45.5-73.1); Platelet Count Result 216 k/mm3 (150-375); Red Blood Count 4.72 M/mm3 (4.2-5.4); Red Cell Distribution Width 14.7 % (11.5-14.5); White Blood Count 9.5 K/mm3 (4.5-10.0)
[2024-11-01 04:46] LABS: Alanine Aminotransferase 28 U/L (6-35); Albumin Level 3.5 g/dL (3.5-5.1); Alkaline Phosphatase 130 U/L (38-126); Anion Gap 0 mmol/L (4-12); Aspartate Amino Transferase 27 U/L (14-36); Bilirubin,Total 0.9 mg/dL (0.2-1.3); Blood Urea Nitrogen 20 mg/dL (7-17); Calcium 8.8 mg/dL (8.4-10.2); Carbon Dioxide 36 mmol/L (22-30); Chloride 94 mmol/L (98-107); Estimated CRCL calculation 39 ml/min; Estimated Glomerular Filt Rate 56; Glucose 104 mg/dL (65-110); Magnesium 1.7 mg/dL (1.6-2.3); Potassium 3.8 mmol/L (3.4-5.0); Sodium 130 mmol/L (137-145)
[2024-11-01] MEDS: FAMOTIDINE 20 MG/2 ML VIAL 40 MG IV PUSH (10:18)
[2024-11-01] MEDS: FUROSEMIDE INJ 40 MG/4 ML VIAL IV PUSH (10:18)
[2024-11-01] MEDS: HEPARIN SODIUM 5,000 UNITS/ML VIAL 5000 UNITS SUB-Q (10:18)
[2024-11-01] MEDS: EMPAGLIFLOZIN 10 MG TABLET PO (10:19)
[2024-11-01] MEDS: ASPIRIN 81 MG ENTERIC TABLET PO (10:19)
[2024-11-01] MEDS: LOSARTAN POTASSIUM 25 MG TABLET PO (10:19)
[2024-11-01] MEDS: ATORVASTATIN 10 MG TABLET PO (10:19)
--- NOTE | 2024-11-01 13:31 | P.PNCA_ITS ---
Progress Note: A&P Assessment and Plan (1) Congestive heart failure: Qualifiers: Heart failure chronicity: acute Heart failure type: unspecified Qualified Code(s): I50.9 - Heart failure, unspecified Code(s): I50.9 - Heart failure, unspecified Status: Acute (2) Mitral regurgitation: Code(s): I34.0 - Nonrheumatic mitral (valve) insufficiency Status: Acute (3) CHF (NYHA class III, ACC/AHA stage C): Code(s): I50.9 - Heart failure, unspecified Status: Acute Plan 1. Acute on chronic systolic HF NYHA III, STAGE C EF 42% Etiology: NICM 2. Moderate MR, A2 prolapse 3. CAD; non obstructive disease in RCA ([facility] 10/31/2024) 4. COPD/Emphysema/Smoker 5. Mild Pulm HTN, most likely mixed Gp 2/3 - Continue Toprol-Xl 25 - increase Losartan to 50 mg OD - SGLT2; co-pay is prohibitive, will DC it - MRA as an outpatient - Lasix 40 mg PO OD - Repeat echo in 6 months - Continue ASA, statin - Cardiology will sign off - Follow-up with Dr Fraga as an outpatient Subjective Date/time seen: 11/01/24 13:31 Interval history: Feeling good, breathing better No acute events Occ PVCs on tele Review of Systems Review of Systems: Panic attacks, shortness of breath, All systems reviewed & are unremarkable except as noted in HPI and below Constitutional: Constitutional: Reports no additional constitutional complaints Eyes: Eyes: Reports no additional eye complaints ENT: Reports system reviewed and no additional complaints, except as documented Cardiovascular: Cardiovascular: Reports no additional cardiovascular complaints Respiratory: Respiratory: Reports as per HPI Gastrointestinal: Gastrointestinal: Reports no additional gastrointestinal complaints Neurologic: Reports system reviewed and no additional complaints, except as documented Psychiatric: Psychiatric: Reports no additional psychiatric complaints Exam Narrative: lying in stretcher, fidgety Const: General: comfortable, no acute distress, well developed, alert, awake and average body habitus Nutritional Appearance: average body habitus Orientation/consciousness: patient oriented x3 Other: On oxygen by nasal cannula HENMT: Head: normal to inspection, normocephalic and atraumatic Ears: hearing grossly normal bilaterally Face/Nose/Sinus: normal facial exam Face and sinus: normal facial exam Eyes: General: appearance normal, both eyes and all related structures Pupils: Equal, round and reactive pupils present EOM: EOMs intact bilaterally Neck: Neck: full ROM, no lymphadenopathy and no JVD Thyroid: thyroid normal Lymphatic: no lymphadenopathy noted Resp: Effort & Inspection: normal respiratory effort and able to speak in complete sentences Auscultation: clear to auscultation bilaterally and diminished lung sounds Cardio: Jugular venous distension: no JVD Rate: regular rate Rhythm: regular rhythm Heart sounds: S1 normal heart sound present and S2 normal heart sound present : General: Yes deferred Skin: Rashes: no rashes Wounds: no wounds Neuro: General: patient oriented x3, CN's II-XI intact bilaterally and Unable to assess gait Cranial nerves: Yes CN's II-XII intact bilaterally and Yes Equal, round and reactive pupils present Cognition (Neuro): normal cognition Speech: normal speech Gait exam (Neuro): Normal gait present and Unable to assess gait Motor exam (neuro): 5/5 motor strength present throughout Extrem: General: normal to inspection, full ROM, no joint enlargement and no pedal edema Objective Data Vital Signs Vital Signs: Vital Signs - 24 hr 10/31/24 14:00 10/31/24 14:50 10/31/24 14:52 Temperature 36.8 C Pulse Rate 92 93 Respiratory Rate 21 H 18 Blood Pressure 132/66 117/63 Pulse Oximetry 95 94 92 Oxygen Delivery Room Air Nasal Cannula Oxygen Flow Rate 1 Fraction of Inspired Oxygen 10/31/24 16:00 10/31/24 16:00 10/31/24 16:00 Temperature 36.6 C Pulse Rate 90 99 Respiratory Rate 18 Blood Pressure 127/73 Pulse Oximetry 91 93 Oxygen Delivery Room Air Oxygen Flow Rate Fraction of Inspired Oxygen 10/31/24 16:53 10/31/24 18:00 10/31/24 18:30 Temperature 36.6 C 36.8 C Pulse Rate 87 75 91 Respiratory Rate 20 20 Blood Pressure 126/76 114/65 Pulse Oximetry 94 93 Oxygen Delivery Oxygen Flow Rate Fraction of Inspired Oxygen 10/31/24 19:11 10/31/24 20:00 10/31/24 20:00 Temperature 36.9 C Pulse Rate 92 90 Respiratory Rate 20 Blood Pressure 122/64 Pulse Oximetry 91 91 Oxygen Delivery Room Air Oxygen Flow Rate Fraction of Inspired Oxygen 10/31/24 20:58 10/31/24 22:00 11/01/24 00:00 Temperature Pulse Rate 92 93 Respiratory Rate Blood Pressure Pulse Oximetry 96 Oxygen Delivery Room Air Oxygen Flow Rate Fraction of Inspired Oxygen 11/01/24 00:00 11/01/24 00:00 11/01/24 02:00 Temperature 36.7 C Pulse Rate 97 94 95 Respiratory Rate 16 Blood Pressure 102/76 Pulse Oximetry 92 Oxygen Delivery Oxygen Flow Rate Fraction of Inspired Oxygen 11/01/24 03:58 11/01/24 04:00 11/01/24 04:00 Temperature 37.5 C Pulse Rate 92 Respiratory Rate 16 Blood Pressure 103/43 L Pulse Oximetry 77 L 93 93 Oxygen Delivery Room Air Oxygen Flow Rate Fraction of Inspired Oxygen 11/01/24 04:00 11/01/24 06:00 11/01/24 08:00 Temperature 36.8 C Pulse Rate 88 81 78 Respiratory Rate 18 Blood Pressure 113/90 Pulse Oximetry 98 Oxygen Delivery Oxygen Flow Rate Fraction of Inspired Oxygen 11/01/24 08:00 11/01/24 08:00 11/01/24 08:47 Temperature Pulse Rate 78 Respiratory Rate Blood Pressure Pulse Oximetry 93 96 Oxygen Delivery Nasal Cannula Nasal Cannula Oxygen Flow Rate 2 3 Fraction of Inspired Oxygen 32 11/01/24 10:00 11/01/24 11:50 11/01/24 11:55 Temperature 36.9 C Pulse Rate 74 73 Respiratory Rate 16 Blood Pressure 144/70 H Pulse Oximetry 98 97 Oxygen Delivery Nasal Cannula Oxygen Flow Rate 2 Fraction of Inspired Oxygen 11/01/24 12:00 Temperature Pulse Rate 73 Respiratory Rate Blood Pressure Pulse Oximetry Oxygen Delivery Oxygen Flow Rate Fraction of Inspired Oxygen Intake/Output Intake/Output: Intake & Output 10/29/24 10/30/24 10/31/24 11/01/24 23:59 23:59 23:59 23:59 Intake Total 1080 790 400 Output Total 1500 2550 400 500 Balance -1500 -1470 390 -100 Meds/Results Medications: Active Medications Generic Name Dose Route Start Last Admin Trade Name Freq PRN Reason Stop Dose Admin Acetaminophen 650 mg 10/29/24 20:11 Acetaminophen 325 Mg Tablet PO Q4H PRN Mild Pain (1-3) or Fever Albuterol 2 puff 10/29/24 23:21 Albuterol Sulfate (*Sp) Aerosol 1 Puff INHALATION Q4HRT PRN Shortness Of Breath Or Wheezing Aspirin 81 mg 10/30/24 09:00 11/01/24 10:19 Aspirin 81 Mg Enteric Tablet PO 81 mg DAILY CHUCKIE Administration Atorvastatin Calcium 10 mg 10/30/24 09:00 11/01/24 10:19 Atorvastatin 10 Mg Tablet PO 10 mg DAILY CHUCKIE Administration Benzonatate 200 mg 10/29/24 23:27 Benzonatate 100 Mg Capsule PO TID PRN cough Empagliflozin 10 mg 10/30/24 09:00 11/01/24 10:19 Empagliflozin 10 Mg Tablet PO 10 mg DAILY CHUCKIE Administration Famotidine 40 mg 10/29/24 21:00 11/01/24 10:18 Famotidine 20 Mg/2 Ml Vial IV PUSH 40 mg Q12HR CHUCKIE Administration Furosemide 40 mg 10/30/24 09:00 11/01/24 10:18 Furosemide Inj 40 Mg/4 Ml Vial IV PUSH 40 mg BID CHUCKIE Administration Heparin Sodium (Porcine) 5,000 units 10/30/24 21:00 11/01/24 10:18 Heparin Sodium 5,000 Units/Ml Vial SUB-Q 5,000 units Q12HR CHUCKIE Administration Losartan Potassium 25 mg 10/30/24 09:00 11/01/24 10:19 Losartan Potassium 25 Mg Tablet PO 25 mg DAILY CHUCKIE Administration Metoprolol Succinate 25 mg 10/29/24 23:30 10/31/24 20:58 Metoprolol Succinate Ext Rel 25 Mg Tabcr PO 25 mg HS CHUCKIE Administration Montelukast Sodium 10 mg 10/29/24 23:30 10/31/24 20:58 Montelukast Sodium 10 Mg Tablet PO 10 mg HS CHUCKIE Administration Ondansetron HCl 4 mg 10/31/24 21:30 10/31/24 21:43 Ondansetron Inj 4 Mg/2 Ml Vial IV PUSH 4 mg Q4H PRN Administration Nausea And Vomiting Perflutren Lipid Microsphere 0 ml 10/30/24 00:47 Perflutren Lipid Microspheres 1.5 Ml Vial Diluted To 10 Ml Total Volume IV PUSH 11/02/24 00:47 ONCE PRN adequate visualization Protocol Venlafaxine HCl 150 mg 10/29/24 23:30 10/31/24 20:58 Venlafaxine Hcl Xr 75 Mg Cap.Er.24h PO 150 mg HS CHUCKIE Administration Radiology Results: ITS Impressions Chest X-Ray 10/29/24 16:46 IMPRESSION: 1. Emphysema. 2. Mild atelectasis in lingula. Chest CTA 10/29/24 19:35 IMPRESSION: 1. No pulmonary embolus. 2. Severe emphysema. 3. Small pleural effusions. Wrist X-Ray 10/30/24 15:47 IMPRESSION: 1. Comminuted fracture of distal radius without change in alignment. 2. Sclerosis again seen in lunate, which may be secondary to osteonecrosis or osteoarthritis. 3. Severe osteoarthritis of first carpometacarpal joint. Labs Labs: Laboratory Results - last 24 hr 11/01/24 04:21 WBC 9.5 RBC 4.72 Hgb 14.5 Hct 43.6 MCV 92.4 MCH 30.7 MCHC 33.3 RDW 14.7 H Plt Count 216 MPV 10.8 H Immature Gran % (Auto) 0.3 Neut % (Auto) 88.7 H Lymph % (Auto) 3.1 L [place] % (Auto) 6.1 Eos % (Auto) 1.6 Baso % (Auto) 0.2 Lymph # (Auto) 0.30 L [place] # (Auto) 0.6 Eos # (Auto) 0.2 Baso # (Auto) 0.0 Abs Immat Gran (auto) 0.03 Absolute Neuts (auto) 8.5 H Absolute Nucleated RBC 0.000 Nucleated RBC % 0.0 Sodium 130 L Potassium 3.8 Chloride 94 L Carbon Dioxide 36 H Anion Gap 0 L BUN 20 H Creatinine 1.00 Estim Creat Clear Calc 39 Estimated GFR 56 L Glucose 104 Calcium 8.8 Magnesium 1.7 Total Bilirubin 0.9 AST 27 ALT 28 Alkaline Phosphatase 130 H Total Protein 6.0 L Albumin 3.5
[2024-11-01] MEDS: POTASSIUM CHLORIDE 20 MEQ ER TABLET 40 MEQ PO (13:50)
--- NOTE | 2024-11-01 15:16 | P.DS_ITS ---
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 Patient presents to the emergency room due to panic attacks, shortness of breath, decreased stamina, denies leg swelling, denies chest pain denies palpitations patient denies lightheadedness, near-syncope or syncope, no fevers no rigors no chills however stays that had gets short of breath with minimal activity. Preliminary workup in the emergency room was significant for patient was ruled out for acute pulmonary embolism with a negative CT angiogram chest pulmonary embolism protocol. A chest x-ray was significant for emphysema and mild atelectasis of the lingula. [place]riure[place] 49734 troponins x2 0.076. Patient has been admitted for further evaluation management and treatment. Patient underwent cardiac cath and non occlusive RCA disease was noted with MR. EHCO showed EF 42%. Cardiology noted outpatient follow up with Dr Fraga for MV regurge intervention. In the meantime, contineu ASA, Liiptor, Metoprolol; Losartan and Lasix adjust to 50mg daily and 40mg daily per cards SGLT2 discontinued due to afforability. F/u with PCP in 3-5 days F/u with cardiology as instructed and f/u with Dr Fraga as instructed Continue other home meds and contninue home oxygen Time Spent with Patient Time attestation: Total time spent providing and/or coordinating discharge services: DS: Data Data Completed and Pending Labs on day of discharge: Labs from last 24 hours 11/01/24 04:21 WBC 9.5 RBC 4.72 Hgb 14.5 Hct 43.6 MCV 92.4 MCH 30.7 MCHC 33.3 RDW 14.7 H Plt Count 216 MPV 10.8 H Immature Gran % (Auto) 0.3 Neut % (Auto) 88.7 H Lymph % (Auto) 3.1 L [place] % (Auto) 6.1 Eos % (Auto) 1.6 Baso % (Auto) 0.2 Lymph # (Auto) 0.30 L [place] # (Auto) 0.6 Eos # (Auto) 0.2 Baso # (Auto) 0.0 Abs Immat Gran (auto) 0.03 Absolute Neuts (auto) 8.5 H Absolute Nucleated RBC 0.000 Nucleated RBC % 0.0 Sodium 130 L Potassium 3.8 Chloride 94 L Carbon Dioxide 36 H Anion Gap 0 L BUN 20 H Creatinine 1.00 Estim Creat Clear Calc 39 Estimated GFR 56 L Glucose 104 Calcium 8.8 Magnesium 1.7 Total Bilirubin 0.9 AST 27 ALT 28 Alkaline Phosphatase 130 H Total Protein 6.0 L Albumin 3.5 Discharge Plan Discharge Attending physician on discharge: Jani Piedra Consulting providers: Ghazal Mai Discharging Clinician: Jani Piedra Anticipated Discharge Date/Time: 11/01/24 15:11 Patient Disposition: Home, Self-Care Activity: as tolerated Diet: heart healthy Discharge Instructions: CHF Patient Instructions: Antibiotic Form, Clopidogrel (By mouth), Heart Failure (GEN), Blood Thinners (GEN), High Troponin Levels (GEN) Patient Language: Mold[place] Stand Alone Forms: General Discharge Information Follow-up/Referrals: Gayle Ramirez PA-C [Primary Care Provider] - (Follow with PCP 3-5 days.) Ghazal Mai APN-C [Advanced Practice Nurse] - (Full clearance Cardiology as instructed.) Discharge Medications: New furosemide 40 mg Tablet 40 mg PO DAILY 30 Days Qty: 30 1RF losartan [Cozaar] 50 mg Tablet 50 mg PO QAM 30 Days Qty: 30 1RF Continued cholecalciferol (vitamin D3) 25 mcg (1,000 unit) capsule 25 mcg PO HS aspirin 81 mg tablet,delayed release (DR/EC) 81 mg PO DAILY clopidogrel 75 mg tablet 75 mg PO HS Complete Multivitamin Tablet 1 tablet PO HS atorvastatin 10 mg tablet 10 mg PO DAILY albuterol sulfate 90 mcg/actuation HFA aerosol inhaler 2 inh inhalation Q4H PRN (Reason: Shortness Of Breath Or Wheezing) Qty: 3 3RF benzonatate 200 mg capsule 200 mg PO TID PRN (Reason: cough) Qty: 30 0RF metoprolol succinate 25 mg tablet extended release 24 hr 25 mg PO HS Qty: 90 2RF Rx Instructions: TAKE 1 TABLET DAILY montelukast 10 mg tablet 10 mg PO HS Qty: 90 2RF Rx Instructions: TAKE 1 TABLET DAILY venlafaxine 150 mg capsule,extended release 24hr 150 mg PO HS Qty: 90 1RF Discontinued losartan 25 mg Tablet 25 mg PO DAILY Qty: 30 0RF Jardiance 10 mg Tablet 10 mg PO DAILY Qty: 30 0RF Date of admission: 10/29/24 21:28 Primary Care Provider: Gayle Ramirez Admitting Provider: Jordan Ascencio V. Attending physician on admission: Jordan Ascencio V. Condition: Stable
== END 2024-11-01 16:18 | disposition home or self-care (01) | DRG 286 ==
LOC: ANHED 20:07 → ANHIMU 22:35
PROVIDERS: Internal Medicine; Internal Medicine Interventional Cardiology; Admitting Provider Internal Medicine; Emergency Provider Family Medicine; PCP Student in an Organized Health Care Education/Training Program; Visit Provider Internal Medicine
PROC: 4A023N7 Measurement of Cardiac Sampling and Pressure, Left Heart, Percutaneous Approach (ICD-10-PCS; CPT 93312; principal; 2024-10-31 09:00)
PROC: 4A023N7 Measurement of Cardiac Sampling and Pressure, Left Heart, Percutaneous Approach (ICD-10-PCS; CPT 93452; 2024-10-31 09:00)
PROC: 4A023N7 Measurement of Cardiac Sampling and Pressure, Left Heart, Percutaneous Approach (ICD-10-PCS; 2024-10-31 09:00)
DX: I11.0 Hypertensive heart disease with heart failure (principal); I50.23 Acute on chronic systolic (congestive) heart failure; J96.21 Acute and chronic respiratory failure with hypoxia; S52.531A Colles' fracture of right radius, initial encounter for closed fracture; J44.1 Chronic obstructive pulmonary disease with (acute) exacerbation; F41.0 Panic disorder [episodic paroxysmal anxiety]; I34.0 Nonrheumatic mitral (valve) insufficiency; F17.210 Nicotine dependence, cigarettes, uncomplicated; I25.10 Atherosclerotic heart disease of native coronary artery without angina pectoris; M81.0 Age-related osteoporosis without current pathological fracture; M19.90 Unspecified osteoarthritis, unspecified site; E78.2 Mixed hyperlipidemia; I42.8 Other cardiomyopathies; Z99.81 Dependence on supplemental oxygen; I25.2 Old myocardial infarction; Z96.642 Presence of left artificial hip joint; Z90.49 Acquired absence of other specified parts of digestive tract; X58.XXXA Exposure to other specified factors, initial encounter
CPT/HCPCS: 36415; 71045; 71275; 73100; 80048; 80053; 83735; 83880; 84484; 85025; 85380; 93005; 93312; 93320; 93325; 93458; 96374; 96375; 99285; A9270; C1760; C1769; C1887; C1894; G0269; J1200; J1644; J1940; J2003; J2250; J2305; J2405; J3010; J7040; Q9967

== ENCOUNTER 2025-01-16 14:32 | Outpatient (CLI) | payer MEDICARE, SELFPAY ==
[2025-01-16 15:30] LABS: Anion Gap 10 mmol/L (4-12); Blood Urea Nitrogen 18 mg/dL (7-17); Calcium 9.8 mg/dL (8.4-10.2); Carbon Dioxide 29 mmol/L (22-30); Chloride 97 mmol/L (98-107); Estimated Glomerular Filt Rate > 60; Glucose 109 mg/dL (65-110); Potassium 4.2 mmol/L (3.4-5.0); Sodium 136 mmol/L (137-145)
== END 2025-01-16 14:33 | disposition home or self-care (01) ==
LOC: ANHLAB 14:35
PROVIDERS: PCP Student in an Organized Health Care Education/Training Program; Visit Provider Nurse Practitioner Adult Health
DX: I42.8 Other cardiomyopathies (principal)
CPT/HCPCS: 36415; 80048

== ENCOUNTER 2025-04-12 16:38 | Inpatient (IN) | payer MEDICARE, SELFPAY ==
[2025-04-12] VITALS (12 sets, daily range): BP systolic 109–147; BP diastolic 61–81; PULSE 63–93; RESP 16–20; TEMP 36.7–37; O2SAT 86–100; BMI 19.8
--- NOTE | ~2025-04-12 | XR_ITS ---
XR chest 2V Ordering provider: Tan Laura MD History: 65 years Female with . SOB X FEW DAYS CHF/COPD . Comparison: October 29, 2024 FINDINGS: Bilateral breast implants. MEDIASTINUM: The cardiac silhouette is not enlarged. LUNGS: No infiltrates, effusions or pneumothorax. Underlying emphysematous changes. OTHER: No free air under the diaphragm. IMPRESSION: No acute cardiopulmonary pathology. Emphysema of the lungs. Reviewed, dictated and finalized at location A.
--- OUTSIDE RECORDS SUMMARY | 2025-04-12 16:40 | XMS_ITS | Clinical Summary ---
Author Organization [facility] Address [address] [place] [address] Phone Care Team Providers Care Transition Advisor Name Role Phone Unavailable Primary Care Provider Unavailabl e Allergies Active Allergy Reactions Criticality Noted Date Comments Sulfa (Sulfonamide Antibiotics) Hives High 05/2011 Medications clopidogrel (PLAVIX) 75 mg Oral Tab Take 75 mg by mouth Daily LATE. 02/23/2011 Active simvastatin (ZOCOR) 40 mg Oral tablet Take 40 mg by mouth Daily LATE. Active metoprolol succinate ER 24 hour (TOPROL-XL) 25 mg Oral tablet Take 25 mg by mouth Daily LATE. 02/23/2011 Active venlafaxine SR 24 hour (EFFEXOR XR) 150 mg Oral capsule Take 150 mg by mouth Daily LATE. 02/23/2011 Active aspirin (KAILEY) 325 mg Oral tablet Take 325 mg by mouth Daily LATE. 02/23/2011 Active multivitamin (DAILY-MIKE) Oral tablet Take 1 Tab by mouth daily. Active CALCIUM CARBONATE/VITAMI N D3 (CALCIUM + D ORAL) Take by mouth daily. 02/23/2011 Active oxyCODONE-acetam inophen (PERCOCET) 5-325 mg Oral tablet Take 2 Tabs by mouth every 4 hours as needed (For Pain Scale 4-6). 40 Tab 0 03/06/2011 Active diazepam (VALIUM) 2 mg Oral tablet Take 1 Tab by mouth every 6 hours as needed (spasm). 20 Tab 1 03/06/2011 Active cephALEXin (KEFLEX) 500 mg Oral capsule Take 1 Cap by mouth every 6 hours. 20 Cap 0 03/06/2011 Active Active Problems Problem Noted Date Diagnosed Date Mechanical complication due to breast implant CAD (coronary artery disease) 03/06/2011 Social History Tobacco Use Types Packs/Day Years Used Date Smoking Tobacco: Every Day Cigarettes 0.5 30 Alcohol Use Standard Drinks/Week Comments No 0 (1 standard drink = 0.6 oz pur e alcohol) Comments Unknown Sex and Gender Information Value Date Recorded Sex Assigned at Not on file Legal Sex Female 6:00 AM PIANO TUNER Gender Identity Not on file Sexual Orientation Not on file Last Filed Vital Signs Vital Sign Reading Time Taken Comments Blood Pressure 103/70 03/06/2011 3:09 PM CDT Pulse 79 03/06/2011 3:09 PM CDT Temperature 36.3 C (97.4 F) 03/06/2011 3:09 PM CDT Respiratory Rate 18 03/06/2011 4:49 PM CDT Oxygen Saturation 96% 03/06/2011 4:49 PM CDT Inhaled Oxygen Concentration - - Weight 68 kg (150 lb) 03/06/2011 9:59 AM CDT Height 160 cm (5' 3 ) 03/02/2011 12:53 PM CDT Body Mass Index 26.57 03/02/2011 12:53 PM CDT Plan of Treatment Health Maintenance Due Date Last Done Comments DTAP/TDAP/TD VACCINES (1 - Tdap) 1978 PNEUMOCOCCAL VACCINE 50+ YEARS (1 of 2 - PCV) 04/06/19 78 BREAST CANCER SCREENING 1999 COLORECTAL SCREENING 2004 Colorectal Cancer Screening 2004 FIT-DNA Q 3 years 2004 FIT/FOBT Q 1 year 2004 Flex Sig/CT Colonography Q 5 years 2004 ZOSTER VACCINE (1 of 2) 2009 RSV VACCINE (60+ or ) (1 - Risk 60-74 years 1-dose series) 2019 OSTEOPOROSIS SCREENING 2024 INFLUENZA VACCINE (#1) 2024 Medical Devices Implanted Type Area Signals Analyst Device Identifier Shelf Expiration Date Model / Serial / Lot Mammary [facility] Abel Silva Mp+ [id number] - [id number] Implanted:Qty: 1 on 03/06/2011 at [facility] Mammary Right: Breast MENTOR TALA 01/06/2016 [id number] / [id number] Description:Implants brought from Dr. office; no charge Mammary Silic Smth Rnd Mp+ [id number] - [id number] Implanted:Qty: 1 on 03/06/2011 at [facility] Mammary Left: Breast MENTOR TALA 01/06/2016 [id number] / [id number] Description:Implant brought from Dr. drew; no charge Insurance Advance Directives For more information, please contact: [phone] * Full Code (Latest Code Status on File) Date Activated Date Inactivated Comments 03/06/2011 12:38 PM 03/06/2011 10:35 PM * Full Code Date Activated Date Inactivated Comments 03/06/2011 10:38 AM 03/06/2011 12:38 PM * Full Code Date Activated Date Inactivated Comments 03/06/2011 9:53 AM 03/06/2011 10:38 AM
--- OUTSIDE RECORDS SUMMARY | 2025-04-12 16:40 | XMS_ITS | Referral Summary ---
Author Organization [facility] [place] [address] Address [address] [place] [id number] Care Team Providers Care Predictive Maintenance Specialist Name Role Phone Gayle Hammond MD Primary Care Provider [phone] Encounters Date Type Department Care Team Description 04/10/2025 1:00 PM CDT Ancillary Procedure [facility] Cardiology at [address] [place] [address] Nonrheumatic mitral valve regurgitation 03/16/2025 Telephone [facility] Cardiology [address] [place] [address] [address] [place] [phone] Nataliia Anderson NP 03/16/2025 Results Follow-Up [facility] Cardiology [address] [place] [address] [address] [place] [address] Nataliia Anderson NP 24 HR Holter Monitor 02/03/2025 Telephone [facility] Cardiology [address] [place] [address] [address] [place] [phone] Nataliia Anderson NP 01/19/2025 Telephone [facility] Cardiology [address] [place] [address] [address] [place] [phone] David Irizarry MD 01/19/2025 Telephone [facility] Cardiology [address] [place] [address] [address] [place] [phone] Nataliia Anderson NP Test Results 01/16/2025 2:30 PM FURNACE RELINER Ancillary Procedure [facility] Cardiology [address] [place] [address] PVC (premature ventricular contraction) 01/16/2025 1:00 PM FURNACE RELINER Office Visit [facility] Cardiology [address] [facility] [address] [place] [address] Nataliia Anderson NP NICM (nonischemic cardiomyopathy) ([facility]); Moderate mitral valve regurgitation; MVP (mitral valve prolapse); Single vessel coronary artery disease; PVC (premature ventricular contraction); Tobacco abuse counseling from Last 3 Months Allergies Active Allergy Reactions Criticality Noted Date Comments Sulfa (Sulfonamide Antibiotics) Hives High 05/2011 Acetaminophen-Codeine Hives Medium 05/30/2021 Medications multivitamin tablet Take 1 tablet by mouth daily Active venlafaxine XR (EFFEXOR-XR) 150 mg 24 hr capsule Take 1 capsule (150 mg total) by mouth daily 1 Active clopidogreL (PLAVIX) 75 mg tablet Take 1 tablet (75 mg total) by mouth daily 1 Active montelukast (SINGULAIR) 10 mg tablet Take 1 tablet (10 mg total) by mouth daily 1 Active albuterol HFA (PROVENTIL HFA,VENTOLIN HFA,PROAIR HFA) 90 mcg/actuation inhaler Inhale 2 puffs every 6 (six) hours as needed for wheezing Active cholecalciferol (Vitamin D3) 400 unit capsule 2 Active aspirin 81 mg enteric coated tablet Take 1 tablet (81 mg total) by mouth daily 4 Active atorvastatin (LIPITOR) 10 mg tablet Take 1 tablet (10 mg total) by mouth nightly at bedtime. 4 Active benzonatate (TESSALON) 200 mg capsule TAKE 1 CAPSULE BY MOUTH THREE TIMES DAILY NEEDED FOR COUGH 4 Active losartan (COZAAR) 50 mg tablet Take 1 tablet (50 mg total) by mouth daily Active spironolactone (ALDACTONE) 25 mg tabletIndicatio ns:NICM (nonischemic cardiomyopathy) (HCC) Take 1 tablet (25 mg total) by mouth daily 90 tablet 2 5 Active metoprolol XL (TOPROL-XL) 50 mg extended release tablet Take 1 tablet (50 mg total) by mouth daily 30 tablet 11 5 Active metoprolol XL (TOPROL-XL) 25 mg extended release tablet Take 1 tablet (25 mg total) by mouth daily 1 03/16/20 25 Discontinu ed(Reorder ) Active Problems Problem Noted Date Diagnosed Date Nonrheumatic mitral valve regurgitation 04/07/20 24 Decreased cardiac ejection fraction 06/01/2021 History of DE (myocardial infarction) 06/01/2021 Coronary artery disease invo lving [place] coronary artery of [place] heart without angina pectoris 06/01/2021 Other hyperlipidemia 06/01/2021 Tobacco abuse counseling 06/01/2021 Social History Tobacco Use Types Packs/Day Years Used Date Smoking Tobacco: Every Day Cigarettes Smokeless Tobacco: Never Tobacco Cessation:Ready to Q uit: Not Asked; Counseling Given: Not Answered AUDIT-C Answer Date Recorded Q1: How often do you have a drink containing alc ohol? Monthly or less 06/01/2021 Average Number of Drinks Not on file 021 Frequency of Binge Drinking Not on file 05/19 Comments Unknown Sex and Gender Information Value Date Recorded Sex Assigned at Not on file Legal Sex Female 11:57 AM FURNACE RELINER Gender Identity Not on file Sexual Orientation Not on file Last Filed Vital Signs Vital Sign Reading Time Taken Comments Blood Pressure 120/68 01/16/2025 1:16 PM FURNACE RELINER Pulse 85 01/16/2025 1:16 PM FURNACE RELINER Temperature - - Respiratory Rate - - Oxygen Saturation 98% 01/16/2025 1:16 PM FURNACE RELINER Inhaled Oxygen Concentration - - Weight 52.2 kg (115 lb) 01/16/2025 1:16 PM FURNACE RELINER Height 157.5 cm (5' 2 ) 01/16/2025 1:16 PM FURNACE RELINER Body Mass Index 21.03 01/16/2025 1:16 PM FURNACE RELINER Plan of Treatment Not on file Procedures Procedure Name Priority Date/Time Associated Diagnosis Comments TRANSTHORACIC ECHO (TTE) COMPLETE W DOPPLER/CF WO CONTRAST Routine 04/10/2025 1:58 PM CDT Nonrheumatic mitral valve regurgitation HOLTER MONITOR 24 HR Routine 02/27/2025 4:21 PM CDT PVC (premature ventricular contraction) BASIC METABOLIC PANEL Routine 01/16/2025 NICM (nonischemic cardiomyopathy) (HCC) SCREENING MAMMOGRAM BILATERAL W TREVOR W IMPLANTS Schedule Routine, Read Routine (OP Routine) 04/02/2023 4:54 PM CDT Screening mammogram, encounter for from Last 3 Months or Most Recently Relevant to Health Maintenance Results * TRANSTHORACIC ECHO (TTE) COMPLETE W DOPPLER/CF WO CONTRAST (04/10/2025 1:58 PM CDT) Estimated EF 25-30 % CONS SCIMAGE EF Mod BP 36 % CONS SCIMAGE Anatomical Region Laterality Modality Ultrasound 04/10/2025 1:22 PM CDT Narrative 04/10/2025 5:31 PM CDT [facility] Cardiology [address], [address], [place] [address] P:[phone] P:[phone] Echocardiographic Report Patient Name: GENNY CASILLAS S : 1960 Study Date: 04/10/2025 1:22:23 PM Gender: F Tech: Location: [facility] Ref Provider: VIDYA NATH Height(Cm): 157 BSA: 1.51 Weight(Kg): 52.2 Heart Rate: 98 BP: 120 / 68 Quality: Good Order Provider: VIDYA NATH PROCEDURES: Echocardiographic Report: Transthoracic echocardiogram with complete 2D, M-Mode, and color Doppler examination. With Strain Analysis. INDICATIONS: I34.0 Nonrheumatic mitral (valve) insufficiency. MEASUREMENTS: 2D/MM Value Range Doppler Value Range EF Mod BP 36 % [ 54 - 74 ] AV Mean PG 5 mmHg EF Teich MM 26 % [ 54 - 74 ] AV Peak Gordo 1.47 m/s [ 1.00 - 1.70 ] Estimated EF 25-30 % AV Peak PG 9 mmHg LVIDd 2D 5.16 cm [ 3.80 - 5.20 ] AV VTI 22.93 cm LVIDd MM 4.87 cm [ 3.80 - 5.20 ] LVOT Peak Gordo 1.28 m/s [ 0.70 - 1.10 ] LVIDs 2D 4.39 cm [ 2.20 - 3.50 ] LVOT VTI 19.02 cm LVIDs MM 4.30 cm [ 2.20 - 3.50 ] MV E Peak Gordo 1.03 m/s [ 0.60 - 1.30 ] LVPWd 2D 0.94 cm [ 0.60 - 0.90 ] MV Decel Time 104 msec [ 104 - 258 ] LVPWd MM 1.12 cm [ 0.60 - 0.90 ] PV Peak Gordo 0.77 m/s [ 0.40 - 0.80 ] IVSd 2D 0.99 cm [ 0.60 - 0.90 ] TR Peak Gordo 3.01 m/s [ 1.00 - 2.80 ] IVSd MM 1.18 cm [ 0.60 - 0.90 ] TR Peak PG 36 mmHg LA Dimension MM 3.12 cm [ 2.70 - 3.80 ] Lateral E` 0.04 m/s [ 0.10 - 0.15 ] AoR Diam MM 2.97 cm [ 2.70 - 3.70 ] E/E` 26 LA Volume Index 22 cc/m2 [ 16 - 34 ] 2D/MM Value Range Doppler Value Range - FINDINGS: Interpretation Site: Exam was interpreted at [facility]. Left Ventricle: Mild enlargement of left ventricle cavity. Severe global left ventricular systolic dysfunction. Impaired diastolic relaxation Grade I. Ejection fraction is measured at 36 %. Ejection Fraction is visually estimated to be 25-30 %. Global Longitudinal Strain is -8 %. Right Ventricle: Normal right ventricular size. Left Atrium: The left atrium is normal in size. Right Atrium: The right atrium is normal in size. Atrial Septum: Normal atrial septum. Mitral Valve: Normal appearance of the mitral valve. Mild mitral valve regurgitation. Aortic Valve: Normal appearance of the aortic valve. Tricuspid Valve: Normal appearance of the tricuspid valve. Estimated peak RVSP is 42 mmHg. Trivial regurgitation in the tricuspid valve. Pulmonic Valve: Pulmonic valve not well visualized. Pericardium: Normal pericardium with no significant pericardial effusion. Aorta: Normal aortic root. IVC: Normal size and normal respiratory collapse consistent with normal right atrial pressure (<5 mmHg). Pulmonary Artery: Normal pulmonary artery size. CONCLUSIONS: Mild enlargement of left ventricle cavity. Severe global left ventricular systolic dysfunction. Impaired diastolic relaxation Grade I. Ejection fraction is measured at 36 %. Ejection Fraction is visually estimated to be 25-30 %. Global Longitudinal Strain is -8 %. The left atrium is normal in size. Normal appearance of the mitral valve. Mild mitral valve regurgitation. Normal appearance of the aortic valve. Electronically Signed By: Hugo Strong MD, [facility] 04/10/2025 5:30:53 PM CDT Procedure Note Hugo Strong MD - 04/10/2025 [facility] Cardiology [address], [address], [place] [address] P:[phone] P:[phone] Echocardiographic Report Patient Name: GENNY CASILLAS S : 1960 Study Date: 04/10/2025 1:22:23 PM Gender: F Tech: Location: [facility] Ref Provider: VIDYA NATH Height(Cm): 157 BSA: 1.51 Weight(Kg): 52.2 Heart Rate: 98 BP: 120 / 68 Quality: Good Order Provider: VIDYA NATH PROCEDURES: Echocardiographic Report: Transthoracic echocardiogram with complete 2D, M-Mode, and color Dopplerexamination. With Strain Analysis. INDICATIONS: I34.0 Nonrheumatic mitral (valve) insufficiency. MEASUREMENTS: 2D/MM Value Range Doppler ValueRange EF Mod BP 36 % [ 54 - 74 ] AV Mean PG 5mmHg EF Teich MM 26 % [ 54 - 74 ] AV Peak Gordo 1.47m/s [ 1.00 - 1.70 ] Estimated EF 25-30 % AV Peak PG 9mmHg LVIDd 2D 5.16 cm [ 3.80 - 5.20 ] AV VTI 22.93cm LVIDd MM 4.87 cm [ 3.80 - 5.20 ] LVOT Peak Gordo 1.28m/s [ 0.70 - 1.10 ] LVIDs 2D 4.39 cm [ 2.20 - 3.50 ] LVOT VTI 19.02cm LVIDs MM 4.30 cm [ 2.20 - 3.50 ] MV E Peak Gordo 1.03m/s [ 0.60 - 1.30 ] LVPWd 2D 0.94 cm [ 0.60 - 0.90 ] MV Decel Time 104msec [ 104 - 258 ] LVPWd MM 1.12 cm [ 0.60 - 0.90 ] PV Peak Gordo 0.77m/s [ 0.40 - 0.80 ] IVSd 2D 0.99 cm [ 0.60 - 0.90 ] TR Peak Gordo 3.01m/s [ 1.00 - 2.80 ] IVSd MM 1.18 cm [ 0.60 - 0.90 ] TR Peak PG 36mmHg LA Dimension MM 3.12 cm [ 2.70 - 3.80 ] Lateral E` 0.04m/s [ 0.10 - 0.15 ] AoR Diam MM 2.97 cm [ 2.70 - 3.70 ] E/E` 26 LA Volume Index 22 cc/m2 [ 16 - 34 ] 2D/MM Value Range Doppler ValueRange - FINDINGS: Interpretation Site: Exam was interpreted at [facility]. Left Ventricle: Mild enlargement of left ventricle cavity. Severe global left ventricularsystolic dysfunction. Impaired diastolic relaxation Grade I. Ejection fraction ismeasured at 36 %. Ejection Fraction is visually estimated to be 25-30 %. GlobalLongitudinal Strain is -8 %. Right Ventricle: Normal right ventricular size. Left Atrium: The left atrium is normal in size. Right Atrium: The right atrium is normal in size. Atrial Septum: Normal atrial septum. Mitral Valve: Normal appearance of the mitral valve. Mild mitral valve regurgitation. Aortic Valve: Normal appearance of the aortic valve. Tricuspid Valve: Normal appearance of the tricuspid valve. Estimated peak RVSP is 42 mmHg.Trivial regurgitation in the tricuspid valve. Pulmonic Valve: Pulmonic valve not well visualized. Pericardium: Normal pericardium with no significant pericardial effusion. Aorta: Normal aortic root. IVC: Normal size and normal respiratory collapse consistent with normal rightatrial pressure (<5 mmHg). Pulmonary Artery: Normal pulmonary artery size. CONCLUSIONS: Mild enlargement of left ventricle cavity. Severe global left ventricularsystolic dysfunction. Impaired diastolic relaxation Grade I. Ejection fraction ismeasured at 36 %. Ejection Fraction is visually estimated to be 25-30 %. GlobalLongitudinal Strain is -8 %. The left atrium is normal in size. Normal appearance of the mitral valve. Mild mitral valve regurgitation. Normal appearance of the aortic valve. Electronically Signed By: Hugo Strong MD, [facility] 04/10/2025 5:30:53 PM CDT us Vidya Nath MD CV ECHO PROCEDURES F inal Result * 24 HR Holter Monitor (02/27/2025 4:21 PM CDT) Anatomical Region Laterality Modality Electrocardiogra phy Narrative 03/16/2025 8:21 AM CDT AMBULATORY GLASSWARE MAKER DEMONSTRATOR REPORT Patient Name: Genny Casillas Date of : 1960 Requesting Physician: Nataliia Anderson /Dr Nath Date of interpretation: 03/16/25 Type of monitor : 24 hour Holter monitor Date of the study/Enrollment period: January 16 till January 17, 2025 Indication: PVCs Quality of the study: Good Interpretation: Of PVCs 3% burden supraventricular ectopic contractions was 6%. No evidence of atrial fibrillation. There were 97 episodes of supraventricular tachycardia with the longest consistent of 5 beats at heart rate 142 beats per minute. No evidence of ventricular tachycardia, significant pauses or blocks. Patient was asymptomatic during the monitoring time. Conclusions: Frequent PVCs and PACs as described above. Frequent runs of supraventricular tachycardia. Voice recognition software was used to complete this document, therefore, shipboard intelligence analyst variances may occur. Vidya Nath MD, [facility] 03/16/25 Procedure Note Vidya Nath MD - 03/16/2025 AMBULATORY GLASSWARE MAKER DEMONSTRATOR REPORT Patient Name: Genny Casillas Date of : 1960 Requesting Physician: Nataliia Anderson /Dr Nath Date of interpretation: 03/16/25 Type of monitor : 24 hour Holter monitor Date of the study/Enrollment period: January 16 till January 17, 2025 Indication: PVCs Quality of the study: Good Interpretation: Of PVCs 3% burden supraventricular ectopic contractions was 6%. Noevidence of atrial fibrillation. There were 97 episodes ofsupraventricular tachycardia with the longest consistent of 5 beats atheart rate 142 beats per minute. No evidence of ventricular tachycardia,significant pauses or blocks. Patient was asymptomatic during themonitoring time. Conclusions: Frequent PVCs and PACs as described above. Frequent runs of supraventricular tachycardia. Voice recognition software was used to complete this document, therefore,shipboard intelligence analyst variances may occur. Vidya Nath MD, [facility] 03/16/25 Nataliia Anderson NP [facility] CARDIAC [facility] Final Result * Basic metabolic panel (01/16/2025) Blood 01/16/2025 Nataliia Anderson NP LAB BLOOD ORDERABLES Yu l Result EXTERNAL LAB * Screening Mammogram Bilateral W Trevor W Implants (04/02/2023 4:54 PM CDT) Anatomical Region Laterality Modality Breast Bilateral Mammography 04/04/2023 10:0 9 AM CDT Impressions 04/04/2023 10:09 AM CDT No evidence of malignancy in either breast. FINAL ASSESSMENT: BI-RADS Category 1: Negative. RECOMMENDATION: Recommend return for annual screening mammogram in 12 months. Electronically signed by: Rhonda Mathias M.D. Narrative 04/04/2023 10:09 AM CDT EXAMINATION: BILATERAL SCREENING MAMMOGRAM with bilateral tomosynthesis and implants COMPARISON: Multiple prior studies, most recently 11/10/2021 and dating back to 12/23/2018. Outside exams TECHNIQUE: Full-field 2D and digital breast tomosynthesis (DBT) images were obtained. CAD was utilized. BREAST PARENCHYMAL COMPOSITION: The breasts are heterogenously dense, which may obscure small masses. FINDINGS: There is no suspicious mass, calcification, or distortion in either breast. There has been no significant interval change from the prior study. Bilateral breast implant appears slightly irregular and without any change us Self Screening Mammogram IMG MAMMO PROCEDURES Fi nal Result from Last 3 Months or Most Recently Relevant to Health Maintenance Insurance [facility] MEDICARE [facility] Care Teams Predictive Maintenance Specialist Relationship Specialty Start Date End Date Gayle Hammond MD PCP - General Family Medicine 05/30/21
--- OUTSIDE RECORDS SUMMARY | 2025-04-12 16:40 | XMS_ITS | Encounter Summary ---
Author Organization [facility] Healthcare Address [address] [place] [address] Care Team Providers Care Consumer Insights Intern Name Role Phone Gayle Hammond MD Primary Care Provider [phone] Encounter Details Date Type Department Care Team (Late st Contact Info) Description 03/16/2025 Results Follow-Up [facility] Cardiology [address] [facility] [address] [place] [address] Nataliia Anderson NP [address] [place] [address] 24 HR Holter Monitor Social History Tobacco Use Types Packs/Day Years Used Date Smoking Tobacco: Every Day Cigarettes Smokeless Tobacco: Never AUDIT-C Answer Date Recorded Q1: How often do you have a drink containing alc ohol? Monthly or less 06/01/2021 Average Number of Drinks Not on file 021 Frequency of Binge Drinking Not on file 05/19 Comments Unknown Sex and Gender Information Value Date Recorded Sex Assigned at Not on file Legal Sex Female 11:57 AM AGRICULTURAL LENDER Gender Identity Not on file Sexual Orientation Not on file documented as of this encounter Plan of Treatment Not on file documented as of this encounter Visit Diagnoses Not on filedocumented in this encounter Care Teams Consumer Insights Intern Relationship Specialty Start Date End Date Gayle Hammond MD PCP - General Family Medicine 05/30/21 documented as of this encounter
--- OUTSIDE RECORDS SUMMARY | 2025-04-12 16:40 | XMS_ITS | CONTINUITY OF CARE DOCUMENT ---
Author Name willie tapia Address Unknown Organization [facility] Address [address] [place] [address] Phone [phone] Care Team Providers Care Bridge Teacher Name Role Phone Ric Escalante MD Unavailable [phone] PERCY RIZVI MD Unavailable [phone] MARK CATES MD Unavailable [phone] PROBLEMS Condition Status Date Provider Notes Other symptoms involving cardiovascular system active Ric Escalante MD Coronary Heart Disease active ? Ric Delcid Hyperlipidemia active ? Ric Escalante MD Tobacco abuse active Ric Escalante MD ENCOUNTERS Date Type Provider Location Encounter Diag nosis - In-person encounter Office Visit Ric Escalante MD [place] [facility] Other symptoms involving cardiovascular systemCoronary Heart DiseaseHyperlipidemiaTobacco abuse VITAL SIGNS Date Observation Value Provider Body Mass Index (Ratio) 28.71 kg/m2 Debbie Negron blood pressure, diastolic, left arm 83 mm [Hg] Coco Negron blood pressure, systolic, left arm 137 mm [Hg] Coco Negron blood pressure, diastolic, right arm 92 m m[Hg] Coco Negron blood pressure, systolic, right arm 141 m m[Hg] Coco Negron blood pressure, diastolic 92 mm[Hg] Na sadi Negron blood pressure, systolic 141 mm[Hg] Lotus Negron pulse rate 84 /min Coco Negron oxygen saturation, oximetry 96 % Coco Negron respiratory rate E&M 16 /min Coco Negron weight E&M 157 [lb_av] Coco Negron height E&M 62 [in_i] Coco Negron ALLERGIES Allergy Name Onset Date Reaction Criticality Status SULFA Low Criticality active HISTORY OF MEDICATION USE Medication Status Instructions Dates Provider Indications Com ments SIMVASTATIN 40 MG ORAL TABLET active ONE TAB. DAILY Coco Negron MULTIVITAMINS ORAL CAPSULE active ONE TAB. DAILY Coco Negron METOPROLOL SUCCINATE ER 25 MG ORAL TABLET EXTENDED RELEASE 24 HOUR active one tab. daily Coco Negron SINGULAIR 10 MG ORAL TABLET active one tab. daily Coco Negron PLAVIX 75 MG ORAL TABLET active 1 daily Coco Negron EFFEXOR XR 150 MG ORAL CAPSULE EXTENDED RELEASE 24 HOUR active 1 daily Coco Negron CALCIUM + D 500-1000-40 MG-UNT-MCG ORAL TABLET CHEWABLE active 1 daily Coco Negron SOCIAL HISTORY Date Observation Value Provider social history reviewed E&M ismael delaney - no changes required Irais Arredondo smoking/tobacco cess ation, patient education and counseling yes Coco Negron number of years as a smoker 36 a Coco Hernandezoney smoking history, total pack/day 1 Coco Negron cigarette use yes Coco Negron smoking status Current every day smoker N georgenaty Jamil FAMILY HISTORY Family Member Condition Father Family History of Co ronary Artery Disease: INSURANCE PROVIDERS Payer name Policy type / Coverage type Nikolai red alliance party ID [place] MED[place] Medicaid [id number] TREATMENT PLAN Date Name STR - Nuclear HISTORY OF PROCEDURES Procedure Date Procedure Name Provider Procedure Notes S tatus EKG Rci Escalante MD completed
--- OUTSIDE RECORDS SUMMARY | 2025-04-12 16:40 | XMS_ITS | Continuity of Care Document ---
Author Organization [facility] Address [address] [place] [address] [address] [place] [address] Phone Care Team Providers Care Procurement Intern Name Role Phone Valdez OD, Bernardo Unavailable Unavailable Procedures Procedure Date Eye Exam & Treatment Refraction Eye Exam & Treatment Refraction Eye Exam & Treatment Refraction Advance Directives Directive Yes / No Effective Date File Name No Information Encounters Encounter Description Practice Location Reason(s) For Visit Diagnoses Date Provider Providers Copied on Encounter [facility], [address] [place] [address] [address], [place], [place], [id number], [place] tel:[phone] [facility] No Information 0-201 0 Valdez OD Bernardo. [address] [facility] [address], [place], [address], [place]. tel:[phone] [facility], [address] [place] [address] [address], [place], [place], [id number], [place] tel:[phone] [facility] No Information 1-200 8 Valdez OD Bernardo. [address] [facility] [address], [place], [address], [place]. tel:[phone] [facility], [address] [place] [address] [address], [place], [place], [id number], [place] tel:[phone] [facility] No Information 2-200 7 Valdez OD Bernardo. [address], [place], [address], [place]. tel:[phone] Family History Family Member Type Diagnosis Age At Onset No Information Payers Payer name Insurance type Covered democrat ID Authoriza tion(s) No Information Social History [...]
--- OUTSIDE RECORDS SUMMARY | 2025-04-12 16:40 | XMS_ITS | Continuity of Care Document ---
Author Organization [facility] Address [address] [place] [phone] Phone Care Team Providers Care Special Technical Operations Officer Name Role Phone Kenneth Vargas MD Unavailable Unavailable Procedures Procedure Date Office/outpatient visit,est, low 2008 Supplemental Report Office/outpatient visit,est, [facility] 2008 Supplemental Report Work/medical disability examination I M E X-ray exam of shoulder, complete 2007 Advance Directives Directive Yes / No Effective Date File Name No Information Encounters Encounter Description Practice Location Reason(s) For Visit Diagnoses Date Provider Providers Copied on Encounter Office/outpat ient visit,est, low [facility], [address], [id number], tel:[phone] [facility] No Information 9 Alicia Cooper. [address] [facility], [address], [id number] , [place]. tel: [phone] Office/outpat ient visit,est, [facility] [place] [facility], [address] [place] [address], [id number], [place] tel:[phone] [facility] No Information 9 Alicia Cooper. [address] [place] [address], [address], [id number] , [place]. tel: [phone] Work/medical disability examination I M E [facility], [address] [place] [address], [id number], [place] tel:[phone] [facility] No Information Alicia Cooper. [address] [facility], [address], [place], [place], [id number] , [place]. tel: [phone] Family History Family Member Type Diagnosis Age At Onset No Information Payers Payer name Insurance type Covered green party ID Girish echavarria(s) [facility] [id number] Social History Type Description Quantity Date Captured [...]
--- OUTSIDE RECORDS SUMMARY | 2025-04-12 16:40 | XMS_ITS | Clinical Summary ---
Author Organization [facility] [address] Address [address] [place] [address] Care Team Providers Care Supervisor Mending Name Role Phone Gayle Hammond MD Primary Care Provider [phone] Allergies Active Allergy Reactions Criticality Noted Date [...] Decreased cardiac ejection fraction 06/01/2021 History of [facility] (myocardial infarction) 06/01/2021 Coronary artery disease invo lving apache coronary artery of apache heart without angina pectoris 06/01/2021 Other hyperlipidemia 06/01/2021 Tobacco abuse counseling 06/01/2021 Encounters Date Type Department Care Team Description 04/10/2025 1:00 PM CDT Ancillary Procedure [facility] at [address] [place] [address] Nonrheumatic mitral valve regurgitation 03/16/2025 Telephone [facility] Cardiology [address] [place] [address] [place] [phone] Nataliia Anderson NP 03/16/2025 Results Follow-Up [facility]iology [address] [place] [address] [place] [phone] Nataliia Anderson NP 24 HR Holter Monitor 02/03/2025 Telephone [facility]iology [address] [place] [address] [place] [phone] Nataliia Anderson NP 01/19/2025 Telephone [facility]iology [address] [place] [address] [place] [phone] David Irizarry MD 01/19/2025 Telephone [facility]iology [address] [place] [address] [place] [phone] Nataliia Anderson NP Test Results 01/16/2025 2:30 PM VENEER STOCK GRADER Ancillary Procedure [facility] [address] [place] [address] PVC (premature ventricular contraction) 01/16/2025 1:00 PM VENEER STOCK GRADER Office Visit [facility] [address] [place] [phone] Nataliia Anderson NP NICM (nonischemic cardiomyopathy) (HCC); Moderate mitral valve regurgitation; MVP (mitral valve prolapse); Single vessel coronary artery disease; PVC (premature ventricular contraction); Tobacco abuse counseling from Last 3 Months Surgical History Surgery Date Site/Laterality Comments TOTAL HIP ARTHROPLASTY FOOT SURGERY THUMB SURGERY HYSTERECTOMY 11/19/2002 - 11/18/2003 Bilateral Medical History Medical History Date Comments Heart attack (HCC) Family History Medical History Relation Name Comments Hypertension Father Prostate cancer Father Breast cancer Mother Hypertension Mother Stroke Mother Endometrial cancer Neg Hx Ovarian cancer Neg Hx Thyroid cancer Neg Hx Relation Name Status Comments Father (Age 76) Mother (Age 81) Social History Tobacco Use Types Packs/Day Years [...] on file Legal Sex Female 11:57 AM VENEER STOCK GRADER Gender Identity Not on file Sexual Orientation Not on file Obstetrics History Para Term AB IAB SAB Ectopic Multiple Livin g Live Births 4 2 2 Date Outcome GA Total Labor Labor/2nd/3rd Weight Sex Type Anes PTL Radha A1 A5 Name Clin Term Term Last Filed Vital Signs Vital Sign Reading Time Taken Comments Blood Pressure 120/68 01/16/2025 1:16 PM VENEER STOCK GRADER Pulse 85 01/16/2025 1:16 PM VENEER STOCK GRADER Temperature - - Respiratory Rate - - Oxygen Saturation 98% 01/16/2025 1:16 PM VENEER STOCK GRADER Inhaled Oxygen Concentration - - Weight 52.2 kg (115 lb) 01/16/2025 1:16 PM VENEER STOCK GRADER Height 157.5 cm (5' 2 ) 01/16/2025 1:16 PM VENEER STOCK GRADER Body Mass Index 21.03 01/16/2025 1:16 PM VENEER STOCK GRADER Plan of Treatment Health Maintenance Due Date Last Done Comments Colon Cancer Screening-Colonoscopy 1959 Depression Screening 1959 Fall Risk Assessment 1959 Hepatitis C Screening 1959 Osteoporosis Screening-Bone Density Scan 1959 DTaP/Tdap/Td Vaccine (1 - Tdap) 1970 Hepatitis B Screening 1977 Pneumococcal vaccine 65+ (1 of 2 - PCV) 1978 Zoster Vaccine (1 of 2) 2009 Breast Cancer Screening-Mammogram 04/02/2024 023 Well Visit 65+ 2024 Influenza Vaccine (Season Ended) 2025 08/21/2016, 08/31/2015, 10/23/2014 Procedures Procedure Name Priority Date/Time Associated Diagnosis [...] PM CDT Narrative 04/10/2025 5:31 PM CDT [facility] [address], [address], [place] [address] P:[phone] P:[phone] Echocardiographic Report Patient Name: GENNY CASILLAS S [...] FINDINGS: Interpretation Site: Exam was interpreted at [facility]. Left Ventricle: Mild enlargement of left ventricle [...] valve. Electronically Signed By: Hugo Strong MD, [facility] 04/10/2025 5:30:53 PM CDT Procedure Note Fleissner, Max., MD - 04/10/2025 [facility] [address], [address], [place] [address] P:[phone] P:[phone] Echocardiographic Report Patient Name: GENNY CASILLAS S [...] FINDINGS: Interpretation Site: Exam was interpreted at [facility]. Left Ventricle: Mild enlargement of left ventricle [...] valve. Electronically Signed By: Hugo Strong MD, [facility] 04/10/2025 5:30:53 PM CDT us Vidya Nath MD CV ECHO PROCEDURES F inal Result * 24 HR Holter Monitor (02/27/2025 4:21 PM CDT) Anatomical Region Laterality Modality Electrocardiogra phy Narrative 03/16/2025 8:21 AM CDT AMBULATORY SOFTWARE TOOLS DEVELOPER REPORT Patient Name: Genny Casillas Date of [...] was used to complete this document, therefore, blasting cap assembler variances may occur. Vidya Nath MD, [facility] 03/16/25 Procedure Note Vidya Nath MD - 03/16/2025 AMBULATORY SOFTWARE TOOLS DEVELOPER REPORT Patient Name: Genny Casillas Date of [...] software was used to complete this document, therefore,blasting cap assembler variances may occur. Vidya Nath MD, [facility] 03/16/25 Nataliia Anderson NP CV CARDIAC SERVICES PROCE GAURAV Final Result * Basic metabolic panel (01/16/2025) [...] appears slightly irregular and without any change Self Screening Mammogram IMG MAMMO PROCEDURES Fi nal Result from Last 3 Months or Most Recently Relevant to Health Maintenance Insurance [employer] MEDICARE GOLD Care Teams Supervisor Mending Relationship Specialty Start Date End Date Gayle Hammond MD PCP - General Family Medicine 05/30/21
--- NOTE | 2025-04-12 16:50 | ECG_ITS ---
Test Date: 2025-04-12 17:13:43 Measurements Intervals [facility] Rate: 99 P: 81 [place]: 154 QRS: 66 QRSD: 93 T: 86 QT: 337 QTc: 434 Interpretive Statements SINUS RHYTHM WITH FREQUENT SUPRAVENTRICULAR PREMATURE COMPLEXES LEFT VENTRICULAR HYPERTROPHY AND ST-T CHANGE [VOLTAGE CRITERIA PLUS ST/T ABNORMALITY] Compared to ECG 10/29/2024 21:49:45 Ventricular premature complex(es) no longer present ST (T wave) deviation still present Electronically Signed On 04-12-2025 20:51:13 CDT by Chente Sorto M.D.
--- NOTE | 2025-04-12 16:55 | PC.NURSE ---
Pt. to x-ray
--- NOTE | 2025-04-12 17:05 | ED.SOB ---
HPI - SOB/Dyspnea General Chief Complaint: Shortness of Breath/Dyspnea Stated Complaint: i cant breath Time Seen by Provider: 04/12/25 17:03 Source: patient Mode of arrival: ambulatory Limitations: no limitations History of Present Illness HPI Narrative: 65 years old white female came to the ED with trouble breathing over the last 4 days associated with coughing and chest cold feeling. Patient is not on oxygen at home, history of COPD, hypertension some hyperlipidemia, congestive heart failure currently on aspirin and Plavix, history of MRI without coronary stents. Patient smokes cigarettes, does not drink or use drugs. Came to the ED by private car Related Data Home Medications ?Medication ?Instructions ?Recorded ?Confirmed ?Last Taken ?Type multivitamin,qq-evad-[id number] 1 tablet PO HS 05/28/20 04/12/25 04/11/25 21:00 History (Complete Multivitamin tablet) cholecalciferol (vitamin D3) 25 25 mcg PO HS 04/24/22 04/12/25 04/11/25 21:00 History mcg (1,000 unit) capsule aspirin 81 mg tablet,delayed 81 mg PO DAILY 09/23/24 04/12/25 04/11/25 21:00 History release spironolactone 25 mg tablet 25 mg PO DAILY 04/12/25 04/12/25 04/11/25 09:00 History Allergies Allergy/AdvReac Type Severity Reaction Status Date / Time codeine Allergy Intermediate Hives Verified 04/12/25 16:41 hydrocodone Allergy Intermediate Hives Verified 04/12/25 16:41 mold Allergy Intermediate Nasal Verified 04/12/25 16:41 Discharge nickel Allergy Intermediate Swelling/BL Verified 04/12/25 16:41 ISTERS/ITCH ING ragweed pollen Allergy Intermediate Nasal Verified 04/12/25 16:41 Discharge Sulfa (Sulfonamide Allergy Intermediate Hives Verified 04/12/25 16:41 Antibiotics) Review of Systems Review of Systems: All systems reviewed & are unremarkable except as noted in HPI and below PMFSH Past Medical History Medical History (Updated 04/14/25 @ 18:57 by Xu Hernandez MD) Chronic obstructive pulmonary disease Coronary artery disease Tobacco abuse Arthritis Osteoporosis Depression Vision abnormalities Anxiety Essential hypertension History of [place] (myocardial infarction) 2006 - no intervention required - regular stress tests as part of her job - all negative since Mixed hyperlipidemia Surgical History Surgical History History of total right hip arthroplasty Per Dr. Ambriz. 02/16/2021 History of total left hip arthroplasty History of breast surgery augmentation History of cholecystectomy History of surgery Foot, Dr. Chavo Stapleton History of ankle surgery Left, Dr. Rae History of surgery Right thumb, Dr. 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 She lives at home alone. She wishes to be a full code. She has designated her two children Robson and Mel as her surrogate decision makers. She quit briefly, but now is back to smoking 1 ppd. Smoking packs per day: 0.5 Smoking cigarettes per day: 10.0 Years smoked: 40 Smoking pack-years: 20.00 Smoking status: Current every day smoker Second hand tobacco smoke exposure: Yes Additional smoking assessment comments: 2-3 cigarettes per day now Alcohol intake: never Substance use: never Substance use type: does not use Do You Feel Safe in your Home?: Yes Lack of Transportation: No Lack of Food: Sometimes True Current Housing: I Have Housing Concerned About Future Housing: No Difficulty Paying Gas/Electric Bills: No Difficulty Paying for Meds: No Currently Unemployed: No Education: High School Diploma/GED Difficulty w/ Childcare or Family Care: No Living arrangements: alone Gender identity (if verbalized by the patient): Female Sexual Orientation (if Verbalized by the Patient): Straight or Heterosexual Spiritual care concerns: No Exam Narrative: General appearance: Well-developed, well-nourished Skin: Normal color Head: Normocephalic, nontraumatic Eyes: Clear conjunctiva ENT: Oropharynx normal, ears normal, nose normal Neck: Supple, nontender Chest and respiratory: Airway patent, mild labored breathing, diminution of air entry bilaterally, no wheezing or rhonchi Heart: Regular rate/rhythm Abdomen: Soft, nontender, no organomegaly, quiet bowel sounds Vascular: Normal peripheral pulses, normal capillary refill. Musculoskeletal: Normal range of motion, nontender back Neurologic: Alert and oriented ?3, TRANSITIONS RN CARE COORDINATOR is normal as tested, no gross motor deficit Course Vital Signs Vital signs: Vital Signs Temperature 37.0 C 04/12/25 16:43 Pulse Rate 87 04/12/25 16:43 Respiratory Rate 20 04/12/25 16:43 Blood Pressure 109/61 04/12/25 16:43 Pulse Oximetry 89 L 04/12/25 16:43 Temperature 36.5 C 04/14/25 14:00 Pulse Rate 78 04/14/25 14:22 Respiratory Rate 20 04/14/25 14:22 Blood Pressure 145/70 H 04/14/25 14:00 Pulse Oximetry 95 04/14/25 14:00 Oxygen Delivery Nasal Cannula 04/14/25 13:30 Oxygen Flow Rate 2 04/14/25 13:30 Fraction of Inspired Oxygen 28 04/14/25 08:34 MDM - SOB/Dyspnea MDM Narrative Medical decision making narrative: Patient came to the ED with shortness of breath for the last 4 days Vital signs showing oxygenation on room air 89% otherwise within normal limit Physical examination showing diminution of air entry bilaterally with labored breathing Differential diagnosis includes COPD exacerbation, pneumonia, CHF, less likely coronary artery disease Blood workup today includes CBC, CMP, troponin showed WBC of 13.8, hemoglobin 16.0, hematocrit 49.8, pro BMP 13,200 ABG on room air showed oxygen saturation 87.7% pH 7.4 pCO2 41.3 a pro BnP 13,200 DIAGNOSIS ACUTE HYPOXIC RESPIRATORY FAILURE, COPD EXACERBATION ADMIT TO HOSPITALIST Medical Records Attestation: I reviewed the patient's medical records. Lab Data Attestation: I reviewed the patient's lab results. 04/14/25 07:29 04/14/25 07:29 Labs: Lab Results 04/12/25 04/12/25 04/12/25 Range/Units 17:19 17:19 17:19 WBC 13.8 H (4.5-10.0) K/mm3 RBC 5.38 (4.2-5.4) M/mm3 Hgb 16.0 H (12.0-15.0) g/dL Hct 49.8 H (37.0-47.0) % MCV 92.6 (80-100) fl MCH 29.7 (26-34) pg MCHC 32.1 (32-36) g/dl RDW 13.8 (11.5-14.5) % Plt Count 232 (150-375) k/mm3 MPV 10.4 (7.4-10.4) fl Immature Gran % (Auto) 0.4 (0-0.5) % Neut % (Auto) 84.0 H (45.5-73.1) % Lymph % (Auto) 6.7 L (18.3-44.2) % [place] % (Auto) 8.5 (2.6-8.5) % Eos % (Auto) 0.1 (0-4.4) % Baso % (Auto) 0.3 (0.2-1.2) % Lymph # (Auto) 0.93 (0.9-3.2) K/mm3 [place] # (Auto) 1.2 H (0.1-0.6) K/mm3 Eos # (Auto) 0.0 (0-0.3) K/mm3 Baso # (Auto) 0.0 (0.0-0.1) K/mm3 Abs Immat Gran (auto) 0.05 H (0.00-0.031) K/mm3 Absolute Neuts (auto) 11.6 H (1.3-6.7) K/mm3 Absolute Nucleated RBC 0.000 (0.0-0.012) K/mm3 Nucleated RBC % 0.0 (0.0-0.2) % % Immature Plt Fraction 7.3 (0.9-11.2) % PT 14.2 (11.1-14.7) Seconds INR 1.1 APTT 23.3 (22.3-36.8) Seconds Sodium Cancelled 133 L Potassium Cancelled 4.6 Chloride Cancelled Carbon Dioxide Anion Gap BUN Creatinine Estim Creat Clear Calc Estimated GFR Glucose Calcium Magnesium (1.6-2.3) mg/dL Total Bilirubin AST ALT Alkaline Phosphatase Troponin I (0.000-0.034) ng/mL NT-Pro-B Natriuret Pep (19.9-100) pg/mL Total Protein Albumin 05/25/25 05/25/25 05/25/25 Range/Units 17:19 17:19 17:19 WBC (4.5-10.0) K/mm3 RBC (4.2-5.4) M/mm3 Hgb (12.0-15.0) g/dL Hct (37.0-47.0) % MCV (80-100) fl MCH (26-34) pg MCHC (32-36) g/dl RDW (11.5-14.5) % Plt Count (150-375) k/mm3 MPV (7.4-10.4) fl Immature Gran % (Auto) (0-0.5) % Neut % (Auto) (45.5-73.1) % Lymph % (Auto) (18.3-44.2) % [place] % (Auto) (2.6-8.5) % Eos % (Auto) (0-4.4) % Baso % (Auto) (0.2-1.2) % Lymph # (Auto) (0.9-3.2) K/mm3 [place] # (Auto) (0.1-0.6) K/mm3 Eos # (Auto) (0-0.3) K/mm3 Baso # (Auto) (0.0-0.1) K/mm3 Abs Immat Gran (auto) (0.00-0.031) K/mm3 Absolute Neuts (auto) (1.3-6.7) K/mm3 Absolute Nucleated RBC (0.0-0.012) K/mm3 Nucleated RBC % (0.0-0.2) % % Immature Plt Fraction (0.9-11.2) % PT (11.1-14.7) Seconds INR APTT (22.3-36.8) Seconds Sodium Potassium Chloride 89 L Carbon Dioxide Cancelled 31 H Anion Gap Cancelled 13 H BUN Cancelled Creatinine Estim Creat Clear Calc Estimated GFR Glucose Calcium Magnesium (1.6-2.3) mg/dL Total Bilirubin AST ALT Alkaline Phosphatase Troponin I (0.000-0.034) ng/mL NT-Pro-B Natriuret Pep (19.9-100) pg/mL Total Protein Albumin 05/25/25 05/25/25 05/25/25 Range/Units 17:19 17:19 17:19 WBC (4.5-10.0) K/mm3 RBC (4.2-5.4) M/mm3 Hgb (12.0-15.0) g/dL Hct (37.0-47.0) % MCV (80-100) fl MCH (26-34) pg MCHC (32-36) g/dl RDW (11.5-14.5) % Plt Count (150-375) k/mm3 MPV (7.4-10.4) fl Immature Gran % (Auto) (0-0.5) % Neut % (Auto) (45.5-73.1) % Lymph % (Auto) (18.3-44.2) % [place] % (Auto) (2.6-8.5) % Eos % (Auto) (0-4.4) % Baso % (Auto) (0.2-1.2) % Lymph # (Auto) (0.9-3.2) K/mm3 [place] # (Auto) (0.1-0.6) K/mm3 Eos # (Auto) (0-0.3) K/mm3 Baso # (Auto) (0.0-0.1) K/mm3 Abs Immat Gran (auto) (0.00-0.031) K/mm3 Absolute Neuts (auto) (1.3-6.7) K/mm3 Absolute Nucleated RBC (0.0-0.012) K/mm3 Nucleated RBC % (0.0-0.2) % % Immature Plt Fraction (0.9-11.2) % PT (11.1-14.7) Seconds INR APTT (22.3-36.8) Seconds Sodium Potassium Chloride Carbon Dioxide Anion Gap BUN 17 Creatinine Cancelled 0.76 Estim Creat Clear Calc Cancelled 50 Estimated GFR Cancelled Glucose Calcium Magnesium (1.6-2.3) mg/dL Total Bilirubin AST ALT Alkaline Phosphatase Troponin I (0.000-0.034) ng/mL NT-Pro-B Natriuret Pep (19.9-100) pg/mL Total Protein Albumin 04/12/25 04/12/04/12/25 Range/Units 17:19 17:19 17:19 WBC (4.5-10.0) K/mm3 RBC (4.2-5.4) M/mm3 Hgb (12.0-15.0) g/dL Hct (37.0-47.0) % MCV (80-100) fl MCH (26-34) pg MCHC (32-36) g/dl RDW (11.5-14.5) % Plt Count (150-375) k/mm3 MPV (7.4-10.4) fl Immature Gran % (Auto) (0-0.5) % Neut % (Auto) (45.5-73.1) % Lymph % (Auto) (18.3-44.2) % [place] % (Auto) (2.6-8.5) % Eos % (Auto) (0-4.4) % Baso % (Auto) (0.2-1.2) % Lymph # (Auto) (0.9-3.2) K/mm3 [place] # (Auto) (0.1-0.6) K/mm3 Eos # (Auto) (0-0.3) K/mm3 Baso # (Auto) (0.0-0.1) K/mm3 Abs Immat Gran (auto) (0.00-0.031) K/mm3 Absolute Neuts (auto) (1.3-6.7) K/mm3 Absolute Nucleated RBC (0.0-0.012) K/mm3 Nucleated RBC % (0.0-0.2) % % Immature Plt Fraction (0.9-11.2) % PT (11.1-14.7) Seconds INR APTT (22.3-36.8) Seconds Sodium Potassium Chloride Carbon Dioxide Anion Gap BUN Creatinine Estim Creat Clear Calc Estimated GFR > 60 Glucose Cancelled 138 H Calcium Cancelled 9.8 Magnesium (1.6-2.3) mg/dL Total Bilirubin Cancelled AST ALT Alkaline Phosphatase Troponin I (0.000-0.034) ng/mL NT-Pro-B Natriuret Pep (19.9-100) pg/mL Total Protein Albumin 04/12/25 04/12/25 04/12/25 Range/Units 17:19 17:19 17:19 WBC (4.5-10.0) K/mm3 RBC (4.2-5.4) M/mm3 Hgb (12.0-15.0) g/dL Hct (37.0-47.0) % MCV (80-100) fl MCH (26-34) pg MCHC (32-36) g/dl RDW (11.5-14.5) % Plt Count (150-375) k/mm3 MPV (7.4-10.4) fl Immature Gran % (Auto) (0-0.5) % Neut % (Auto) (45.5-73.1) % Lymph % (Auto) (18.3-44.2) % [place] % (Auto) (2.6-8.5) % Eos % (Auto) (0-4.4) % Baso % (Auto) (0.2-1.2) % Lymph # (Auto) (0.9-3.2) K/mm3 [place] # (Auto) (0.1-0.6) K/mm3 Eos # (Auto) (0-0.3) K/mm3 Baso # (Auto) (0.0-0.1) K/mm3 Abs Immat Gran (auto) (0.00-0.031) K/mm3 Absolute Neuts (auto) (1.3-6.7) K/mm3 Absolute Nucleated RBC (0.0-0.012) K/mm3 Nucleated RBC % (0.0-0.2) % % Immature Plt Fraction (0.9-11.2) % PT (11.1-14.7) Seconds INR APTT (22.3-36.8) Seconds Sodium Potassium Chloride Carbon Dioxide Anion Gap BUN Creatinine Estim Creat Clear Calc Estimated GFR Glucose Calcium Magnesium (1.6-2.3) mg/dL Total Bilirubin 1.3 AST Cancelled 39 H ALT Cancelled 34 Alkaline Phosphatase Cancelled Troponin I (0.000-0.034) ng/mL NT-Pro-B Natriuret Pep (19.9-100) pg/mL Total Protein Albumin 04/12/25 04/12/25 04/12/25 Range/Units 17:19 17:19 17:19 WBC (4.5-10.0) K/mm3 RBC (4.2-5.4) M/mm3 Hgb (12.0-15.0) g/dL Hct (37.0-47.0) % MCV (80-100) fl MCH (26-34) pg MCHC (32-36) g/dl RDW (11.5-14.5) % Plt Count (150-375) k/mm3 MPV (7.4-10.4) fl Immature Gran % (Auto) (0-0.5) % Neut % (Auto) (45.5-73.1) % Lymph % (Auto) (18.3-44.2) % [place] % (Auto) (2.6-8.5) % Eos % (Auto) (0-4.4) % Baso % (Auto) (0.2-1.2) % Lymph # (Auto) (0.9-3.2) K/mm3 [place] # (Auto) (0.1-0.6) K/mm3 Eos # (Auto) (0-0.3) K/mm3 Baso # (Auto) (0.0-0.1) K/mm3 Abs Immat Gran (auto) (0.00-0.031) K/mm3 Absolute Neuts (auto) (1.3-6.7) K/mm3 Absolute Nucleated RBC (0.0-0.012) K/mm3 Nucleated RBC % (0.0-0.2) % % Immature Plt Fraction (0.9-11.2) % PT (11.1-14.7) Seconds INR APTT (22.3-36.8) Seconds Sodium Potassium Chloride Carbon Dioxide Anion Gap BUN Creatinine Estim Creat Clear Calc Estimated GFR Glucose Calcium Magnesium (1.6-2.3) mg/dL Total Bilirubin AST ALT Alkaline Phosphatase 127 H Troponin I < 0.012 (0.000-0.034) ng/mL NT-Pro-B Natriuret Pep 04836 H (19.9-100) pg/mL Total Protein Cancelled 8.0 Albumin Cancelled 4.6 05/26/25 Range/Units 04:56 WBC 11.5 H (4.5-10.0) K/mm3 RBC 4.64 (4.2-5.4) M/mm3 Hgb 14.1 (12.0-15.0) g/dL Hct 43.8 (37.0-47.0) % MCV 94.4 (80-100) fl MCH 30.4 (26-34) pg MCHC 32.2 (32-36) g/dl RDW 13.8 (11.5-14.5) % Plt Count 212 (150-375) k/mm3 MPV 11.0 H (7.4-10.4) fl Immature Gran % (Auto) 0.3 (0-0.5) % Neut % (Auto) 88.2 H (45.5-73.1) % Lymph % (Auto) 6.6 L (18.3-44.2) % [place] % (Auto) 4.7 (2.6-8.5) % Eos % (Auto) 0.0 (0-4.4) % Baso % (Auto) 0.2 (0.2-1.2) % Lymph # (Auto) 0.76 L (0.9-3.2) K/mm3 [place] # (Auto) 0.5 (0.1-0.6) K/mm3 Eos # (Auto) 0.0 (0-0.3) K/mm3 Baso # (Auto) 0.0 (0.0-0.1) K/mm3 Abs Immat Gran (auto) 0.03 (0.00-0.031) K/mm3 Absolute Neuts (auto) 10.1 H (1.3-6.7) K/mm3 Absolute Nucleated RBC 0.000 (0.0-0.012) K/mm3 Nucleated RBC % 0.0 (0.0-0.2) % % Immature Plt Fraction (0.9-11.2) % PT (11.1-14.7) Seconds INR APTT (22.3-36.8) Seconds Sodium 128 L Potassium 4.4 Chloride 94 L Carbon Dioxide 26 Anion Gap 8 BUN 19 H Creatinine 0.60 L Estim Creat Clear Calc 62 Estimated GFR > 60 Glucose 156 H Calcium 8.7 Magnesium 2.0 (1.6-2.3) mg/dL Total Bilirubin AST ALT Alkaline Phosphatase Troponin I (0.000-0.034) ng/mL NT-Pro-B Natriuret Pep (19.9-100) pg/mL Total Protein Albumin ABG Data ABG results: 04/12/25 17:28 Puncture Site Right radial ABG pH 7.413 ABG pCO2 41.3 ABG pO2 52.7 L ABG PO2/FiO2 Ratio 2.51 ABG HCO3 25.8 ABG O2 Saturation 87.7 L* ABG O2 Content 18.7 ABG Base Excess 1.1 A-a Gradient 47.6 Oxyhemoglobin 86.1 L* Total Hemoglobin 15.5 O2 Delivery Device Room air O2 Liters/Min Not Reportable FiO2 21 Imaging Data Radiologist's impression: Impressions Chest X-Ray 04/12/25 17:08 IMPRESSION: No acute cardiopulmonary pathology. Emphysema of the lungs. ECG Data EKG #1: Attestation: I personally reviewed and interpreted this ECG as follows: ECG completion date: 03/16/25 Interpretation: NORMAL SINUS RHYTHM AT 99 BEATS PER MINUTE WITH FREQUENT PVCS, LEFT VENTRICULAR HYPERTROPHY AND ST-T CHANGE COMPARED TO EKG ON OCTOBER 29, 2024 PVCS NO LONGER PRESENT Critical Care Time Critical Care Time Critical Care Time: No Discharge Plan Discharge Clinical Impression: Acute exacerbation of chronic obstructive pulmonary disease Patient Disposition: Still a Patient Condition: Stable
--- NOTE | 2025-04-12 17:19 | PC.NURSE ---
Dr. Hernandez at bedside talking with pt.
[2025-04-12 17:27] LABS: Basophils Percent Auto 0.3 % (0.2-1.2); Eosinophils Percent Auto 0.1 % (0-4.4); Hematocrit 49.8 % (37.0-47.0); Immature Granulocyte Absolute 0.05 K/mm3 (0.00-0.031); Immature Granulocyte Percent A 0.4 % (0-0.5); Immature Platelet Fraction Pct 7.3 % (0.9-11.2); Lymphocytes Absolute Auto 0.93 K/mm3 (0.9-3.2); Lymphocytes Percent Auto 6.7 % (18.3-44.2); Mean Corpuscular HGB Conc 32.1 g/dl (32-36); Mean Corpuscular Hemoglobin 29.7 pg (26-34); Mean Corpuscular Volume 92.6 fl (80-100); Mean Platelet Volume 10.4 fl (7.4-10.4); Monocytes Absolute Auto 1.2 K/mm3 (0.1-0.6); Monocytes Percent Auto 8.5 % (2.6-8.5); Neutrophils Absolute Auto 11.6 K/mm3 (1.3-6.7); Platelet Count Result 232 k/mm3 (150-375); Red Blood Count 5.38 M/mm3 (4.2-5.4); Red Cell Distribution Width 13.8 % (11.5-14.5); White Blood Count 13.8 K/mm3 (4.5-10.0)
[2025-04-12 17:31] LABS: Alveolar/Arterial O2 Gradient 47.6 mmHg; Base Excess ABG 1.1 mEq/l (+/-2.0); Fractional Inspired Oxygen 21 %; HCO3 ABG 25.8 mEq/l (22.0-26.0); Oxygen Content ABG 18.7 %vol (16.0-22.0); Oxygen Saturation ABG 87.7 % (95.0-100.0); PCO2 ABG 41.3 mmHg (35.0-45.0); PO2 ABG 52.7 mmHg (80.0-100.0); PO2 FiO2 Ratio Arterial Blood 2.51 %; Total Hemoglobin 15.5 g/dL (12.0-18.0); pH ABG 7.413 (7.350-7.450)
[2025-04-12 17:32] LABS: Device ROOM AIR; Modified Allen's Test Pass; Oxyhemoglobin 86.1 % THb (90.0-100.0); Site Drawn RIGHT RADIAL
[2025-04-12 17:36] LABS: INR 1.1; Prothrombin Time 14.2 Seconds (11.1-14.7)
[2025-04-12 17:37] LABS: Partial Thromboplastin Time 23.3 Seconds (22.3-36.8)
[2025-04-12 17:40] LABS: Alanine Aminotransferase 34 U/L (6-35); Albumin Level 4.6 g/dL (3.5-5.1); Alkaline Phosphatase 127 U/L (38-126); Anion Gap 13 mmol/L (4-12); Aspartate Amino Transferase 39 U/L (14-36); Bilirubin,Total 1.3 mg/dL (0.2-1.3); Blood Urea Nitrogen 17 mg/dL (7-17); Calcium 9.8 mg/dL (8.4-10.2); Carbon Dioxide 31 mmol/L (22-30); Chloride 89 mmol/L (98-107); Estimated CRCL calculation 50 ml/min; Estimated Glomerular Filt Rate > 60; Glucose 138 mg/dL (65-110); Potassium 4.6 mmol/L (3.4-5.0); Sodium 133 mmol/L (137-145)
[2025-04-12 17:52] LABS: NT Pro B Type Natriuretic Pept 13200 pg/mL (19.9-100); Troponin I < 0.012 ng/mL (0.000-0.034)
--- OUTSIDE RECORDS SUMMARY | 2025-04-12 17:52 | XMS_ITS | Continuity of Care Document ---
Author Organization [facility] Address [address] [place] [phone] Phone Care Team Providers Care [employer] Membership Sales Agent Name Role Phone Kenneth Vargas MD Unavailable Unavailable Procedures Procedure Date Office/outpatient visit,est, low 2008 Supplemental Report Office/outpatient visit,est, [facility] 2008 Supplemental Report Work/medical disability examination I M E X-ray exam of shoulder, complete 2007 Advance Directives Directive Yes / No Effective Date File Name No Information Encounters Encounter Description Practice Location Reason(s) For Visit Diagnoses Date Provider Providers Copied on Encounter Office/outpat ient visit,est, low [facility], [address], [id number], tel:[phone] [facility] No Information 9 Alicia Cooper. [address] [facility], [address], [id number] , [place]. tel: [phone] Office/outpat ient visit,est, [facility], [address] [place] [address], [id number], [place] tel:[phone] [facility] No Information 9 Alicia Cooper. [address] [place] [address], [address], [id number] , [place]. tel: [phone] Work/medical disability examination I M E [facility], [address] [place] [address], [id number], [place] tel:[phone] [facility] No Information Alicia Cooper. [address] [facility], [address], [place], [place], [id number] , [place]. tel: [phone] Family History Family Member Type Diagnosis Age At Onset No Information Payers Payer name Insurance type Covered republican ID Girish echavarria(s) [facility] [id number] Social History Type Description Quantity Date Captured [...]
--- OUTSIDE RECORDS SUMMARY | 2025-04-12 17:52 | XMS_ITS | CONTINUITY OF CARE DOCUMENT ---
Author Name willie tapia Address Unknown Organization [facility] Address [address] [facility] [address] [place] [address] Phone [phone] Care Team Providers Care Digital Marketing Analyst Name Role Phone Ric Escalante MD Unavailable [phone] PERCY RIZVI MD Unavailable [phone] MARK CATES MD Unavailable PROBLEMS Condition Status Date Provider Notes Other symptoms involving cardiovascular system active Ric Escalante MD Coronary Heart Disease active ? Ric Delcid Hyperlipidemia active ? Ric Escalante MD Tobacco abuse active Ric Escalante MD ENCOUNTERS Date Type Provider Location Encounter Diag nosis - In-person encounter Office Visit Ric Escalante MD [place] [facility] Other symptoms involving cardiovascular systemCoronary Heart [...] Payer name Policy type / Coverage type [place] [employer] party ID [place] Medicaid [id number] TREATMENT PLAN Date Name STR - Nuclear HISTORY OF PROCEDURES Procedure Date Procedure Name Provider Procedure Notes S tatus EKG Ric Escalante MD completed
--- OUTSIDE RECORDS SUMMARY | 2025-04-12 17:53 | XMS_ITS | Continuity of Care Document ---
Author Organization [facility] Address [address] [place] [address] [address] [place] [address] Phone Care Team Providers Care Putty Mixer And Applier Name Role Phone Valdez OD, Bernardo Unavailable Unavailable Procedures Procedure Date Eye Exam & Treatment Refraction Eye Exam & Treatment Refraction Eye Exam & Treatment Refraction Advance Directives Directive Yes / No Effective Date File Name No Information Encounters Encounter Description Practice Location Reason(s) For Visit Diagnoses Date Provider Providers Copied on Encounter [facility], [address] [place] [address] [address], [place], [place], [id number], [place] tel:[phone] [facility] No Information 0-201 0 Valdez OD Bernardo. [address] [facility] [address], [place], [address], [place]. tel:[phone] [facility], [address] [place] [address] [address], [place], [place], [id number], [place] tel:[phone] [facility] No Information 1-200 8 Valdez OD Bernardo. [address] [facility] [address], [place], [address], [place]. tel:[phone] [facility], [address] [place] [address] [address], [place], [place], [id number], [place] tel:[phone] [facility] No Information 2-200 7 Valdez OD Bernardo. [address], [place], [address], [place]. tel:[phone] Family History Family Member Type Diagnosis Age At Onset No Information Payers Payer name Insurance type Covered constitution party ID Authoriza tion(s) No Information Social History [...]
--- OUTSIDE RECORDS SUMMARY | 2025-04-12 17:53 | XMS_ITS | Referral Summary ---
Author Organization [place] [address] [place] [id number] Care Team Providers Care Rf Manager Name Role Phone Gayle Hammond MD Primary Care Provider Encounters Date Type Department Care Team Description 04/10/2025 1:00 PM CDT Ancillary Procedure [facility] Cardiology at [address] [place] [address] Nonrheumatic mitral valve regurgitation 03/16/2025 Telephone [facility] Cardiology [address] [place] [address] [address] [place] [phone] Nataliia Anderson NP 03/16/2025 Results Follow-Up [facility] Cardiology [address] [place] [address] [address] [place] [address] Nataliia Anderson NP 24 HR Holter Monitor 02/03/2025 Telephone [facility] Cardiology [address] [place] [address] [address] [place] [phone] Nataliia Anderson NP 01/19/2025 Telephone [facility] Cardiology [address] [place] [address] [address] [place] [phone] David Irizarry MD 01/19/2025 Telephone [facility] Cardiology [address] [place] [address] [address] [place] [phone] Nataliia Anderson NP Test Results 01/16/2025 2:30 PM BOAT DETAILER Ancillary Procedure [facility] Cardiology [address] [place] [address] PVC (premature ventricular contraction) 01/16/2025 1:00 PM BOAT DETAILER Office Visit [facility] Cardiology [address] [facility] [address] [place] [address] Nataliia Anderson NP NICM (nonischemic cardiomyopathy) ([facility]); Moderate mitral valve regurgitation; MVP (mitral valve [...] Decreased cardiac ejection fraction 06/01/2021 History of [place] (myocardial infarction) 06/01/2021 Coronary artery disease invo lving pechanga coronary artery of pechanga heart without angina pectoris 06/01/2021 Other hyperlipidemia [...] on file Legal Sex Female 11:57 AM BOAT DETAILER Gender Identity Not on file Sexual Orientation Not on file Last Filed Vital Signs Vital Sign Reading Time Taken Comments Blood Pressure 120/68 01/16/2025 1:16 PM BOAT DETAILER Pulse 85 01/16/2025 1:16 PM BOAT DETAILER Temperature - - Respiratory Rate - - Oxygen Saturation 98% 01/16/2025 1:16 PM BOAT DETAILER Inhaled Oxygen Concentration - - Weight 52.2 kg (115 lb) 01/16/2025 1:16 PM BOAT DETAILER Height 157.5 cm (5' 2 ) 01/16/2025 1:16 PM BOAT DETAILER Body Mass Index 21.03 01/16/2025 1:16 PM BOAT DETAILER Plan of Treatment Not on file Procedures [...] PM CDT Narrative 04/10/2025 5:31 PM CDT [facility] Cardiology [address], [address], [place] [address] P:[phone] P:[phone] Echocardiographic Report Patient Name: GENNY CASILLAS S [...] Site: Exam was interpreted at [facility]. Left Ventricle: Mild enlargement of left [...] valve. Electronically Signed By: Hugo Strong MD, [facility] 04/10/2025 5:30:53 PM CDT Procedure Note Hugo Strong MD - 04/10/2025 [facility] Cardiology [address], [address], [place] [address] P:[phone] P:[phone] Echocardiographic Report Patient Name: GENNY CASILLAS S : 1960 Study Date: 04/10/2025 1:22:23 PM Gender: F Tech: Location: [facility] Ref Provider: VIDYA NATH Height(Cm): 157 BSA: [...] Site: Exam was interpreted at [facility]. Left Ventricle: Mild enlargement of left [...] valve. Electronically Signed By: Hugo Strong MD, [facility] 04/10/2025 5:30:53 PM CDT us Vidya Nath MD CV ECHO PROCEDURES F inal Result * 24 HR Holter Monitor (02/27/2025 4:21 PM CDT) Anatomical Region Laterality Modality Electrocardiogra phy Narrative 03/16/2025 8:21 AM CDT AMBULATORY BOAT DETAILER REPORT Patient Name: Genny Casillas Date of [...] was used to complete this document, therefore, double end tenoner setter variances may occur. Vidya Nath MD, [facility] 03/16/25 Procedure Note Vidya Nath MD - 03/16/2025 AMBULATORY BOAT DETAILER REPORT Patient Name: Genny Casillas Date of [...] software was used to complete this document, therefore,double end tenoner setter variances may occur. Vidya Nath MD, [facility] 03/16/25 Nataliia Anderson NP CV CARDIAC [...] Most Recently Relevant to Health Maintenance Insurance [facility] MEDICARE [facility] Care Teams Rf Manager Relationship Specialty Start Date End Date Gayle Hammond MD PCP - General Family Medicine 05/30/21
--- OUTSIDE RECORDS SUMMARY | 2025-04-12 17:53 | XMS_ITS | Clinical Summary ---
Author Organization [facility] [address] Address [address] [place] [address] Care Team Providers Care Sales Agent Name Role Phone Gayle Hammond MD Primary Care Provider Allergies Active Allergy Reactions Criticality Noted Date [...] Decreased cardiac ejection fraction 06/01/2021 History of [place] (myocardial infarction) 06/01/2021 Coronary artery disease invo lving cabazon coronary artery of cabazon heart without angina pectoris 06/01/2021 Other hyperlipidemia 06/01/2021 Tobacco abuse counseling 06/01/2021 Encounters Date Type Department Care Team Description 04/10/2025 1:00 PM CDT Ancillary Procedure [facility] Cardiology at [address] [place] [address] Nonrheumatic mitral valve regurgitation 03/16/2025 Telephone [facility] Cardiology [address] [place] [address] [place] [phone] Nataliia Anderson NP 03/16/2025 Results Follow-Up [facility] Cardiology [address] [place] [address] [place] [phone] Nataliia Anderson NP 24 HR Holter Monitor 02/03/2025 Telephone [facility] Cardiology [address] [place] [address] [place] [phone] Nataliia Anderson NP 01/19/2025 Telephone [facility] Cardiology [address] [place] [address] [place] [phone] David Irizarry MD 01/19/2025 Telephone [facility] Cardiology [address] [place] [address] [place] [phone] Nataliia Anderson NP Test Results 01/16/2025 2:30 PM 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 Ancillary Procedure [facility] Cardiology [address] [place] [address] PVC (premature ventricular contraction) 01/16/2025 1:00 PM 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 Office Visit [facility] Cardiology [address] [place] [phone] Nataliia Anderson NP NICM (nonischemic cardiomyopathy) (HCC); [...] on file Legal Sex Female 11:57 AM 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 Gender Identity Not on file Sexual Orientation Not on file Obstetrics History Para Term AB IAB SAB Ectopic Multiple Livin g Live Births 4 2 2 Date Outcome GA Total Labor Labor/2nd/3rd Weight Sex Type Anes PTL Radha A1 A5 Name Clin Term Term Last Filed Vital Signs Vital Sign Reading Time Taken Comments Blood Pressure 120/68 01/16/2025 1:16 PM 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 Pulse 85 01/16/2025 1:16 PM 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 Temperature - - Respiratory Rate - - Oxygen Saturation 98% 01/16/2025 1:16 PM 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 Inhaled Oxygen Concentration - - Weight 52.2 kg (115 lb) 01/16/2025 1:16 PM 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 Height 157.5 cm (5' 2 ) 01/16/2025 1:16 PM 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 Body Mass Index 21.03 01/16/2025 1:16 PM 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 Plan of Treatment Health Maintenance Due Date [...] PM CDT Narrative 04/10/2025 5:31 PM CDT [facility] Cardiology [address], [address], [place] [address] P:[phone] P:[phone] Echocardiographic Report Patient Name: GENNY CASILLAS S [...] FINDINGS: Interpretation Site: Exam was interpreted at [facility]. Left Ventricle: Mild enlargement of left [...] valve. Electronically Signed By: Hugo Strong MD, [facility] 04/10/2025 5:30:53 PM CDT Procedure Note Fleissner, Max., MD - 04/10/2025 [facility] Cardiology [address], [address], [place] [address] P:[phone] P:[phone] Echocardiographic Report Patient Name: GENNY CASILLAS S [...] 2.20 - 3.50 ] MV E Peak [place] 1.03m/s [ 0.60 - 1.30 ] LVPWd [...] FINDINGS: Interpretation Site: Exam was interpreted at [facility]. Left Ventricle: Mild enlargement of left [...] valve. Electronically Signed By: Hugo Strong MD, [facility] 04/10/2025 5:30:53 PM CDT us Vidya Nath MD CV ECHO PROCEDURES F inal Result * 24 HR Holter Monitor (02/27/2025 4:21 PM CDT) Anatomical Region Laterality Modality Electrocardiogra phy Narrative 03/16/2025 8:21 AM CDT AMBULATORY PHYSICIAN OFFICE NURSE REPORT Patient Name: Genny Casillas Date of [...] was used to complete this document, therefore, clinic lpn variances may occur. Vidya Nath MD, [facility] 03/16/25 Procedure Note Vidya Nath MD - 03/16/2025 AMBULATORY PHYSICIAN OFFICE NURSE REPORT Patient Name: Genny Casillas Date of [...] software was used to complete this document, therefore,clinic lpn variances may occur. Vidya Nath MD, [facility] 03/16/25 Nataliia Anderson NP CV CARDIAC [...] [employer]ANCE [employer] MEDICARE GOLD Care Teams Sales Agent Relationship Specialty Start Date End Date Gayle Hammond MD PCP - General Family Medicine 05/30/21
--- OUTSIDE RECORDS SUMMARY | 2025-04-12 17:53 | XMS_ITS | Encounter Summary ---
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
--- OUTSIDE RECORDS SUMMARY | 2025-04-12 17:53 | XMS_ITS | Clinical Summary ---
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 office; no charge Mammary Silic Smth Rnd Mp+ [id number] - [id number] Implanted:Qty: 1 on 03/06/2011 at [facility] Mammary Left: Breast [employer] TALA 01/06/2016 [id number] / [id number] Description:Implant brought from Dr. drew; no charge Insurance Advance Directives For more information, please contact: [phone] * Full Code (Latest Code Status on File) Date Activated Date Inactivated Comments 03/06/2011 12:38 PM 03/06/2011 10:35 PM * Full Code Date Activated Date Inactivated Comments 03/06/2011 10:38 AM 03/06/2011 12:38 PM * Full Code Date Activated Date Inactivated Comments 03/06/2011 9:53 AM 03/06/2011 10:38 AM
[2025-04-12] MEDS: methylPREDNISolone SOD SUCC 125 MG VIAL IV PUSH (18:31)
[2025-04-12] MEDS: ALBUTEROL SULFATE NEB 2.5 MG/3 ML INH INHALATION (18:34)
[2025-04-12] MEDS: IPRATROPIUM 0.5 MG/ALBUTEROL SULFATE 2.5 MG AMPUL.NEB 3 ML INHALATION ×2 (18:34→20:48)
--- NOTE | 2025-04-12 18:35 | PC.NURSE ---
RT at bedside administering breathing treatment.
--- NOTE | 2025-04-12 19:25 | P.HP_ITS ---
H&P: HPI History of Present Illness Date/Time: 04/12/25 22:25 Chief Complaint: Shortness of breath. Narrative: This is a 65-year-old female smoker (she has cut back significantly) with chronic obstructive pulmonary disease, mildly reduced left ventricular systolic function and diastolic dysfunction, moderate to severe mitral valve regurgitation, mild pulmonary hypertension, coronary artery disease, hypertensi on, hyperlipidemia, osteoporosis, depression, and anxiety who presented to the emergency department via private vehicle from home for evaluation of shortness of breath. She gives a 4-day history of increasing dyspnea on lesser and lesser exertion, congestion, and increasing cough and sputum production from baseline. She rarely coughs up small amounts of clear phlegm but it has been thick and grimes in color the last few days. She denies fever, chills, sweats, sick contacts, exertional chest pain, pleuritic pain, nausea, vomiting, sweats, lower extremity edema, and calf pain. In the ED: Vital signs on arrival include a temperature of 98.6?, blood pressure 109/61, pulse 87, respiratory 20, SpO2 89% on room air. Labs were significant for WBC count 13.8, hemoglobin 16.0, hematocrit 49.8%, sodium 133, chloride 89, carbon dioxide 31, anion gap 13, proBNP 25628. ABG had a pH of 7.413, pCO2 41.3, PO2 52.7, HC03 25.8. Chest x-ray showed no acute cardiopulmonary pathology and underlying emphysematous changes. EKG showed sinus rhythm with frequent supraventricular premature complexes and left ventricular hypertrophy and ST-T changes. Review of Systems Review of Systems: 12 systems were reviewed and are negativ e except for as per HPI. [facility] Past Medical History Medical History (Updated 04/12/25 @ 23:17 by Bernadette Ricci PA-C) Chronic obstructive pulmonary disease Coronary artery disease Tobacco abuse Arthritis Osteoporosis Depression Vision abnormalities Anxiety Essential hypertension History of [place] (myocardial infarction) 2006 - no intervention required - regular stress tests as part of her job - all negative since Mixed hyperlipidemia Surgical History Surgical History History of total right hip arthroplasty Per Dr. Ambriz. 02/16/2021 History of total left hip arthroplasty History of breast surgery augmentation History of cholecystectomy History of surgery Foot, Dr. Chavo Stapleton History of ankle surgery Left, Dr. Rae History of surgery Right thumb, Dr. 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 She lives at home alone. She wishes to be a full code. She has designated her two children Robson and Mel as her surrogate decision makers. She quit briefly, but now is back to smoking 1 ppd. Smoking packs per day: 0.5 Smoking cigarettes per day: 10.0 Years smoked: 40 Smoking pack-years: 20.00 Smoking status: Current every day smoker Second hand tobacco smoke exposure: Yes Additional smoking assessment comments: 2-3 cigarettes per day now Alcohol intake: never Substance use: never Substance use type: does not use Do You Feel Safe in your Home?: Yes Lack of Transportation: No Lack of Food: Sometimes True Current Housing: I Have Housing Concerned About Future Housing: No Difficulty Paying Gas/Electric Bills: No Difficulty Paying for Meds: No Currently Unemployed: No Education: High School Diploma/GED Difficulty w/ Childcare or Family Care: No Living arrangements: alone Gender identity (if verbalized by the patient): Female Sexual Orientation (if Verbalized by the Patient): Straight or Heterosexual Spiritual care concerns: No Meds Home Medications and Allergies Home Medications ?Medication ?Instructions ?Recorded ?Confirmed ?Type multivitamin,yb-[id number] 1 tablet PO HS 05/28/20 04/12/25 History (Complete Multivitamin tablet) cholecalciferol (vitamin D3) 25 25 mcg PO HS 04/24/22 04/12/25 History mcg (1,000 unit) capsule albuterol sulfate 90 mcg/actuation 2 inh inhalation Q4H PRN Shortness 09/12/24 04/12/25 Rx aerosol inhaler Of Breath Or Wheezing #3 device aspirin 81 mg tablet,delayed 81 mg PO DAILY 09/23/24 04/12/25 History release furosemide 40 mg tablet 40 mg PO DAILY 30 days #30 tabs 11/01/24 04/12/25 Rx losartan 50 mg tablet (Cozaar) 50 mg PO QAM 30 days #90 tabs 12/03/24 04/12/25 Rx venlafaxine 150 mg 150 mg PO HS #90 caps 12/05/24 04/12/25 Rx capsule,extended release 24 hr atorvastatin 10 mg tablet 10 mg PO DAILY #90 tabs 02/19/25 04/12/25 Rx clopidogrel 75 mg tablet 75 mg PO HS #90 tabs 02/19/25 04/12/25 Rx metoprolol succinate 25 mg 25 mg PO HS #90 tabs 02/19/25 04/12/25 Rx tablet,extended release 24 hr montelukast 10 mg tablet 10 mg PO HS #90 tabs 02/19/25 04/12/25 Rx spironolactone 25 mg tablet 25 mg PO DAILY 04/12/25 04/12/25 History Allergies Allergy/AdvReac Type Severity Reaction Status Date / Time codeine Allergy Intermediate Hives Verified 04/12/25 16:41 hydrocodone Allergy Intermediate Hives Verified 04/12/25 16:41 mold Allergy Intermediate Nasal Verified 04/12/25 16:41 Discharge nickel Allergy Intermediate Swelling/BL Verified 04/12/25 16:41 ISTERS/ITCH ING ragweed pollen Allergy Intermediate Nasal Verified 04/12/25 16:41 Discharge Sulfa (Sulfonamide Allergy Intermediate Hives Verified 04/12/25 16:41 Antibiotics) Vital Signs Vital Signs - 24 hr 04/12/25 16:43 04/12/25 16:51 04/12/25 17:00 Temperature 98.6 F Pulse Rate 87 Respiratory Rate 20 Blood Pressure 109/61 Pulse Oximetry 89 L 91 86 L Oxygen Delivery Nasal Cannula Room Air Oxygen Flow Rate 2 Fraction of Inspired Oxygen 04/12/25 17:19 04/12/25 18:34 04/12/25 18:34 Temperature Pulse Rate 93 Respiratory Rate 20 Blood Pressure Pulse Oximetry 90 95 Oxygen Delivery Nasal Cannula Nasal Cannula Oxygen Flow Rate 2 2 Fraction of Inspired Oxygen 28 04/12/25 18:41 04/12/25 18:46 Temperature Pulse Rate 89 86 Respiratory Rate 18 16 Blood Pressure 115/81 Pulse Oximetry 100 Oxygen Delivery Oxygen Flow Rate Fraction of Inspired Oxygen Exam Narrative: General: Thin female in the semi-Felix position in bed. Weight: 49 kg. BMI: 19.8. HEENT: PERRL, EOMI. Sclera anicteric. Oral mucosa moist. Neck: Supple. No JVD or lymphadenopathy. Respiratory: Mild conversational dyspnea though she is not in any distress. Significantly diminished air intake throughout with end-expiratory wheezing and occasional rhonchi which clear with cough. Cardiovascular: Regular rate and rhythm with S1-S2. Systolic murmur at the apex. Gastrointestinal: Abdomen is soft, flat, nontender, and nondistended with positive bowel sounds. Skin: Warm and dry. No rash or lesions on limited exam. Extremities: No cyanosis, clubbing, or edema. Radial and pedal pulses intact. Neurological: Alert. Cranial nerves 2-12 are grossly intact. No gross focal deficits to casual conversation. Psychiatric: Pleasant and cooperative with normal mood and affect. Judgment and insight intact. H&P: Results Labs Labs: Short CBC 04/12/25 Range/Units 17:19 WBC 13.8 H (4.5-10.0) K/mm3 Hgb 16.0 H (12.0-15.0) g/dL Hct 49.8 H (37.0-47.0) % Plt Count 232 (150-375) k/mm3 BMP 04/12/25 04/12/25 04/12/25 17:19 17:19 17:19 Sodium Cancelled 133 L Potassium Cancelled 4.6 Chloride Cancelled Carbon Dioxide BUN Creatinine Glucose Calcium 04/12/25 04/12/25 04/12/25 17:19 17:19 17:19 Sodium Potassium Chloride 89 L Carbon Dioxide Cancelled 31 H BUN Cancelled 17 Creatinine Cancelled Glucose Calcium 04/12/25 04/12/25 04/12/25 17:19 17:19 17:19 Sodium Potassium Chloride Carbon Dioxide BUN Creatinine 0.76 Glucose Cancelled 138 H Calcium Cancelled 9.8 Cardiac Enzymes 04/12/25 Range/Units 17:19 Troponin I < 0.012 (0.000-0.034) ng/mL Liver Function 04/12/25 04/12/25 04/12/25 Range/Units 17:19 17:19 17:19 Total Bilirubin Cancelled 1.3 AST Cancelled 39 H ALT Cancelled Alkaline Phosphatase Albumin 04/12/25 04/12/25 04/12/25 Range/Units 17:19 17:19 17:19 Total Bilirubin AST ALT 34 Alkaline Phosphatase Cancelled 127 H Albumin Cancelled 4.6 Imaging Chest X-Ray 04/12/25 17:08 IMPRESSION: No acute cardiopulmonary pathology. Emphysema of the lungs. Assessment and Plan Assessment and plan (1) Acute exacerbation of chronic obstructive pulmonary disease: Code(s): J44.1 - Chronic obstructive pulmonary disease with (acute) exacerbation Status: Acute (2) Hypoxia: Code(s): R09.02 - Hypoxemia Status: Acute (3) Polycythemia: Code(s): D75.1 - Secondary polycythemia Status: Acute (4) Essential hypertension: Code(s): I10 - Essential (primary) hypertension Status: Chronic (5) Congestive heart failure: Qualifiers: Heart failure chronicity: acute Heart failure type: unspecified Qualified Code(s): I50.9 - Heart failure, unspecified Code(s): I50.9 - Heart failure, unspecified Status: Acute (6) Coronary artery disease: Code(s): I25.10 - Atherosclerotic heart disease of tetlin coronary artery without angina pectoris Status: Acute (7) Mixed hyperlipidemia: Code(s): E78.2 - Mixed hyperlipidemia Status: Chronic (8) Tobacco abuse: Code(s): Z72.0 - Tobacco use Status: Chronic Plan The patient presented to the emergency department with a several-day history of increasing shortness of breath as detailed in HPI. Labs, imaging, EKG, and all reports were personally reviewed. Her history is consistent with a COPD exacerbation she has been started on scheduled bronchodilators, steroids, and antibiotics given increase in cough and sputum production. Cornet and Mucinex ordered to help mobilize secretions. She will need a home oxygen study prior to discharge due to concerns for chronic hypoxia with polycythemia. Chronic conditions including coronary artery disease, congestive heart failure, hyperlipidemia, and hypertension are without acute issues. Her home medications will be reviewed and resumed as appropriate. Findings and treatment plan were discussed with the patient. Questions were solicited and answered to satisfaction. The patient's medical management will be taken over by the hospitalist team in a.m. Quality VTE Prophylaxis VTE prophylaxis: mechanical ordered If No VTE Prophylaxis Answer both mechanical and pharmacologic: Reason no pharmacologic proph: medical contraindication (patient on dual anti- platelet therapy, pharmacologic prophylaxis would put her at increased risk for bleeding) The patient has been admitted under observation status. Hospitalist [facility] Advance Care Plan I have confirmed that the patient's Advanced Care Plan is present, code status is documented, or surrogate decision maker is listed in patient medical record.: Yes Medication Reconciliation I have utilized all available resources to obtain, update and review the patients current medications (includes all prescriptions, OTC, herbals, cannabis, and nutritional supplements).: Yes
--- NOTE | 2025-04-12 20:48 | PCRCNOTE ---
1999 tx will be omitted. Patient rec'd a tx in ED at 1830.
--- NOTE | 2025-04-12 20:51 | ADMGEN ---
This patient, Genny Magallanes, was admitted to 2 Medical Room 254-01. Patient/family oriented to hospital policies and general routines including ID bracelet, bed and alarms, visiting hours, pain management, procedures, bathroom and other care routines, personal items, smoking policy, room service/diet, and visiting hours. Information on how to activate the Rapid Response Team has been discussed. Patient/Family are encouraged to report perceived risks to care and to ask questions if they do not understand what they are told or what they should do.
[2025-04-12] MEDS: SODIUM CHLORIDE 0.9% IV 1,000 ML 75 ML IV CONT (22:03)
[2025-04-12] MEDS: AZITHROMYCIN 250 MG TABLET 500 MG PO (22:03)
[2025-04-12] MEDS: VENLAFAXINE HCL XR 75 MG CAP.ER.24H 150 MG PO (22:58)
[2025-04-12] MEDS: CLOPIDOGREL BISULFATE 75 MG TABLET PO (22:58)
[2025-04-12] MEDS: METOPROLOL SUCCINATE EXT REL 25 MG TABCR PO (23:07)
[2025-04-12] MEDS: THERAPEUTIC MULTIVITAMINS/MINERALS TAB (*BKC) 1 TABLET PO (23:07)
[2025-04-12] MEDS: CHOLECALCIFEROL 1,000 UNITS TABLET 1000 UNITS PO (23:07)
[2025-04-12] MEDS: MONTELUKAST SODIUM 10 MG TABLET PO (23:07)
[2025-04-12] MEDS: guaiFENesin 12 HR 600 MG TABCR 1200 MG PO (23:26)
[2025-04-13] VITALS (16 sets, daily range): BP systolic 129–153; BP diastolic 68–90; PULSE 72–93; RESP 16–22; TEMP 36.1–36.7; O2SAT 92–100
[2025-04-13] MEDS: IPRATROPIUM 0.5 MG/ALBUTEROL SULFATE 2.5 MG AMPUL.NEB 3 ML INHALATION ×4 (02:16→19:48)
[2025-04-13 05:26] LABS: Basophils Percent Auto 0.2 % (0.2-1.2); Hematocrit 43.8 % (37.0-47.0); Hemoglobin 14.1 g/dL (12.0-15.0); Immature Granulocyte Absolute 0.03 K/mm3 (0.00-0.031); Immature Granulocyte Percent A 0.3 % (0-0.5); Lymphocytes Absolute Auto 0.76 K/mm3 (0.9-3.2); Lymphocytes Percent Auto 6.6 % (18.3-44.2); Mean Corpuscular HGB Conc 32.2 g/dl (32-36); Mean Corpuscular Hemoglobin 30.4 pg (26-34); Mean Corpuscular Volume 94.4 fl (80-100); Monocytes Absolute Auto 0.5 K/mm3 (0.1-0.6); Monocytes Percent Auto 4.7 % (2.6-8.5); Neutrophils Absolute Auto 10.1 K/mm3 (1.3-6.7); Neutrophils Percent Auto 88.2 % (45.5-73.1); Platelet Count Result 212 k/mm3 (150-375); Red Blood Count 4.64 M/mm3 (4.2-5.4); Red Cell Distribution Width 13.8 % (11.5-14.5); White Blood Count 11.5 K/mm3 (4.5-10.0)
[2025-04-13 05:32] LABS: Anion Gap 8 mmol/L (4-12); Blood Urea Nitrogen 19 mg/dL (7-17); Calcium 8.7 mg/dL (8.4-10.2); Carbon Dioxide 26 mmol/L (22-30); Chloride 94 mmol/L (98-107); Estimated CRCL calculation 62 ml/min; Estimated Glomerular Filt Rate > 60; Glucose 156 mg/dL (65-110); Potassium 4.4 mmol/L (3.4-5.0); Sodium 128 mmol/L (137-145)
--- NOTE | 2025-04-13 07:26 | P.PNIM_ITS ---
Progress Note: A&P Assessment and Plan (1) Acute exacerbation of chronic obstructive pulmonary disease: Code(s): J44.1 - Chronic obstructive pulmonary disease with (acute) exacerbation Status: Acute Assessment and Plan: * Monitor vital signs, I&Os, neuro status and patient is a fall risk * Monitor serum electrolytes, cultures and CBC * Monitor Oxygen saturation, Oxygen via NC; wean oxygen as tolerated, keep SpO2 greater than 88% * Send sputum cultures if possible * Azithromycin 250mg PO Daily * Duonebz q6H and Albuterol q2H prn * Solu-Medrol 40 mg IVq12H * Home O2 evals prior to discharge (2) Hypoxia: Code(s): R09.02 - Hypoxemia Status: Acute Assessment and Plan: * Symptoms: Shortness of breath, congestion, cough + sputum productoin * SpO2: 92% * Oxygen supplementation: NC 2L * ABG: pH 5.413, pCO2 41.3, pO2 52,7, O2 saturation 87.7%, oxyhemoglobin 86.1 * EKG: NSR w/ frequent SVPCs, LVH * Chest XR: No acute cardiopulmonary pathology. Emphysema of the lungs. * Duonebz q6H and Albuterol q2H prn * Solu-Medrol 40 mg IVq12H (3) Congestive heart failure: Qualifiers: Heart failure chronicity: acute Heart failure type: unspecified Qualified Code(s): I50.9 - Heart failure, unspecified Code(s): I50.9 - Heart failure, unspecified Status: Acute Assessment and Plan: * Current medications: Lasix 40mg * BNP: 13,200 * Chest XR:No acute cardiopulmonary pathology. Emphysema of the lungs. * [facility] 10/12: LV enlarged dimension, systolic function mildly reduced w/ EF 42%, mod-sev MVR, normal RV fxn, LA enlarged, pulm htn * Monitor vital signs, I&Os, BUN/creatinine, daily weights, neuro status and patient is a fall risk * Monitor serum electrolytes, Keep serum Potassium>4 and serum Magnesium>2 and CBC (4) Polycythemia: Code(s): D75.1 - Secondary polycythemia Status: Acute Assessment and Plan: * In ED: RBC 16, Hct 49.8 * On 04/13: RBC 14.1, Hct 43.8 * Home O2 eval * Monitor daily labs (5) Essential hypertension: Code(s): I10 - Essential (primary) hypertension Status: Chronic Assessment and Plan: * Patient's blood pressure was reviewed on 04/12 * Blood pressure remains well controlled. * Will continue current medications. (6) Coronary artery disease: Code(s): I25.10 - Atherosclerotic heart disease of [place] coronary artery without angina pectoris Status: Acute Assessment and Plan: * Continue Clopidogrel 75mg (7) Mixed hyperlipidemia: Code(s): E78.2 - Mixed hyperlipidemia Status: Chronic Assessment and Plan: * Continue atorvastatin 10mg (8) Tobacco abuse: Code(s): Z72.0 - Tobacco use Status: Chronic Assessment and Plan: * Smoking cessation counseling Time Spent With Patient Time: Subjective Date/time seen: 04/13/25 07:26 Interval history: 65-year-old female smoker with COPD, mildly reduced LV systolic function and diastolic dysfunction, moderate to severe MVR, mild pulmonary HTN, CAD, HTN, hyperlipidemia, osteoporosis, depression, and anxiety who presents for evaluation of shortness of breath. 04/13/2025 Patient sitting complained at time exam. Denies any shortness of breath, chest pain, abdominal pain, or nausea/vomiting at this time. She states that she feels much better today versus yesterday. She seems to be responding to the scheduled bronchodilators, steroids and antibiotics. Before discharge, plan to have home oxygen evaluation. Otherwise patient is stable and likely candidate for discharge tomorrow if breathing improves. Review of Systems Review of Systems: 12 systems were reviewed and are negativ e except for as per HPI. Exam Narrative: General: Thin female in the semi-Felix position in bed. Weight: 49 kg. BMI: 19.8. HEENT: PERRL, EOMI. Sclera anicteric. Oral mucosa moist. Neck: Supple. No JVD or lymphadenopathy. Respiratory: Mild conversational dyspnea though she is not in any distress. Significantly diminished air intake throughout with end-expiratory wheezing and occasional rhonchi which clear with cough. Cardiovascular: Regular rate and rhythm with S1-S2. Systolic murmur at the apex. Gastrointestinal: Abdomen is soft, flat, nontender, and nondistended with po sitive bowel sounds. Skin: Warm and dry. No rash or lesions on limited exam. Extremities: No cyanosis, clubbing, or edema. Radial and pedal pulses intact. Neurological: Alert. Cranial nerves 2-12 are grossly intact. No gross focal deficits to casual conversation. Psychiatric: Pleasant and cooperative with normal mood and affect. Judgment and insight intact. Objective Data Vital Signs Vital Signs: Vital Signs - 24 hr 04/12/25 16:43 04/12/25 16:51 04/12/25 17:00 Temperature 98.6 F Pulse Rate 87 Respiratory Rate 20 Blood Pressure 109/61 Pulse Oximetry 89 L 91 86 L Oxygen Delivery Nasal Cannula Room Air Oxygen Flow Rate 2 Fraction of Inspired Oxygen 04/12/25 17:19 04/12/25 18:34 04/12/25 18:34 Temperature Pulse Rate 93 Respiratory Rate 20 Blood Pressure Pulse Oximetry 90 95 Oxygen Delivery Nasal Cannula Nasal Cannula Oxygen Flow Rate 2 2 Fraction of Inspired Oxygen 28 04/12/25 18:41 04/12/25 18:46 04/12/25 20:44 Temperature Pulse Rate 89 86 Respiratory Rate 18 16 Blood Pressure 115/81 Pulse Oximetry 100 95 Oxygen Delivery Nasal Cannula Oxygen Flow Rate 2 Fraction of Inspired Oxygen 04/12/25 21:20 04/12/25 21:34 04/12/25 22:18 Temperature 98.1 F 98.1 F Pulse Rate 63 63 Respiratory Rate 20 20 Blood Pressure 147/79 H 147/79 H Pulse Oximetry 92 92 92 Oxygen Delivery Nasal Cannula Oxygen Flow Rate 2 Fraction of Inspired Oxygen 04/12/25 23:07 04/13/25 02:16 04/13/25 02:27 Temperature Pulse Rate 63 88 88 Respiratory Rate 16 16 Blood Pressure Pulse Oximetry Oxygen Delivery Oxygen Flow Rate Fraction of Inspired Oxygen 04/13/25 03:47 Temperature 98.1 F Pulse Rate 74 Respiratory Rate 18 Blood Pressure 148/73 H Pulse Oximetry 92 Oxygen Delivery Oxygen Flow Rate Fraction of Inspired Oxygen Intake/Output Intake/Output: Intake & Output 04/10/25 04/11/25 04/12/25 04/13/25 23:59 23:59 23:59 23:59 Intake Total 480 Balance 480 Meds/Results Medications: Active Medications Generic Name Dose Route Start Last Admin Trade Name Freq PRN Reason Stop Dose Admin Acetaminophen 650 mg 04/12/25 18:56 Acetaminophen 325 Mg Tablet PO Q4H PRN Mild Pain (1-3) or Fever Albuterol 2.5 mg 04/12/25 18:56 Albuterol Sulfate Neb 2.5 Mg/3 Ml Inh INHALATION Q4H PRN sob Albuterol 2 puff 04/12/25 22:37 Albuterol Sulfate (*Sp) Aerosol 1 Puff INHALATION Q4HRT PRN Shortness Of Breath Or Wheezing Albuterol/Ipratropium 3 ml 04/12/25 20:00 04/13/25 02:16 Ipratropium 0.5 Mg/Albuterol Sulfate 2.5 Mg Ampul.Neb 3 Ml INHALATION 3 ml Q6HRT CHUCKIE Administration Aspirin 81 mg 04/13/25 09:00 Aspirin 81 Mg Enteric Tablet PO DAILY [facility] Atorvastatin Calcium 10 mg 04/13/25 09:00 Atorvastatin 10 Mg Tablet PO DAILY [facility] Azithromycin 250 mg 04/13/25 09:00 Azithromycin 250 Mg Tablet PO 04/16/25 09:01 DAILY [facility] Clopidogrel Bisulfate 75 mg 04/12/25 22:40 04/12/25 22:58 Clopidogrel Bisulfate 75 Mg Tablet PO 75 mg HS [facility] Administration Furosemide 40 mg 04/13/25 09:00 Furosemide 40 Mg Tablet PO DAILY [facility] Guaifenesin 1,200 mg 04/12/25 23:15 04/12/25 23:26 Guaifenesin 12 Hr 600 Mg Tabcr PO 1,200 mg Q12HR CHUCKIE Administration Sodium Chloride 1,000 mls @ 75 mls/hr 04/12/25 19:43 04/12/25 22:03 Normal Saline Iv IV CONT 04/13/25 09:02 75 mls/hr .[id number] ONE Administration Losartan Potassium 50 mg 04/13/25 09:00 Losartan Potassium 50 Mg Tablet PO QAM [facility] Methylprednisolone Sodium Succinate 40 mg 04/13/25 09:00 Methylprednisolone Sod Succ 40 Mg Vial IV PUSH TID [facility] Metoprolol Succinate 25 mg 04/12/25 23:00 04/12/25 23:07 Metoprolol Succinate Ext Rel 25 Mg Tabcr PO 25 mg HS [facility] Administration Montelukast Sodium 10 mg 04/12/25 23:00 04/12/25 23:07 Montelukast Sodium 10 Mg Tablet PO 10 mg HS [facility] Administration Multivitamins/Calcium 1 tablet 04/12/25 23:00 04/12/25 23:07 Therapeutic Multivitamins/Minerals Tab (*Bkc) PO 1 tablet HS [facility] Administration Spironolactone 25 mg 04/13/25 09:00 Spironolactone 25 Mg Tablet PO DAILY CHUCKIE Venlafaxine HCl 150 mg 04/12/25 22:45 04/12/25 22:58 Venlafaxine Hcl Xr 75 Mg Cap.Er.24h PO 150 mg HS CHUCKIE Administration Vitamin D 1,000 units 04/12/25 23:00 04/12/25 23:07 Cholecalciferol 1,000 Units Tablet PO 1,000 units HS CHUCKIE Administration Radiology Results: ITS Impressions Chest X-Ray 04/12/25 17:08 IMPRESSION: No acute cardiopulmonary pathology. Emphysema of the lungs. Labs Labs: Laboratory Results - last 24 hr 04/12/25 04/12/25 04/12/25 17:19 17:19 17:19 WBC 13.8 H RBC 5.38 Hgb 16.0 H Hct 49.8 H MCV 92.6 MCH 29.7 MCHC 32.1 RDW 13.8 Plt Count 232 MPV 10.4 Immature Gran % (Auto) 0.4 Neut % (Auto) 84.0 H Lymph % (Auto) 6.7 L [place] % (Auto) 8.5 Eos % (Auto) 0.1 Baso % (Auto) 0.3 Lymph # (Auto) 0.93 [place] # (Auto) 1.2 H Eos # (Auto) 0.0 Baso # (Auto) 0.0 Abs Immat Gran (auto) 0.05 H Absolute Neuts (auto) 11.6 H Absolute Nucleated RBC 0.000 Nucleated RBC % 0.0 % Immature Plt Fraction 7.3 PT 14.2 INR 1.1 APTT 23.3 Puncture Site ABG pH ABG pCO2 ABG pO2 ABG PO2/FiO2 Ratio ABG HCO3 ABG O2 Saturation ABG O2 Content ABG Base Excess A-a Gradient Oxyhemoglobin Total Hemoglobin O2 Delivery Device O2 Liters/Min FiO2 Sodium Cancelled 133 L Potassium Cancelled 4.6 Chloride Cancelled Carbon Dioxide Anion Gap BUN Creatinine Estim Creat Clear Calc Estimated GFR Glucose Calcium Magnesium Total Bilirubin AST ALT Alkaline Phosphatase Troponin I NT-Pro-B Natriuret Pep Total Protein Albumin 04/12/25 04/12/25 04/12/25 17:19 17:19 17:19 WBC RBC Hgb Hct MCV MCH MCHC RDW Plt Count MPV Immature Gran % (Auto) Neut % (Auto) Lymph % (Auto) [place] % (Auto) Eos % (Auto) Baso % (Auto) Lymph # (Auto) [place] # (Auto) Eos # (Auto) Baso # (Auto) Abs Immat Gran (auto) Absolute Neuts (auto) Absolute Nucleated RBC Nucleated RBC % % Immature Plt Fraction PT INR APTT Puncture Site ABG pH ABG pCO2 ABG pO2 ABG PO2/FiO2 Ratio ABG HCO3 ABG O2 Saturation ABG O2 Content ABG Base Excess A-a Gradient Oxyhemoglobin Total Hemoglobin O2 Delivery Device O2 Liters/Min FiO2 Sodium Potassium Chloride 89 L Carbon Dioxide Cancelled 31 H Anion Gap Cancelled 13 H BUN Cancelled Creatinine Estim Creat Clear Calc Estimated GFR Glucose Calcium Magnesium Total Bilirubin AST ALT Alkaline Phosphatase Troponin I NT-Pro-B Natriuret Pep Total Protein Albumin 04/12/25 04/12/25 04/12/25 17:19 17:19 17:19 WBC RBC Hgb Hct MCV MCH MCHC RDW Plt Count MPV Immature Gran % (Auto) Neut % (Auto) Lymph % (Auto) [place] % (Auto) Eos % (Auto) Baso % (Auto) Lymph # (Auto) [place] # (Auto) Eos # (Auto) Baso # (Auto) Abs Immat Gran (auto) Absolute Neuts (auto) Absolute Nucleated RBC Nucleated RBC % % Immature Plt Fraction PT INR APTT Puncture Site ABG pH ABG pCO2 ABG pO2 ABG PO2/FiO2 Ratio ABG HCO3 ABG O2 Saturation ABG O2 Content ABG Base Excess A-a Gradient Oxyhemoglobin Total Hemoglobin O2 Delivery Device O2 Liters/Min FiO2 Sodium Potassium Chloride Carbon Dioxide Anion Gap BUN 17 Creatinine Cancelled 0.76 Estim Creat Clear Calc Cancelled 50 Estimated GFR Cancelled Glucose Calcium Magnesium Total Bilirubin AST ALT Alkaline Phosphatase Troponin I NT-Pro-B Natriuret Pep Total Protein Albumin 04/12/25 04/12/25 04/12/25 17:19 17:19 17:19 WBC RBC Hgb Hct MCV MCH MCHC RDW Plt Count MPV Immature Gran % (Auto) Neut % (Auto) Lymph % (Auto) [place] % (Auto) Eos % (Auto) Baso % (Auto) Lymph # (Auto) [place] # (Auto) Eos # (Auto) Baso # (Auto) Abs Immat Gran (auto) Absolute Neuts (auto) Absolute Nucleated RBC Nucleated RBC % % Immature Plt Fraction PT INR APTT Puncture Site ABG pH ABG pCO2 ABG pO2 ABG PO2/FiO2 Ratio ABG HCO3 ABG O2 Saturation ABG O2 Content ABG Base Excess A-a Gradient Oxyhemoglobin Total Hemoglobin O2 Delivery Device O2 Liters/Min FiO2 Sodium Potassium Chloride Carbon Dioxide Anion Gap BUN Creatinine Estim Creat Clear Calc Estimated GFR > 60 Glucose Cancelled 138 H Calcium Cancelled 9.8 Magnesium Total Bilirubin Cancelled AST ALT Alkaline Phosphatase Troponin I NT-Pro-B Natriuret Pep Total Protein Albumin 04/12/25 04/12/25 04/12/25 17:19 17:19 17:19 WBC RBC Hgb Hct MCV MCH MCHC RDW Plt Count MPV Immature Gran % (Auto) Neut % (Auto) Lymph % (Auto) [place] % (Auto) Eos % (Auto) Baso % (Auto) Lymph # (Auto) [place] # (Auto) Eos # (Auto) Baso # (Auto) Abs Immat Gran (auto) Absolute Neuts (auto) Absolute Nucleated RBC Nucleated RBC % % Immature Plt Fraction PT INR APTT Puncture Site ABG pH ABG pCO2 ABG pO2 ABG PO2/FiO2 Ratio ABG HCO3 ABG O2 Saturation ABG O2 Content ABG Base Excess A-a Gradient Oxyhemoglobin Total Hemoglobin O2 Delivery Device O2 Liters/Min FiO2 Sodium Potassium Chloride Carbon Dioxide Anion Gap BUN Creatinine Estim Creat Clear Calc Estimated GFR Glucose Calcium Magnesium Total Bilirubin 1.3 AST Cancelled 39 H ALT Cancelled 34 Alkaline Phosphatase Cancelled Troponin I NT-Pro-B Natriuret Pep Total Protein Albumin 04/12/25 04/12/25 04/12/25 17:19 17:19 17:19 WBC RBC Hgb Hct MCV MCH MCHC RDW Plt Count MPV Immature Gran % (Auto) Neut % (Auto) Lymph % (Auto) [place] % (Auto) Eos % (Auto) Baso % (Auto) Lymph # (Auto) [place] # (Auto) Eos # (Auto) Baso # (Auto) Abs Immat Gran (auto) Absolute Neuts (auto) Absolute Nucleated RBC Nucleated RBC % % Immature Plt Fraction PT INR APTT Puncture Site ABG pH ABG pCO2 ABG pO2 ABG PO2/FiO2 Ratio ABG HCO3 ABG O2 Saturation ABG O2 Content ABG Base Excess A-a Gradient Oxyhemoglobin Total Hemoglobin O2 Delivery Device O2 Liters/Min FiO2 Sodium Potassium Chloride Carbon Dioxide Anion Gap BUN Creatinine Estim Creat Clear Calc Estimated GFR Glucose Calcium Magnesium Total Bilirubin AST ALT Alkaline Phosphatase 127 H Troponin I < 0.012 NT-Pro-B Natriuret Pep 46604 H Total Protein Cancelled 8.0 Albumin Cancelled 4.6 04/12/25 04/13/25 17:28 04:56 WBC 11.5 H RBC 4.64 Hgb 14.1 Hct 43.8 MCV 94.4 MCH 30.4 MCHC 32.2 RDW 13.8 Plt Count 212 MPV 11.0 H Immature Gran % (Auto) 0.3 Neut % (Auto) 88.2 H Lymph % (Auto) 6.6 L [place] % (Auto) 4.7 Eos % (Auto) 0.0 Baso % (Auto) 0.2 Lymph # (Auto) 0.76 L [place] # (Auto) 0.5 Eos # (Auto) 0.0 Baso # (Auto) 0.0 Abs Immat Gran (auto) 0.03 Absolute Neuts (auto) 10.1 H Absolute Nucleated RBC 0.000 Nucleated RBC % 0.0 % Immature Plt Fraction PT INR APTT Puncture Site Right radial ABG pH 7.413 ABG pCO2 41.3 ABG pO2 52.7 L ABG PO2/FiO2 Ratio 2.51 ABG HCO3 25.8 ABG O2 Saturation 87.7 L* ABG O2 Content 18.7 ABG Base Excess 1.1 A-a Gradient 47.6 Oxyhemoglobin 86.1 L* Total Hemoglobin 15.5 O2 Delivery Device Room air O2 Liters/Min Not Reportable FiO2 21 Sodium 128 L Potassium 4.4 Chloride 94 L Carbon Dioxide 26 Anion Gap 8 BUN 19 H Creatinine 0.60 L Estim Creat Clear Calc 62 Estimated GFR > 60 Glucose 156 H Calcium 8.7 Magnesium 2.0 Total Bilirubin AST ALT Alkaline Phosphatase Troponin I NT-Pro-B Natriuret Pep Total Protein Albumin Quality VTE Prophylaxis VTE prophylaxis: mechanical ordered
[2025-04-13] MEDS: methylPREDNISolone SOD SUCC 40 MG VIAL IV PUSH ×3 (08:33→17:08)
[2025-04-13] MEDS: guaiFENesin 12 HR 600 MG TABCR 1200 MG PO ×2 (08:37→20:19)
[2025-04-13] MEDS: SPIRONOLACTONE 25 MG TABLET PO (08:37)
[2025-04-13] MEDS: ATORVASTATIN 10 MG TABLET PO (08:37)
[2025-04-13] MEDS: FUROSEMIDE 40 MG TABLET PO (08:37)
[2025-04-13] MEDS: LOSARTAN POTASSIUM 50 MG TABLET PO (08:37)
[2025-04-13] MEDS: AZITHROMYCIN 250 MG TABLET PO (08:38)
[2025-04-13] MEDS: ASPIRIN 81 MG ENTERIC TABLET PO (08:38)
[2025-04-13] MEDS: CHOLECALCIFEROL 1,000 UNITS TABLET 1000 UNITS PO (20:19)
[2025-04-13] MEDS: VENLAFAXINE HCL XR 75 MG CAP.ER.24H 150 MG PO (20:19)
[2025-04-13] MEDS: CLOPIDOGREL BISULFATE 75 MG TABLET PO (20:19)
[2025-04-13] MEDS: MONTELUKAST SODIUM 10 MG TABLET PO (20:19)
[2025-04-13] MEDS: THERAPEUTIC MULTIVITAMINS/MINERALS TAB (*BKC) 1 TABLET PO (20:19)
[2025-04-13] MEDS: METOPROLOL SUCCINATE EXT REL 25 MG TABCR PO (20:19)
[2025-04-14] VITALS (15 sets, daily range): BP systolic 137–145; BP diastolic 68–70; PULSE 72–109; RESP 18–20; TEMP 36.5; O2SAT 86–98
[2025-04-14] MEDS: IPRATROPIUM 0.5 MG/ALBUTEROL SULFATE 2.5 MG AMPUL.NEB 3 ML INHALATION ×3 (01:57→14:18)
[2025-04-14 08:05] LABS: Basophils Percent Auto 0.2 % (0.2-1.2); Hematocrit 40.5 % (37.0-47.0); Hemoglobin 13.4 g/dL (12.0-15.0); Immature Granulocyte Absolute 0.25 K/mm3 (0.00-0.031); Immature Granulocyte Percent A 2.1 % (0-0.5); Lymphocytes Absolute Auto 1.26 K/mm3 (0.9-3.2); Lymphocytes Percent Auto 10.7 % (18.3-44.2); Mean Corpuscular HGB Conc 33.1 g/dl (32-36); Mean Corpuscular Hemoglobin 30.7 pg (26-34); Mean Corpuscular Volume 92.7 fl (80-100); Mean Platelet Volume 10.6 fl (7.4-10.4); Monocytes Percent Auto 8.8 % (2.6-8.5); Neutrophils Absolute Auto 9.2 K/mm3 (1.3-6.7); Neutrophils Percent Auto 78.2 % (45.5-73.1); Platelet Count Result 242 k/mm3 (150-375); Red Blood Count 4.37 M/mm3 (4.2-5.4); Red Cell Distribution Width 13.7 % (11.5-14.5); White Blood Count 11.8 K/mm3 (4.5-10.0)
[2025-04-14 08:17] LABS: Alanine Aminotransferase 25 U/L (6-35); Albumin Level 3.4 g/dL (3.5-5.1); Alkaline Phosphatase 93 U/L (38-126); Anion Gap 3 mmol/L (4-12); Aspartate Amino Transferase 40 U/L (14-36); Bilirubin,Total 0.3 mg/dL (0.2-1.3); Blood Urea Nitrogen 18 mg/dL (7-17); Calcium 8.7 mg/dL (8.4-10.2); Carbon Dioxide 34 mmol/L (22-30); Chloride 94 mmol/L (98-107); Estimated CRCL calculation 61 ml/min; Estimated Glomerular Filt Rate > 60; Glucose 152 mg/dL (65-110); Sodium 131 mmol/L (137-145)
[2025-04-14] MEDS: SPIRONOLACTONE 25 MG TABLET PO (08:33)
[2025-04-14] MEDS: FUROSEMIDE 40 MG TABLET PO (08:33)
[2025-04-14] MEDS: ASPIRIN 81 MG ENTERIC TABLET PO (08:33)
[2025-04-14] MEDS: LOSARTAN POTASSIUM 50 MG TABLET PO (08:33)
[2025-04-14] MEDS: guaiFENesin 12 HR 600 MG TABCR 1200 MG PO (08:34)
[2025-04-14] MEDS: ATORVASTATIN 10 MG TABLET PO (08:34)
[2025-04-14] MEDS: methylPREDNISolone SOD SUCC 40 MG VIAL IV PUSH ×2 (08:34→12:09)
[2025-04-14] MEDS: AZITHROMYCIN 250 MG TABLET PO (08:34)
[2025-04-14] MEDS: ACETAMINOPHEN 325 MG TABLET 650 MG PO (12:08)
--- NOTE | 2025-04-14 14:59 | PCRCNOTE ---
Home O2 eval done, pt needs 2 L rest and activity. Will arrange o2 with [facility]. Requesting POC RN NOTIFIED.
--- NOTE | 2025-04-14 15:28 | P.DS_ITS ---
DS: Admitting Diagnosis Discharge Date 04/14/2025 Admitting Diagnosis COPD exacerbation DS: Discharge Diagnosis Discharge Diagnosis (1) Acute exacerbation of chronic obstructive pulmonary disease: Code(s): J44.1 - Chronic obstructive pulmonary disease with (acute) exacerbation Status: Acute (2) Hypoxia: Code(s): R09.02 - Hypoxemia Status: Acute (3) Congestive heart failure: Qualifiers: Heart failure chronicity: acute Heart failure type: unspecified Qualified Code(s): I50.9 - Heart failure, unspecified Code(s): I50.9 - Heart failure, unspecified Status: Acute (4) Polycythemia: Code(s): D75.1 - Secondary polycythemia Status: Acute (5) Essential hypertension: Code(s): I10 - Essential (primary) hypertension Status: Chronic (6) Coronary artery disease: Code(s): I25.10 - Atherosclerotic heart disease of [place] coronary artery without angina pectoris Status: Acute (7) Mixed hyperlipidemia: Code(s): E78.2 - Mixed hyperlipidemia Status: Chronic (8) Tobacco abuse: Code(s): Z72.0 - Tobacco use Status: Chronic DS: Summary Hospital Course Reason for hospitalization: Shortness of breath Hospital Course: This is a 65-year-old female smoker (she has cut back significantly) with chronic obstructive pulmonary disease, mildly reduced left ventricular systolic function and diastolic dysfunction, moderate to severe mitral valve regurgitation, mild pulmonary hypertension, coronary artery disease, hypertension, hyperlipidemia, osteoporosis, depression, and anxiety who presented to the emergency department via private vehicle from home for evaluation of shortness of breath. She gives a 4-day history of increasing dyspnea on lesser and lesser exertion, congestion, and increasing cough and sputum production from baseline. She rarely coughs up small amounts of clear phlegm but it has been thick and grimes in color the last few days. She denies fever, chills, sweats, sick contacts, exertional chest pain, pleuritic pain, nausea, vomiting, sweats, lower extremity edema, and calf pain. In the ED: Vital signs on arrival include a temperature of 98.6?, blood pressure 109/61, pulse 87, respiratory 20, SpO2 89% on room air. Labs were significant for WBC count 13.8, hemoglobin 16.0, hematocrit 49.8%, sodium 133, chloride 89, carbon dioxide 31, anion gap 13, proBNP 99847. ABG had a pH of 7.413, pCO2 41.3, PO2 52.7, HC03 25.8. Chest x-ray showed no acute cardiopulmonary pathology and underlying emphysematous changes. EKG showed sinus rhythm with frequent supraventricular premature complexes and left ventricular hypertrophy and ST-T changes. Patient was diagnosed with a COPD exacerbation and was put on DuoNebs every 6 hours and albuterol every 2 hours as needed. Solu-Medrol was also added IV Q 12 hours. Azithromycin 250 mg was also added daily. Patient was initially placed on O2 supplementation via nasal cannula however this was weaned over the next few days. Patient improved throughout her hospitalization and on 04/14, her lung sounds were clear with some minor wheezing in all lung shepherd, however the patient endorsed significant improvement in her symptoms. She still had a minor productive cough but once again this was greatly improved. CBC showed minor leukocytosis and increased neutrophils but was otherwise unremarkable. Patient is otherwise hemodynamically stable and no longer requires hospitalization. She will be discharged with additional 3 days of azithromycin 250 mg daily. Home O2 evaluation was ordered and they recommended the patient be on 2 L nasal cannula. This is set up for the patient upon discharge. Status at Discharge Functional status at discharge: independent ambulation Overall status at discharge: patient is progressing back to baseline Time Spent with Patient Time attestation: Total time spent providing and/or coordinating discharge services: 35 Exam Narrative: General: Thin female in the semi-Felix position in bed. Weight: 49 kg. BMI: 19.8. HEENT: PERRL, EOMI. Sclera anicteric. Oral mucosa moist. Neck: Supple. No JVD or lymphadenopathy. Respiratory: No dyspnea. Slight wheezing in all lung shepherd, improving productive cough Cardiovascular: Regular rate and rhythm with S1-S2. Systolic murmur at the apex. Gastrointestinal: Abdomen is soft, flat, nontender, and nondistended with positive bowel sounds. Skin: Warm and dry. No rash or lesions on limited exam. Extremities: No cyanosis, clubbing, or edema. Radial and pedal pulses intact. Neurological: Alert. Cranial nerves 2-12 are grossly intact. No gross focal deficits to casual conversation. Psychiatric: Pleasant and cooperative with normal mood and affect. Judgment and insight intact. DS: Data Data Completed and Pending Labs on day of discharge: Labs from last 24 hours 04/14/25 07:29 WBC 11.8 H RBC 4.37 Hgb 13.4 Hct 40.5 MCV 92.7 MCH 30.7 MCHC 33.1 RDW 13.7 Plt Count 242 MPV 10.6 H Immature Gran % (Auto) 2.1 H Neut % (Auto) 78.2 H Lymph % (Auto) 10.7 L [place] % (Auto) 8.8 H Eos % (Auto) 0.0 Baso % (Auto) 0.2 Lymph # (Auto) 1.26 [place] # (Auto) 1.0 H Eos # (Auto) 0.0 Baso # (Auto) 0.0 Abs Immat Gran (auto) 0.25 H Absolute Neuts (auto) 9.2 H Absolute Nucleated RBC 0.000 Nucleated RBC % 0.0 Sodium 131 L Potassium 4.0 Chloride 94 L Carbon Dioxide 34 H Anion Gap 3 L BUN 18 H Creatinine 0.61 L Estim Creat Clear Calc 61 Estimated GFR > 60 Glucose 152 H Calcium 8.7 Total Bilirubin 0.3 AST 40 H ALT 25 Alkaline Phosphatase 93 Total Protein 6.0 L Albumin 3.4 L Discharge Plan Discharge Attending physician on discharge: Janay Maradiaga Consulting providers: Ramo Moser Discharging Clinician: Ramo Moser Anticipated Discharge Date/Time: 04/14/25 15:26 Patient Disposition: Home Activity: as tolerated Diet: as tolerated Discharge Instructions: Take all medications as prescribed even if feeling better Eat well balanced meals and stay hydrated Keep active, but do not over do it If you notice that you are short of breath sit down and take a break Check your SPO2 periodically, if it is low cough and rest, check again in about 15 minutes, if you remain low, you should come back to the hospital If you should experience any chest pain, shortness of breath, temps >100.4 or any other worrisome symptoms please follow up with your PCP come back to the hospital Follow up with your primary in 1 weeks Respiratory therapy will be setting up with home oxygen, your recommended to be on 2 L nasal cannula at all times. He will also be given a prescription for azithromycin for 3 additional days. It has been a pleasure taking care of you thank you for using our services Patient Instructions: Antibiotic Form Patient Language: Serbian Stand Alone Forms: General Discharge Information Follow-up/Referrals: Gayle Hammond MD [Primary Care Provider] - Discharge Medications: New azithromycin 250 mg tablet 250 mg PO DAILY Qty: 3 0RF Continued cholecalciferol (vitamin D3) 25 mcg (1,000 unit) capsule 25 mcg PO HS aspirin 81 mg tablet,delayed release (DR/EC) 81 mg PO DAILY furosemide 40 mg Tablet 40 mg PO DAILY 30 Days Qty: 30 1RF spironolactone 25 mg tablet 25 mg PO DAILY Complete Multivitamin Tablet 1 tablet PO HS albuterol sulfate 90 mcg/actuation HFA aerosol inhaler 2 inh inhalation Q4H PRN (Reason: Shortness Of Breath Or Wheezing) Qty: 3 3RF losartan [Cozaar] 50 mg tablet 50 mg PO QAM 30 Days Qty: 90 1RF venlafaxine 150 mg capsule,extended release 24hr 150 mg PO HS Qty: 90 1RF metoprolol succinate 25 mg tablet extended release 24 hr 25 mg PO HS Qty: 90 2RF Rx Instructions: TAKE 1 TABLET DAILY montelukast 10 mg tablet 10 mg PO HS Qty: 90 2RF Rx Instructions: TAKE 1 TABLET DAILY clopidogrel 75 mg tablet 75 mg PO HS Qty: 90 0RF atorvastatin 10 mg tablet 10 mg PO DAILY Qty: 90 3RF Date of admission: 04/13/25 09:44 Primary Care Provider: Gayle Hammond Admitting Provider: Pancho Milner Attending physician on admission: Pancho Milner Condition: Stable Quality VTE Prophylaxis VTE prophylaxis: mechanical ordered
== END 2025-04-14 16:35 | disposition home or self-care (01) | DRG 190 ==
LOC: ANHED 17:51 → ANH2MED 19:47
PROVIDERS: Emergency Medicine; Physician Assistant; Admitting Provider General Practice; Emergency Provider Emergency Medicine; PCP Family Medicine; Visit Provider Physician Assistant
DX: J44.1 Chronic obstructive pulmonary disease with (acute) exacerbation (principal); I50.21 Acute systolic (congestive) heart failure; I11.0 Hypertensive heart disease with heart failure; R09.02 Hypoxemia; D75.1 Secondary polycythemia; I25.10 Atherosclerotic heart disease of native coronary artery without angina pectoris; I10 Essential (primary) hypertension; E78.2 Mixed hyperlipidemia; M81.0 Age-related osteoporosis without current pathological fracture; F32.A Depression, unspecified; F41.9 Anxiety disorder, unspecified; E78.5 Hyperlipidemia, unspecified; I25.2 Old myocardial infarction; Z96.643 Presence of artificial hip joint, bilateral; Z90.49 Acquired absence of other specified parts of digestive tract; F17.210 Nicotine dependence, cigarettes, uncomplicated
CPT/HCPCS: 36415; 36600; 71046; 80048; 80053; 82805; 83735; 83880; 84484; 85018; 85025; 85055; 85610; 85730; 93005; 94618; 94640; 94667; 94668; 96361; 96374; 99285; A9270; G0378; J2919; J7030

== ENCOUNTER 2025-09-10 13:01 | Outpatient (CLI) | payer MEDICARE, SELFPAY ==
--- OUTSIDE RECORDS SUMMARY | 2025-09-10 14:01 | XMS_ITS | Clinical Summary ---
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 Pulse - - Temperature - - Respiratory Rate - - Oxygen Saturation - - Inhaled Oxygen Concentration - - Weight 65.8 kg (145 lb) 11/24/2014 5:56 PM STRAIGHT TOOTH GEAR GENERATOR OPERATOR Height 157.5 cm (5' 2) 11/24/2014 5:56 PM STRAIGHT TOOTH GEAR GENERATOR OPERATOR Body Mass Index 26.52 11/24/2014 5:56 PM STRAIGHT TOOTH GEAR GENERATOR OPERATOR Plan of Treatment Health Maintenance Due Date Last Done Comments Colorectal Cancer Screening Colonoscopy (10 Years) 1959 Hepatitis C 1977 DTaP, Tdap and Td Vaccines ( 1 - Tdap) 1978 Mammogram Screening 1999 Pneumococcal Vaccine: 50+ Ye ars (1 of 1 - PCV) 2009 Zoster Vaccines (1 of 2) 2009 Dexa Scan (General) 2024 COVID-19 Vaccine ( - 2023-2 5 season) 2025 Influenza Adult (#1) 2025 RSV Immunization or 60+ Years (1 - 1-dose 75+ series) 2034 Hepatitis A Vaccines Aged Out No long er eligible based on patient's age to complete this topic Meningococcal B Vaccine Aged Out No l onger eligible based on patient's age to complete this topic Meningococcal Vaccine Aged Out No monica destinee eligible based on patient's age to complete this topic RSV Immunizations Under 20 Months Aged Out No longer eligible based on patient's age to complete this topic
--- OUTSIDE RECORDS SUMMARY | 2025-09-10 14:01 | XMS_ITS | Encounter Summary ---
Author Organization 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 Gender Identity Not on file Sexual Orientation Not on file documented as of this encounter Plan of Treatment Not on file documented as of this encounter Procedures Procedure Name Priority Date/Time Associated Diagnosis Comments CARDIOLOGY DOCUMENT SCAN 11/01/2024 documented in this encounter Results * Cardiology Document Scan (11/01/2024) Anatomical Region Laterality Modality Other Provider Scanning CV CARDIAC SERVICES PROCEDURES Final Result documented in this encounter Visit Diagnoses Not on filedocumented in this encounter Care Teams Seating And Mobility Technologist Relationship Specialty Start Date End Date Gayle Hammond MD PCP - General Family Medicine 7/12/21 documented as of this encounter
--- OUTSIDE RECORDS SUMMARY | 2025-09-10 14:01 | XMS_ITS | Clinical Summary ---
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 Gender Identity Not on file Sexual Orientation [...] 9:59 AM CDT Height 160 cm (5' 3) 03/02/2011 12:53 PM CDT Body Mass Index [...] Flex Sig/CT Colonography Q 5 years 2004 RSV VACCINE (60+ or ) (1 - Risk 50-74 years 1-dose series) 2009 ZOSTER VACCINE (1 of 2) 2009 OSTEOPOROSIS SCREENING 2024 INFLUENZA VACCINE (#1) 2025 Medical Devices Implanted Type Area Corner Brace Block Machine Operator Device Identifier Shelf Expiration Date Model / Serial / Lot Mammary Carlos Alberto Silva Mp+ [id number] - [id number] Implanted:Qty: 1 on 03/06/2011 at [facility] Mammary Right: Breast [employer]ENTOR TALA 01/06/2016 [id number] / [id number] Description:Implants brought from Dr. office; no charge Mammary Silic Smth Rnd Mp+ [id number] - [id number] Implanted:Qty: 1 on 03/06/2011 at [facility] Mammary Left: Breast MENTOR TALA 01/06/2016 [id number] / [id number] Description:Implant brought from Dr. drew; no charge Insurance Advance Directives For more information, please contact: [phone] * Full Code (Latest Code Status on File) Date Activated Date Inactivated Comments 03/06/2011 12:38 PM 03/06/2011 10:35 PM * Full Code Date Activated Date Inactivated Comments 03/06/2011 10:38 AM 03/06/2011 12:38 PM * Full Code Date Activated Date Inactivated Comments 03/06/2011 9:53 AM 03/06/2011 10:38 AM
--- OUTSIDE RECORDS SUMMARY | 2025-09-10 14:01 | XMS_ITS | Encounter Summary ---
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 Gender Identity Not on file Sexual Orientation Not on file documented as of this encounter Plan of Treatment Not on file documented as of this encounter Procedures Procedure Name Priority Date/Time Associated Diagnosis Comments CARDIOLOGY DOCUMENT SCAN 10/08/2024 SCAN - RADIOLOGY/IMAGING 10/07/2024 documented in this encounter Results * Cardiology Document Scan (10/08/2024) Anatomical Region Laterality Modality Other us Provider Scanning CV CARDIAC SERVICES PROCEDURES Final Result * SCAN - RADIOLOGY/IMAGING (10/07/2024) Anatomical Region Laterality Modality Other us Provider Scanning Edited Result - Final documented in this encounter Visit Diagnoses Not on filedocumented in this encounter Care Teams Schedule Supervisor Relationship Specialty Start Date End Date Gayle Hammond MD PCP - General Family Medicine 05/30/21 documented as of this encounter
--- OUTSIDE RECORDS SUMMARY | 2025-09-10 14:01 | XMS_ITS | Clinical Summary ---
Author Organization [facility] [address] Address [address] [place] [address] Care Team Providers Care Rn Transitional Care Name Role Phone Gayle Hammond MD Primary Care Provider [phone] Allergies Active Allergy Reactions Criticality Noted Date [...] TIMES DAILY NEEDED FOR COUGH 4 Active metoprolol XL (TOPROL-XL) 50 mg extended release tablet Take 1 tablet (50 mg total) by mouth daily 30 tablet 11 5 Active ARIPiprazole (ABILIFY) 2 mg tablet Take 1 tablet (2 mg total) by mouth daily 5 Active losartan (COZAAR) 50 mg tablet Take 1 tablet (50 mg total) by mouth daily 90 tablet 2 5 Active spironolactone (ALDACTONE) 25 mg tabletIndicatio ns:NICM (nonischemic cardiomyopathy) (HCC) Take 1 tablet (25 mg total) by mouth daily 90 tablet 1 5 Active spironolactone (ALDACTONE) 25 mg tabletIndicatio ns:NICM (nonischemic cardiomyopathy) (HCC) Take 1 tablet (25 mg total) by mouth daily 90 tablet 2 5 09/01/20 25 Discontinu ed(Reorder ) Active Problems Problem Noted Date Diagnosed Date Chronic systolic heart failure 06/10/2025 Assessment & Plan (06/10/2025 12:30 PM CDT): Severe LV dysfunction, with NYHA class 2-3 HF symptoms despite good compliance with GDMT. Recommend ICD implantation for primary prevention of SCD. The benefits, risks, and alternatives of a transvenous implantable cardioverter-defibrillator (ICD) implant were reviewed with the patient using the principles of shared decision-making and concepts found within the [employer] ICD CardioSmart Decision Aid. Specific procedural risks discussed included, but were not limited to: vascular injury, bleeding, pneumothorax, and cardiac perforation/tamponade. Long-term risks discussed included, but were not limited to: device/lead failure and/or recall, lead dislodgement with need for subsequent revision, inappropriate ICD discharges, and infection necessitating a system extraction. High risk for complications during this major surgery due to severity of cardiomyopathy. The patient demonstrated a clear understanding of these issues during our discussion. All questions were answered. --ICD implantation w/anesthesia NICM (nonischemic cardiomyopathy) 06/10/2025 Nonrheumatic mitral valve regurgitation 04/07/20 24 Decreased cardiac ejection fraction 06/01/2021 History of IA (myocardial infarction) 06/01/2021 Coronary artery disease invo lving [place] coronary artery of [place] heart without angina pectoris 06/01/2021 Other hyperlipidemia 06/01/2021 Tobacco abuse counseling 06/01/2021 Encounters Date Type Department Care Team Description 09/01/2025 Telephone [facility] Medical [facility] Cardiology [address] [place] [address] [place] [phone] Philly Nath MD Med Refill 08/12/2025 1:45 PM CDT Ancillary Procedure [facility] [address] [place] [address] [place] [phone] Automatic implantable cardiac defibrillator in situ (Primary Dx); NICM (nonischemic cardiomyopathy) (HCC) 07/31/2025 Telephone [facility] Cardiology [address] [place] [address] [address] [place] [phone] Philly Nath MD Med Refill 07/13/2025 1:00 PM CDT Ancillary Procedure [facility] [address] [place] [address] [place] [phone] (Primary Dx); NICM (nonischemic cardiomyopathy) (HCC); Supraventricular premature beats 07/07/2025 Telephone [facility] [address] [place] [address] [place] [phone] Mihai Cormier III, MD 06/30/2025 Orders Only [facility] [address] [place] [phone] Mihai Cormier III, MD NICM (nonischemic cardiomyopathy) (HCC) (Primary Dx) 06/29/2025 3:03 PM CDT Anesthesia Event [facility] [address] [place] [phone] Toya Shukla MD [place], Andrew, CRNA 06/29/2025 1:40 PM CDT - 06/29/2025 3:30 PM CDT Surgery [facility] [address] [place] [phone] Mihai Cormier III, MD INSERT/REPLACE IMPLANTABLE CARDIOVERTER-DEFIBRI LLATOR (ICD) DUAL CHAMBER SYSTEM [id number] 06/29/2025 12:16 PM CDT - 06/29/2025 7:07 PM CDT Hospital Encounter [facility] [address] [place] [address] Mihai Cormier III, MD NICM (nonischemic cardiomyopathy) (HCC); Chronic systolic heart failure (HCC); Decreased cardiac ejection fraction Discharge Disposition: Discharge to home or self care 06/10/2025 1:00 PM CDT Office Visit [facility] [address] [facility] [address] [address] Mihai Cormier III, MD Chronic systolic heart failure (HCC) (Primary Dx); Cardiac arrhythmia, unspecified cardiac arrhythmia type; Decreased cardiac ejection fraction 06/10/2025 Telephone [facility] Medical [facility] Cardiology [address] [place] [phone] Nataliia Anderson NP 06/10/2025 Telephone [facility] Cardiology [address] [place] [phone] Philly Nath MD from Last 3 Months Surgical History Surgery Date Site/Laterality Comments TOTAL HIP ARTHROPLASTY FOOT SURGERY THUMB SURGERY HYSTERECTOMY 11/19/2002 - 11/18/2003 Bilateral CARDIAC ELECTROPHYSIOLOGY PROCEDURE 06/29/2025 N/A Procedure: INSERT/REPLACE IMPLANTABLE CARDIOVERTER-DEFIBRILLA TOR (ICD) DUAL CHAMBER SYSTEM [id number]; Surgeon: Mihai Cormier III, MD; Location: [facility] CARDIAC [facility]TEMPOR[facility] OR [facility]; Service: Cardiovascular; Laterality: N/A; Medical devices from this surgery are in the Medical Devices section. Medical History Medical History Date Comments Heart [...] uit: Not Asked; Counseling Given: Not Answered Alcohol Use Standard Drinks/Week Comments Never 0 (1 standard drink = 0.6 oz pur e alcohol) AUDIT-C Answer Date Recorded Q1: How often do you have a drink containing alcohol? Never 06/29/2025 Q2: How many drinks containi ng alcohol do you have on a typical day when you are drinking? Patient does not drink Q3: How often do you have si x or more drinks on one occasion? Never 06/29/2025 Personal Safety Answer Date Recorded Have you ever been in or are you currently in a harmful physical or emotional relationship or is someone making you feel afraid or unsafe? 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 Gender Identity Not on file Sexual Orientation Not on file Obstetrics History Para Term AB IAB SAB Ectopic Multiple Livin g Live Births 4 2 2 Date Outcome GA Total Labor Labor/2nd/3rd Weight Sex Type Anes PTL Radha A1 A5 Name Clin Term Term Last Filed Vital Signs Vital Sign Reading Time Taken Comments Blood Pressure 106/62 06/29/2025 5:00 PM CDT Pulse 64 06/29/2025 5:00 PM CDT Temperature 36.3 C (97.4 F) 06/29/2025 1:00 PM CDT Respiratory Rate 53 06/29/2025 5:00 PM CDT Oxygen Saturation 91% 06/29/2025 5:00 PM CDT Inhaled Oxygen Concentration - - Weight 52.2 kg (115 lb 1.3 oz) 06/29/2025 12:52 PM CDT Height 157.5 cm (5' 2) 06/29/2025 12:52 PM CDT Body Mass Index 21.05 06/29/2025 12:52 PM CDT Plan of Treatment Health Maintenance Due Date Last Done Comments Colon Cancer Screening-Colonoscopy 1959 Depression Screening 1959 Hepatitis C Screening 1959 Osteoporosis Screening-Bone Density Scan 1959 DTaP/Tdap/Td Vaccine (1 - Tdap) 1970 Hepatitis B Screening 1977 Zoster Vaccine (1 of 2) 2009 Pneumococcal vaccine 65+ (2 of 2 - PCV) 09/19/2022 09/19/2021 Breast Cancer Screening-Mammogram 04/02/2024 023 Well Visit 65+ 2024 Covid-19 Vaccine (2024-2 6 season) 2025 04/05/2021, 03/15/2021 Influenza Vaccine (#1) 2025 , 11/26/2023, 08/24/2022, Additional history exists Fall Risk Assessment 06/29/2026 06/29/2025 Medical Devices Implanted Type Area Purchasing Director Device Identifier Shelf Expiration Date Model / Serial / Lot [employer] Sudeep Defibrillator Dual Chamber Restorer [employer] D Mri Compatible Vigilant 0.99x5.37x7.68cm D233 - [id number] - [id number] Implanted:Qty: 1 on 06/29/2025 by Mihai Cormier III, MD at [facility] ICD [employer] Sudeep 01/29/2027 D233 / [id number] / [employer] Sudeep Lead 7841 Endocardial Pacing Mr Is-1 Bipolar Connection 7841 - [id number] - [id number] Implanted:Qty: 1 on 06/29/2025 by Mihai Cormier III, MD at [facility] Lead [employer] Sudeep 04/29/2027 [id number] / [id number] / [employer] Sudeep Lead Cardioverter Defibrillator Bipolar Active Fixation Endocardium Steroid Eluting Vidal 4 Front [id number] 0672 - [id number] - [id number] Implanted:Qty: 1 on 06/29/2025 by Mihai Cormier III, MD at [facility] Lead [employer] Sudeep 04/21/2027 [id number] / [id number] / Procedures Procedure Name Priority Date/Time Associated Diagnosis Comments DEVICE CHECK - IN OFFICE Routine 08/12/2025 1:48 PM CDT NICM (nonischemic cardiomyopathy) (HCC) DEVICE CHECK - IN OFFICE Routine 07/13/2025 1:16 PM CDT NICM (nonischemic cardiomyopathy) (HCC) Supraventricular premature beats XR CHEST PA LATERAL 2 VIEWS ED Urgent/IP Urgent 06/29/2025 6:24 PM CDT XR CHEST 1 VIEW ED Urgent/IP Urgent 06/29/2025 5:03 PM CDT ICD DC NEW Routine 06/29/2025 4:16 PM CDT NICM (nonischemic cardiomyopathy) (HCC) Chronic systolic heart failure (HCC) Decreased cardiac ejection fraction ECG 12-LEAD STAT 06/29/2025 2:08 PM CDT EGFR Routine 06/29/2025 12:47 PM CDT DIFFERENTIAL AUTO Routine 06/29/2025 12: 47 PM CDT CBC WITH AUTO DIFFERENTIAL Routine 06/29/2025 12:47 PM CDT BASIC METABOLIC PANEL Routine 06/29/2025 12:47 PM CDT ECG 12-LEAD Routine 06/10/2025 3:50 PM CDT Cardiac arrhythmia, unspecified cardiac arrhythmia type SCREENING MAMMOGRAM BILATERAL W TREVOR W IMPLANTS Schedule Routine, Read Routine (OP Routine) 04/02/2023 4:54 PM CDT Screening mammogram, encounter for from Last 3 Months or Most Recently Relevant to Health Maintenance Results * DEVICE CHECK - IN OFFICE (08/12/2025 1:48 PM CDT) Anatomical Region Laterality Modality Other Narrative 08/12/2025 8:46 PM CDT Table formatting from the original result was not included. ICD CHECK (IN OFFICE) Patient ID: Genny Magallanes is a 65 y.o. female. This patient received a [employer] ICD. They had a routine in office device interrogation on 08/12/25 Device implant indications: Nonischemic cardiomyopathy Interrogation of the patient's device demonstrates the following: Presenting EGM: A sense V sense @ 93 bpm Underlying Rhythm: Sinus rhythm in the 70s Original Device Settings Right Atrium Right Ventricle Sensitivity (mV) 0.5 mV 0.6 mV Pacing Outputs 3.5 V @ 0.4 ms 3.5 V @ 0.4 ms Testing Measurements Right Atrium Right Ventricle Sensitivity (mV) 7.9 mV >25 mV Impedence (Ohms) 686 ohms 491 ohms High Voltage Impedence 82 ohms Pace Threshold 0.4 V @ 0.4 ms 0.7 V @ 0.4 ms Pacing % <1 % <1 % Battery Status: 12.5 years to ROBB with Charge Time 9.3 seconds Episodes last 90 days/Comments: AF [place] 0% Three episodes of nonsustained VT with the longest lasting 3 seconds. Ventricular rates in the 170s to 190s NORMAL DEVICE FUNCTION PROGRAMMED MEDICATIONS: Anti-coagulant(s): Aspirin 81 mg, Plavix 75 mg Anti-arrhythmic(s): Toprol-XL 50 mg daily PLAN: 1) [employer] ICD evaluation. 2) [employer] remote transmission scheduled in 3 months. 3) Programming appropriate for device measurements 4) left subclavian incision healed Nataliia Almonte RN Mihai Cormier III, MD CV CARDIAC SERVICES PROCEDURES Final Result * DEVICE CHECK - IN OFFICE (07/13/2025 1:16 PM CDT) Anatomical Region Laterality Modality Other Narrative 07/17/2025 7:54 AM CDT Table formatting from the original result was not included. ICD CHECK (IN OFFICE) Patient ID: Genny Magallanes is a 65 y.o. female. This patient received a [employer] ICD. They had a routine in office device interrogation on 07/13/25 Device implant indications: Nonischemic cardiomyopathy Interrogation of the patient's device demonstrates the following: Presenting EGM: A sense V sense @ 90 bpm Underlying Rhythm:A sense V sense @ 90 bpm Original Device Settings Right Atrium Right Ventricle Sensitivity (mV) Auto mV Auto mV Pacing Outputs 3.5 V @ 0.4 ms 3.5 V @ 0.4 ms Testing Measurements Right Atrium Right Ventricle Sensitivity (mV) 12.3 mV 24.0 mV Impedence (Ohms) 786 ohms 500 ohms High Voltage Impedence 94 ohms Pace Threshold 0.6 V @ 0.5 ms 0.8 V @ 0.4 ms Pacing % <1 % <1 % Battery Status: 13 years to ROBB with Charge Time 9.3 seconds Episodes last 90 days/Comments: AF [place] 0% 1 VHR - EGM with NSVT for 14sec at 200 bpm NORMAL DEVICE FUNCTION PROGRAMMED MEDICATIONS: Anti-coagulant(s): Asa 81 mg Plavix 75mg daily Anti-arrhythmic(s): toprol 50 mg daily PLAN: 1) [employer] ICD evaluation. 2) [employer] remote transmission scheduled in 3 months. 3) Programming appropriate for device measurements 4) L subclavian incision w/o any drsg. Pt states she removed all the drsg about 2 days after procedure. No bruising pain or swelling. Reviewed arm restrictions and incision care at home. Scheduled for follow up, she will call office with any concerns. Alice Amin, MARIANELA Mihai Cormier III, MD CV CARDIAC SERVICES PROCEDURES Final Result * X-ray chest 2 views (06/29/2025 6:24 PM CDT) Anatomical Region Laterality Modality Body, Chest N/A Computed Radiogr aphy 06/29/2025 6:29 PM CDT Impressions 06/29/2025 6:29 PM CDT A comparison study is from 4:55 PM today. Redemonstration of a left-sided transvenous pacemaker/defibrillator, the wire leads unchanged in positions. Again, no postprocedural pneumothorax. The lungs remain clear. No pleural effusion. Heart size is normal. Atherosclerotic plaque is again seen within the thoracic aorta. Bilateral breast implants. Electronically signed by: Bert Iqbal M.D. Narrative 06/29/2025 6:29 PM CDT EXAMINATION: XR CHEST PA LATERAL 2 VIEWS Procedure Note Bert Iqbal MD - 06/29/2025 EXAMINATION: XR CHEST PA LATERAL 2 VIEWS IMPRESSION: A comparison study is from 4:55 PM today. Redemonstration of a left-sided transvenous pacemaker/defibrillator, the wire leads unchanged in positions. Again, no postprocedural pneumothorax. The lungs remain clear. No pleural effusion. Heart size is normal. Atherosclerotic plaque is again seen within the thoracic aorta. Bilateral breast implants. Electronically signed by: Bert Iqbal M.D. us Mihai Cormier III, MD IM XR PROCEDURES F inal Result * X-ray chest 1 view (Portable) (06/29/2025 5:03 PM CDT) Anatomical Region Laterality Modality Body, Chest N/A Computed Radiogr aphy 06/29/2025 6:17 PM CDT Impressions 06/29/2025 6:17 PM CDT A comparison study is dated 08/19/2006. There has been placement of a left-sided transvenous pacemaker/defibrillator, the wire leads terminate within the right atrium and right ventricle. No postprocedural pneumothorax. The lungs are clear. No pleural effusion. Heart size is normal. Atherosclerotic plaque is seen in the thoracic aorta. Bilateral breast implants noted. Moderately severe bilateral shoulder osteoarthritis with a fairly large, 1.5 cm osteochondral loose body within the right inferior joint recess. Electronically signed by: Bert Iqbal M.D. Narrative 06/29/2025 6:17 PM CDT EXAMINATION: XR CHEST 1 VIEW Procedure Note Bert Iqbal MD - 06/29/2025 EXAMINATION: XR CHEST 1 VIEW IMPRESSION: A comparison study is dated 08/19/2006. There has been placement of a left-sided transvenous pacemaker/defibrillator, the wire leads terminate within the right atrium and right ventricle. No postprocedural pneumothorax. The lungs are clear. No pleural effusion. Heart size is normal. Atherosclerotic plaque is seen in the thoracic aorta. Bilateral breast implants noted. Moderately severe bilateral shoulder osteoarthritis with a fairly large, 1.5 cm osteochondral loose body within the right inferior joint recess. Electronically signed by: Bert Iqbal M.D. MD PAIGE Hayes III XR PROCEDURES F inal Result * ICD DC NEW (06/29/2025 4:16 PM CDT) Anatomical Region Laterality Modality X-Ray Angiograph y Mihai Cormier III, MD CV ELECTROPHYSIOLOG Y PROCS Final Result * ECG 12 lead (06/29/2025 2:08 PM CDT) 06/29/2025 2:08 PM CDT Narrative [facility] - 06/29/2025 3:37 PM CDT Vent Rate: 93 bpm RR Interval: 641 msec MO Interval: 177 msec QRS Duration: 93 msec QT Interval: 345 msec QTC Interval: 396 msec P-R-T [place]: 82 - 70 - 77 degrees IMPRESSION: SINUS RHYTHM WITH FREQUENT SUPRAVENTRICULAR PREMATURE COMPLEXES LEFT VENTRICULAR HYPERTROPHY AND ST-T CHANGE [VOLTAGE CRITERIA PLUS ST/T ABNORMALITY] ABNORMAL ECG Electronically Signed By: Reji Coronel MD PhD Mihai Cormier III, MD ECG ORDERABLES Fin al Result [facility] * eGFR (06/29/2025 12:47 PM CDT) eGFR 79 >=60 mL/min/1. 73 m2 Comment: Interpretive Data Reference Interval Normal >/= 90 mL/min/1.73m2 Mildly decreased* 60 - 89 mL/min/1.73m2 Mildly to moderately decreased 45 - 59 mL/min/1.73m2 Moderately to severely decreased 30 - 44 mL/min/1.73m2 Severely decreased 15 - 29 mL/min/1.73m2 Kidney Failure < 15 mL/min/1.73m2 *Relative to young adult level Estimated glomerular filtration rate is determined by the 2020 CKD-EPI equation recommended by the National Kidney Foundation (A Unifying Approach to GFR Estimation: Recommendations of the NKF-ASK Task Force on Reassessing the Inclusion of Race in Diagnosing Kidney Disease, JASN 202). The CKD-EPI equation should not be used for patients with unstable renal function and has not been validated in children and those over 70. Current interpretive data was last reviewed 2021. Blood 06/29/2025 12:4 7 PM CDT 06/29/2025 1:15 PM CDT us Mihai Cormier III, MD LAB BLOOD ORDERABLE S Final Result [facility] [address] Department [place] [address] * (ABNORMAL) Differential, auto (06/29/2025 12:47 PM CDT) Neutrophil abs 10.09(H) 1.50 - 6.50 K/cumm Imm gran abs 0.05 0.00 - 0.10 K/cumm [facility] Lymphocyte abs 1.64 0.80 - 3.30 K/cumm [facility] Monocyte abs 0.74 0.20 - 0.80 K/cumm [facility] Eosinophil abs 0.19 0.00 - 0.50 K/cumm [facility] Basophil abs 0.06 0.00 - 0.10 K/cumm [facility] Neutrophil pct 79.0 % [facility] Comment: Interpretive Data Percent cell count reference ranges are not reported, since discordance with absolute values may lead to misinterpretation of CBC data. Current Interpretive Data was last revised on 2018. Imm gran pct 0.4 % [facility] Comment: Interpretive Data Percent cell count reference ranges are not reported, since discordance with absolute values may lead to misinterpretation of CBC data. Current Interpretive Data was last revised on 2018. Lymphocyte pct 12.8 % [facility] Comment: Interpretive Data Percent cell count reference ranges are not reported, since discordance with absolute values may lead to misinterpretation of CBC data. Current Interpretive Data was last revised on 2018. Monocyte pct 5.8 % [facility] Comment: Interpretive Data Percent cell count reference ranges are not reported, since discordance with absolute values may lead to misinterpretation of CBC data. Current Interpretive Data was last revised on 2018. Eosinophil pct 1.5 % [facility] Comment: Interpretive Data Percent cell count reference ranges are not reported, since discordance with absolute values may lead to misinterpretation of CBC data. Current Interpretive Data was last revised on 2018. Basophil pct 0.5 % [facility] Comment: Interpretive Data Percent cell count reference ranges are not reported, since discordance with absolute values may lead to misinterpretation of CBC data. Current Interpretive Data was last revised on 2018. Blood 06/29/2025 12:4 7 PM CDT 06/29/2025 1:16 PM CDT Mihai Cormier III, MD LAB BLOOD ORDERABLE S Final Result [facility] [address] Department of Laboratories [place], [place] [id number] * (ABNORMAL) CBC with auto differential (06/29/2025 12:47 PM CDT) WBC 12.77(H) 3.80 - 9.90 K/cumm Hgb 15.9(H) 11.9 - 15.5 g/dL [facility] Hct 48.1(H) 35.6 - 45.5 % [facility] Plt 277 150 - 400 K/cumm [facility] MPV 10.0 9.1 - 12.[address] [facility] RBC 5.14 3.90 - 5.20 M/cumm [facility] MCV 93.6 81.3 - 96.[address] [facility] MCH 30.9 27.1 - 33.[address] [facility] MCHC 33.1 32.3 - 35.7 g/dL [facility] RDW CV 13.5 11.1 - 14.9 % [facility] RDW SD 46.3 35.7 - 48.[address] [facility] NRBC abs 0.00 0.00 - 0.01 K/cumm [facility] Blood 06/29/2025 12:4 7 PM CDT 06/29/2025 1:[address] [facility] - 06/29/2025 1:22 PM CDT If most recent labs were drawn prior to 4 AM, draw only prior to initiating procedure. Mihai Cormier III, MD LAB BLOOD ORDERABLE S Final Result Performing Organization Address City/[facility]/ZIP Co de Phone Number [facility] [address] [place] [address] * (ABNORMAL) Basic metabolic panel (06/29/2025 12:47 PM CDT) Sodium 132(L) 135 - 145 mmol/L Potassium, pl 4.7 3.3 - 4.9 mmol/L [facility] Chloride 93(L) 97 - 110 mmol/L [facility] CO2 28 22 - 32 mmol/L [facility] Anion gap 11 2 - 15 mmol/L [facility] BUN 14 6 - 25 mg/dL [facility] Creatinine 0.82 0.60 - 1.10 mg/dL [facility] Glucose 109 70 - 199 mg/dL [facility] Comment: Interpretive Data Fasting glucose >/= 126 mg/dl is diagnostic for diabetes. Fasting is defined as no caloric intake for at least 8 hours. Fasting glucose between 100 mg/dl to 125 mg/dl is diagnostic of prediabetes. In a patient with classic symptoms of hyperglycemia or hyperglycemic crisis, a random glucose >/= 200 mg/dl is diagnostic for diabetes. In the absence of unequivocal hyperglycemia, results should be confirmed by repeat testing. The classification and Diagnosis of Diabetes Diabetes Care 202; 46: S19-S40. Current interpretive data was last revised 2022. Calcium 9.5 8.5 - 10.3 mg/dL [facility] Blood 06/29/2025 12:4 7 PM CDT 06/29/2025 1:15 PM CDT Mihai Cormier III, MD LAB BLOOD ORDERABLE S Final Result Performing Organization Address City/[facility]/ZIP Co de Phone Number [facility] [address] [place] [address] * ECG 12 lead (06/10/2025 3:50 PM CDT) Mihai Cormier III, MD ECG ORDERABLES Fin al Result * Screening Mammogram Bilateral W Trevor W Implants (04/02/2023 4:54 PM CDT) Anatomical Region Laterality Modality Breast Bilateral Mammography 04/04/2023 10:0 9 AM CDT Impressions 04/04/2023 10:09 AM CDT No evidence of malignancy in either breast. FINAL ASSESSMENT: BI-RADS Category 1: Negative. RECOMMENDATION: Recommend return for annual screening mammogram in 12 months. Electronically signed by: Rhonda aMthias M.D. Narrative 04/04/2023 10:09 AM CDT EXAMINATION: [...] Most Recently Relevant to Health Maintenance Insurance [employer] MED[employer]ARE [facility] Address: [facility] [id number] [place] [phone] [employer] MED[employer]ARE GOLD Advance Directives For more information, please contact: [phone] * Full Code (Latest Code Status on File) Date Activated Date Inactivated Comments 06/29/2025 4:44 PM 06/29/2025 11:07 PM Care Teams Rn Transitional Care Relationship Specialty Start Date End Date Gayle Hammond MD PCP - General Family Medicine 05/30/21
--- NOTE | 2025-10-13 12:59 | WPDPFTINT ---
PFT Procedure Performed PFT Procedure Performed Spirometry with Pre/Post Bronchodilator Plethysmography (Lung Vol) Diffusing Cap (DLCO) Flow Vol Loop PFT Interpretation DOS: 09/10/2025 REQUESTING: Pernell Gonzales APRN REASON FOR TESTING: COPD PULMONARY FUNCTION TESTS Results are reliable and reproducible. Repeatability of spirometry FEV1 maneuver pre and post bronchodilator is Grade A. Luis: GLI 2012 reference equations were used. Spirometry: The pre-bronchodilator FEV1 is 0.67 L, 31%, extremely reduced. The pre-bronchodilator FVC is 1.75 L, 64%, reduced. The FEV1/FVC ratio is 38%, reduced, consistent with airflow obstruction. After bronchodilator, the FEV1 is 0.68 L, no significant change. After bronchodilator, the FVC is 1.92 L, 70%, +10%. The FEV1/FVC ratio is 35%. Lung volumes: The total lung capacity is 6.14 L, 130%, mildly increased, consistent with hyperinflation. The residual volume is 4.38 L, 219%, severely increased consistent with air trapping. The RV/TLC is 71%. Airway resistance is increased. Diffusion: DLCO is 6.7, 33%, severely decreased. The DLCO/VA is 1.86, 42%, moderately decreased. Flow volume loop: The flow volume loop shows extreme coving of the expiratory limb. IMPRESSION: This study shows a severe obstructive ventilatory impairment without response to bronchodilator, mild hyperinflation, severe air trapping and a severe diffusion impairment with minimal correction for alveolar volume. Lack of response to bronchodilator should not preclude use if clinically indicated. There are no prior studies to compare. Meggan Lu MD
--- NOTE | 2025-10-13 13:03 | WPDSIXMINUTE ---
Six Minute Walk Procedure Procedure Performed Pulmonary Stress Test (6 min walk) Six Minute Walk Six Minute Walk: DOS: 09/10/2025 REQUESTING: Pernell Gonzales APRN REASON FOR TESTING: COPD SIX MINUTE WALKThis test was conducted per ATS guidelines. The initial saturation was 94%, and initial heart rate was 77 beats per minute. The patient walked without stopping, completing 100 82.8 m, 600 ft. The saturation at the end of testing was 92%, and the heart rate was 96 beats per minute. The Art score for fatigue and dyspnea was 1 initially, and 3 at the end of testing. The patient had hip pain and leg at the end of testing. IMPRESSION: The patient did not require supplemental oxygen with exertion. Distance walked is less than anticipated for the patient's age. Meggan Lu MD
== END 2025-09-10 13:02 | disposition home or self-care (01) ==
PROVIDERS: PCP Family Medicine; Visit Provider Nurse Practitioner Family
DX: R06.09 Other forms of dyspnea (principal); R09.02 Hypoxemia; J44.9 Chronic obstructive pulmonary disease, unspecified
CPT/HCPCS: 94060; 94618; 94726; 94729

== ENCOUNTER 2025-09-23 15:30 | Outpatient (CLI) | payer MEDICARE, SELFPAY ==
[2025-09-23 16:46] LABS: Hematocrit 51.3 % (37.0-47.0); Hemoglobin 16.4 g/dL (12.0-15.0); Immature Granulocyte Percent A 0.2 % (0-0.5); Lymphocytes Absolute Auto 2.23 K/mm3 (0.9-3.2); Mean Corpuscular HGB Conc 32.0 g/dl (32-36); Mean Corpuscular Hemoglobin 29.7 pg (26-34); Mean Corpuscular Volume 92.9 fl (80-100); Nucleated Red Blood Cells Absolute Auto 0.000 K/mm3 (0.0-0.012); Nucleated Red Blood Cells Perc 0.0 % (0.0-0.2); Platelet Count Result 215 k/mm3 (150-375); Red Blood Count 5.52 M/mm3 (4.2-5.4); White Blood Count 10.9 K/mm3 (4.5-10.0)
[2025-09-23 16:59] LABS: Alanine Aminotransferase 47 U/L (6-35); Albumin Level 4.6 g/dL (3.5-5.1); Alkaline Phosphatase 122 U/L (38-126); Anion Gap 7 mmol/L (4-12); Aspartate Amino Transferase 47 U/L (14-36); Bilirubin,Total 0.9 mg/dL (0.2-1.3); Blood Urea Nitrogen 11 mg/dL (7-17); Calcium 9.9 mg/dL (8.4-10.2); Carbon Dioxide 33 mmol/L (22-30); Chloride 95 mmol/L (98-107); Cholesterol 159 mg/dL (0-200); Estimated Glomerular Filt Rate > 60; Glucose 94 mg/dL (65-110); HDL Direct 67 mg/dL; Potassium 4.4 mmol/L (3.4-5.0); Sodium 135 mmol/L (137-145); Total Protein 7.7 g/dL (6.3-8.2); Triglycerides 77 mg/dL (<150)
[2025-09-23 17:27] LABS: Free T4 Free Thyroxine 1.21 ng/dL (0.78-2.19)
[2025-09-23 17:35] LABS: Thyroid Stimulating Hormone 3.370 uIU/mL (0.465-4.680)
--- OUTSIDE RECORDS SUMMARY | 2025-09-24 14:56 | XMS_ITS | Clinical Summary ---
Author Organization [facility] Address [address] [place] [address] Care Team Providers Care Squash Centre Manager Name Role Phone Unavailable Primary Care Provider [...] Comments Blood Pressure 120/84 11/24/2014 5:56 PM EDGER HAND Pulse - - Temperature - - Respiratory Rate - - Oxygen Saturation - - Inhaled Oxygen Concentration - - Weight 65.8 kg (145 lb) 11/24/2014 5:56 PM EDGER HAND Height 157.5 cm (5' 2) 11/24/2014 5:56 PM EDGER HAND Body Mass Index 26.52 11/24/2014 5:56 PM EDGER HAND Plan of Treatment Health Maintenance Due Date Last Done Comments Colorectal Cancer Screening Colonoscopy (10 Years) 1959 Hepatitis C 1977 DTaP, Tdap and Td Vaccines ( 1 - Tdap) 1978 Mammogram Screening 1999 Pneumococcal Vaccine: 50+ Ye ars (1 of 1 - PCV) 2009 Zoster Vaccines (1 of 2) 2009 Dexa Scan (General) 2024 COVID-19 Vaccine ( - 2024-2 6 season) 2025 Influenza Adult (#1) 2025 RSV [...]
--- OUTSIDE RECORDS SUMMARY | 2025-09-24 14:56 | XMS_ITS | Clinical Summary ---
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 office; no charge Mammary Silic Smth Rnd Mp+ [id number] - [id number] Implanted:Qty: 1 on 03/06/2011 at [facility] Mammary Left: Breast MENT[employer] TALA 01/06/2016 [id number] / [id number] Description:Implant brought from Dr. drew; no charge Insurance Advance Directives For more information, please contact: [phone] * Full Code (Latest Code Status on File) Date Activated Date Inactivated Comments 03/06/2011 12:38 PM 03/06/2011 10:35 PM * Full Code Date Activated Date Inactivated Comments 03/06/2011 10:38 AM 03/06/2011 12:38 PM * Full Code Date Activated Date Inactivated Comments 03/06/2011 9:53 AM 03/06/2011 10:38 AM
--- OUTSIDE RECORDS SUMMARY | 2025-09-24 14:56 | XMS_ITS | Clinical Summary ---
Author Organization [facility] [place] [address] Address [address] [place] [address] Care Team Providers Care Venetian Blind Mechanic Name Role Phone Gayle Hammond MD Primary Care Provider [phone] Allergies Active Allergy Reactions Criticality Noted Date [...] shared decision-making and concepts found within the [employer] [employer] ICD CardioSmart Decision Aid. [...] Decreased cardiac ejection fraction 06/01/2021 History of NE (myocardial infarction) 06/01/2021 Coronary artery disease invo lving [place] coronary artery of [place] heart without angina pectoris 06/01/2021 Other hyperlipidemia 06/01/2021 Tobacco abuse counseling 06/01/2021 Encounters Date Type Department Care Team Description 09/01/2025 Telephone [facility] Medical [facility] Cardiology [address] [place] [address] [place] [phone] Philly Nath MD Med Refill 08/12/2025 1:45 PM CDT Ancillary Procedure [facility] [address] [place] [address] [place] [phone] Automatic implantable cardiac defibrillator in situ (Primary Dx); NICM (nonischemic cardiomyopathy) (HCC) 07/31/2025 Telephone [facility] Cardiology [address] [place] [address] [address] [place] [phone] Philly Nath MD Med Refill 07/13/2025 1:00 PM CDT Ancillary Procedure [facility] [address] [place] [address] [place] [phone] (Primary Dx); NICM (nonischemic cardiomyopathy) (HCC); Supraventricular premature beats 07/07/2025 Telephone [facility] [address] [place] [address] [place] [phone] Mihai Cormier III, MD 06/30/2025 Orders Only [facility] [address] [place] [phone] Mihai Cormier III, MD NICM (nonischemic cardiomyopathy) (HCC) (Primary Dx) 06/29/2025 3:03 PM CDT Anesthesia Event [facility] [address] [place] [address] [phone] Toya Shukla MD [place], Andrew, CRNA 06/29/2025 1:40 PM CDT - 06/29/2025 3:30 PM CDT Surgery [facility] [address] [place] [phone] Mihai Cormier III, MD INSERT/REPLACE IMPLANTABLE CARDIOVERTER-DEFIBRIL LATOR (ICD) DUAL CHAMBER SYSTEM [id number] 06/29/2025 12:16 PM CDT - 06/29/2025 7:07 PM CDT Hospital Encounter [facility] [address] [place] [phone] Mihai Cormier III, MD NICM (nonischemic cardiomyopathy) (HCC); Chronic systolic heart failure (HCC); Decreased cardiac ejection fraction Discharge Disposition: Discharge to home or self care from Last 3 Months Surgical History Surgery Date Site/Laterality Comments TOTAL HIP ARTHROPLASTY FOOT SURGERY THUMB SURGERY HYSTERECTOMY 11/19/2002 - 11/18/2003 Bilateral CARDIAC ELECTROPHYSIOLOGY PROCEDURE 06/29/2025 N/A Procedure: INSERT/REPLACE IMPLANTABLE CARDIOVERTER-DEFIBRILLA TOR (ICD) DUAL CHAMBER SYSTEM [id number]; Surgeon: Mihai Cormier III, MD; 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; Service: Cardiovascular; Laterality: N/A; Medical devices from [...] on file 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 Gender Identity Not on file Sexual Orientation [...] 023 Well Visit 65+ 2024 Covid-19 Vaccine (3 - 2024-2 6 season) 2025 04/05/2021, 03/15/2021 Influenza Vaccine (#1) 2025 , 11/26/2023, 08/24/2022, Additional history exists Fall Risk Assessment 06/29/2026 06/29/2025 Medical Devices Implanted Type Area Garage Door Service Technician Device Identifier Shelf Expiration Date Model / Serial / Lot [employer] Sudeep Defibrillator Dual Chamber Perinatal Tech D Mri Compatible Vigilant 0.99x5.37x7.68cm D233 - [id number] - [id number] Implanted:Qty: 1 on 06/29/2025 by Mihai Cormier III, MD at [facility] ICD [employer] Sudeep 01/29/2027 D233 / [id number] / [employer] Sudeep Lead 7841 Endocardial Pacing Mr Is-1 Bipolar Connection 7841 - [id number] - [id number] Implanted:Qty: 1 on 06/29/2025 by Mihai Cormier III, MD at [facility] Lead [employer] Sudeep 04/29/2027 [id number] / [id number] / [employer] Sudeep Lead Cardioverter Defibrillator Bipolar Active Fixation Endocardium Steroid Eluting [place] 4 Front [id number] 0672 - [id number] - [id number] Implanted:Qty: 1 on 06/29/2025 by Mihai Cormier III, MD at [facility] Lead [employer] Sudeep 04/21/2027 0672 / [id number] / Procedures Procedure Name Priority Date/Time Associated [...] METABOLIC PANEL Routine 06/29/2025 12:47 PM CDT SCREENING MAMMOGRAM BILATERAL W TREVOR W IMPLANTS [...] 65 y.o. female. This patient received a Jerome scientific ICD. They had a routine in [...] 9.3 seconds Episodes last 90 days/Comments: AF [place] 0% Three episodes of nonsustained VT with the longest lasting 3 seconds. Ventricular rates in the 170s to 190s NORMAL DEVICE FUNCTION PROGRAMMED MEDICATIONS: Anti-coagulant(s): Aspirin 81 mg, Plavix 75 mg Anti-arrhythmic(s): Toprol-XL 50 mg daily PLAN: 1) Jerome scientific ICD evaluation. 2) Convozine scientific remote transmission scheduled in 3 months. [...] 65 y.o. female. This patient received a Jerome scientific ICD. They had a routine in [...] 9.3 seconds Episodes last 90 days/Comments: AF [place] 0% 1 VHR - EGM with NSVT for 14sec at 200 bpm NORMAL DEVICE FUNCTION PROGRAMMED MEDICATIONS: Anti-coagulant(s): Asa 81 mg Plavix 75mg daily Anti-arrhythmic(s): toprol 50 mg daily PLAN: 1) [employer] ICD evaluation. 2) [employer] remote transmission scheduled in 3 months. 3) Programming appropriate for device measurements 4) L subclavian incision w/o any drsg. Pt states she removed all the drsg about 2 days after procedure. No bruising pain or swelling. Reviewed arm restrictions and incision care at home. Scheduled for follow up, she will call office with any concerns. Alice Amin RN Mihai Cormier III, MD CV CARDIAC [...] implants. Electronically signed by: Bert Iqbal M.D. Mihai Cormier III, MD IM XR PROCEDURES [...] recess. Electronically signed by: Bert Iqbal M.D. Mihai Cormier III, MD IMG XR PROCEDURES F inal Result * ICD DC NEW (06/29/2025 4:16 PM CDT) Anatomical Region Laterality Modality X-Ray Angiograph y Mihai Cormier III, MD CV ELECTROPHYSIOLOG Y PROCS Final Result * ECG 12 lead (06/29/2025 2:08 PM CDT) 06/29/2025 2:08 PM CDT Narrative [facility] - 06/29/2025 3:37 PM CDT Vent Rate: 93 bpm RR Interval: 641 msec RI Interval: 177 msec QRS Duration: 93 msec QT Interval: 345 msec QTC Interval: 396 msec P-R-T Everetts: 82 - 70 - 77 degrees IMPRESSION: SINUS RHYTHM WITH FREQUENT SUPRAVENTRICULAR PREMATURE COMPLEXES LEFT VENTRICULAR HYPERTROPHY AND ST-T CHANGE [VOLTAGE CRITERIA PLUS ST/T ABNORMALITY] ABNORMAL ECG Electronically Signed By: Reji Coronel MD PhD Mihai Cormier III, MD ECG ORDERABLES Fin al Result [facility] * eGFR (06/29/2025 12:47 PM CDT) eGFR [...] of Race in Diagnosing Kidney Disease, JASN 2020). The CKD-EPI equation should not be used for patients with unstable renal function and has not been validated in children and those over 70. Current interpretive data was last reviewed 2021. Blood 06/29/2025 12:4 7 PM CDT 06/29/2025 1:15 PM CDT Mihai Cormier III, MD LAB BLOOD ORDERABLE S Final Result Performing Organization Address City/[facility] Co de Phone Number [facility] [address] Department [place] [address] * (ABNORMAL) Differential, auto (06/29/2025 12:47 PM CDT) Neutrophil abs 10.09(H) 1.50 - 6.50 K/cumm Imm gran abs 0.05 0.00 - 0.10 K/cumm [facility] Lymphocyte abs 1.64 0.80 - 3.30 K/cumm [facility] Monocyte abs 0.74 0.20 - 0.80 K/cumm [facility] Eosinophil abs 0.19 0.00 - 0.50 K/cumm [facility] Basophil abs 0.06 0.00 - 0.10 K/cumm [facility] Neutrophil pct 79.0 % [facility] Comment: Interpretive Data Percent cell count reference ranges are not reported, since discordance with absolute values may lead to misinterpretation of CBC data. Current Interpretive Data was last revised on 2018. Imm gran pct 0.4 % [facility] Comment: Interpretive Data Percent cell count reference ranges are not reported, since discordance with absolute values may lead to misinterpretation of CBC data. Current Interpretive Data was last revised on 2018. Lymphocyte pct 12.8 % [facility] Comment: Interpretive Data Percent cell count reference ranges are not reported, since discordance with absolute values may lead to misinterpretation of CBC data. Current Interpretive Data was last revised on 2018. Monocyte pct 5.8 % [facility] Comment: Interpretive Data Percent cell count reference ranges are not reported, since discordance with absolute values may lead to misinterpretation of CBC data. Current Interpretive Data was last revised on 2018. Eosinophil pct 1.5 % [facility] Comment: Interpretive Data Percent cell count reference ranges are not reported, since discordance with absolute values may lead to misinterpretation of CBC data. Current Interpretive Data was last revised on 2018. Basophil pct 0.5 % [facility] Comment: Interpretive Data Percent cell count reference ranges are not reported, since discordance with absolute values may lead to misinterpretation of CBC data. Current Interpretive Data was last revised on 2018. Blood 06/29/2025 12:4 7 PM CDT 06/29/2025 1:16 PM CDT us Mihai Cormier III, MD LAB BLOOD ORDERABLE S Final Result [facility] [address] Department [place] [address] * (ABNORMAL) CBC with auto differential (06/29/2025 12:47 PM CDT) [facility] WBC 12.77(H) 3.80 - 9.90 K/cumm Hgb 15.9(H) 11.9 - 15.5 g/dL [facility] Hct 48.1(H) 35.6 - 45.5 % [facility] Plt 277 150 - 400 K/cumm [facility] MPV 10.0 9.1 - 12.3 fL [facility] RBC 5.14 3.90 - 5.20 M/cumm [facility] MCV 93.6 81.3 - 96.4 fL [facility] MCH 30.9 27.1 - 33.3 pg [facility] MCHC 33.1 32.3 - 35.7 g/dL [facility] RDW CV 13.5 11.1 - 14.9 % [facility] RDW SD 46.3 35.7 - 48.1 fL [facility] NRBC abs 0.00 0.00 - 0.01 K/cumm [facility] Blood 06/29/2025 12:4 7 PM CDT 06/29/2025 1:16 PM CDT Narrative [facility] - 06/29/2025 1:22 PM CDT If most recent labs were drawn prior to 4 AM, draw only prior to initiating procedure. Mihai Cormier III, MD LAB BLOOD ORDERABLE S Final Result [facility] [address] Department [place] [address] * (ABNORMAL) Basic metabolic panel (06/29/2025 12:47 PM CDT) [facility] Sodium 132(L) 135 - 145 mmol/L Potassium, pl 4.7 3.3 - 4.9 mmol/L [facility] Chloride 93(L) 97 - 110 mmol/L [facility] CO2 28 22 - 32 mmol/L [facility] Anion gap 11 2 - 15 mmol/L [facility] BUN 14 6 - 25 mg/dL [facility] Creatinine 0.82 0.60 - 1.10 mg/dL [facility] Glucose 109 70 - 199 mg/dL [facility] Comment: Interpretive Data Fasting glucose >/= 126 [...] classification and Diagnosis of Diabetes Diabetes Care 2021; 46: S19-S40. Current interpretive data was last revised 2022. Calcium 9.5 8.5 - 10.3 mg/dL [facility] Blood 06/29/2025 12:4 7 PM CDT 06/29/2025 1:15 PM CDT us Mihai Cormier III, MD LAB BLOOD ORDERABLE S Final Result [facility] [address] Department [place] [address] * Screening Mammogram Bilateral W Trevor W [...] Most Recently Relevant to Health Maintenance Insurance [facility] MEDICARE GOLD [facility] MEDICARE [facility] Advance Directives For more information, please contact: [phone] * Full Code (Latest Code Status on File) Date Activated Date Inactivated Comments 06/29/2025 4:44 PM 06/29/2025 11:07 PM Care Teams Venetian Blind Mechanic Relationship Specialty Start Date End Date Gayle Hammond MD PCP - General Family Medicine 05/30/21
--- OUTSIDE RECORDS SUMMARY | 2025-09-24 14:56 | XMS_ITS | Encounter Summary ---
Author Organization 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
--- OUTSIDE RECORDS SUMMARY | 2025-09-24 14:56 | XMS_ITS | Encounter Summary ---
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
== END 2025-09-23 15:31 | disposition home or self-care (01) ==
LOC: ANHLAB 15:31
PROVIDERS: PCP Family Medicine Adolescent Medicine; Visit Provider Student in an Organized Health Care Education/Training Program
DX: F32.0 Major depressive disorder, single episode, mild (principal); I10 Essential (primary) hypertension; E78.2 Mixed hyperlipidemia; D64.9 Anemia, unspecified; R53.83 Other fatigue
CPT/HCPCS: 36415; 80053; 80061; 84439; 84443; 85025

== ENCOUNTER 2025-09-25 14:13 | Outpatient (CLI) | payer MEDICARE, SELFPAY ==
--- OUTSIDE RECORDS SUMMARY | 2009-01-05 07:45 | XMS_ITS | Continuity of Care Document ---
Author Organization [facility] Address [address] [place] [id number] Phone Care Team Providers Care Adventure Guide Name Role Phone Kenneth Vargas MD Unavailable Unavailable Procedures Procedure Date Office/outpatient visit,est, low 2008 Supplemental Report Office/outpatient visit,est, [facility] 2008 Supplemental Report Work/medical disability examination I M E X-ray exam of shoulder, complete 2007 Advance Directives Directive Yes / No Effective Date File Name No Information Encounters Encounter Description Practice Location Reason(s) For Visit Diagnoses Date Provider Providers Copied on Encounter Office/outpat ient visit,est, low [facility], [address], [id number], tel:[phone] [facility] No Information 9 Alicia Cooper. [address] [facility], [address], [id number] , [place]. tel: [phone] Office/outpat ient visit,est, [facility], [address] [place] [address], [id number], [place] tel:[phone] [facility] No Information 9 Alicia Cooper. [address] [place] [address], [address], [id number] , [place]. tel: [phone] Work/medical disability examination I M E [facility], [address] [place] [address], [id number], [place] tel:[phone] [facility] No Information Alicia Cooper. [address] [facility], [address], [place], [place], [id number] , [place]. tel: [phone] Family History Family Member Type Diagnosis Age At Onset No Information Payers Payer name Insurance type Covered green party ID Girish echavarria(s) [facility] [id number] Social History Type Description Quantity Date Captured Comments Sex Female Smoking Status No Information Chief Complaint And Reason For Visit No Information Reason For Referral Reason For Referral No Information History Of Present Illness Encounter Date Complaint History Of Prese nt Illness No Information Functional Status Date Functional Assessmen t No Information Instructions Date Instruction Additional Infor mation No Information Assessments Type Assessment Date No Information Patient Care Teams Name Effective Dates (start - stop) Status Members No Information
--- OUTSIDE RECORDS SUMMARY | 2010-01-26 07:15 | XMS_ITS | Continuity of Care Document ---
Author Organization [facility] Address [address] [place] [address] [address] [place] [address] Phone Care Team Providers Care Hog Sawyer Name Role Phone Valdez OD, Bernardo Unavailable Unavailable Procedures Procedure Date Eye Exam & Treatment Refraction Eye Exam & Treatment Refraction Eye Exam & Treatment Refraction Advance Directives Directive Yes / No Effective Date File Name No Information Encounters Encounter Description Practice Location Reason(s) For Visit Diagnoses Date Provider Providers Copied on Encounter [facility], [address] [place] [address] [address], [place], [place], [id number], [place] tel:[phone] [facility] No Information 0-201 0 Valdez OD Bernardo. [address] [facility] [address], [place], [address], [place]. tel:[phone] [facility], [address] [place] [address] [address], [place], [place], [id number], [place] tel:[phone] [facility] [place] No Information 1-200 8 Valdez OD Bernardo. [address] [facility] [address], [place], [address], [place]. tel:[phone] [facility], [address] [place] [address] [address], [place], [place], [id number], [place] tel:[phone] [facility] [place] No Information 2-200 7 Valdez OD Bernardo. [address], [place], [address], [place]. tel:[phone] Family History Family Member Type Diagnosis Age At Onset No Information Payers Payer name Insurance type Covered republican ID Authoriza tion(s) No Information Social History Type Description Quantity Date Captured [...]
--- NOTE | ~2025-09-25 | CT_ITS ---
EXAMINATION:CT lung screening DATE: 09/25/2025 14:30 INDICATION: Screening TECHNIQUE: Computed tomography (CT) of the chest was performed without intravenous contrast. The dose-length product (DLP) was 65.70 mGy-cm. COMPARISON: October 29, 2024, and CT exam from October 07, 2024 FINDINGS: 7 mm nodule right lower lobe image 63 series 4 appears to be new with slight spiculation. 4.5 mm subpleural nodule lateral segment right lower lobe image 76 series 4 unchanged. No bulky lymphadenopathy or masses. No focal acute process. Pacemaking wires from the left subclavian pacemaking device/wires extend into the right heart. No paravertebral effusion. Heart size normal. No bulky lymphadenopathy masses. Central large airways patent. Degenerative changes throughout the bones which otherwise appear intact. No acute process seen in the visualized portions of the upper abdomen. Nodular changes left adrenal gland unchanged in appearance. Partially visualized bilateral breast implants. IMPRESSION: Suspicious 7 mm slightly spiculated-appearing right lower lobe nodule. Correlation with PET CT or biopsy recommended. Other chronic findings as above. Reviewed, dictated and finalized at location A. [facility]ER IMPRESSION: Suspicious 7 mm slightly spiculated-appearing right lower lobe no dule. Correlation with PET CT or biopsy recommended. Other chronic findings as above.
--- OUTSIDE RECORDS SUMMARY | 2025-09-25 14:17 | XMS_ITS | Clinical Summary ---
Author Organization [facility] [place] [address] Address [address] [place] [address] Care Team Providers Care Data Entry Specialist Name Role Phone Gayle Hammond MD Primary Care Provider [phone] Allergies Active Allergy Reactions Criticality Noted Date [...] shared decision-making and concepts found within the [employer] ICD CardioSmart Decision Aid. [...] Decreased cardiac ejection fraction 06/01/2021 History of HI (myocardial infarction) 06/01/2021 Coronary artery disease invo lving wilton coronary artery of [place]ilton heart without angina pectoris 06/01/2021 Other hyperlipidemia 06/01/2021 Tobacco abuse counseling 06/01/2021 Encounters Date Type Department Care Team Description 09/01/2025 Telephone [facility] Medical [facility] Cardiology [address] [place] [address] [place] [phone] Philly Nath MD Med Refill 08/12/2025 1:45 PM CDT Ancillary Procedure [facility] [address] [place] [address] [place] [phone] Automatic implantable cardiac defibrillator in situ (Primary Dx); NICM (nonischemic cardiomyopathy) (HCC) 07/31/2025 Telephone [facility] Cardiology [address] [place] [address] [address] [place] [phone] Philly Nath MD Med Refill 07/13/2025 1:00 PM CDT Ancillary Procedure [facility] [address] [place] [address] [place] [phone] (Primary Dx); NICM (nonischemic cardiomyopathy) (HCC); Supraventricular premature beats 07/07/2025 Telephone [facility] [address] [place] [address] [place] [address] [phone] Mihai Cormier III, MD 06/30/2025 Orders Only [facility] [address] [place] [phone] Mihai Cormier III, MD NICM (nonischemic cardiomyopathy) (HCC) (Primary Dx) 06/29/2025 3:03 PM CDT Anesthesia Event [facility] [address] [place] [address] [phone] Toya Shukla MD [place], Andrew, CRNA 06/29/2025 1:40 PM CDT - 06/29/2025 3:30 PM CDT Surgery [facility] [address] [place] [phone] Mihai Cormier III, MD INSERT/REPLACE IMPLANTABLE CARDIOVERTER-DEFIBRIL LATOR (ICD) DUAL CHAMBER SYSTEM [id number] 06/29/2025 12:16 PM CDT - 06/29/2025 7:07 PM CDT Hospital Encounter [facility] [address] [place] [phone] Mihai Cormier III, MD NICM (nonischemic cardiomyopathy) (HCC); Chronic systolic heart failure (HCC); Decreased cardiac ejection fraction Discharge Disposition: Discharge to home or self care from Last 3 Months Surgical History Surgery Date Site/Laterality Comments TOTAL HIP ARTHROPLASTY FOOT SURGERY THUMB SURGERY HYSTERECTOMY 11/19/2002 - 11/18/2003 Bilateral CARDIAC ELECTROPHYSIOLOGY PROCEDURE 06/29/2025 N/A Procedure: INSERT/REPLACE IMPLANTABLE CARDIOVERTER-DEFIBRILLA TOR (ICD) DUAL CHAMBER SYSTEM [id number]; Surgeon: Mihai Cormier III, MD; 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; Service: Cardiovascular; Laterality: N/A; Medical devices from [...] on file 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 Gender Identity Not on file Sexual Orientation [...] 06/29/2026 06/29/2025 Medical Devices Implanted Type Area Wheel Alignment Mechanic Device Identifier Shelf Expiration Date Model / Serial / Lot [employer] Sudeep Defibrillator Dual Chamber Shaker Plate Operator D Mri Compatible Vigilant 0.99x5.37x7.68cm D233 - [id number] - [id number] Implanted:Qty: 1 on 06/29/2025 by Mihai Cormier III, MD at [facility] ICD [employer] Sudeep 01/29/2027 D233 / [id number] / [employer] Sudeep Lead 7841 Endocardial Pacing Mr Is-1 Bipolar Connection 7841 - [id number] - [id number] Implanted:Qty: 1 on 06/29/2025 by Mihai Cormier III, MD at [facility] Lead [employer] Sudeep 04/29/2027 7841 / [id number] / [employer] Sudeep Lead Cardioverter Defibrillator Bipolar Active Fixation Endocardium Steroid Eluting [place] 4 Front [id number] 0672 - [id number] - [id number] Implanted:Qty: 1 on 06/29/2025 by Mihai Cormier III, MD at [facility] Lead [employer] Sudeep 04/21/2027 0672 / [id number] / Procedures Procedure Name Priority Date/Time Associated [...] 65 y.o. female. This patient received a [employer] ICD. They had a routine in [...] 9.3 seconds Episodes last 90 days/Comments: AF [place] 0% Three episodes of nonsustained VT with the longest lasting 3 seconds. Ventricular rates in the 170s to 190s NORMAL DEVICE FUNCTION PROGRAMMED MEDICATIONS: Anti-coagulant(s): Aspirin 81 mg, Plavix 75 mg Anti-arrhythmic(s): Toprol-XL 50 mg daily PLAN: 1) [employer] ICD evaluation. 2) [employer] remote transmission scheduled in 3 months. [...] 65 y.o. female. This patient received a [employer] ICD. They had a routine in [...] 9.3 seconds Episodes last 90 days/Comments: AF [place] 0% 1 VHR - EGM with NSVT for 14sec at 200 bpm NORMAL DEVICE FUNCTION PROGRAMMED MEDICATIONS: Anti-coagulant(s): Asa 81 mg Plavix 75mg daily Anti-arrhythmic(s): toprol 50 mg daily PLAN: 1) [employer] ICD evaluation. 2) [employer] remote transmission scheduled in 3 months. [...] aorta. Bilateral breast implants. Electronically signed by: Betr Iqbal M.D. Mihai Cormier III, MD IM [...] PM CDT) 06/29/2025 2:08 PM CDT Narrative [facility] - 06/29/2025 3:37 PM CDT Vent Rate: 93 bpm RR Interval: 641 msec MO Interval: 177 msec QRS Duration: 93 msec QT Interval: 345 msec QTC Interval: 396 msec P-R-T [place]: 82 - 70 - 77 degrees IMPRESSION: SINUS RHYTHM WITH FREQUENT SUPRAVENTRICULAR PREMATURE COMPLEXES LEFT VENTRICULAR HYPERTROPHY AND ST-T CHANGE [VOLTAGE CRITERIA PLUS ST/T ABNORMALITY] ABNORMAL ECG Electronically Signed By: Reji Coronel MD PhD Mihai Cormier III, MD ECG ORDERABLES Fin al Result [facility] * eGFR (06/29/2025 12:47 PM CDT) eGFR [...] ORDERABLE S Final Result Performing Organization Address City/[facility] Co de Phone Number [facility] [address] [place] [address] * (ABNORMAL) Differential, auto (06/29/2025 12:47 PM CDT) Neutrophil abs 10.09(H) 1.50 - 6.50 K/cumm Imm gran abs 0.05 0.00 - 0.10 K/cumm [facility] Lymphocyte abs 1.64 0.80 - 3.30 K/cumm [facility] Monocyte abs 0.74 0.20 - 0.80 K/cumm [facility] Eosinophil abs 0.19 0.00 - 0.50 K/cumm [facility] Basophil abs 0.06 0.00 - 0.10 K/cumm [facility] Neutrophil pct 79.0 % [facility] Comment: Interpretive Data Percent cell count reference ranges are not reported, since discordance with absolute values may lead to misinterpretation of CBC data. Current Interpretive Data was last revised on 2018. Imm gran pct 0.4 % [facility] Comment: Interpretive Data Percent cell count reference ranges are not reported, since discordance with absolute values may lead to misinterpretation of CBC data. Current Interpretive Data was last revised on 2018. Lymphocyte pct 12.8 % [facility] Comment: Interpretive Data Percent cell count reference ranges are not reported, since discordance with absolute values may lead to misinterpretation of CBC data. Current Interpretive Data was last revised on 2018. Monocyte pct 5.8 % [facility] Comment: Interpretive Data Percent cell count reference ranges are not reported, since discordance with absolute values may lead to misinterpretation of CBC data. Current Interpretive Data was last revised on 2018. Eosinophil pct 1.5 % [facility] Comment: Interpretive Data Percent cell count reference ranges are not reported, since discordance with absolute values may lead to misinterpretation of CBC data. Current Interpretive Data was last revised on 2018. Basophil pct 0.5 % [facility] Comment: Interpretive Data Percent cell count reference ranges are not reported, since discordance with absolute values may lead to misinterpretation of CBC data. Current Interpretive Data was last revised on 2018. Blood 06/29/2025 12:4 7 PM CDT 06/29/2025 1:16 PM CDT us Mihai Cormier III, MD LAB BLOOD ORDERABLE S Final Result [facility] [address] Department [place] [address] * (ABNORMAL) CBC with auto differential (06/29/2025 12:47 PM CDT) [facility] WBC 12.77(H) 3.80 - 9.90 K/cumm Hgb 15.9(H) 11.9 - 15.5 g/dL [facility] Hct 48.1(H) 35.6 - 45.5 % [facility] Plt 277 150 - 400 K/cumm [facility] MPV 10.0 9.1 - 12.3 fL [facility] RBC 5.14 3.90 - 5.20 M/cumm [facility] MCV 93.6 81.3 - 96.4 fL [facility] MCH 30.9 27.1 - 33.3 pg [facility] MCHC 33.1 32.3 - 35.7 g/dL [facility] RDW CV 13.5 11.1 - 14.9 % [facility] RDW SD 46.3 35.7 - 48.1 fL [facility] NRBC abs 0.00 0.00 - 0.01 K/cumm [facility] Blood 06/29/2025 12:4 7 PM CDT 06/29/2025 1:16 PM CDT Narrative [facility] - 06/29/2025 1:22 PM CDT If most recent labs were drawn prior to 4 AM, draw only prior to initiating procedure. Mihai Cormier III, MD LAB BLOOD ORDERABLE S Final Result [facility] [address] Department [place] [address] * (ABNORMAL) Basic metabolic panel (06/29/2025 12:47 PM CDT) [facility] Sodium 132(L) 135 - 145 mmol/L Potassium, pl 4.7 3.3 - 4.9 mmol/L [facility] Chloride 93(L) 97 - 110 mmol/L [facility] CO2 28 22 - 32 mmol/L [facility] Anion gap 11 2 - 15 mmol/L [facility] BUN 14 6 - 25 mg/dL [facility] Creatinine 0.82 0.60 - 1.10 mg/dL [facility] Glucose 109 70 - 199 mg/dL [facility] Comment: Interpretive Data Fasting glucose >/= [...] 2022. Calcium 9.5 8.5 - 10.3 mg/dL [facility] Blood 06/29/2025 12:4 7 PM CDT 06/29/2025 1:15 PM CDT us Mihai Cormier III, MD LAB BLOOD ORDERABLE S Final Result [facility] [address] Department [place] [address] * Screening Mammogram Bilateral W Trevor W [...] Most Recently Relevant to Health Maintenance Insurance [facility] MEDICARE [employer] [facility] MEDICARE [facility] Advance Directives For more information, please contact: [phone] * Full Code (Latest Code Status on File) Date Activated Date Inactivated Comments 06/29/2025 4:44 PM 06/29/2025 11:07 PM Care Teams Data Entry Specialist Relationship Specialty Start Date End Date Gayle Hammond MD PCP - General Family Medicine 05/30/21
--- OUTSIDE RECORDS SUMMARY | 2025-09-25 14:17 | XMS_ITS | Encounter Summary ---
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
--- OUTSIDE RECORDS SUMMARY | 2025-09-25 14:17 | XMS_ITS | Clinical Summary ---
Author Organization 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 office; no charge Mammary Silic Smth Rnd Mp+ [id number] - [id number] Implanted:Qty: 1 on 03/06/2011 at [facility] Mammary Left: Breast [employer] TALA 01/06/2016 [id number] / [id number] Description:Implant brought from Dr. drew; no charge Insurance Advance Directives For more information, please contact: [phone] * Full Code (Latest Code Status on File) Date Activated Date Inactivated Comments 03/06/2011 12:38 PM 03/06/2011 10:35 PM * Full Code Date Activated Date Inactivated Comments 03/06/2011 10:38 AM 03/06/2011 12:38 PM * Full Code Date Activated Date Inactivated Comments 03/06/2011 9:53 AM 03/06/2011 10:38 AM
--- OUTSIDE RECORDS SUMMARY | 2025-09-25 14:17 | XMS_ITS | Encounter Summary ---
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
--- OUTSIDE RECORDS SUMMARY | 2025-09-25 14:17 | XMS_ITS | Clinical Summary ---
Author Organization [facility] Address [address] [place] [address] Care Team Providers Care Mailer Name Role Phone Unavailable Primary Care Provider [...] Comments Blood Pressure 120/84 11/24/2014 5:56 PM LOADING MACHINE TOOL SETTER Pulse - - Temperature - - Respiratory Rate - - Oxygen Saturation - - Inhaled Oxygen Concentration - - Weight 65.8 kg (145 lb) 11/24/2014 5:56 PM LOADING MACHINE TOOL SETTER Height 157.5 cm (5' 2) 11/24/2014 5:56 PM LOADING MACHINE TOOL SETTER Body Mass Index 26.52 11/24/2014 5:56 PM LOADING MACHINE TOOL SETTER Plan of Treatment Health Maintenance Due Date [...]
== END 2025-09-25 14:14 | disposition home or self-care (01) ==
LOC: ANHIMG 14:15
PROVIDERS: PCP Family Medicine Adolescent Medicine; Visit Provider Nurse Practitioner Family
DX: Z12.2 Encounter for screening for malignant neoplasm of respiratory organs (principal); R91.1 Solitary pulmonary nodule; Z87.891 Personal history of nicotine dependence
CPT/HCPCS: 71271